=== PATIENT | male | born 1940 | race Caucasian/White ===

== ENCOUNTER → 2017-01-17 | Outpatient (CLI) | payer MEDICARE, BC ==
--- NOTE | 2017-01-19 11:36 | P.ARTDOP ---
Arterial Doppler LOWER EXTREMITY ARTERIAL DOPPLER: DATE OF SERVICE: 01/17/2017 Reason for study: : Cold Feet. Doppler waveforms: Multiphasic bilaterally throughout. Pulse volume recording: Normal configuration. Pressure gradients: None. Ankle-brachial indices: Greater than 1 bilaterally. Toe pressures: 82 on the right, 99 on the left Impression: Normal study.
== END | disposition home or self-care (01) ==
LOC: RADUSWWP 12:04
PROVIDERS: ATTEND Family Medicine
DX: R20.8 Other disturbances of skin sensation (principal)
CPT/HCPCS: 93923

== ENCOUNTER 2018-04-11 10:52 | Day surgery (SDC) | payer MEDICARE ==
[2018-04-03 15:45] VITALS: BMI 34.8
[~2018-04-11 10:52] MED LIST: LACTATED RINGERS 1,000 ML IV SCH; LIDOCAINE 1% 20 ML VIAL (10MG/ML) FOR IV START INTRADERMA PRN; MIDAZOLAM 2 MG/2 ML VIAL IV PRN; SODIUM CHLORIDE 0.9% 1,000 ML IV SCH; ceFAZolin 1,000 MG in SODIUM CHLORIDE 0.9% IRRIGATIO 250 ML IRRIGATION ONE; ceFAZolin IN SWFI 2 GM/20 ML SYRINGE IVP ONE
[2018-04-11] MEDS ORDERED: SODIUM CHLORIDE 0.9% 500 ML IV ONE (11:18)
[2018-04-11 11:40] VITALS: RESP 16; TEMP 97.5
[2018-04-11 11:49] LABS: Glucose,Whole Blood 99 mg/dL (75-99)
[2018-04-11 12:35] LABS: INR 1.3 (<1.2); Prothrombin Time 12.1 sec (9.0-12.0)
[2018-04-11] MEDS ORDERED: fentaNYL (PF) 50 MCG/ML 2 ML AMP IV ONE (12:35)
[2018-04-11] MEDS ORDERED: MIDAZOLAM 2 MG/2 ML VIAL IV ONE (12:35)
[2018-04-11] MEDS ORDERED: LIDOCAINE 1% INJ 10MG/ML (20 ML MDV) SQ ONE (12:40)
[2018-04-11] MEDS ORDERED: ACETAMINOPHEN TAB 325 MG TAB PO PRN (13:02)
--- NOTE | 2018-04-11 13:10 | P.PCN ---
Date of Procedure: 04/11/18 Preoperative Diagnosis: Battery depletion Postoperative Diagnosis: The same Procedure(s) Performed: Battery replacement Description of Procedure: HISTORY: This is a 78-year-old gentleman with history of permanent pacemaker implantation and also atrial fibrillation who was admitted [facility]. Patient was brought in for elective replacement. CONSENT: I have discussed the risks and benefits as related to the above mentioned procedure and both sedation/analgesia as well as necessary blood product administration. The patient has indicated understanding and acceptance of the risks of the procedure discussed. PROCEDURE: Patient was brought to the lab in a fasting state. Patient was given IV Versed and fentanyl for sedation. The skin over the existing pulse generator was infiltrated with lidocaine. An incision was made in the skin and was deepened until the pectoral fascia was exposed. Hemostasis was obtained. The existing pulse generator was pulled out of the pocket. The lead was disconnected and were checked for thresholds. Conscious Sedation: Versed 1mg Fentanyl 25 g Duration 19minutes THRESHOLDS: VENTRICULAR: The minimum patient threshold was 0.7 V at a pulse width of 0.5 ms R-wave: 8 mV THE LEADS: VENTRICULAR: This is manufactured by [employer] Model number is 4457. Serial number is [id number] THE EXPLANTED DEVICE: This is manufactured by [employer] Model number is S601 and the serial number is [id number] THE NEW DEVICE: This is manufactured by [employer]. Model number is [id number] and the serial number is [id number]. The leads were then connected to a new pulse generator. Pacemaker seems to function normally. The pocket was irrigated with antibiotics. The pocket was closed in the usual fashion. Pectoral fascia was closed with 2-0 Prolene, the subcutaneous tissue was closed with 3-0 Prolene and the skin was closed with 4- 0 Prolene. Patient tolerated the procedure well . Patient will be monitored on the telemetry unit for 2-3 hours. If stable patient be discharged home later today. PLAN: Patient will monitor for the next few hours. If stable patient be discharged home later today FALLOW UP: Follow up with Dr. Hall in a week. Patient will resume his Coumadin and continue rest of the medication. He is also getting prophylactic antibiotics.
[2018-04-11 15:00] VITALS: PULSE 50
[2018-04-11 17:24] VITALS: BP 138/79
== END 2018-04-11 17:24 | disposition home or self-care (01) ==
LOC: CATHEP 10:52
PROVIDERS: ATTEND Internal Medicine Cardiovascular Disease
DX: Z45.010 Encounter for checking and testing of cardiac pacemaker pulse generator [battery] (principal); I48.1 Persistent atrial fibrillation; I25.10 Atherosclerotic heart disease of native coronary artery without angina pectoris; I10 Essential (primary) hypertension; I71.4 Abdominal aortic aneurysm, without rupture; E78.2 Mixed hyperlipidemia; Z79.01 Long term (current) use of anticoagulants; Z79.4 Long term (current) use of insulin; Z79.899 Other long term (current) drug therapy; Z88.6 Allergy status to analgesic agent; Z88.1 Allergy status to other antibiotic agents; Z88.3 Allergy status to other anti-infective agents; Z88.5 Allergy status to narcotic agent; Z88.8 Allergy status to other drugs, medicaments and biological substances; Z88.2 Allergy status to sulfonamides
CPT/HCPCS: 85610; 33227; J2250; J2001; J3010; J0690; 33228

== ENCOUNTER → 2018-07-18 | Outpatient (CLI) | payer MEDICARE ==
[2018-07-18 09:43] LABS: INR 2.7 (<1.2); Prothrombin Time 24.3 sec (9.0-12.0)
== END ==
LOC: LABWHC1 08:47
PROVIDERS: ATTEND Dentist Oral and Maxillofacial Surgery
DX: D68.9 Coagulation defect, unspecified (principal)
CPT/HCPCS: 36415; 85610

== ENCOUNTER 2018-12-14 18:07 | Inpatient (IN) | payer MEDICARE ==
[2018-12-14] MEDS ORDERED: IPRATROPIUM-ALBUTEROL 3 ML NEB INHALATION STA (19:36)
--- NOTE | 2018-12-14 19:37 | ED ---
SOB HPI - General Source: patient, RN notes reviewed Mode of arrival: ambulatory Limitations: no limitations <Lonnie Saucedo - Last Filed: 12/14/18 20:36> <Pan Velazquez - Last Filed: 12/14/18 21:41> - General Chief Complaint: Shortness of Breath Stated Complaint: CHF Time Seen by Provider: 12/14/18 18:21 - History of Present Illness Initial Comments: 78-year-old male presents emergency Department chief complaint shortness of breath. Patient had increasing shortness breath over the last 1 week. Patient was seen at PCPs office today and sent here for CHF exacerbation. Patient has noticed some leg swelling, orthopnea. Patient was given Lasix injection in office. Patient denies any current chest pain but states he has shortness breath and slight tightness associated with this. Patient states he has no known lung disease. Patient had a pleural effusion which she had a thoracentesis in the past. Patient does not take any current Lasix. Patient denies fever or chills. (Lonnie Saucedo) - Related Data Home Medications Medication Instructions Recorded Confirmed Metoprolol Tartrate [Lopressor] 25 mg PO BID 02/28/14 12/14/18 Multivitamin [Men's Multi-Vitamin] 1 tab PO DAILY 02/28/14 12/14/18 Warfarin [Coumadin] 1 mg PO DAILY 12/27/14 12/14/18 Azithromycin [Zithromax Z-pack] See Taper PO DAILY 12/14/18 12/14/18 Benzonatate [Tessalon Perles] 100 mg PO TID PRN 12/14/18 12/14/18 Betamethasone/Propylene Glyc 1 applic TOPICAL DAILY PRN 12/14/18 12/14/18 [Betamethasone Dp Aug 0.05% Lot] Fenofibrate [Lofibra] 160 mg PO DAILY 12/14/18 12/14/18 Furosemide [Lasix] 20 mg PO MOWEFR 12/14/18 12/14/18 Insulin Glargine,Hum.rec.anlog 12 unit SQ HS 12/14/18 12/14/18 [Basaglar Kwikpen U-100] Lovastatin [Mevacor] 40 mg PO HS 12/14/18 12/14/18 Allergies Allergy/AdvReac Type Severity Reaction Status Date / Time doxazosin mesylate AdvReac Unknown Verified 12/14/18 18:44 [From Cardura] finasteride [From Proscar] AdvReac Unknown Verified 12/14/18 18:44 gatifloxacin [From Tequin] AdvReac Unknown Verified 12/14/18 18:44 glipizide AdvReac Unknown Verified 12/14/18 18:44 hydroxyzine HCl [From Atarax] AdvReac Unknown Verified 12/14/18 18:44 levofloxacin [From Levaquin] AdvReac Unknown Verified 12/14/18 18:44 lisinopril AdvReac Unknown Verified 12/14/18 18:44 meperidine HCl [From Demerol] AdvReac Unknown Verified 12/14/18 18:44 metformin AdvReac Unknown Verified 12/14/18 18:44 oxybutynin AdvReac Unknown Verified 12/14/18 18:44 oxybutynin chloride AdvReac Unknown Verified 12/14/18 18:44 [From Ditropan] pseudoephedrine HCl AdvReac Unknown Verified 12/14/18 18:44 [From Sudafed] rosuvastatin calcium AdvReac Unknown Verified 12/14/18 18:44 [From Crestor] Sulfa (Sulfonamide AdvReac Unknown Verified 12/14/18 18:44 Antibiotics) tamsulosin AdvReac Unknown Verified 12/14/18 18:44 tamsulosin HCl [From Flomax] AdvReac Unknown Verified 12/14/18 18:44 terazosin HCl [From Hytrin] AdvReac Unknown Verified 12/14/18 18:44 Review of Systems ROS Other: All systems not noted in ROS Statement are negative. <Lonnie Saucedo - Last Filed: 12/14/18 20:36> ROS Other: All systems not noted in ROS Statement are negative. <Pan Velazquez - Last Filed: 12/14/18 21:41> ROS Statement: Those systems with pertinent positive or pertinent negative responses have been documented in the HPI. Past Medical History Past Medical History: Atrial Fibrillation, Asthma, Chest Pain / Angina, Heart Failure, Diabetes Mellitus, Deep Vein Thrombosis (DVT), Eye Disorder, Hyperlip idemia, Hypertension, Prostate Disorder, Renal Disease, Sleep Apnea/CPAP/BIPAP Additional Past Medical History / Comment(s): See Dr. Deal H&P. unable to tolerate CPAP therapy, hx kidney stones, tonic atrial fibrillation, pacemaker insertion for sick sinus syndrome, abdominal aneurysm History of Any Multi-Drug Resistant Organisms: None Reported Past Surgical History: Heart Catheterization, Pacemaker, Prostate Surgery Additional Past Surgical History / Comment(s): ESWL. PACEMAKER INSERTION; TURP Past Anesthesia/Blood Transfusion Reactions: Motion Sickness Type of Cardiac Device: Permanent Pacemaker Device Placement Date:: 01/01/2009 Past Psychological History: No Psychological Hx Reported Smoking Status: Never smoker - Past Family History Mother Family Medical History: CVA/TIA, Hypertension Father Family Medical History: CVA/TIA <Lonnie Saucedo - Last Filed: 12/14/18 20:36> General Exam Limitations: no limitations General appearance: alert, in no apparent distress Head exam: Present: atraumatic, normocephalic, normal inspection Eye exam: Present: normal appearance, PERRL, EOMI. Absent: scleral icterus, conjunctival injection, periorbital swelling ENT exam: Present: normal exam, normal oropharynx, mucous membranes moist Neck exam: Present: normal inspection. Absent: tenderness, meningismus, lymphadenopathy Respiratory exam: Present: respiratory distress (mild), wheezes, rales. Absent: normal lung sounds bilaterally, rhonchi, stridor Cardiovascular Exam: Present: regular rate, normal rhythm, normal heart sounds. Absent: systolic murmur, diastolic murmur, rubs, gallop, clicks Extremities exam: Present: pedal edema Skin exam: Present: warm, dry, intact, normal color. Absent: rash <Lonnie Saucedo - Last Filed: 12/14/18 20:36> Course <Pan Velazquez - Last Filed: 12/14/18 21:41> Vital Signs 12/14/18 12/14/18 12/14/18 18:07 19:55 20:07 Temperature 98.3 F Pulse Rate 88 49 L 50 L Respiratory 22 Rate Blood Pressure 171/78 O2 Sat by Pulse 92 L Oximetry 12/14/18 21:00 Temperature Pulse Rate 65 Respiratory 20 Rate Blood Pressure 165/80 O2 Sat by Pulse 99 Oximetry - Reevaluation(s) Reevaluation #1: 12/14/18 20:50 PA supervision: I proceeded [id number] evaluation the patient he was sent in from his doctor's office after presenting with complaints of one week of progressively worsening shortness of breath some exertional dyspnea. He is found to have some rales and wheezes diminished breath sounds. Exam is consistent with congestive heart failure. He does have elevated BNP does have cardiomegaly and evidence of pulmonary venous congestion. He will be admitted the case is discussed with Dr. Sampson and I do agree with the assessment and plan. (Pan Velazquez) Reevaluation #2: 12/14/18 21:41 The case today she discussed with Dr. Regan who is covering tonight. (Pan Velazquez) Medical Decision Making - Lab Data Result diagrams: 12/14/18 19:39 12/14/18 19:39 <Lonnie Saucedo - Last Filed: 12/14/18 20:36> - Lab Data Result diagrams: 12/14/18 19:39 12/14/18 19:39 <Pan Velazquez - Last Filed: 12/14/18 21:41> - Medical Decision Making 78-year-old male presented from for dyspnea. Patient has elevated BNP, , chest x-ray shows mild pulmonary edema. Patient be admitted for IV Lasix. Patient did receive Lasix prior arrival. Patient will continue doing treatments. (Lonnie Saucedo) - Lab Data Lab Results 12/14/18 12/14/18 12/14/18 Range/Units 19:39 19:39 19:39 WBC 7.5 (3.8-10.6) k/uL RBC 4.62 (4.30-5.90) m/uL Hgb 14.0 (13.0-17.5) gm/dL Hct 45.0 (39.0-53.0) % MCV 97.3 (80.0-100.0) fL MCH 30.3 (25.0-35.0) pg MCHC 31.2 (31.0-37.0) g/dL RDW 15.7 H (11.5-15.5) % Plt Count 186 (150-450) k/uL Neutrophils % 69 % Lymphocytes % 18 % Monocytes % 7 % Eosinophils % 3 % Basophils % 1 % Neutrophils # 5.2 (1.3-7.7) k/uL Lymphocytes # 1.3 (1.0-4.8) k/uL Monocytes # 0.5 (0-1.0) k/uL Eosinophils # 0.2 (0-0.7) k/uL Basophils # 0.0 (0-0.2) k/uL PT (9.0-12.0) sec INR (<1.2) APTT (22.0-30.0) sec Sodium 142 (137-145) mmol/L Potassium 5.4 H (3.5-5.1) mmol/L Chloride 106 (98-107) mmol/L Carbon Dioxide 29 (22-30) mmol/L Anion Gap 7 mmol/L BUN 26 H (9-20) mg/dL Creatinine 1.46 H (0.66-1.25) mg/dL Est GFR (CKD-EPI)AfAm 52 (>60 ml/min/1.73 sqM) Est GFR (CKD-EPI)NonAf 45 (>60 ml/min/1.73 sqM) Glucose 112 H (74-99) mg/dL Calcium 9.7 (8.4-10.2) mg/dL Magnesium 1.9 (1.6-2.3) mg/dL Total Bilirubin 1.0 (0.2-1.3) mg/dL AST 37 (17-59) U/L ALT 19 L (21-72) U/L Alkaline Phosphatase 37 L (38-126) U/L Troponin I (0.000-0.034) ng/mL NT-Pro-B Natriuret Pep 3470 pg/mL Total Protein 8.8 H (6.3-8.2) g/dL Albumin 4.7 (3.5-5.0) g/dL 12/14/18 12/14/18 Range/Units 19:39 19:39 WBC (3.8-10.6) k/uL RBC (4.30-5.90) m/uL Hgb (13.0-17.5) gm/dL Hct (39.0-53.0) % MCV (80.0-100.0) fL MCH (25.0-35.0) pg MCHC (31.0-37.0) g/dL RDW (11.5-15.5) % Plt Count (150-450) k/uL Neutrophils % % Lymphocytes % % Monocytes % % Eosinophils % % Basophils % % Neutrophils # (1.3-7.7) k/uL Lymphocytes # (1.0-4.8) k/uL Monocytes # (0-1.0) k/uL Eosinophils # (0-0.7) k/uL Basophils # (0-0.2) k/uL PT 23.2 H (9.0-12.0) sec INR 2.4 H (<1.2) APTT 31.1 H (22.0-30.0) sec Sodium (137-145) mmol/L Potassium (3.5-5.1) mmol/L Chloride (98-107) mmol/L Carbon Dioxide (22-30) mmol/L Anion Gap mmol/L BUN (9-20) mg/dL Creatinine (0.66-1.25) mg/dL Est GFR (CKD-EPI)AfAm (>60 ml/min/1.73 sqM) Est GFR (CKD-EPI)NonAf (>60 ml/min/1.73 sqM) Glucose (74-99) mg/dL Calcium (8.4-10.2) mg/dL Magnesium (1.6-2.3) mg/dL Total Bilirubin (0.2-1.3) mg/dL AST (17-59) U/L ALT (21-72) U/L Alkaline Phosphatase (38-126) U/L Troponin I 0.049 H* (0.000-0.034) ng/mL NT-Pro-B Natriuret Pep pg/mL Total Protein (6.3-8.2) g/dL Albumin (3.5-5.0) g/dL Disposition <Lonnie Saucedo - Last Filed: 12/14/18 20:36> <Pan Velazquez - Last Filed: 12/14/18 21:41> Clinical Impression: Acute exacerbation of CHF (congestive heart failure), Dyspnea, Renal insufficiency syndrome, Elevated troponin Disposition: ADMITTED IP TO THIS HOSP Condition: Fair Referrals: Lonnie Hewitt DO [Primary Care Provider] - 1-2 days
[2018-12-14 19:54] LABS: Basophils % (A) 1 %; Eosinophils # (A) 0.2 k/uL (0-0.7); Eosinophils % (A) 3 %; Lymphocytes # (A) 1.3 k/uL (1.0-4.8); Lymphocytes % (A) 18 %; MCH 30.3 pg (25.0-35.0); MCHC 31.2 g/dL (31.0-37.0); MCV 97.3 fL (80.0-100.0); Mean Platelet Volume 7.9; Monocytes # (A) 0.5 k/uL (0-1.0); Monocytes % (A) 7 %; Neutrophils # (A) 5.2 k/uL (1.3-7.7); Neutrophils % (A) 69 %; Platelet Count 186 k/uL (150-450); RBC 4.62 m/uL (4.30-5.90); RDW 15.7 % (11.5-15.5); WBC 7.5 k/uL (3.8-10.6)
[2018-12-14 20:01] LABS: INR 2.4 (<1.2); Partial Thromboplastin Time 31.1 sec (22.0-30.0); Prothrombin Time 23.2 sec (9.0-12.0)
[2018-12-14 20:04] LABS: Albumin 4.7 g/dL (3.5-5.0); Calcium 9.7 mg/dL (8.4-10.2); Magnesium 1.9 mg/dL (1.6-2.3); Total Protein 8.8 g/dL (6.3-8.2)
[2018-12-14 20:13] LABS: Potassium 5.4 mmol/L (3.5-5.1)
[2018-12-14] MEDS ORDERED: FUROSEMIDE 10 MG/ML 2 ML VIAL IV ONE (20:39)
[2018-12-15] MEDS: IPRATROPIUM-ALBUTEROL 3 ML NEB INHALATION SCH ×7 (02:59→23:15)
[2018-12-15] MEDS: FUROSEMIDE 10 MG/ML 4 ML VIAL IV SCH ×2 (09:01→21:07)
[2018-12-15 11:45] LABS: Glucose,Whole Blood 129 mg/dL (75-99)
[2018-12-15] MEDS ORDERED: BENZONATATE 100 MG CAP PO PRN (14:09)
[2018-12-15] MEDS ORDERED: TRIAMCINOLONE 0.1% CREAM 80 GM TUBE TOPICAL PRN (14:09)
[2018-12-15] MEDS ORDERED: METOPROLOL TARTRATE 25 MG TAB PO STA (15:09)
[2018-12-15 16:04] VITALS: BMI 35.2
[2018-12-15 16:24] LABS: Glucose,Whole Blood 139 mg/dL (75-99)
[2018-12-15] MEDS: WARFARIN 1 MG TAB PO SCH (17:19)
[2018-12-15] MEDS: INSULIN DETEMIR (LEVEMIR) 100 UNIT/ML SYR SQ SCH (21:06)
[2018-12-15] MEDS: METOPROLOL TARTRATE 25 MG TAB PO SCH (21:07)
[2018-12-15] MEDS: ATORVASTATIN 10 MG TAB PO SCH (21:07)
[2018-12-15 21:13] LABS: Glucose,Whole Blood 167 mg/dL (75-99)
[2018-12-16] MEDS: IPRATROPIUM-ALBUTEROL 3 ML NEB INHALATION SCH ×6 (03:14→23:29)
[2018-12-16 05:49] LABS: Glucose,Whole Blood 104 mg/dL (75-99)
[2018-12-16 08:04] LABS: Calcium 9.3 mg/dL (8.4-10.2); Potassium 4.3 mmol/L (3.5-5.1)
[2018-12-16 08:20] LABS: Basophils % (A) 0 %; Eosinophils # (A) 0.2 k/uL (0-0.7); Eosinophils % (A) 3 %; HCT 41.9 % (39.0-53.0); HGB 13.3 gm/dL (13.0-17.5); Lymphocytes # (A) 1.2 k/uL (1.0-4.8); Lymphocytes % (A) 17 %; MCH 30.5 pg (25.0-35.0); MCHC 31.7 g/dL (31.0-37.0); MCV 96.2 fL (80.0-100.0); Mean Platelet Volume 7.7; Monocytes # (A) 0.6 k/uL (0-1.0); Monocytes % (A) 8 %; Neutrophils # (A) 4.9 k/uL (1.3-7.7); Neutrophils % (A) 68 %; Platelet Count 179 k/uL (150-450); RBC 4.36 m/uL (4.30-5.90); RDW 14.6 % (11.5-15.5); WBC 7.2 k/uL (3.8-10.6)
[2018-12-16] MEDS: METOPROLOL TARTRATE 25 MG TAB PO SCH ×2 (09:16→20:47)
[2018-12-16] MEDS: FENOFIBRATE 160 MG TAB PO SCH (09:16)
[2018-12-16] MEDS: FUROSEMIDE 10 MG/ML 4 ML VIAL IV SCH ×2 (09:16→19:32)
[2018-12-16 11:21] LABS: Glucose,Whole Blood 168 mg/dL (75-99)
[2018-12-16 13:07] LABS: INR 1.8 (<1.2); Prothrombin Time 17.8 sec (9.0-12.0)
[2018-12-16] MEDS: MULTIVITAMINS, THERA 1 EACH TAB PO SCH (13:15)
--- NOTE | 2018-12-16 15:09 | P.HPIM ---
History of Present Illness H&P Date: 12/15/18 Chief Complaint: Shortness of breath 78-year-old male presents emergency Department chief complaint shortness of breath. Patient had increasing shortness breath over the last 1 week. Patient was seen at PCPs office today and sent here for CHF exacerbation. Patient has noticed some leg swelling, orthopnea. Patient was given Lasix injection in office. Patient denies any current chest pain but states he has shortness breath and slight tightness associated with this. Patient states he has no known lung disease. Patient had a pleural effusion which she had a thoracen tesis in the past. Patient does not take any current Lasix. Patient denies fever or chills. Workup in ED was significant for an elevated BNP and chest x-ray showing mild pulmonary edema; patient is started on IV Lasix and is admitted for further treatment and evaluation Review of Systems Constitutional: Denies chills, Denies fever Eyes: denies blurred vision, denies loss of vision Cardiovascular: Reports dyspnea on exertion, Reports shortness of breath, Denies chest pain, Denies palpitations Respiratory: Denies cough with sputum Gastrointestinal: Denies abdominal pain, Denies nausea, Denies vomiting Musculoskeletal: Denies gait dysfunction, Denies muscle weakness Neurological: Denies confusion, Denies double vision, Denies gait dysfunction, Denies paresthesias Endocrine: Denies cold intolerance, Denies heat intolerance 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, past L pleural effusion with thoracentesis, DVT L lower extremity, BPH with surgery, CKD, kiney stones with surgery, abdominal aortic aneurysm being monitored every 6 months, STEPHAN-unable to tolerate CPap, SSS with pacemaker, vertigo in the past, seasonal allergies History of Any Multi-Drug Resistant Organisms: None Reported Past Surgical History: Heart Catheterization, Pacemaker, Prostate Surgery Additional Past Surgical History / Comment(s): Pacemaker inserted 01/01/09 and gen change 04/11/18, TURP, ESWL, cysto/TURP, colonoscopy Past Anesthesia/Blood Transfusion Reactions: Motion Sickness Type of Cardiac Device: Permanent Pacemaker Device Placement Date:: 01/01/2009 and gen change 03/2018 Smoking Status: Former smoker - Past Family History Mother Family Medical History: CVA/TIA, Hypertension Additional Family Medical History / Comment(s): Mother lived to be 85yrs old. Father Family Medical History: CVA/TIA Additional Family Medical History / Comment(s): Father from a CVA at the age of 78yrs. Medications and Allergies Home Medications Medication Instructions Recorded Confirmed Type Metoprolol Tartrate [Lopressor] 25 mg PO BID 02/28/14 12/14/18 History Multivitamin [Men's Multi-Vitamin] 1 tab PO DAILY 02/28/14 12/14/18 History Warfarin [Coumadin] 1 mg PO DAILY 12/27/14 12/14/18 History Benzonatate [Tessalon Perles] 100 mg PO TID PRN 12/14/18 12/14/18 History Betamethasone/Propylene Glyc 1 applic TOPICAL DAILY PRN 12/14/18 12/14/18 History [Betamethasone Dp Aug 0.05% Lot] Fenofibrate [Lofibra] 160 mg PO DAILY 12/14/18 12/14/18 History Furosemide [Lasix] 20 mg PO MOWEFR 12/14/18 12/14/18 History Insulin Glargine,Hum.rec.anlog 12 unit SQ HS 12/14/18 12/14/18 History [Basaglar Kwikpen U-100] Lovastatin [Mevacor] 40 mg PO HS 12/14/18 12/14/18 History Allergies Allergy/AdvReac Type Severity Reaction Status Date / Time doxazosin mesylate AdvReac Unknown Verified 12/14/18 18:44 [From Cardura] finasteride [From Proscar] AdvReac Unknown Verified 12/14/18 18:44 gatifloxacin [From Tequin] AdvReac Unknown Verified 12/14/18 18:44 glipizide AdvReac Unknown Verified 12/14/18 18:44 hydroxyzine HCl [From Atarax] AdvReac Unknown Verified 12/14/18 18:44 levofloxacin [From Levaquin] AdvReac Unknown Verified 12/14/18 18:44 lisinopril AdvReac Unknown Verified 12/14/18 18:44 meperidine HCl [From Demerol] AdvReac Unknown Verified 12/14/18 18:44 metformin AdvReac Unknown Verified 12/14/18 18:44 oxybutynin AdvReac Unknown Verified 12/14/18 18:44 oxybutynin chloride AdvReac Unknown Verified 12/14/18 18:44 [From Ditropan] pseudoephedrine HCl AdvReac Unknown Verified 12/14/18 18:44 [From Sudafed] rosuvastatin calcium AdvReac Unknown Verified 12/14/18 18:44 [From Crestor] Sulfa (Sulfonamide AdvReac Unknown Verified 12/14/18 18:44 Antibiotics) tamsulosin AdvReac Unknown Verified 12/14/18 18:44 tamsulosin HCl [From Flomax] AdvReac Unknown Verified 12/14/18 18:44 terazosin HCl [From Hytrin] AdvReac Unknown Verified 12/14/18 18:44 Physical Exam Vitals: Vital Signs Temp Pulse Pulse Resp BP BP Pulse Ox 12/15/18 12:30 84 16 12/15/18 12:20 84 16 12/15/18 11:30 98.1 F 82 16 137/65 90 L 12/15/18 11:00 98.0 F 60 16 133/60 97 12/15/18 09:00 98.2 F 53 L 18 132/58 97 12/15/18 08:17 50 L 12/15/18 08:11 56 L 12/15/18 07:29 87 18 137/60 96 12/15/18 06:26 98.1 F 64 16 137/65 97 12/15/18 03:08 50 L 12/15/18 03:00 55 L 12/15/18 02:24 60 24 148/69 96 12/14/18 23:00 99.2 F 55 L 20 147/54 94 L 12/14/18 21:00 65 20 165/80 99 12/14/18 20:07 50 L 12/14/18 19:55 49 L 12/14/18 18:07 98.3 F 88 22 171/78 92 L Intake and Output 12/14/18 12/15/18 12/15/18 22:59 06:59 14:59 Intake Total 308 240 Output Total 794 853 7537 Balance -200 -217 -985 Intake: Oral 308 240 Output: Urine 371 305 6257 Other: Voiding Method Urinal # Voids 3 Weight 99.79 kg 98.9 kg Limitations: no limitations General appearance: alert, in no apparent distress Head exam: Present: atraumatic, normocephalic, normal inspection Eye exam: Present: normal appearance, PERRL, EOMI. Absent: scleral icterus, conjunctival injection, periorbital swelling ENT exam: Present: normal exam, normal oropharynx, mucous membranes moist Neck exam: Present: normal inspection. Absent: tenderness, meningismus, lymphadenopathy Respiratory exam: Present: respiratory distress (mild), wheezes, rales. Absent: normal lung sounds bilaterally, rhonchi, stridor Cardiovascular Exam: Present: regular rate, normal rhythm, normal heart sounds. Absent: systolic murmur, diastolic murmur, rubs, gallop, clicks Extremities exam: Present: pedal edema Skin exam: Present: warm, dry, intact, normal color. Absent: rash Results CBC & Chem 7: 12/16/18 06:49 12/16/18 06:49 Labs: Abnormal Lab Results - Last 24 Hours (Table) 12/14/18 12/14/18 12/14/18 Range/Units 19:39 19:39 19:39 RDW 15.7 H (11.5-15.5) % PT 23.2 H (9.0-12.0) sec INR 2.4 H (<1.2) APTT 31.1 H (22.0-30.0) sec Potassium 5.4 H (3.5-5.1) mmol/L BUN 26 H (9-20) mg/dL Creatinine 1.46 H (0.66-1.25) mg/dL Glucose 112 H (74-99) mg/dL POC Glucose (mg/dL) (75-99) mg/dL ALT 19 L (21-72) U/L Alkaline Phosphatase 37 L (38-126) U/L Troponin I (0.000-0.034) ng/mL Total Protein 8.8 H (6.3-8.2) g/dL 12/14/18 12/15/18 12/15/18 Range/Units 19:39 03:52 07:48 RDW (11.5-15.5) % PT (9.0-12.0) sec INR (<1.2) APTT (22.0-30.0) sec Potassium (3.5-5.1) mmol/L BUN (9-20) mg/dL Creatinine (0.66-1.25) mg/dL Glucose (74-99) mg/dL POC Glucose (mg/dL) (75-99) mg/dL ALT (21-72) U/L Alkaline Phosphatase (38-126) U/L Troponin I 0.049 H* 0.050 H* 0.055 H* (0.000-0.034) ng/mL Total Protein (6.3-8.2) g/dL 12/15/18 Range/Units 11:38 RDW (11.5-15.5) % PT (9.0-12.0) sec INR (<1.2) APTT (22.0-30.0) sec Potassium (3.5-5.1) mmol/L BUN (9-20) mg/dL Creatinine (0.66-1.25) mg/dL Glucose (74-99) mg/dL POC Glucose (mg/dL) 129 H (75-99) mg/dL ALT (21-72) U/L Alkaline Phosphatase (38-126) U/L Troponin I (0.000-0.034) ng/mL Total Protein (6.3-8.2) g/dL Thrombosis Risk Factor Assmnt - Choose All That Apply Any of the Below Risk Factors Present?: Yes Each Factor Represents 1 point: Heart failure (<1month), Obesity (BMI >25) Other Risk Factors: Yes Each Risk Factor Represents 3 Points: Age 75 years or older, History of DVT/PE Thrombosis Risk Factor Assessment Total Risk Factor Score: 8 Thrombosis Risk Factor Assessment Level: High Risk Assessment and Plan Assessment: 1. Acute exacerbation CHF - Patient remains on Lasix 40 mg IV every 12 hours - We will continue to monitor PAUL's, daily weights, renal function and electrolytes - We will continue to trend troponin and monitor EKG - Order 2-D echo; further recommendations after echocardiogram is completed 2. Severe acute bronchitis; patient had an incomplete course of antibiotic therapy as outpatient - Continues to complain of coughing up thick yellow sputum; we will start patient on oral doxycycline; order bronchodilator nebulizer treatments 4. Acute renal injury; we will hold off IV fluid hydration due to CHF exacerbation - We will monitor PAUL's and daily weights; monitor renal function and electrolytes closely and consult nephrology if renal function continues to worsen 5. Hyperkalemia; secondary to renal injury; we will monitor electrolytes closely 6. Chronic atrial fibrillation; rate controlled on metoprolol 25 mg twice a day and remains on anticoagulation with Coumadin with therapeutic INR 7. Diabetes mellitus; continue with home dose of Levemir 12 units subcu daily at bedtime; monitor Accu-Cheks every before meals and at bedtime with insulin sliding scale 8. Hypertension; continue with home dose of metoprolol 25 mg twice a day 9. Hyperlipidemia; continue with Lipitor 10 mg by mouth daily at bedtime and fenofibrate 160 mg daily 10. DVT prophylaxis; systemic anticoagulation with Coumadin CODE STATUS; DO NOT RESUSCITATE Time with Patient: Greater than 30
[2018-12-16 17:01] LABS: Glucose,Whole Blood 172 mg/dL (75-99)
[2018-12-16] MEDS: WARFARIN 1 MG TAB PO SCH (17:57)
[2018-12-16] MEDS: INSULIN DETEMIR (LEVEMIR) 100 UNIT/ML SYR SQ SCH (20:46)
[2018-12-16] MEDS: DOXYCYCLINE 100 MG CAP PO SCH (20:47)
[2018-12-16] MEDS: ATORVASTATIN 10 MG TAB PO SCH (20:47)
[2018-12-16 21:09] LABS: Glucose,Whole Blood 147 mg/dL (75-99)
[2018-12-17] MEDS: IPRATROPIUM-ALBUTEROL 3 ML NEB INHALATION SCH ×6 (03:29→23:25)
[2018-12-17 06:29] LABS: Glucose,Whole Blood 110 mg/dL (75-99)
[2018-12-17] MEDS: DOXYCYCLINE 100 MG CAP PO SCH ×2 (09:51→20:29)
[2018-12-17] MEDS: FENOFIBRATE 160 MG TAB PO SCH (09:51)
[2018-12-17] MEDS: METOPROLOL TARTRATE 25 MG TAB PO SCH ×2 (09:52→20:26)
[2018-12-17] MEDS: FUROSEMIDE 10 MG/ML 4 ML VIAL IV SCH ×2 (09:52→20:26)
--- NOTE | 2018-12-17 11:32 | P.PN ---
Subjective Progress Note Date: 12/16/18 Principal diagnosis: Acute exacerbation CHF Severe acute bronchitis 78-year-old male presents emergency Department chief complaint shortness of breath. Patient had increasing shortness breath over the last 1 week. Patient was seen at PCPs office today and sent here for CHF exacerbation. Patient has noticed some leg swelling, orthopnea. Patient was given Lasix injection in office. Patient denies any current chest pain but states he has shortness breath and slight tightness associated with this. Patient states he has no known lung disease. Patient had a pleural effusion which she had a thoracentesis in the past. Patient does not take any current Lasix. 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 Fall on Tuesday Vital signs are reviewed showing a temperature of 98.1, pulse 54, respiration 18 and blood pressure of 121/57; O2 saturation of 98% on 2 L; review off daily weights indicate an increase in weight by 2 pounds Labs are reviewed and CBC is stable, patient has an INR of 1.8; potassium level is improved from 5.4 yesterday to 4.3; creatinine improved from 1.46 yesterday to 1.24 We await cardiology recommendations and echocardiogram Objective - Vital Signs Vital signs: Vital Signs Temp 98.2 F 12/16/18 08:00 Pulse 68 12/16/18 11:38 Resp 18 12/16/18 12:00 BP 151/67 12/16/18 08:00 Pulse Ox 90 L 12/16/18 08:00 Intake & Output 12/15/18 12/16/18 12/16/18 18:59 06:59 18:59 Intake Total 600 460 Output Total 1525 650 Balance -925 -650 460 Weight 98.9 kg 100 kg Intake: Oral 600 460 Output: Urine 1525 650 Other: Voiding Method Urinal Urinal Urinal # Voids 3 4 - Exam Limitations: no limitations General appearance: alert, in no apparent distress Head exam: Present: atraumatic, normocephalic, normal inspection Eye exam: Present: normal appearance, PERRL, EOMI. Absent: scleral icterus, conjunctival injection, periorbital swelling ENT exam: Present: normal exam, normal oropharynx, mucous membranes moist Neck exam: Present: normal inspection. Absent: tenderness, meningismus, lymphadenopathy Respiratory exam: Present: respiratory distress (mild), wheezes, rales. Absent: normal lung sounds bilaterally, rhonchi, stridor Cardiovascular Exam: Present: regular rate, normal rhythm, normal heart sounds. Absent: systolic murmur, diastolic murmur, rubs, gallop, clicks Extremities exam: Present: pedal edema Skin exam: Present: warm, dry, intact, normal color. Absent: rash - Labs CBC & Chem 7: 12/16/18 06:49 12/16/18 06:49 Labs: Abnormal Lab Results - Last 24 Hours (Table) 12/15/18 12/15/18 12/15/18 Range/Units 16:22 20:59 21:11 PT (9.0-12.0) sec INR (<1.2) Carbon Dioxide (22-30) mmol/L BUN (9-20) mg/dL Glucose (74-99) mg/dL POC Glucose (mg/dL) 139 H 167 H (75-99) mg/dL Troponin I 0.051 H* (0.000-0.034) ng/mL 12/16/18 12/16/18 12/16/18 Range/Units 05:48 06:49 11:19 PT (9.0-12.0) sec INR (<1.2) Carbon Dioxide 33 H (22-30) mmol/L BUN 30 H (9-20) mg/dL Glucose 121 H (74-99) mg/dL POC Glucose (mg/dL) 104 H 168 H (75-99) mg/dL Troponin I (0.000-0.034) ng/mL 12/16/18 Range/Units 11:58 PT 17.8 H (9.0-12.0) sec INR 1.8 H (<1.2) Carbon Dioxide (22-30) mmol/L BUN (9-20) mg/dL Glucose (74-99) mg/dL POC Glucose (mg/dL) (75-99) mg/dL Troponin I (0.000-0.034) ng/mL Assessment and Plan Assessment: 1. Acute exacerbation CHF - Patient remains on Lasix 40 mg IV every 12 hours - We will continue to monitor PAUL's, daily weights, renal function and electrolytes - We will continue to trend troponin and monitor EKG - Order 2-D echo; further recommendations after echocardiogram is completed 2. Severe acute bronchitis; patient had an incomplete course of antibiotic therapy as outpatient - Continues to complain of coughing up thick yellow sputum; we will start patient on oral doxycycline; order bronchodilator nebulizer treatments 4. Acute renal injury; we will hold off IV fluid hydration due to CHF exacerbation - We will monitor PAUL's and daily weights; monitor renal function and edelmira ctrolytes closely and consult nephrology if renal function continues to worsen 5. Hyperkalemia; secondary to renal injury; we will monitor electrolytes closely 6. Chronic atrial fibrillation; rate controlled on metoprolol 25 mg twice a day and remains on anticoagulation with Coumadin with therapeutic INR 7. Diabetes mellitus; continue with home dose of Levemir 12 units subcu daily at bedtime; monitor Accu-Cheks every before meals and at bedtime with insulin sliding scale 8. Hypertension; continue with home dose of metoprolol 25 mg twice a day 9. Hyperlipidemia; continue with Lipitor 10 mg by mouth daily at bedtime and fenofibrate 160 mg daily 10. DVT prophylaxis; systemic anticoagulation with Coumadin CODE STATUS; DO NOT RESUSCITATE Time with Patient: Greater than 30
[2018-12-17 11:50] LABS: Glucose,Whole Blood 134 mg/dL (75-99)
[2018-12-17 11:50] LABS: Basophils % (A) 0 %; Eosinophils # (A) 0.3 k/uL (0-0.7); Eosinophils % (A) 4 %; HCT 45.7 % (39.0-53.0); HGB 14.7 gm/dL (13.0-17.5); Lymphocytes # (A) 1.3 k/uL (1.0-4.8); Lymphocytes % (A) 15 %; MCH 31.4 pg (25.0-35.0); MCHC 32.2 g/dL (31.0-37.0); MCV 97.3 fL (80.0-100.0); Mean Platelet Volume 7.3; Monocytes # (A) 0.4 k/uL (0-1.0); Monocytes % (A) 4 %; Neutrophils # (A) 6.1 k/uL (1.3-7.7); Neutrophils % (A) 74 %; Platelet Count 208 k/uL (150-450); RBC 4.69 m/uL (4.30-5.90); WBC 8.3 k/uL (3.8-10.6)
[2018-12-17 12:12] LABS: INR 1.6 (<1.2); Prothrombin Time 15.9 sec (9.0-12.0)
[2018-12-17 12:16] LABS: Calcium 9.6 mg/dL (8.4-10.2); Potassium 4.5 mmol/L (3.5-5.1)
[2018-12-17] MEDS: MULTIVITAMINS, THERA 1 EACH TAB PO SCH (12:30)
--- NOTE | 2018-12-17 13:08 | CONS ---
CONSULTATION CHIEF COMPLAINT: Worsening leg edema and shortness of breath. This is an 78-year-old gentleman with history of chronic congestive heart failure, pacemaker, atrial fibrillation, diabetes, hypertension, dyslipidemia, sleep apnea, who presented to hospital complaining of 1 weeks duration of shortness of breath, leg edema, and not feeling well. Symptoms were moderate to severe intensity, came on at rest without clear-cut relieving or exacerbating factors. Shortness of breath got worse with activity and was improved following IV Lasix. On his presentation to the emergency room his BNP was elevated. Chest x-ray revealed pulmonary congestion. He is feeling better this morning. PAST MEDICAL HISTORY: Significant for atrial fibrillation, hypertension, diabetes, dyslipidemia, pacemaker. PAST SURGICAL HISTORY: Significant for abdominal aortic aneurysm that is being monitored. MEDICATIONS AT HOME: Include Coumadin, multivitamin, Lofibra, Lasix, insulin, lovastatin. ALLERGIES: There are multiple drug allergies and I reviewed them. FAMILY HISTORY: Negative for premature coronary artery disease. SOCIAL HISTORY: Negative for current smoking, EtOH abuse, or drug abuse. REVIEW OF SYSTEMS: HEENT: Unremarkable. CARDIAC: As described above. RESPIRATORY: As described above. GI: Negative. GENITOURINARY: Negative. ALLERGY: None. SKIN: Negative. MUSCULOSKELETAL: Significant for arthritis. PSYCHOSOCIAL: Negative. ENDOCRINE: Diabetes. CONSTITUTIONAL: Negative. ONCOLOGICAL: Negative. The rest of the system review is not relevant. EXAM: Patient is comfortable at rest. Vital signs are stable. There is no jugular venous distention. Carotid upstroke is normal. There is no bruit. Chest exam reveals good air entry bilaterally. Heart exam reveals first and second heart sounds. No gallop. No murmur. Abdomen is soft. Exam of extremities reveals bilateral moderate pitting edema. LAB: Showed that the BNP is elevated. BUN is 30, creatinine is 1.2. Troponins are elevated but there is no clear pattern to them. Potassium is 4.3, hemoglobin is 13.3. ASSESSMENT: 1. Acute exacerbation of chronic congestive heart failure. We do not have his LV function status with us. 2. Chronic atrial fibrillation. 3. Hypertension. 4. Insulin-requiring diabetes. PLAN: I will treat the patient with intravenous Lasix. Continue the Lopressor. Continue the Lipitor and add an JAYANT inhibitor. We will obtain a 2D echo to evaluate his LV function. Please continue the Coumadin to maintain an INR of 2-2.5. JD / IJN: [id number] /
--- NOTE | 2018-12-17 15:05 | P.PN ---
Subjective Progress Note Date: 12/17/18 Principal diagnosis: Acute exacerbation CHF Severe acute bronchitis 78-year-old male presents emergency Department chief complaint shortness of breath. Patient had increasing shortness breath over the last 1 week. Patient was seen at PCPs office today and sent here for CHF exacerbation. Patient has noticed some leg swelling, orthopnea. Patient was given Lasix injection in office. Patient denies any current chest pain but states he has shortness breath and slight tightness associated with this. Patient states he has no known lung disease. Patient had a pleural effusion which she had a thoracentesis in the past. Patient does not take any current Lasix. 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 Vital signs are reviewed showing a temperature of 98.1, pulse 54, respiration 18 and blood pressure of 121/57; O2 saturation of 98% on 2 L; review off daily weights indicate an increase in weight by 2 pounds Labs are reviewed and CBC is stable, patient has an INR of 1.8; potassium level is improved from 5.4 yesterday to 4.3; creatinine improved from 1.46 yesterday to 1.24 We await cardiology recommendations and echocardiogram 12/17/2018 Patient continues to complain of cough with large amount of mucus; relates he gets easily short of breath cardiology has seen the patient and recommending to continue with IV Lasix, beta blockers, statins with addition of an JAYANT inhibitor; further recommendations after echocardiogram is done to evaluate left ventricular function; continue with home dose of Coumadin Family is requesting evaluation by pulmonary service for persistent cough; we will continue with bronchodilator nebulizer treatment and doxycycline until further recommendations from pulmonary service Objective - Vital Signs Vital signs: Vital Signs Temp 97.6 F 12/17/18 08:30 Pulse 56 L 12/17/18 11:37 Resp 18 12/17/18 08:30 BP 141/77 12/17/18 08:30 Pulse Ox 94 L 12/17/18 08:30 Intake & Output 12/16/18 12/17/18 12/17/18 18:59 06:59 18:59 Intake Total 620 240 Output Total 1600 Balance 620 -1360 Weight 98.6 kg Intake: Oral 620 240 Output: Urine 1600 Other: Voiding Method Urinal Urinal Urinal # Voids 4 - Exam Limitations: no limitations General appearance: alert, in no apparent distress Head exam: Present: atraumatic, normocephalic, normal inspection Eye exam: Present: normal appearance, PERRL, EOMI. Absent: scleral icterus, conjunctival injection, periorbital swelling ENT exam: Present: normal exam, normal oropharynx, mucous membranes moist Neck exam: Present: normal inspection. Absent: tenderness, meningismus, lymph adenopathy Respiratory exam: Present: respiratory distress (mild), wheezes, rales. Absent: normal lung sounds bilaterally, rhonchi, stridor Cardiovascular Exam: Present: regular rate, normal rhythm, normal heart sounds. Absent: systolic murmur, diastolic murmur, rubs, gallop, clicks Extremities exam: Present: pedal edema Skin exam: Present: warm, dry, intact, normal color. Absent: rash - Labs CBC & Chem 7: 12/17/18 11:36 12/17/18 11:36 Labs: Abnormal Lab Results - Last 24 Hours (Table) 12/16/18 12/16/18 12/16/18 Range/Units 11:58 16:18 16:59 PT 17.8 H (9.0-12.0) sec INR 1.8 H (<1.2) POC Glucose (mg/dL) 172 H (75-99) mg/dL Troponin I 0.048 H* (0.000-0.034) ng/mL 12/16/18 12/17/18 Range/Units 21:08 06:28 PT (9.0-12.0) sec INR (<1.2) POC Glucose (mg/dL) 147 H 110 H (75-99) mg/dL Troponin I (0.000-0.034) ng/mL Assessment and Plan Assessment: 1. Acute exacerbation CHF - Patient remains on Lasix 40 mg IV every 12 hours - We will continue to monitor PAUL's, daily weights, renal function and electrolytes - We will continue to trend troponin and monitor EKG - Order 2-D echo; further recommendations after echocardiogram is completed 2. Severe acute bronchitis; patient had an incomplete course of antibiotic therapy as outpatient - Continues to complain of coughing up thick yellow sputum; we will start patient on oral doxycycline; order bronchodilator nebulizer treatments 4. Acute renal injury; we will hold off IV fluid hydration due to CHF exacerbation - We will monitor PAUL's and daily weights; monitor renal function and electrolytes closely and consult nephrology if renal function continues to worsen 5. Hyperkalemia; secondary to renal injury; we will monitor electrolytes closely 6. Chronic atrial fibrillation; rate controlled on metoprolol 25 mg twice a day and remains on anticoagulation with Coumadin with therapeutic INR 7. Diabetes mellitus; continue with home dose of Levemir 12 units subcu daily at bedtime; monitor Accu-Cheks every before meals and at bedtime with insulin sliding scale 8. Hypertension; continue with home dose of metoprolol 25 mg twice a day 9. Hyperlipidemia; continue with Lipitor 10 mg by mouth daily at bedtime and fenofibrate 160 mg daily 10. DVT prophylaxis; systemic anticoagulation with Coumadin CODE STATUS; DO NOT RESUSCITATE Time with Patient: Greater than 30
[2018-12-17 17:05] LABS: Glucose,Whole Blood 169 mg/dL (75-99)
[2018-12-17] MEDS ORDERED: WARFARIN 2 MG TAB PO SCH (18:00)
[2018-12-17] MEDS: ATORVASTATIN 10 MG TAB PO SCH (20:26)
[2018-12-17] MEDS: guaiFENesin 600 MG TABLET.ER PO SCH (20:26)
[2018-12-17 21:21] LABS: Glucose,Whole Blood 170 mg/dL (75-99)
[2018-12-17] MEDS: INSULIN DETEMIR (LEVEMIR) 100 UNIT/ML SYR SQ SCH (22:03)
[2018-12-18] MEDS: IPRATROPIUM-ALBUTEROL 3 ML NEB INHALATION SCH ×6 (02:51→23:43)
[2018-12-18 05:41] LABS: Glucose,Whole Blood 109 mg/dL (75-99)
[2018-12-18 06:31] LABS: Basophils % (A) 1 %; Eosinophils # (A) 0.4 k/uL (0-0.7); Eosinophils % (A) 5 %; HCT 45.2 % (39.0-53.0); HGB 14.3 gm/dL (13.0-17.5); Lymphocytes # (A) 1.4 k/uL (1.0-4.8); Lymphocytes % (A) 18 %; MCH 30.7 pg (25.0-35.0); MCHC 31.8 g/dL (31.0-37.0); MCV 96.7 fL (80.0-100.0); Mean Platelet Volume 7.4; Monocytes # (A) 0.5 k/uL (0-1.0); Monocytes % (A) 7 %; Neutrophils # (A) 5.2 k/uL (1.3-7.7); Neutrophils % (A) 66 %; Platelet Count 198 k/uL (150-450); RBC 4.67 m/uL (4.30-5.90); RDW 13.9 % (11.5-15.5); WBC 7.8 k/uL (3.8-10.6)
[2018-12-18 06:35] LABS: INR 1.5 (<1.2)
[2018-12-18 06:36] LABS: Calcium 9.5 mg/dL (8.4-10.2); Potassium 4.3 mmol/L (3.5-5.1)
[2018-12-18] MEDS: guaiFENesin 600 MG TABLET.ER PO SCH ×2 (09:38→21:43)
[2018-12-18] MEDS: METOPROLOL TARTRATE 25 MG TAB PO SCH ×2 (09:38→21:29)
[2018-12-18] MEDS: FENOFIBRATE 160 MG TAB PO SCH (09:38)
[2018-12-18] MEDS: DOXYCYCLINE 100 MG CAP PO SCH ×2 (09:38→21:29)
[2018-12-18] MEDS: MULTIVITAMINS, THERA 1 EACH TAB PO SCH (09:39)
[2018-12-18] MEDS: FUROSEMIDE 10 MG/ML 4 ML VIAL IV SCH ×2 (09:39→20:37)
--- NOTE | 2018-12-18 10:34 | P.PN ---
Subjective This is a pleasant 78 years old male with past medical of CHF who presents with worsening dyspnea over few days associated with some cough and scanty phlegm. His breathing is improved and his back close to his baseline. He denies chest pain. No fever. No nausea vomiting. No abdominal pain. No change in urine or bowel habits. Patient has been followed by cardiology team and they switched his warfarin to Eliquis for failure of Coumadin therapy Objective - Vital Signs Vital signs: Vital Signs Temp 98.3 F 12/18/18 04:48 Pulse 64 12/18/18 07:49 Resp 17 12/18/18 04:48 BP 138/79 12/18/18 04:48 Pulse Ox 95 12/18/18 07:37 Intake & Output 12/17/18 12/18/18 12/18/18 18:59 06:59 18:59 Intake Total 600 120 Output Total 1600 Balance -1000 120 Weight 97.6 kg Intake: Oral 600 120 Output: Urine 1600 Other: Voiding Method Urinal Urinal # Voids 0 1 # Bowel Movements 0 0 - Exam GENERAL: The patient is alert and oriented x3, not in any acute distress. Well d eveloped, well nourished. HEENT: Pupils are round and equally reacting to light. EOMI. No scleral icterus. No conjunctival pallor. Normocephalic, atraumatic. No pharyngeal erythema. No thyromegaly. CARDIOVASCULAR: S1 and S2 present. No murmurs, rubs, or gallops. PULMONARY: Chest is clear to auscultation, no wheezing or crackles. ABDOMEN: Soft, nontender, nondistended, normoactive bowel sounds. No palpable organomegaly. MUSCULOSKELETAL: No joint swelling or deformity. EXTREMITIES: No cyanosis, clubbing, or pedal edema. NEUROLOGICAL: Gross neurological examination did not reveal any focal deficits. SKIN: No rashes. - Labs CBC & Chem 7: 12/18/18 05:42 12/18/18 05:42 Labs: Abnormal Lab Results - Last 24 Hours (Table) 12/17/18 12/17/18 12/17/18 Range/Units 11:36 11:36 11:43 PT 15.9 H (9.0-12.0) sec INR 1.6 H (<1.2) Chloride 95 L (98-107) mmol/L Carbon Dioxide 36 H (22-30) mmol/L BUN 37 H (9-20) mg/dL Creatinine (0.66-1.25) mg/dL Glucose 128 H (74-99) mg/dL POC Glucose (mg/dL) 134 H (75-99) mg/dL 12/17/18 12/17/18 12/18/18 Range/Units 16:59 21:17 05:38 PT (9.0-12.0) sec INR (<1.2) Chloride (98-107) mmol/L Carbon Dioxide (22-30) mmol/L BUN (9-20) mg/dL Creatinine (0.66-1.25) mg/dL Glucose (74-99) mg/dL POC Glucose (mg/dL) 169 H 170 H 109 H (75-99) mg/dL 12/18/18 12/18/18 Range/Units 05:42 05:42 PT 15.0 H (9.0-12.0) sec INR 1.5 H (<1.2) Chloride 94 L (98-107) mmol/L Carbon Dioxide 33 H (22-30) mmol/L BUN 43 H (9-20) mg/dL Creatinine 1.38 H (0.66-1.25) mg/dL Glucose 110 H (74-99) mg/dL POC Glucose (mg/dL) (75-99) mg/dL Assessment and Plan Assessment: Acute and chronic CHF exacerbation. Unknown ejection fraction Acute bronchitis, resolved Chronic atrial fibrillation, rate controlled. Switch coumadine Eliquis for outpatient failure therapy with Coumadin Diabetes mellitus Hypertension Hyperlipidemia Plan: This is a pleasant 6 years old male who presents with acute CHF exacerbation and bronchitis. She needs improvement. Cardiology team are following the case closely. Change warfarin 2 Eliquis. home economics extension worker/case monitor consult for Eliquis approval.Labs and medication were reviewed.. Continue same treatment. Continue with symptomatic treatment. Resume home medication. Monitor lytes and vitals. DVT and GI prophylaxis. Further recommendations of the clinical course of the patient DVT prophylaxis: Patient is expected to start on Eliquis. Continue subcu heparin for GI Prophylaxis: Pepcid
[2018-12-18] MEDS ORDERED: FAMOTIDINE 20 MG/2 ML VIAL IV SCH ×2 (11:00→21:00)
--- NOTE | 2018-12-18 11:00 | P.PN ---
Subjective Progress Note Date: 12/18/18 This is a pleasant 78-year-old gentleman with known history of congestive heart failure, prior pacemaker implantation, paroxysmal atrial fibrillation, diabetes, hypertension, hyperlipidemia, sleep apnea, who presented to the hospital with symptoms of shortness of breath for a one week duration wi th associated bilateral lower extremity edema. He was initiated here on IV Lasix on arrival. Seen in consultation yesterday by Dr. Mazariegos. His weight today is down 1 kg. White blood cell count 7.8, hemoglobin 14.3, platelet count 198. INR today is 1.5. Odium 138, potassium 4.3, BUN 43 and creatinine 1.3. Patient does state that his breathing is improving, edema is less however he still continues to have some bilateral peripheral edema. I did have a lengthy discussion with the patient regarding his anticoagulation, we will check to see if he has coverage for one of the newer anticoagulants, if so we will discontinue the heparin and start him on one of those. Continue the IV Lasix for another 24 hours. Objective - Vital Signs Vital signs: Vital Signs Temp 98.3 F 12/18/18 04:48 Pulse 64 12/18/18 07:49 Resp 17 12/18/18 04:48 BP 138/79 12/18/18 04:48 Pulse Ox 95 12/18/18 07:37 Intake & Output 12/17/18 12/18/18 12/18/18 18:59 06:59 18:59 Intake Total 600 120 Output Total 1600 Balance -1000 120 Weight 97.6 kg Intake: Oral 600 120 Output: Urine 1600 Other: Voiding Method Urinal Urinal # Voids 0 1 # Bowel Movements 0 0 - Exam PHYSICAL EXAMINATION: GENERAL: 78-year-old gentleman in no acute distress at the time of my examination HEENT: Head is atraumatic, normocephalic. Pupils equal, round. Sclera anicteric. Conjunctiva are clear. Mucous membranes of the mouth are moist. Nec k is supple. There is no elevated jugular venous pressure. No carotid bruit is heard. HEART EXAMINATION: Heart S1 and S2 irregularly irregular a systolic murmur is heard CHEST EXAMINATION: Lungs are clear with mild diminished air entry to the bases ABDOMEN: Soft, nontender. Bowel sounds are heard. No organomegaly noted. EXTREMITIES: 2+ peripheral pulses with trace evidence of peripheral edema and no calf tenderness noted. NEUROLOGIC patient is awake, alert and oriented 3 . . - Labs CBC & Chem 7: 12/18/18 05:42 12/18/18 05:42 Labs: Abnormal Lab Results - Last 24 Hours (Table) 12/17/18 12/17/18 12/17/18 Range/Units 11:36 11:36 11:43 PT 15.9 H (9.0-12.0) sec INR 1.6 H (<1.2) Chloride 95 L (98-107) mmol/L Carbon Dioxide 36 H (22-30) mmol/L BUN 37 H (9-20) mg/dL Creatinine (0.66-1.25) mg/dL Glucose 128 H (74-99) mg/dL POC Glucose (mg/dL) 134 H (75-99) mg/dL 12/17/18 12/17/18 12/18/18 Range/Units 16:59 21:17 05:38 PT (9.0-12.0) sec INR (<1.2) Chloride (98-107) mmol/L Carbon Dioxide (22-30) mmol/L BUN (9-20) mg/dL Creatinine (0.66-1.25) mg/dL Glucose (74-99) mg/dL POC Glucose (mg/dL) 169 H 170 H 109 H (75-99) mg/dL 12/18/18 12/18/18 Range/Units 05:42 05:42 PT 15.0 H (9.0-12.0) sec INR 1.5 H (<1.2) Chloride 94 L (98-107) mmol/L Carbon Dioxide 33 H (22-30) mmol/L BUN 43 H (9-20) mg/dL Creatinine 1.38 H (0.66-1.25) mg/dL Glucose 110 H (74-99) mg/dL POC Glucose (mg/dL) (75-99) mg/dL Assessment and Plan Plan: Assessment and plan #1 congestive cardiac failure, LV function unknown #2 chronic persistent atrial fibrillation subtherapeutic on INR #3 hypertension #4 diabetes #5 hyperlipidemia #6 abdominal aortic aneurysm #7 sleep apnea #8 prior pacemaker implantation Plan We will review the echocardiogram with Doppler study. We will also discontinue the Coumadin and initiate anticoagulation in the form of Eliquis, we'll check to see if the patient has coverage. We will also continue current dose of IV Lasix monitoring intake and output along with daily weights and daily lytes BUN and creatinine. Further recommendations to follow DNP note has been reviewed, I agree with a documented findings and plan of care. Patient was seen and examined.
[2018-12-18 11:58] LABS: Glucose,Whole Blood 174 mg/dL (75-99)
--- NOTE | 2018-12-18 12:55 | ECHOF ---
Referral Reason:CHF MEASUREMENTS -------- HEIGHT: 167.6 cm WEIGHT: 97.5 kg BP: 138/79 RVIDd: 3.2 cm (< 3.3) IVSd: 1.5 cm (0.6 - 1.1) LVIDd: 4.2 cm (3.9 - 5.3) LVPWd: 1.6 cm (0.6 - 1.1) IVSs: 2.0 cm LVIDs: 2.7 cm LVPWs: 2.2 cm Ao Diam: 3.3 cm (2.0 - 3.7) AV Cusp: 2.1 cm (1.5 - 2.6) LA Diam: 3.9 cm (2.7 - 3.8) MV EXCURSION: 21.020 mm (> 18.000) MV EF SLOPE: 108 mm/s (70 - 150) EPSS: 0.5 cm MV E Eddie: 0.71 m/s MV DecT: 218 ms MV A Eddie: 0.29 m/s MV E/A Ratio: 2.46 RAP: 5.00 mmHg RVSP: 39.29 mmHg FINDINGS -------- Paced rhythm. This was a technically difficult study with suboptimal views. The left ventricular size is normal. There is moderate concentric left ventricular hypertrophy. O verall left ventricular systolic function is low-normal with, an EF between 50 - 55 %. The right ventricle is normal in size. The left atrial size is normal. The right atrium is normal in size. xx ml of Lumason was utilized for enhancement of images. Interatrial and interventricular septum intact. Aortic valve is trileaflet and is mildly thickened. The mitral valve leaflets are mildly thickened. Mild mitral regurgitation is present. Mild tricuspid regurgitation present. There is borderline pulmonary hypertension. The right ventr icular systolic pressure, as measured by Doppler, is 39.29mmHg. There is no pulmonic regurgitation present. The aortic root size is normal. IVC Not well visulized. The pericardium is normal. CONCLUSIONS -------- 1. Paced rhythm. 2. This was a technically difficult study with suboptimal views. 3. The left ventricular size is normal. 4. There is moderate concentric left ventricular hypertrophy. 5. Overall left ventricular systolic function is low-normal with, an EF between 50 - 55 %. 6. The right ventricle is normal in size. 7. The left atrial size is normal. 8. The right atrium is normal in size. 9. xx ml of Lumason was utilized for enhancement of images. 10. Interatrial and interventricular septum intact. 11. Aortic valve is trileaflet and is mildly thickened. 12. The mitral valve leaflets are mildly thickened. 13. Mild mitral regurgitation is present. 14. Mild tricuspid regurgitation present. 15. There is borderline pulmonary hypertension. 16. The right ventricular systolic pressure, as measured by Doppler, is 39.29mmHg. 17. There is no pulmonic regurgitation present. 18. The aortic root size is normal. 19. IVC Not well visulized. 20. The pericardium is normal. WORKERS' COMPENSATION CLAIMS SUPERVISOR: Keke Alvarado RDCS
--- NOTE | 2018-12-18 15:06 | P.CNPUL ---
History of Present Illness Consult date: 12/18/18 Requesting physician: Ed Regan Reason for consult: dyspnea Chief complaint: Shortness of breath, leg swelling, orthopnea History of present illness: This is a 78-year-old white male patient who follows with Dr. Quevedo, with past medical history of chronic atrial fibrillation, chronic congestive heart failure with diastolic is function, diabetes mellitus, history of DVT, hypertension, hyperlipidemia, chronic kidney disease, obstructive sleep apnea on CPAP therapy, prostate disorder, status post TURP, permanent pacemaker insertion. Patient is a lifetime nonsmoker. On 12/14/2018 patient came in to the emergency department with worsening shortness of breath, over a period of one week, he was sent from Dr. Quevedo's office, where a chest x-ray was taken, and patient was told he is an acute exacerbation of chronic congestive heart failure. he denied any chest pain, but has been complaining of shortness of breath associated with slight chest tightness. Patient was told he has a small pleural effusion, patient has had a thoracentesis in the past. Lab work did not show any evidence of leukocytosis, with blood cell count was 8.3, hemoglobin was 14.7, INR was 1.6, serum sodium was 137, potassium is 4.5, chloride was 95, CO2 was 36, BUN was 37, creatinine was 1.21. EKG showed paced rhythm 58 BPM. No new chest x-ray was taken at this hospital, we don't have access to the film taken and Dr. Hewitt's office. ProBNP was elevated at 3470, and patient had positive troponins of 0.049, 0.051, and 0.048. he was admitted with a diagnosis of acute congestive heart failure recently documented diastolic dysfunction. Review of Systems All systems: negative Constitutional: Denies chills, Denies fever Eyes: denies blurred vision, denies pain Ears, nose, mouth and throat: Denies headache, Denies sore throat Cardiovascular: Reports dyspnea on exertion, Reports edema, Denies chest pain, Denies shortness of breath Respiratory: Reports dyspnea, Denies cough Gastrointestinal: Denies abdominal pain, Denies diarrhea, Denies nausea, Denies vomiting Musculoskeletal: Denies myalgias Integumentary: Denies pruritus, Denies rash Neurological: Denies numbness, Denies weakness Psychiatric: Denies anxiety, Denies depression Endocrine: Denies fatigue, Denies weight change 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, past L pleural effusion with thoracentesis, DVT L lower extremity, BPH with surgery, CKD, kiney stones with surgery, abdominal aortic aneurysm being monitored every 6 months, STEPHAN-unable to tolerate CPap, SSS with pacemaker, vertigo in the past, seasonal allergies History of Any Multi-Drug Resistant Organisms: None Reported Past Surgical History: Heart Catheterization, Pacemaker, Prostate Surgery Additional Past Surgical History / Comment(s): Pacemaker inserted 01/01/09 and gen change 04/11/18, TURP, ESWL, cysto/TURP, colonoscopy Past Anesthesia/Blood Transfusion Reactions: Motion Sickness Type of Cardiac Device: Permanent Pacemaker Device Placement Date:: 01/01/2009 and gen change 03/2018 Smoking Status: Former smoker - Past Family History Mother Family Medical History: CVA/TIA, Hypertension Additional Family Medical History / Comment(s): Mother lived to be 85yrs old. Father Family Medical History: CVA/TIA Additional Family Medical History / Comment(s): Father from a CVA at the age of 78yrs. Medications and Allergies Home Medications Medication Instructions Recorded Confirmed Type Metoprolol Tartrate [Lopressor] 25 mg PO BID 02/28/14 12/14/18 History Multivitamin [Men's Multi-Vitamin] 1 tab PO DAILY 02/28/14 12/14/18 History Warfarin [Coumadin] 1 mg PO DAILY 12/27/14 12/14/18 History Benzonatate [Tessalon Perles] 100 mg PO TID PRN 12/14/18 12/14/18 History Betamethasone/Propylene Glyc 1 applic TOPICAL DAILY PRN 12/14/18 12/14/18 History [Betamethasone Dp Aug 0.05% Lot] Fenofibrate [Lofibra] 160 mg PO DAILY 12/14/18 12/14/18 History Furosemide [Lasix] 20 mg PO MOWEFR 12/14/18 12/14/18 History Insulin Glargine,Hum.rec.anlog 12 unit SQ HS 12/14/18 12/14/18 History [Basaglar Kwikpen U-100] Lovastatin [Mevacor] 40 mg PO HS 12/14/18 12/14/18 History Allergies Allergy/AdvReac Type Severity Reaction Status Date / Time doxazosin mesylate AdvReac Unknown Verified 12/14/18 18:44 [From Cardura] finasteride [From Proscar] AdvReac Unknown Verified 12/14/18 18:44 gatifloxacin [From Tequin] AdvReac Unknown Verified 12/14/18 18:44 glipizide AdvReac Unknown Verified 12/14/18 18:44 hydroxyzine HCl [From Atarax] AdvReac Unknown Verified 12/14/18 18:44 levofloxacin [From Levaquin] AdvReac Unknown Verified 12/14/18 18:44 lisinopril AdvReac Unknown Verified 12/14/18 18:44 meperidine HCl [From Demerol] AdvReac Unknown Verified 12/14/18 18:44 metformin AdvReac Unknown Verified 12/14/18 18:44 oxybutynin AdvReac Unknown Verified 12/14/18 18:44 oxybutynin chloride AdvReac Unknown Verified 12/14/18 18:44 [From Ditropan] pseudoephedrine HCl AdvReac Unknown Verified 12/14/18 18:44 [From Sudafed] rosuvastatin calcium AdvReac Unknown Verified 12/14/18 18:44 [From Crestor] Sulfa (Sulfonamide AdvReac Unknown Verified 12/14/18 18:44 Antibiotics) tamsulosin AdvReac Unknown Verified 12/14/18 18:44 tamsulosin HCl [From Flomax] AdvReac Unknown Verified 12/14/18 18:44 terazosin HCl [From Hytrin] AdvReac Unknown Verified 12/14/18 18:44 Physical Exam Vitals: Vital Signs Temp Pulse Pulse Resp BP Pulse Ox 12/18/18 11:20 66 12/18/18 11:09 65 12/18/18 07:49 64 12/18/18 07:37 64 95 12/18/18 04:48 98.3 F 56 L 17 138/79 95 12/17/18 22:55 98.9 F 78 16 117/71 98 12/17/18 20:36 68 12/17/18 20:28 66 12/17/18 20:00 98.2 F 62 16 134/67 99 12/17/18 16:50 62 12/17/18 16:41 58 L 12/17/18 16:15 98.1 F 60 16 124/73 95 Intake and Output 12/17/18 12/18/18 12/18/18 22:59 06:59 14:59 Intake Total 480 Balance 480 Intake: Oral 480 Other: Voiding Method Urinal Urinal # Voids 1 1 # Bowel Movements 0 0 Weight 97.6 kg GENERAL EXAM: Alert, pleasant, 78-year-old white male, comfortable in no apparent distress. HEAD: Normocephalic/atraumatic. EYES: Normal reaction of pupils, equal size. Conjunctiva pink, sclera white. NOSE: Clear with pink turbinates. THROAT: No erythema or exudates. NECK: No masses, no JVD, no thyroid enlargement, no adenopathy. CHEST: No chest wall deformity. Symmetrical expansion. LUNGS: Equal air entry with mesh breath sounds at the bases. CVS: Irregular rate and rhythm, normal S1 and S2, no gallops, no murmurs, no rubs ABDOMEN: Soft, nontender. No hepatosplenomegaly, normal bowel sounds, no guarding or rigidity. EXTREMITIES: No clubbing, mild pretibial edema, no cyanosis, 2+ pulses and upper and lower extremities. MUSCULOSKELETAL: Muscle strength and tone normal. SPINE: No scoliosis or deformity SKIN: No rashes CENTRAL NERVOUS SYSTEM: Alert and oriented -3. No focal deficits, tone is normal in all 4 extremities. PSYCHIATRIC: Alert and oriented -3. Appropriate affect. Intact judgment and insight. Results - Laboratory Findings CBC and BMP: 12/18/18 05:42 12/18/18 05:42 PT/INR, D-dimer PT 15.0 sec (9.0-12.0) H 12/18/18 05:42 INR 1.5 (<1.2) H 12/18/18 05:42 Abnormal lab findings: Abnormal Labs 12/14/18 12/14/18 12/14/18 19:39 19:39 19:39 RDW 15.7 H PT 23.2 H INR 2.4 H APTT 31.1 H Potassium 5.4 H Chloride Carbon Dioxide BUN 26 H Creatinine 1.46 H Glucose 112 H POC Glucose (mg/dL) ALT 19 L Alkaline Phosphatase 37 L Troponin I Total Protein 8.8 H 12/14/18 12/15/18 12/15/18 19:39 03:52 07:48 RDW PT INR APTT Potassium Chloride Carbon Dioxide BUN Creatinine Glucose POC Glucose (mg/dL) ALT Alkaline Phosphatase Troponin I 0.049 H* 0.050 H* 0.055 H* Total Protein 12/15/18 12/15/18 12/15/18 11:38 16:22 20:59 RDW PT INR APTT Potassium Chloride Carbon Dioxide BUN Creatinine Glucose POC Glucose (mg/dL) 129 H 139 H ALT Alkaline Phosphatase Troponin I 0.051 H* Total Protein 12/15/18 12/16/18 12/16/18 21:11 05:48 06:49 RDW PT INR APTT Potassium Chloride Carbon Dioxide 33 H BUN 30 H Creatinine Glucose 121 H POC Glucose (mg/dL) 167 H 104 H ALT Alkaline Phosphatase Troponin I Total Protein 12/16/18 12/16/18 12/16/18 11:19 11:58 16:18 RDW PT 17.8 H INR 1.8 H APTT Potassium Chloride Carbon Dioxide BUN Creatinine Glucose POC Glucose (mg/dL) 168 H ALT Alkaline Phosphatase Troponin I 0.048 H* Total Protein 12/16/18 12/16/18 12/17/18 16:59 21:08 06:28 RDW PT INR APTT Potassium Chloride Carbon Dioxide BUN Creatinine Glucose POC Glucose (mg/dL) 172 H 147 H 110 H ALT Alkaline Phosphatase Troponin I Total Protein 12/17/18 12/17/18 12/17/18 11:36 11:36 11:43 RDW PT 15.9 H INR 1.6 H APTT Potassium Chloride 95 L Carbon Dioxide 36 H BUN 37 H Creatinine Glucose 128 H POC Glucose (mg/dL) 134 H ALT Alkaline Phosphatase Troponin I Total Protein 12/17/18 12/17/18 12/18/18 16:59 21:17 05:38 RDW PT INR APTT Potassium Chloride Carbon Dioxide BUN Creatinine Glucose POC Glucose (mg/dL) 169 H 170 H 109 H ALT Alkaline Phosphatase Troponin I Total Protein 12/18/18 12/18/18 12/18/18 05:42 05:42 11:47 RDW PT 15.0 H INR 1.5 H APTT Potassium Chloride 94 L Carbon Dioxide 33 H BUN 43 H Creatinine 1.38 H Glucose 110 H POC Glucose (mg/dL) 174 H ALT Alkaline Phosphatase Troponin I Total Protein - Diagnostic Findings Chest x-ray: report reviewed, image reviewed Additional studies: EKG reviewed Assessment and Plan Plan: Assessment: #1. Dyspnea, related to acute exacerbation of chronic congestive heart failure previously documented diastolic dysfunction #2. Elevated troponins #3. Chronic and persistent atrial fibrillation, on chronic anticoagulation with warfarin #4. Diabetes mellitus type 2 #5. Previous history of DVTs #6. Hypertension, hyperlipidemia #7. Benign prostatic hypertrophy, with surgical resection #8. History of obstructive sleep apnea, unable to tolerate CPAP therapy #9. Permanent pacemaker implantation for sick sinus syndrome #10. History of abdominal aneurysm #11. History of pleural effusions requiring thoracentesis #12. Nonsmoker Plan: We'll obtain a chest x-ray, continue with IV diuretics, continue with nebulized bronchodilators, echocardiogram results have been noted, no complaints of chest pain, no cough, no wheezing, no congestion. Vital signs are stable, no fever or chills. Doubt exacerbation of COPD. No history of smoking. No underlying history of COPD. We'll continue to follow and make further recommendations I performed a history & physical examination of the patient and discussed their management with my nurse practitioner, Jenelle Rosa. I reviewed the nurse practitioner's note and agree with the documented findings and plan of care. Lung sounds are positive for diminished breath sounds, with a few scattered rales. The findings and the impression was discussed with the patient. I attest to the documentation by the nurse practitioner. Time with Patient: Greater than 30
--- NOTE | 2018-12-18 15:41 | XR ---
EXAMINATION TYPE: XR chest 1V portable DATE OF EXAM: 12/18/2018 COMPARISON: Prior chest x-ray from outside institution dated 12/14/2018 and 10/20/2018 HISTORY: Shortness of breath TECHNIQUE: Single frontal view of the chest is obtained. FINDINGS: There is no focal air space opacity, pleural effusion, or pneumothorax seen. The cardiac silhouette size is stable and enlarged, pacemaker is stable. The osseous structures are intact. The re are overlying cardiac leads. Aorta is dense. Persistent prominent the central vascularity. IMPRESSION: Stable cardiomegaly. Correlate for possible pulmonary artery hypertension.
--- NOTE | 2018-12-18 16:03 | CDI ---
Documentation Clarification Form Date: 12/18/2018 3:45:34 PM From: Cindy Panchal RN, CCDS Admit Date: 12/16/2018 3:52:00 PM Patient Name: Stephen Bain Visit Number: [id number] Discharge Date: ATTENTION: The Clinical Documentation Specialists (CDI) and [facility] Coding Staff appreciate your assistance in clarifying documentation. Please respond to the clarification below the line at the bottom and electronically sign. The CDI & [facility] Coding staff will review the response and follow-up if needed. Please note: Queries are made part of the Legal Health Record. If you have any questions, please contact the author of this message via ITS. Dr. Jesus Mckinney H/P has documentation of acute renal injury with history indicating CKD and further clarification is needed. History/Risk Factors: Atrial Fibrillation, Heart Failure, Diabetes mellitus, DVT, hypertension, Renal disease, Clinical Indicators: 78-year-old male with complaints of shortness of breath over the last 1 week. Patient has noted some leg swelling, orthopnea. On Admission BUN 26, CR 1.46 GFR 45 12/16/18 BUN 30, CR 1.24 GFR 55 12/17/18 BUN 37, CR 1.21 GFR 56 12/18/18 BUN 43, CR 138 GFR 48 Treatment: Hold IV fluid hydration due to CHF exacerbation monitor I/O and daily weights; monitor renal function and electrolytes, Nephrology consult if renal function condition worsen. In order to capture the severity of condition, please clarify if the condition signifies: CKD Stage 1 (GFR > 90) CKD Stage 2 (GFR 60-89) CKD Stage 3 (GFR 30-59) CKD Stage 4 (GFR 15-29) CKD Stage 5 (GFR <15) Other, please specify Unable to determine (Last Revision: November 2017) stage 3 MTDD
[2018-12-18 17:23] LABS: Glucose,Whole Blood 113 mg/dL (75-99)
[2018-12-18] MEDS: INSULIN DETEMIR (LEVEMIR) 100 UNIT/ML SYR SQ SCH (20:38)
[2018-12-18 20:58] LABS: Glucose,Whole Blood 218 mg/dL (75-99)
[2018-12-18] MEDS: HEPARIN SODIUM,PORCINE 5,000 UNIT/ML 1 ML VIAL SQ SCH (21:29)
[2018-12-18] MEDS: ATORVASTATIN 10 MG TAB PO SCH (21:29)
[2018-12-19] MEDS: IPRATROPIUM-ALBUTEROL 3 ML NEB INHALATION SCH ×4 (03:19→16:04)
[2018-12-19 05:49] LABS: Glucose,Whole Blood 113 mg/dL (75-99)
[2018-12-19 07:30] LABS: Calcium 9.8 mg/dL (8.4-10.2); Potassium 4.7 mmol/L (3.5-5.1)
[2018-12-19] MEDS: FUROSEMIDE 10 MG/ML 4 ML VIAL IV SCH ×2 (08:41→10:56)
[2018-12-19] MEDS: HEPARIN SODIUM,PORCINE 5,000 UNIT/ML 1 ML VIAL SQ SCH (08:41)
[2018-12-19] MEDS: DOXYCYCLINE 100 MG CAP PO SCH (08:41)
[2018-12-19] MEDS: METOPROLOL TARTRATE 25 MG TAB PO SCH (08:41)
[2018-12-19] MEDS: MULTIVITAMINS, THERA 1 EACH TAB PO SCH (08:42)
[2018-12-19] MEDS: guaiFENesin 600 MG TABLET.ER PO SCH (08:42)
[2018-12-19] MEDS: FENOFIBRATE 160 MG TAB PO SCH (08:42)
[2018-12-19] MEDS ORDERED: FAMOTIDINE 20 MG TAB PO SCH (09:00)
[2018-12-19] MEDS ORDERED: APIXABAN 5 MG TAB PO SCH (10:30)
[2018-12-19 11:46] LABS: Glucose,Whole Blood 112 mg/dL (75-99)
--- NOTE | 2018-12-19 12:07 | P.PN ---
Subjective Progress Note Date: 12/19/18 Principal diagnosis: Shortness of breath, leg swelling or orthopnea This is a 78-year-old white male patient who follows with Dr. Quevedo, with past medical history of chronic atrial fibrillation, chronic congestive heart failure with diastolic is function, diabetes mellitus, history of DVT, hypertension, hyperlipidemia, chronic kidney disease, obstructive sleep apnea on CPAP therapy, prostate disorder, status post TURP, permanent pacemaker insertion. Patient is a lifetime nonsmoker. On 12/14/2018 patient came in to the emergency department with worsening shortness of breath, over a period of one week, he was sent from Dr. Quevedo's office, where a chest x-ray was taken, and patient was told he is an acute exacerbation of chronic congestive heart failure. he denied any chest pain, but has been complaining of shortness of breath associated with slight chest tightness. Patient was told he has a small pleural effusion, patient has had a thoracentesis in the past. Lab work did not show any evidence of leukocytosis, with blood cell count was 8.3, hemoglobin was 14.7, INR was 1.6, serum sodium was 137, potassium is 4.5, chloride was 95, CO2 was 36, BUN was 37, creatinine was 1.21. EKG showed paced rhythm 58 BPM. No new chest x-ray was taken at this hospital, we don't have access to the film taken and Dr. Hewitt's office. ProBNP was elevated at 347 0, and patient had positive troponins of 0.049, 0.051, and 0.048. he was admitted with a diagnosis of acute congestive heart failure recently documented diastolic dysfunction. On 12/19/2017 patient seen in follow-up on selective care unit, he sitting up in the recliner, in no acute distress. Pulse ox is 91-94%, signs are stable, no complaints of chest pain, mild pretibial and pedal edema in lower extremities, he is on oral Lasix, a cardiogram revealed the left ventricular systolic function within low normal range with an EF of 50-55%.'s in negative fluid balance, -610. Overall breathing easier, lung sounds reveal essentially clear lung sounds. Objective - Vital Signs Vital signs: Vital Signs Temp 97.6 F 12/19/18 08:20 Pulse 64 12/19/18 09:15 Resp 19 12/19/18 08:20 BP 135/63 12/19/18 08:20 Pulse Ox 91 L 12/19/18 08:20 Intake & Output 12/18/18 12/19/18 12/19/18 18:59 06:59 18:59 Intake Total 640 240 Output Total 1250 Balance -610 240 Weight 97.8 kg Intake: Oral 640 240 Output: Urine 1250 Other: Voiding Method Urinal Urinal # Voids 1 # Bowel Movements 0 - Exam GENERAL EXAM: Alert, pleasant, 78-year-old white male, comfortable in no apparent distress. HEAD: Normocephalic/atraumatic. EYES: Normal reaction of pupils, equal size. Conjunctiva pink, sclera white. NOSE: Clear with pink turbinates. THROAT: No erythema or exudates. NECK: No masses, no JVD, no thyroid enlargement, no adenopathy. CHEST: No chest wall deformity. Symmetrical expansion. LUNGS: Equal air entry with clear breath sounds CVS: Irregular rate and rhythm, normal S1 and S2, no gallops, no murmurs, no rubs ABDOMEN: Soft, nontender. No hepatosplenomegaly, normal bowel sounds, no guarding or rigidity. EXTREMITIES: No clubbing, mild pretibial edema, no cyanosis, 2+ pulses and upper and lower extremities. MUSCULOSKELETAL: Muscle strength and tone normal. SPINE: No scoliosis or deformity SKIN: No rashes CENTRAL NERVOUS SYSTEM: Alert and oriented -3. No focal deficits, tone is normal in all 4 extremities. PSYCHIATRIC: Alert and oriented -3. Appropriate affect. Intact judgment and insight. - Labs CBC & Chem 7: 12/18/18 05:42 12/19/18 06:17 Labs: Abnormal Lab Results - Last 24 Hours (Table) 12/18/18 12/18/18 12/19/18 Range/Units 16:59 20:57 05:45 BUN (9-20) mg/dL Creatinine (0.66-1.25) mg/dL Glucose (74-99) mg/dL POC Glucose (mg/dL) 113 H 218 H 113 H (75-99) mg/dL 12/19/18 12/19/18 Range/Units 06:17 11:44 BUN 49 H (9-20) mg/dL Creatinine 1.56 H (0.66-1.25) mg/dL Glucose 117 H (74-99) mg/dL POC Glucose (mg/dL) 112 H (75-99) mg/dL Assessment and Plan Plan: Assessment: #1. Dyspnea, related to acute exacerbation of chronic congestive heart failure previously documented diastolic dysfunction #2. Elevated troponins #3. Chronic and persistent atrial fibrillation, on chronic anticoagulation with warfarin #4. Diabetes mellitus type 2 #5. Previous history of DVTs #6. Hypertension, hyperlipidemia #7. Benign prostatic hypertrophy, with surgical resection #8. History of obstructive sleep apnea, unable to tolerate CPAP therapy #9. Permanent pacemaker implantation for sick sinus syndrome #10. History of abdominal aneurysm #11. History of pleural effusions requiring thoracentesis #12. Nonsmoker Plan: Patient is breathing easier, maintaining negative fluid balance, chest x-ray has been obtained, and shows stable cardiomegaly, persistent prominent central vascularity, no focal pneumonia. Echocardiogram results have been noted, vital signs are stable, no fever or chills, patient has been transitioned to oral Lasix. Continue with nebulized bronchodilators. For pulmonary perspective patient is stable, could be considered for discharge home today I performed a history & physical examination of the patient and discussed their management with my nurse practitioner, Jenelle Rosa. I reviewed the nurse practitioner's note and agree with the documented findings and plan of care. Lung sounds are positive for diminished breath sounds, with a few scattered rales. The findings and the impression was discussed with the patient. I attest to the documentation by the nurse practitioner. Time with Patient: Less than 30
--- NOTE | 2018-12-19 13:27 | P.PN ---
Subjective Progress Note Date: 12/19/18 This is a pleasant 78-year-old gentleman with known history of congestive heart failure, prior pacemaker implantation, paroxysmal atrial fibrillation, diabetes, hypertension, hyperlipidemia, sleep apnea, who presented to the hospital with symptoms of shortness of breath for a one week duration wi th associated bilateral lower extremity edema. He was initiated here on IV Lasix on arrival. Seen in consultation yesterday by Dr. Mazariegos. His weight today is down 1 kg. White blood cell count 7.8, hemoglobin 14.3, platelet count 198. INR today is 1.5. Odium 138, potassium 4.3, BUN 43 and creatinine 1.3. Patient does state that his breathing is improving, edema is less however he still continues to have some bilateral peripheral edema. I did have a lengthy discussion with the patient regarding his anticoagulation, we will check to see if he has coverage for one of the newer anticoagulants, if so we will discontinue the heparin and start him on one of those. Continue the IV Lasix for another 24 hours. 12/19/2018 Patient seen and examined this morning, diuresed well through the night last night. Denies any shortness of breath. I pressure 134/62, heart rate in the 60s, 91% on room air. Sodium 137, potassium 4.7, BUN 49 and creatinine 1.5. Objective - Vital Signs Vital signs: Vital Signs Temp 97.6 F 12/19/18 08:20 Pulse 64 12/19/18 12:51 Resp 19 12/19/18 08:20 BP 135/63 12/19/18 08:20 Pulse Ox 91 L 12/19/18 08:20 Intake & Output 12/18/18 12/19/18 12/19/18 18:59 06:59 18:59 Intake Total 640 480 Output Total 1250 Balance -610 480 Weight 97.8 kg Intake: Oral 640 480 Output: Urine 1250 Other: Voiding Method Urinal Urinal # Voids 1 # Bowel Movements 0 - Exam PHYSICAL EXAMINATION: GENERAL: 78-year-old gentleman in no acute distress at the time of my examination HEENT: Head is atraumatic, normocephalic. Pupils equal, round. Sclera anicteric. Conjunctiva are clear. Mucous membranes of the mouth are moist. Neck is supple. There is no elevated jugular venous pressure. No carotid bruit is heard. HEART EXAMINATION: Heart S1 and S2 irregularly irregular a systolic murmur is heard CHEST EXAMINATION: Lungs are clear with improvement in air entry to the bases ABDOMEN: Soft, nontender. Bowel sounds are heard. No organomegaly noted. EXTREMITIES: 2+ peripheral pulses with no evidence of peripheral edema and no calf tenderness noted. NEUROLOGIC patient is awake, alert and oriented 3 . . - Labs CBC & Chem 7: 12/18/18 05:42 12/19/18 06:17 Labs: Abnormal Lab Results - Last 24 Hours (Table) 12/18/18 12/18/18 12/19/18 Range/Units 16:59 20:57 05:45 BUN (9-20) mg/dL Creatinine (0.66-1.25) mg/dL Glucose (74-99) mg/dL POC Glucose (mg/dL) 113 H 218 H 113 H (75-99) mg/dL 12/19/18 12/19/18 Range/Units 06:17 11:44 BUN 49 H (9-20) mg/dL Creatinine 1.56 H (0.66-1.25) mg/dL Glucose 117 H (74-99) mg/dL POC Glucose (mg/dL) 112 H (75-99) mg/dL Assessment and Plan Plan: Assessment and plan #1 congestive cardiac failure, LV function unknown #2 chronic persistent atrial fibrillation subtherapeutic on INR #3 hypertension #4 diabetes #5 hyperlipidemia #6 abdominal aortic aneurysm #7 sleep apnea #8 prior pacemaker implantation Plan Echocardiogram with Doppler study was performed which revealed an ejection fraction of 50-55%. We will discontinue IV Lasix today and start the patient on oral diuretics. Patient also has been started on Eliquis 5 mg one tablet by mouth twice a day which will cost the patient approximately $40 a month. A follow-up appointment made with Dr. Fall in the office post discharge. DNP note has been reviewed, I agree with a documented findings and plan of care. Patient was seen and examined.
[2018-12-19 13:50] VITALS: BP 130/59; PULSE 62; RESP 18; TEMP 97.7
[2018-12-19] MEDS ORDERED: FUROSEMIDE 20 MG TAB PO SCH (16:00)
[2018-12-19] MEDS ORDERED: APIXABAN 2.5 MG TABLET PO SCH (21:00)
== END 2018-12-19 16:24 | disposition home health service (06) | DRG 291 ==
LOC: EC 18:07 → 3SCARD 20:48 → OBSVTOIN 12-16 15:52
PROVIDERS: ADMIT Hospitalist; ATTEND Hospitalist
DX: I13.0 Hypertensive heart and chronic kidney disease with heart failure and stage 1 through stage 4 chronic kidney disease, or unspecified chronic kidney disease (principal); I50.33 Acute on chronic diastolic (congestive) heart failure; I48.1 Persistent atrial fibrillation; N17.9 Acute kidney failure, unspecified; E11.22 Type 2 diabetes mellitus with diabetic chronic kidney disease; E11.42 Type 2 diabetes mellitus with diabetic polyneuropathy; E87.5 Hyperkalemia; J20.9 Acute bronchitis, unspecified; N18.3 Chronic kidney disease, stage 3 (moderate); Z66 Do not resuscitate; E78.5 Hyperlipidemia, unspecified; G47.33 Obstructive sleep apnea (adult) (pediatric); I25.10 Atherosclerotic heart disease of native coronary artery without angina pectoris; I71.4 Abdominal aortic aneurysm, without rupture; J45.909 Unspecified asthma, uncomplicated; N40.0 Benign prostatic hyperplasia without lower urinary tract symptoms; R77.9 Abnormality of plasma protein, unspecified; R79.1 Abnormal coagulation profile; Z79.01 Long term (current) use of anticoagulants; Z79.4 Long term (current) use of insulin; Z79.899 Other long term (current) drug therapy; Z88.1 Allergy status to other antibiotic agents; Z88.8 Allergy status to other drugs, medicaments and biological substances; Z95.0 Presence of cardiac pacemaker; Z86.718 Personal history of other venous thrombosis and embolism; Z90.79 Acquired absence of other genital organ(s); Z87.891 Personal history of nicotine dependence; Z82.3 Family history of stroke; Z82.49 Family history of ischemic heart disease and other diseases of the circulatory system
CPT/HCPCS: 36415; 71045; 80048; 80053; 83735; 83880; 84484; 85025; 85610; 85730; 93005; 93306; 94640; 96374; 96376; 99285

== ENCOUNTER 2020-05-26 04:51 | Inpatient (IN) | payer MEDICARE ==
--- NOTE | 2020-05-26 04:56 | ED ---
Chest Pain HPI - General Stated Complaint: Chest Pain Time Seen by Provider: 05/26/20 04:56 - History of Present Illness Initial Comments: Stephen is a pleasant 80-year-old male who presents to the ER today via ambulance for evaluation of chest pain that began around 4 PM. Patient reports that he developed pain retrosternal with no associated diaphoresis lightheadedness or shortness of breath. Pain was mild but persisted throughout the night, progressively becoming worse point where he clinically comfortable cannot sleep. Patient states he did not want to call an ambulance which is why he waited so long however this morning the pain was unbearable. Call the ambulance. He received aspirin and nitro in route to the hospital and had complete resolution of his pain. Patient denies any known history of coronary artery disease, is uncertain as if he has congestive heart failure states that he has had a pacemaker for over 10 years but is uncertain why he needed it. - Related Data Home Medications Medication Instructions Recorded Confirmed Metoprolol Tartrate [Lopressor] 25 mg PO BID@0800,169902/28/14 05/26/20 Multivitamin [Men's Multi-Vitamin] 1 tab PO DAILY@169902/28/14 05/26/20 Fenofibrate [Lofibra] 160 mg PO DAILY@169912/14/18 05/26/20 Lovastatin [Mevacor] 40 mg PO DAILY@169912/14/18 05/26/20 Insulin Glargine,Hum.rec.anlog 12 unit SQ DAILY@169905/26/20 05/26/20 [Lantus Solostar] Warfarin [Coumadin] 1 mg PO SUMOTUWETHFR@169905/26/20 05/26/20 Warfarin [Coumadin] 2 mg PO SA@169905/26/20 05/26/20 Previous Rx's Medication Instructions Recorded Famotidine [Pepcid] 20 mg PO DAILY #30 tab 12/19/18 Allergies Allergy/AdvReac Type Severity Reaction Status Date / Time doxazosin mesylate AdvReac see Verified 05/26/20 07:01 [From Cardura] comments finasteride [From Proscar] AdvReac see Verified 05/26/20 07:01 comments gatifloxacin [From Tequin] AdvReac see Verified 05/26/20 07:01 comments glipizide AdvReac see Verified 05/26/20 07:01 comments hydroxyzine HCl [From Atarax] AdvReac see Verified 05/26/20 07:01 comments levofloxacin [From Levaquin] AdvReac see Verified 05/26/20 07:01 comments lisinopril AdvReac see Verified 05/26/20 07:01 comments meperidine HCl [From Demerol] AdvReac see Verified 05/26/20 07:01 comments metformin AdvReac see Verified 05/26/20 07:01 comments oxybutynin AdvReac see Verified 05/26/20 07:01 comments oxybutynin chloride AdvReac see Verified 05/26/20 07:01 [From Ditropan] comments pseudoephedrine HCl AdvReac see Verified 05/26/20 07:01 [From Sudafed] comments rosuvastatin calcium AdvReac see Verified 05/26/20 07:01 [From Crestor] comments Sulfa (Sulfonamide AdvReac see Verified 05/26/20 07:01 Antibiotics) comments tamsulosin AdvReac see Verified 05/26/20 07:01 comments tamsulosin HCl [From Flomax] AdvReac see Verified 05/26/20 07:01 comments terazosin HCl [From Hytrin] AdvReac see Verified 05/26/20 07:01 comments Review of Systems ROS Statement: Those systems with pertinent positive or pertinent negative responses have been documented in the HPI. ROS Other: All systems not noted in ROS Statement are negative. EKG Findings - EKG Comments: EKG Findings:: EKG was obtained due to complaint of chest pain, EKG was obtained at 5:11 AM, rate is 71 rhythm is ventricularly paced, QRS is widened at 180, QTC prolonged at 517, no obvious ST elevations or depressions no evidence of acute ischemia or infarction. 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, past L pleural effusion with thoracentesis, DVT L lower extremity, BPH with surgery, CKD, kiney stones with surgery, abdominal aortic aneurysm being monitored every 6 months, STEPHAN-unable to tolerate CPap, SSS with pacemaker, vertigo in the past, seasonal allergies History of Any Multi-Drug Resistant Organisms: None Reported Past Surgical History: Heart Catheterization, Pacemaker, Prostate Surgery Additional Past Surgical History / Comment(s): Pacemaker inserted 01/01/09 and gen change 04/11/18, TURP, ESWL, cysto/TURP, colonoscopy Past Anesthesia/Blood Transfusion Reactions: Motion Sickness Type of Cardiac Device: Permanent Pacemaker Device Placement Date:: 01/01/2009 and gen change 03/2018 Past Psychological History: No Psychological Hx Reported Additional Psychological History / Comment(s): Pt resides with his spouse. He is independent. He served in the [employer]. Past Alcohol Use History: None Reported Additional Past Alcohol Use History / Comment(s): Pt smoked from 1975 until 1980 Past Drug Use History: None Reported - Past Family History Mother Family Medical History: CVA/TIA, Hypertension Additional Family Medical History / Comment(s): Mother lived to be 85yrs old. Father Family Medical History: CVA/TIA Additional Family Medical History / Comment(s): Father from a CVA at the age of 78yrs. Course Vital Signs 05/26/20 05/26/20 05/26/20 04:55 05:02 07:31 Temperature 98.1 F Pulse Rate 58 L 50 L Pulse Rate [ 59 L [employer] ] Respiratory 20 18 Rate Blood Pressure 126/56 122/53 Blood Pressure [Left Arm] O2 Sat by Pulse 96 98 Oximetry 05/26/20 05/26/20 08:00 12:00 Temperature 98.4 F Pulse Rate Pulse Rate [ 60 50 L [employer] ] Respiratory Rate Blood Pressure Blood Pressure 121/56 131/66 [Left Arm] O2 Sat by Pulse 100 96 Oximetry Chest Pain MDM - MDM the patient was seen and evaluated history is obtained from patient except history and physical exam are concerning for acute coronary system Workup was initiated EKG is paced with no definitive ischemic findings Patient is chest pain-free after nitro Labs resulted with mildly elevated troponin, given the patient's history which is concerning for ACS, elevated troponin we will plan to admit the patient on heparin for evaluation by cardiology. Patient is agreeable to this Patient care was discussed with Dr. daly who accepted the admission. Disposition Clinical Impression: Acute non-ST elevation myocardial infarction (NSTEMI) Disposition: ADMITTED IP TO THIS HOSP Is patient prescribed a controlled substance at d/c from ED?: No
[2020-05-26 05:45] LABS: Basophils % (A) 0 %; Eosinophils # (A) 0.1 k/uL (0-0.7); Eosinophils % (A) 1 %; HCT 36.7 % (39.0-53.0); HGB 11.5 gm/dL (13.0-17.5); Lymphocytes # (A) 0.7 k/uL (1.0-4.8); Lymphocytes % (A) 7 %; MCH 30.1 pg (25.0-35.0); MCHC 31.3 g/dL (31.0-37.0); MCV 96.2 fL (80.0-100.0); Mean Platelet Volume 7.6; Monocytes # (A) 0.6 k/uL (0-1.0); Monocytes % (A) 6 %; Neutrophils # (A) 8.2 k/uL (1.3-7.7); Neutrophils % (A) 85 %; Platelet Count 150 k/uL (150-450); RBC 3.81 m/uL (4.30-5.90); RDW 13.4 % (11.5-15.5); WBC 9.7 k/uL (3.8-10.6)
--- NOTE | 2020-05-26 05:49 | XR ---
EXAMINATION TYPE: XR chest 2V DATE OF EXAM: 05/26/2020 COMPARISON: 07/04/2019 HISTORY: Chest pain TECHNIQUE: 2 views FINDINGS: Heart is enlarged. There is no gross heart failure. There is some coarsening of the interst itial markings. There is left axillary pacemaker. There is no definite pleural effusion. Bony thorax is intact. IMPRESSION: There is mild pulmonary congestion but no obvious heart failure. Pulmonary vascularity in creased compared to old exam.
[2020-05-26 05:52] LABS: INR 2.4 (<1.2); Partial Thromboplastin Time 31.5 sec (22.0-30.0); Prothrombin Time 23.3 sec (9.0-12.0)
[2020-05-26 05:56] LABS: Albumin 3.8 g/dL (3.5-5.0); Calcium 9.1 mg/dL (8.4-10.2); Magnesium 1.8 mg/dL (1.6-2.3); Potassium 4.7 mmol/L (3.5-5.1); Total Bilirubin 1.2 mg/dL (0.2-1.3); Total Protein 7.4 g/dL (6.3-8.2)
[2020-05-26] MEDS ORDERED: HEPARIN SODIUM,PORCINE 5,000 UNIT/ML 1 ML VIAL IV ONE (06:31)
[2020-05-26] MEDS: NITROGLYCERIN OINT 1 INCH/GM PACKET TOPICAL STA ×2 (06:40→09:39)
[2020-05-26] MEDS ORDERED: HEPARIN SOD,PORK IN 0.45% NACL 25,000 UNIT in 0.45% NACL 1 250ML.BAG IV SCH (06:45)
--- NOTE | 2020-05-26 10:00 | P.CRDCN ---
History of Present Illness Consult date: 05/26/20 Consult reason: chest pain Chief complaint: Chest pain History of present illness: This is a pleasant 80-year-old gentleman who follows regularly with Dr. Fall in the office. He has known history of persistent atrial fibrillation, chronic congestive cardiac failure, diastolic in nature, diabetes, hypertension, hyperlipidemia, sleep apnea, who presents to the hospital with symptoms of chest discomfort. According to the patient he developed a left- sided chest discomfort around 4 PM yesterday afternoon which radiated across his chest. He states that the pain was somewhat constant and around 4 AM he called EMS. EMS gave him one sublingual nitro with relief of the symptoms completely. He also states that for the past 4 or 5 days with minimal exertion he is noted himself to be quite short of breath. He denied any PND or orthopnea. His chest x-ray showed mild pulmonary congestion with no evidence of heart failure. Blood pressure 122/50 with a heart rate in the 50s, respirations 18. White blood cell count 9.7, hemoglobin 11.5, platelet count 150. INR 2.4 sodium 137, potassium 4.7, chloride 106, CO2 24, BUN 26, creatinine 1.2. Magnesium 1.8. Troponin 0.05. BNP level 2310. EKG shows a ventricular paced rhythm with underlying atrial fibrillation. Patient had an echo cardiogram with Doppler study performed in November 2018 which revealed an ejection fraction of 50-55%. His home medications include Coumadin, multivitamin daily, Lopressor, Mevacor, insulin, lofiba and pepcid. Patient was ordered to be initiated on IV heparin, we will hold off on that at this time, as his INR is 2.4, we will also hold the Coumadin at this time. Resume the patient's Lopressor and statin. We will obtain 2 subsequent troponins. Patient has been advised that he may need to undergo a cardiac catheterization, the risks and the benefits again explained to the patient in detail. He did undergo a cardiac cath in 2012 which revealed mild coronary artery disease at that time. 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, past L pleural effusion with thoracentesis, DVT L lower extremity, BPH with surgery, CKD, kiney stones with surgery, abdominal aortic aneurysm being monitored every 6 months, STEPHAN-unable to tolerate CPap, SSS with pacemaker, vertigo in the past, seasonal allergies History of Any Multi-Drug Resistant Organisms: None Reported Past Surgical History: Heart Catheterization, Pacemaker, Prostate Surgery Additional Past Surgical History / Comment(s): Pacemaker inserted 01/01/09 and gen change 04/11/18, TURP, ESWL, cysto/TURP, colonoscopy Past Anesthesia/Blood Transfusion Reactions: Motion Sickness Type of Cardiac Device: Permanent Pacemaker Device Placement Date:: 01/01/2009 and gen change 03/2018 Past Psychological History: No Psychological Hx Reported Additional Psychological History / Comment(s): Pt resides with his spouse. He is independent. He served in the [employer]. Smoking Status: Never smoker Past Alcohol Use History: None Reported Additional Past Alcohol Use History / Comment(s): Pt smoked from 1975 until 1980 Past Drug Use History: None Reported - Past Family History Mother Family Medical History: CVA/TIA, Hypertension Additional Family Medical History / Comment(s): Mother lived to be 85yrs old. Father Family Medical History: CVA/TIA Additional Family Medical History / Comment(s): Father from a CVA at the age of 78yrs. Medications and Allergies Home Medications Medication Instructions Recorded Confirmed Type Metoprolol Tartrate [Lopressor] 25 mg PO BID@0800,1700 02/28/14 05/26/20 History Multivitamin [Men's Multi-Vitamin] 1 tab PO DAILY@169902/28/14 05/26/20 History Fenofibrate [Lofibra] 160 mg PO DAILY@169912/14/18 05/26/20 History Lovastatin [Mevacor] 40 mg PO DAILY@169912/14/18 05/26/20 History Famotidine [Pepcid] 20 mg PO DAILY #30 tab 12/19/18 05/26/20 Rx Insulin Glargine,Hum.rec.anlog 12 unit SQ DAILY@169905/26/20 05/26/20 History [Lantus Solostar] Warfarin [Coumadin] 1 mg PO SUMOTUWETHFR@1700 05/26/20 05/26/20 History Warfarin [Coumadin] 2 mg PO SA@1700 05/26/20 05/26/20 History Allergies Allergy/AdvReac Type Severity Reaction Status Date / Time doxazosin mesylate AdvReac see Verified 05/26/20 07:01 [From Cardura] comments finasteride [From Proscar] AdvReac see Verified 05/26/20 07:01 comments gatifloxacin [From Tequin] AdvReac see Verified 05/26/20 07:01 comments glipizide AdvReac see Verified 05/26/20 07:01 comments hydroxyzine HCl [From Atarax] AdvReac see Verified 05/26/20 07:01 comments levofloxacin [From Levaquin] AdvReac see Verified 05/26/20 07:01 comments lisinopril AdvReac see Verified 05/26/20 07:01 comments meperidine HCl [From Demerol] AdvReac see Verified 05/26/20 07:01 comments metformin AdvReac see Verified 05/26/20 07:01 comments oxybutynin AdvReac see Verified 05/26/20 07:01 comments oxybutynin chloride AdvReac see Verified 05/26/20 07:01 [From Ditropan] comments pseudoephedrine HCl AdvReac see Verified 05/26/20 07:01 [From Sudafed] comments rosuvastatin calcium AdvReac see Verified 05/26/20 07:01 [From Crestor] comments Sulfa (Sulfonamide AdvReac see Verified 05/26/20 07:01 Antibiotics) comments tamsulosin AdvReac see Verified 05/26/20 07:01 comments tamsulosin HCl [From Flomax] AdvReac see Verified 05/26/20 07:01 comments terazosin HCl [From Hytrin] AdvReac see Verified 05/26/20 07:01 comments Physical Exam Vitals: Vital Signs Temp Pulse Pulse Resp BP BP Pulse Ox 05/26/20 08:00 98.4 F 60 121/56 100 05/26/20 07:31 50 L 18 122/53 98 05/26/20 05:02 59 L 05/26/20 04:55 98.1 F 58 L 20 126/56 96 Intake and Output 05/25/20 05/26/20 05/26/20 22:59 06:59 14:59 Other: Weight 94.801 kg 94.801 kg PHYSICAL EXAMINATION: GENERAL: 80-year-old gentleman in no acute distress at the time of my examination HEENT: Head is atraumatic, normocephalic. Pupils equal, round. Sclera anicteric. Conjunctiva are clear. Mucous membranes of the mouth are moist. Neck is supple. There is no elevated jugular venous pressure. No carotid bruit is heard. HEART EXAMINATION: Heart S1 and S2 irregularly irregular a systolic murmur is heard CHEST EXAMINATION: Lungs reveal diminished air entry to the bases bilaterally ABDOMEN: Soft, nontender. Bowel sounds are heard. No organomegaly noted. EXTREMITIES: 2+ peripheral pulses with trace evidence of peripheral edema to the left lower extremity, no edema noted to the right lower extremity . NEUROLOGIC patient is awake, alert and oriented 3 . . Results 05/26/20 05:31 05/26/20 05:31 Cardiac Enzymes 05/26/20 05/26/20 Range/Units 05:31 05:31 AST 25 (17-59) U/L Troponin I 0.050 H* (0.000-0.034) ng/mL Coagulation 05/26/20 Range/Units 05:31 PT 23.3 H (9.0-12.0) sec APTT 31.5 H (22.0-30.0) sec CBC 05/26/20 Range/Units 05:31 WBC 9.7 (3.8-10.6) k/uL RBC 3.81 L (4.30-5.90) m/uL Hgb 11.5 L (13.0-17.5) gm/dL Hct 36.7 L (39.0-53.0) % Plt Count 150 (150-450) k/uL Comprehensive Metabolic Panel 05/26/20 Range/Units 05:31 Sodium 137 (137-145) mmol/L Potassium 4.7 (3.5-5.1) mmol/L Chloride 106 (98-107) mmol/L Carbon Dioxide 24 (22-30) mmol/L BUN 26 H (9-20) mg/dL Creatinine 1.28 H (0.66-1.25) mg/dL Glucose 139 H (74-99) mg/dL Calcium 9.1 (8.4-10.2) mg/dL AST 25 (17-59) U/L ALT 12 (4-49) U/L Alkaline Phosphatase 32 L (38-126) U/L Total Protein 7.4 (6.3-8.2) g/dL Albumin 3.8 (3.5-5.0) g/dL Current Medications Generic Name Dose Route Start Last Admin Trade Name Freq PRN Reason Stop Dose Admin Aspirin 81 mg 05/27/20 09:00 Aspirin 81 Mg PO DAILY [facility] Atorvastatin Calcium 40 mg 05/26/20 17:00 Atorvastatin 40 Mg Tab PO DAILY@1700 [facility] Fenofibrate 160 mg 05/26/20 17:00 Fenofibrate 160 Mg Tab PO DAILY@1700 [facility] Heparin Sodium/Sodium Chloride 250 mls @ 10 mls/hr 05/26/20 06:45 05/26/20 07:30 25,000 unit/ Sodium Chloride IV 10.548 units/kg/hr .Q24H [facility] 10 mls/hr Administration Protocol 10.548 UNITS/KG/HR Insulin Aspart 0 unit 05/26/20 12:30 Insulin Aspart (Novolog) 100 Unit/Ml Vial SQ ACHS [facility] Protocol Metoprolol Tartrate 25 mg 05/26/20 17:00 Metoprolol Tartrate 25 Mg Tab PO BID@0800,1700 [facility] Intake and Output 05/25/20 05/26/20 05/26/20 22:59 06:59 14:59 Other: Weight 94.801 kg 94.801 kg Patient Weight 05/27/20 06:59 Weight 94.801 kg 05/26/20 05:31 05/26/20 05:31 EKG Interpretations (text) EKG shows a ventricular paced rhythm with underlying atrial fibrillation. Assessment and Plan Plan: Assessment and plan #1 symptoms of chest discomfort with associated exertional dyspnea, rule out acute coronary syndrome. Initial troponin 0.05. EKG shows a ventricular paced rhythm with underlying atrial fibrillation #2 hypertension #3 persistent atrial fibrillation, on Coumadin for anticoagulation #4 diabetes #5 sleep apnea #6 hyperlipidemia #7 mild coronary artery disease by cardiac catheterization performed in 2012 #8 mild congestive heart failure, diastolic, acute on chronic Plan We will hold off on initiating the IV heparin drip at this time. INR is 2.4. Hold the Coumadin. Resume the patient's Lopressor, statin. We will also give the patient one time dose of IV Lasix, obtain 2 subsequent troponins. Repeat echocardiogram with Doppler study. Patient has been advised to undergo a cardiac catheterization,possibly tomorrow. The risks and the benefits explained to him in detail. Dr. Fall will be down to see the patient and discuss this in further detail. Further recommendations to follow. DNP note has been reviewed, I agree with a documented findings and plan of care. Patient was seen and examined.
[2020-05-26] MEDS ORDERED: ALPRAZolam 0.5 MG TAB PO PRN (10:18)
[2020-05-26] MEDS ORDERED: ATORVASTATIN 80 MG TAB PO STA (10:18)
[2020-05-26] MEDS ORDERED: ALPRAZolam 0.25 MG TAB PO PRN (10:18)
[2020-05-26] MEDS ORDERED: FUROSEMIDE 10 MG/ML 2 ML VIAL IV STA (10:18)
[2020-05-26] MEDS ORDERED: SODIUM CHLORIDE 0.9% 1,000 ML in EMPTY BAG 1 BAG IV ONE (10:18)
[2020-05-26] MEDS ORDERED: ASPIRIN 325 MG TAB PO STA (10:18)
[2020-05-26] MEDS ORDERED: NITROGLYCERIN SL TABS 0.4 MG TAB SUBLINGUAL PRN (10:18)
[2020-05-26] MEDS ORDERED: NITROGLYCERIN OINT 1 INCH/GM PACKET TOPICAL SCH (10:30)
--- NOTE | 2020-05-26 11:37 | P.HPIM ---
History of Present Illness This is a pleasant 80 years old male with past medical of CHF, chronic atrial fibrillation on Eliquis, chronic kidney disease stage II to 3, diabetes mellitus, hypertension, hyperlipidemia Patient presents because of central chest pain of one-day duration about 10/10 in severity, coming down to 5/10, his chest pain is localized and nonradiating, nonspecific associated with dyspnea and no coughing or dizziness or palpitation Vitas looks stable. INR is 2.4, CBC and BMP are unremarkable, hemoglobin is slightly low at 11.5 and creatinine 1.2. Troponin I elevated 0.05 and 0.06. EKG showing and ventricular paced rhythm with underlying atrial fibrillation Review of Systems CONSTITUTIONAL: No fever, no malaise, no fatigue. HEENT: No recent visual problems or hearing problems. Denied any sore throat. CARDIOVASCULAR: No orthopnea, PND, no palpitations, no syncope. PULMONARY: No shortness of breath, no cough, no hemoptysis. GASTROINTESTINAL: No diarrhea, no nausea, no vomiting, no abdominal pain. Normoactive bowel sounds. NEUROLOGICAL: No headaches, no weakness, no numbness. HEMATOLOGICAL: Denies any bleeding or petechiae. GENITOURINARY: Denies any burning micturition, frequency, or urgency. MUSCULOSKELETAL/RHEUMATOLOGICAL: Denies any joint pain, swelling, or any muscle pain. ENDOCRINE: Denies any polyuria or polydipsia. 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, past L pleural effusion with thoracentesis, DVT L lower extremity, BPH with surgery, CKD, kiney stones with surgery, abdominal aortic aneurysm being monitored every 6 months, STEPHAN-unable to tolerate CPap, SSS with pacemaker, vertigo in the past, seasonal allergies History of Any Multi-Drug Resistant Organisms: None Reported Past Surgical History: Heart Catheterization, Pacemaker, Prostate Surgery Additional Past Surgical History / Comment(s): Pacemaker inserted 01/01/09 and gen change 04/11/18, TURP, ESWL, cysto/TURP, colonoscopy Past Anesthesia/Blood Transfusion Reactions: Motion Sickness Type of Cardiac Device: Permanent Pacemaker Device Placement Date:: 01/01/2009 and gen change 03/2018 Past Psychological History: No Psychological Hx Reported Additional Psychological History / Comment(s): Pt resides with his spouse. He is independent. He served in the [employer]. Smoking Status: Never smoker Past Alcohol Use History: None Reported Additional Past Alcohol Use History / Comment(s): Pt smoked from 1975 until 1980 Past Drug Use History: None Reported - Past Family History Mother Family Medical History: CVA/TIA, Hypertension Additional Family Medical History / Comment(s): Mother lived to be 85yrs old. Father Family Medical History: CVA/TIA Additional Family Medical History / Comment(s): Father from a CVA at the age of 78yrs. Medications and Allergies Home Medications Medication Instructions Recorded Confirmed Type Metoprolol Tartrate [Lopressor] 25 mg PO BID@0800,1700 02/28/14 05/26/20 History Multivitamin [Men's Multi-Vitamin] 1 tab PO DAILY@169902/28/14 05/26/20 History Fenofibrate [Lofibra] 160 mg PO DAILY@169912/14/18 05/26/20 History Lovastatin [Mevacor] 40 mg PO DAILY@169912/14/18 05/26/20 History Famotidine [Pepcid] 20 mg PO DAILY #30 tab 12/19/18 05/26/20 Rx Insulin Glargine,Hum.rec.anlog 12 unit SQ DAILY@169905/26/20 05/26/20 History [Lantus Solostar] Warfarin [Coumadin] 1 mg PO SUMOTUWETHFR@169905/26/20 05/26/20 History Warfarin [Coumadin] 2 mg PO SA@169905/26/20 05/26/20 History Allergies Allergy/AdvReac Type Severity Reaction Status Date / Time doxazosin mesylate AdvReac see Verified 05/26/20 07:01 [From Cardura] comments finasteride [From Proscar] AdvReac see Verified 05/26/20 07:01 comments gatifloxacin [From Tequin] AdvReac see Verified 05/26/20 07:01 comments glipizide AdvReac see Verified 05/26/20 07:01 comments hydroxyzine HCl [From Atarax] AdvReac see Verified 05/26/20 07:01 comments levofloxacin [From Levaquin] AdvReac see Verified 05/26/20 07:01 comments lisinopril AdvReac see Verified 05/26/20 07:01 comments meperidine HCl [From Demerol] AdvReac see Verified 05/26/20 07:01 comments metformin AdvReac see Verified 05/26/20 07:01 comments oxybutynin AdvReac see Verified 05/26/20 07:01 comments oxybutynin chloride AdvReac see Verified 05/26/20 07:01 [From Ditropan] comments pseudoephedrine HCl AdvReac see Verified 05/26/20 07:01 [From Sudafed] comments rosuvastatin calcium AdvReac see Verified 05/26/20 07:01 [From Crestor] comments Sulfa (Sulfonamide AdvReac see Verified 05/26/20 07:01 Antibiotics) comments tamsulosin AdvReac see Verified 05/26/20 07:01 comments tamsulosin HCl [From Flomax] AdvReac see Verified 05/26/20 07:01 comments terazosin HCl [From Hytrin] AdvReac see Verified 05/26/20 07:01 comments Physical Exam Vitals: Vital Signs Temp Pulse Pulse Resp BP BP Pulse Ox 05/26/20 08:00 98.4 F 60 121/56 100 05/26/20 07:31 50 L 18 122/53 98 05/26/20 05:02 59 L 05/26/20 04:55 98.1 F 58 L 20 126/56 96 Intake and Output 05/25/20 05/26/20 05/26/20 22:59 06:59 14:59 Other: Weight 94.801 kg 94.801 kg -GENERAL: The patient is alert and oriented x3, not in any acute distress. Obese HEENT: Pupils are round and equally reacting to light. EOMI. No scleral icterus. No conjunctival pallor. Normocephalic, atraumatic. No pharyngeal erythema. No thyromegaly. CARDIOVASCULAR: S1 and S2 present. No murmurs, rubs, or gallops. PULMONARY: Chest is clear to auscultation, no wheezing or crackles. ABDOMEN: Soft, nontender, nondistended, normoactive bowel sounds. No palpable organomegaly. MUSCULOSKELETAL: No joint swelling or deformity. EXTREMITIES: No cyanosis, clubbing, or pedal edema. NEUROLOGICAL: Gross neurological examination did not reveal any focal deficits. SKIN: No rashes. No petechiae Results CBC & Chem 7: 05/26/20 05:31 05/26/20 05:31 Labs: Abnormal Lab Results - Last 24 Hours (Table) 05/26/20 05/26/20 05/26/20 Range/Units 05:31 05:31 05:31 RBC 3.81 L (4.30-5.90) m/uL Hgb 11.5 L (13.0-17.5) gm/dL Hct 36.7 L (39.0-53.0) % Neutrophils # 8.2 H (1.3-7.7) k/uL Lymphocytes # 0.7 L (1.0-4.8) k/uL PT 23.3 H (9.0-12.0) sec INR 2.4 H (<1.2) APTT 31.5 H (22.0-30.0) sec BUN 26 H (9-20) mg/dL Creatinine 1.28 H (0.66-1.25) mg/dL Glucose 139 H (74-99) mg/dL Alkaline Phosphatase 32 L (38-126) U/L Troponin I (0.000-0.034) ng/mL 05/26/20 05/26/20 Range/Units 05:31 08:56 RBC (4.30-5.90) m/uL Hgb (13.0-17.5) gm/dL Hct (39.0-53.0) % Neutrophils # (1.3-7.7) k/uL Lymphocytes # (1.0-4.8) k/uL PT (9.0-12.0) sec INR (<1.2) APTT (22.0-30.0) sec BUN (9-20) mg/dL Creatinine (0.66-1.25) mg/dL Glucose (74-99) mg/dL Alkaline Phosphatase (38-126) U/L Troponin I 0.050 H* 0.061 H* (0.000-0.034) ng/mL Thrombosis Risk Factor Assmnt - Choose All That Apply Each Risk Factor Represents 3 Points: Age 75 years or older Thrombosis Risk Factor Assessment Total Risk Factor Score: 3 Thrombosis Risk Factor Assessment Level: Moderate Risk Assessment and Plan Assessment: Chest pain and dyspnea suspicious for Non-STEMI In view of elevated troponin Acute and chronic CHF exacerbation. Unknown ejection fraction Chronic atrial fibrillation, rate controlled. on Coumadin Chronic kidney disease, stage II-III Diabetes mellitus Hypertension Hyperlipidemia Obesity with BMI of 33.7 Plan: This is a pleasant 80 years old male who presents with non-STEMI, with a suture troponin, echocardiogram, cardiology consults. Cardiology team recommended cardiac cath on 05/27 Labs and medication were reviewed.. Continue same treatment. Continue with symptomatic treatment. Resume home medication. Monitor lytes and vitals. DVT and GI prophylaxis. Further recommendations depends on the clinical course of the patient DVT prophylaxis: On Coumadin GI Prophylaxis: Pepcid Prognosis is guarded
[2020-05-26] MEDS ORDERED: NITROGLYCERIN-D5W PMX 50 MG in DEXTROSE/WATER 1 250ML.BAG IV SCH (12:30)
[2020-05-26] MEDS: INSULIN ASPART (NovoLOG) 100 UNIT/ML VIAL SQ SCH ×3 (13:00→21:37)
[2020-05-26 13:01] LABS: Glucose,Whole Blood 165 mg/dL (75-99)
[2020-05-26] MEDS ORDERED: ATORVASTATIN 10 MG TAB PO SCH (17:00)
[2020-05-26 17:23] LABS: Glucose,Whole Blood 131 mg/dL (75-99)
[2020-05-26] MEDS: METOPROLOL TARTRATE 25 MG TAB PO SCH (17:28)
[2020-05-26] MEDS: FENOFIBRATE 160 MG TAB PO SCH (17:28)
--- NOTE | 2020-05-26 17:33 | ECHOF ---
Referral Reason:NSTEMI, CHF on CXR MEASUREMENTS -------- HEIGHT: 167.6 cm WEIGHT: 94.8 kg BP: 126/56 RVIDd: 4.4 cm (< 3.3) IVSd: 1.6 cm (0.6 - 1.1) LVIDd: 4.5 cm (3.9 - 5.3) LVPWd: 1.6 cm (0.6 - 1.1) IVSs: 2.1 cm LVIDs: 2.8 cm LVPWs: 2.0 cm LAESV Index (A-L): 46.62 ml/m Ao Diam: 3.6 cm (2.0 - 3.7) AV Cusp: 1.8 cm (1.5 - 2.6) MV EXCURSION: 22.646 mm (> 18.000) MV EF SLOPE: 117 mm/s (70 - 150) EPSS: 0.3 cm RAP: 5.00 mmHg RVSP: 53.20 mmHg FINDINGS -------- This was a technically difficult study with suboptimal views. The left ventricular size is normal. There is moderate concentric left ventricular hypertrophy. O verall left ventricular systolic function is mildly impaired with, an EF between 45 - 50 %. Both th e mean atrial pressure as well as the LV end diastolic pressure is elevated {E/E'}. Atypical septal wall motion The right ventricle is moderate to severely enlarged. Paradoxical motion of the right ventricular septum is consistent with right ventricular overload and/or elevated right ventricular end-diastolic pressure. LA is severely dilated >40 ml/m2 The right atrium was not well visualized. Lumason used Interatrial and interventricular septum intact. There is mild aortic valve sclerosis. There is no evidence of aortic regurgitation. There is no e vidence of aortic stenosis. Moderate mitral regurgitation is present. Moderate to severe tricuspid regurgitation present. There is moderate to severe pulmonary hypertens ion. The right ventricular systolic pressure, as measured by Doppler, is 53.20mmHg. There is no pulmonic regurgitation present. The aortic root size is normal. IVC Not well visulized. There is no pericardial effusion. CONCLUSIONS -------- 1. The left ventricular size is normal. 2. There is moderate concentric left ventricular hypertrophy. 3. Overall left ventricular systolic function is mildly impaired with, an EF between 45 - 50 %. 4. Both the mean atrial pressure as well as the LV end diastolic pressure is elevated {E/E'}. 5. Atypical septal wall motion 6. The right ventricle is moderate to severely enlarged. 7. Paradoxical motion of the right ventricular septum is consistent with right ventricular overload a nd/or elevated right ventricular end-diastolic pressure. 8. LA is severely dilated >40 ml/m2 9. There is mild aortic valve sclerosis. 10. Moderate mitral regurgitation is present. 11. Moderate to severe tricuspid regurgitation present. 12. There is moderate to severe pulmonary hypertension. 13. The right ventricular systolic pressure, as measured by Doppler, is 53.20mmHg. CERTIFIED MASTER SAFECRACKER: Sophie Castellanos RDCS
[2020-05-26 20:34] LABS: Glucose,Whole Blood 172 mg/dL (75-99)
[2020-05-26] MEDS ORDERED: HEPARIN SODIUM,PORCINE 5,000 UNIT/ML 1 ML VIAL SQ SCH (21:00)
[2020-05-27] MEDS: ASPIRIN 81 MG PO SCH (03:38)
[2020-05-27] MEDS ORDERED: ATORVASTATIN 80 MG TAB PO ONE (06:00)
[2020-05-27] MEDS ORDERED: ASPIRIN 325 MG TAB PO ONE (06:00)
[2020-05-27] MEDS: METOPROLOL TARTRATE 25 MG TAB PO SCH ×2 (06:10→17:55)
[2020-05-27] MEDS: INSULIN ASPART (NovoLOG) 100 UNIT/ML VIAL SQ SCH ×4 (06:16→22:04)
[2020-05-27 06:24] LABS: Glucose,Whole Blood 121 mg/dL (75-99)
[2020-05-27] MEDS ORDERED: LIDOCAINE 1% INJ 10MG/ML (20 ML MDV) ONE (08:41)
[2020-05-27] MEDS ORDERED: HEPARIN SODIUM 1,000 UN/ML (10ML VL) ONE (08:41)
[2020-05-27] MEDS ORDERED: VERAPAMIL 2.5 MG/ML 2 ML AMP ONE (08:41)
[2020-05-27] MEDS ORDERED: ASPIRIN 325 MG TAB PO SCH (09:00)
[2020-05-27] MEDS ORDERED: fentaNYL (PF) 50 MCG/ML 2 ML AMP ONE (09:03)
--- NOTE | 2020-05-27 09:24 | P.PN ---
Subjective This is a pleasant 80 years old male with past medical of CHF, chronic atrial fibrillation on Eliquis, chronic kidney disease stage II to 3, diabetes mellitus, hypertension, hyperlipidemia Patient presents because of central chest pain of one-day duration about 10/10 in severity, coming down to 5/10, his chest pain is localized and nonradiating, nonspecific associated with dyspnea and no coughing or dizziness or palpitation Vitas looks stable. INR is 2.4, CBC and BMP are unremarkable, hemoglobin is slightly low at 11.5 and creatinine 1.2. Troponin I elevated 0.05 and 0.06. EKG showing and ventricular paced rhythm with underlying atrial fibrillation 05/27/2020 Patient is still have some mild central chest pain about 2/10 today with some dyspnea. He is hemodynamically stable and labs reviewed. Sugar controlled Patient is going for cardiac cath this morning per cardiology team Review of Systems CONSTITUTIONAL: No fever, no malaise, no fatigue. HEENT: No recent visual problems or hearing problems. Denied any sore throat. CARDIOVASCULAR: No orthopnea, PND, no palpitations, no syncope. PULMONARY: No shortness of breath, no cough, no hemoptysis. GASTROINTESTINAL: No diarrhea, no nausea, no vomiting, no abdominal pain. Normo active bowel sounds. NEUROLOGICAL: No headaches, no weakness, no numbness. HEMATOLOGICAL: Denies any bleeding or petechiae. GENITOURINARY: Denies any burning micturition, frequency, or urgency. MUSCULOSKELETAL/RHEUMATOLOGICAL: Denies any joint pain, swelling, or any muscle pain. ENDOCRINE: Denies any polyuria or polydipsia. Active Medications Generic Name Dose Route Start Last Admin Trade Name Freq PRN Reason Stop Dose Admin Alprazolam 0.25 mg 05/26/20 10:18 Alprazolam 0.25 Mg Tab PO Q6HR PRN Mild Anxiety Alprazolam 0.5 mg 05/26/20 10:18 Alprazolam 0.5 Mg Tab PO Q6HR PRN Moderate Anxiety Aspirin 81 mg 05/27/20 09:00 05/27/20 03:38 Aspirin 81 Mg PO Not Given DAILY [facility] Atorvastatin Calcium 40 mg 05/27/20 17:00 Atorvastatin 40 Mg Tab PO DAILY@1700 [facility] Fenofibrate 160 mg 05/26/20 17:00 05/26/20 17:28 Fenofibrate 160 Mg Tab PO 160 mg DAILY@1700 [facility] Administration Nitroglycerin/Dextrose 50 mg/ 250 mls @ 1.5 mls/hr 05/26/20 12:30 05/26/20 12:44 IV Solution IV 5 mcg/min .Q24H HANNA 1.5 mls/hr Administration Protocol 5 MCG/MIN Insulin Aspart 0 unit 05/26/20 12:30 05/27/20 06:16 Insulin Aspart (Novolog) 100 Unit/Ml Vial SQ Not Given ACHS [facility] Protocol Metoprolol Tartrate 25 mg 05/26/20 17:00 05/27/20 06:10 Metoprolol Tartrate 25 Mg Tab PO 25 mg BID@0800,1700 [facility] Administration Nitroglycerin 0.4 mg 05/26/20 10:18 Nitroglycerin Sl Tabs 0.4 Mg Tab SUBLINGUAL Q5M PRN Chest Pain Objective - Vital Signs Vital signs: Vital Signs Temp 98.1 F 05/27/20 04:00 Pulse 60 05/27/20 04:00 Resp 20 05/27/20 04:00 BP 160/74 05/27/20 04:00 Pulse Ox 94 L 05/27/20 04:00 Intake & Output 05/26/20 05/27/20 05/27/20 18:59 06:59 18:59 Intake Total 3 Output Total 250 600 Balance -247 -600 Weight 94.801 kg 95.5 kg Intake: Intake, IV Titration 3 Amount Nitroglycerin-D5w Pmx 50 3 mg In Dextrose/Water 1 250ml.bag @ 5 MCG/MIN 1.5 mls/hr IV .Q24H [facility] Rx#: [id number] Output: Urine 250 600 Other: # Voids 1 1 0 - Exam -GENERAL: The patient is alert and oriented x3, not in any acute distress. Obese HEENT: Pupils are round and equally reacting to light. EOMI. No scleral icterus. No conjunctival pallor. Normocephalic, atraumatic. No pharyngeal erythema. No thyromegaly. CARDIOVASCULAR: S1 and S2 present. No murmurs, rubs, or gallops. PULMONARY: Chest is clear to auscultation, no wheezing or crackles. ABDOMEN: Soft, nontender, nondistended, normoactive bowel sounds. No palpable organomegaly. MUSCULOSKELETAL: No joint swelling or deformity. EXTREMITIES: No cyanosis, clubbing, or pedal edema. NEUROLOGICAL: Gross neurological examination did not reveal any focal deficits. SKIN: No rashes. No petechiae - Labs CBC & Chem 7: 05/26/20 05:31 05/26/20 05:31 Labs: Abnormal Lab Results - Last 24 Hours (Table) 05/26/20 05/26/20 05/26/20 Range/Units 08:56 12:12 12:59 POC Glucose (mg/dL) 165 H (75-99) mg/dL Troponin I 0.061 H* 0.057 H* (0.000-0.034) ng/mL 05/26/20 05/26/20 05/27/20 Range/Units 17:20 20:33 06:23 POC Glucose (mg/dL) 131 H 172 H 121 H (75-99) mg/dL Troponin I (0.000-0.034) ng/mL Assessment and Plan Assessment: Chest pain and dyspnea suspicious for Non-STEMI In view of elevated troponin Acute and chronic CHF exacerbation. Unknown ejection fraction Chronic atrial fibrillation, rate controlled. on Coumadin Chronic kidney disease, stage II-III Diabetes mellitus Hypertension Hyperlipidemia Obesity with BMI of 33.7 Plan: This is a pleasant 80 years old male who presents with non-STEMI, with a suture troponin, echocardiogram, cardiology consults. Cardiology team recommended cardiac cath on 05/27 Labs and medication were reviewed.. Continue same treatment. Continue with symptomatic treatment. Resume home medication. Monitor lytes and vitals. DVT and GI prophylaxis. Further recommendations depends on the clinical course of the patient DVT prophylaxis: On Coumadin GI Prophylaxis: Pepcid Prognosis is guarded
[2020-05-27] MEDS ORDERED: LIDOCAINE 1% INJ 10MG/ML (20 ML MDV) SQ ONE (09:28)
[2020-05-27] MEDS ORDERED: fentaNYL (PF) 50 MCG/ML 2 ML AMP IVP ONE (09:28)
[2020-05-27] MEDS ORDERED: VERAPAMIL SYRINGE (5 MG/10 ML) INTRAARTER ONE (09:32)
[2020-05-27] MEDS ORDERED: IV FLUID CONTINUATION 900 ML IV ONE (09:39)
[2020-05-27] MEDS ORDERED: HEPARIN SODIUM 1,000 UN/ML (10ML VL) IV ONE (09:46)
[2020-05-27] MEDS ORDERED: IOPAMIDOL-370 125ML BTL INJ ONE (09:47)
[2020-05-27 09:59] LABS: INR 2.4 (<1.2)
[2020-05-27] MEDS ORDERED: RX INFO: IV CONTRAST WAS GIVEN 1 EACH MISC MISCELLANE PRN (10:03)
[2020-05-27] MEDS ORDERED: SODIUM CHLORIDE 0.9% 1,000 ML IV SCH (10:15)
[2020-05-27 10:39] LABS: Calcium 8.3 mg/dL (8.4-10.2); Potassium 4.6 mmol/L (3.5-5.1)
[2020-05-27] MEDS: ISOSORBIDE MONONITRATE ER 30 MG TAB.ER.24H PO SCH (11:43)
[2020-05-27 11:50] LABS: Glucose,Whole Blood 129 mg/dL (75-99)
--- NOTE | 2020-05-27 12:14 | CC ---
CARDIAC CATHETERIZATION REPORT Mr. Bain is an 80-year-old male with a known history of mild to moderate coronary artery disease, history of atrial fibrillation, permanent pacemaker implantation, who presented with an episode of chest discomfort as well as dyspnea on exertion. He had mild troponin elevation. In view of that, recommendation made regarding cardiac catheterization. The procedures, risks, and complications were discussed with the patient who is in full understanding and agreement. DETAILS OF PROCEDURE: Patient was brought to laboratory chemist in a fasting state after receiving fentanyl and Benadryl and achieving moderate conscious sedate state using Xylocaine anesthesia and Seldinger technique, 6-Mongolian sheath was introduced in the right radial artery. Selective right and left coronary angiography performed using a 5-Mongolian 4 bend right Faustino and 3 and a half bend left Faustino catheter. Multiple views of the coronary arteries including hemiaxial views were obtained. Following that, the left Faustino was used to cross the aortic valve and left ventricular end-diastolic pressure was calculated. Of note, the patient received 5000 units of intravenous heparin as well as intra- arterial verapamil. There were no immediate complications. FINDINGS: FLUOROSCOPY: There was calcification involving the proximal right coronary artery. SELECTIVE CORONARY ANGIOGRAPHY: LEFT MAIN: This is a large-sized vessel, bifurcating into left circumflex, left anterior descending artery. Left main coronary artery has no evidence of high-grade stenosis. LEFT ANTERIOR DESCENDING CORONARY ARTERY: This is a large-sized vessel reaching to the apex, calcified in the proximal segment, giving rise to a diagonal branch. The left anterior descending coronary artery has mild intimal disease proximally of 20%. The rest of the vessel has no high-grade stenosis. CIRCUMFLEX CORONARY ARTERY: Left circumflex is a large nondominant vessel giving rise to 3 obtuse marginal branches. The left circumflex as well as branches have no evidence of significant obstructive coronary disease. RIGHT CORONARY ARTERY: This is a large dominant vessel bifurcating distally into PDA and posterolateral segment and branches. The right coronary artery in the ostium has a 20-30 percent plaque. There is intimal disease in the mid and distal segment without any evidence of high-grade stenosis. LEFT VENTRICULOGRAM: Left ventriculogram was not performed. HEMODYNAMICS: There was no gradient across the aortic valve. The left ventricle end-diastolic pressure is 18-20 mmHg. CONCLUSION: 1. Calcified right coronary artery. 2. Mild triple-vessel coronary artery disease. RECOMMENDATIONS: In view of findings and anatomy, I recommend continue medical therapy with aggressive coronary risk factor modifications that have been initiated. Those findings and recommendations were discussed with the patient and his family and they are in full understanding and agreement. Duration of sedation is 24 minutes. MMODL / IJN: [id number] /
[2020-05-27] MEDS ORDERED: ATORVASTATIN 40 MG TAB PO SCH (17:00)
[2020-05-27 17:15] LABS: Hemoglobin A1C 6.8 % (4.0-6.0)
[2020-05-27 17:38] LABS: Glucose,Whole Blood 116 mg/dL (75-99)
[2020-05-27] MEDS: FENOFIBRATE 160 MG TAB PO SCH (17:55)
[2020-05-27 20:28] LABS: Glucose,Whole Blood 132 mg/dL (75-99)
[2020-05-27] MEDS ORDERED: HYDROcodone/APAP 5-325MG 1 EACH TAB PO PRN (20:52)
[2020-05-28 06:15] LABS: Glucose,Whole Blood 121 mg/dL (75-99)
[2020-05-28] MEDS: INSULIN ASPART (NovoLOG) 100 UNIT/ML VIAL SQ SCH ×2 (06:25→12:26)
[2020-05-28] MEDS ORDERED: FUROSEMIDE 10 MG/ML 4 ML VIAL IV SCH (09:00)
[2020-05-28] MEDS: ASPIRIN 81 MG PO SCH (09:17)
[2020-05-28] MEDS: METOPROLOL TARTRATE 25 MG TAB PO SCH (09:17)
[2020-05-28] MEDS: ISOSORBIDE MONONITRATE ER 30 MG TAB.ER.24H PO SCH (09:18)
--- NOTE | 2020-05-28 10:54 | CDI ---
Documentation Clarification Form Date: 05/28/2020 10:40:39 AM From: Casie Arauz CCS, CCDS Admit Date: 05/27/2020 12:44:00 PM Patient Name: Stephen Bain Visit Number: [id number] Discharge Date: ATTENTION: The Clinical Documentation Specialists (CDI) and [facility] Coding Staff appreciate your assistance in clarifying documentation. Please respond to the clarification below the line at the bottom and electronically sign. The CDI & [facility] Coding staff will review the response and follow-up if needed. Please note: Queries are made part of the Legal Health Record. If you have any questions, please contact the author of this message via ITS. Dr. Lee Sheet: Per the History & Physical: "Unknown ejection fraction Chronic atrial fibrillation, rate controlled. on Coumadin Chronic kidney disease, stage II- III." History/Risk Factors: Chronic persistent atrial fibrillation, CKD II-III, DM, Hypertension, Hyperlipidemia, Obesity w/BMI 33.7, Sleep Apnia, CAD, Chronic Diastolic CHF. Clinical Indicators: Presented to the ED on 05/26 with chest pain, Heart Catheterization on 05/27: Calcified RCA, Mild triple vessel CAD. LAB: GFR 05/26: 52, 05/27: 55, :: 51 LAB 03/16/2018: 63. 4/: 45. 12/19/2017: 41. 06/26/2019: 46.8*. 01/04/2020: 46.8*. 05/28/2020: 51. Treatment 05/26: Nitropaste, IV Heparin drip, IV Lasix, IV fluid 1,000 mls, IV Nitro. O2 2-3Lnc. In order to capture the severity of condition, please clarify the specific stage of the CKD, if known: CKD Stage 2 (GFR 60-89) CKD Stage 3 (GFR 30-59) Other, please specify Unable to determine (Last Revision: September 2019) CKD Stage 3 (GFR 30-59) MADELINE
[2020-05-28 11:49] LABS: Glucose,Whole Blood 139 mg/dL (75-99)
[2020-05-28 11:56] LABS: INR 1.8 (<1.2); Prothrombin Time 17.6 sec (9.0-12.0)
--- NOTE | 2020-05-28 14:16 | PN ---
PROGRESS NOTE Mr. Bain is an 80-year-old male who presented with symptoms of dyspnea and mild chest discomfort, underwent cardiac catheterization, was found to have no evidence of significant progression of disease. His echocardiogram showed an ejection fraction of 45% to 50% with mild to severe tricuspid regurgitation and moderate pulmonary hypertension. He continues to be dyspneic on exertion, but he has no symptoms of chest pain. He has no dizziness or palpitation. He denies no nausea. He continues to be on aspirin once a day, Lipitor 40 mg daily, fenofibrate, metoprolol tartrate 25 mg twice a day, and isosorbide mononitrate 30 mg daily and insulin. He was started on IV Lasix today. PHYSICAL EXAMINATION: Blood pressure running in the 120s to 130s with a heart rate in 60. LUNGS: A few crackles at the bases. HEART: Regular rate and rhythm, S1, S2. No S3. No rub. ABDOMEN: Soft, nontender, obese. EXTREMITIES: Trace to 1+ edema. Right radial pulse intact. IMPRESSION: 1. Evidence of non ST-segment elevation myocardial infarction with no evidence of significant progression of disease. 2. Evidence of pulmonary hypertension. 3. History of atrial fibrillation with permanent pacemaker implantation. 4. Hyperlipidemia. 5. Diabetes mellitus. RECOMMENDATION: I will restart his Coumadin. Follow his INR. Increase his activity. If he remains stable, he may be able to be discharged home in the next 24 hours. MMODL / GABEN: [id number] /
[2020-05-28 14:41] VITALS: RESP 18
[2020-05-28 14:46] VITALS: BP 122/60; PULSE 52; TEMP 97.9
[2020-05-28] MEDS ORDERED: WARFARIN 2 MG TAB PO ONE (18:00)
--- NOTE | 2020-05-28 22:49 | P.DS ---
Providers Date of admission: 05/27/20 12:44 Attending physician: Jesus Mckinney MD Consults: 05/26/20 06:31 Consult Physician Urgent Consulting Provider: [facility] Consult Reason/Comments: [facility] Do you want consulting provider notified?: Yes, Notify in am Primary care physician: Lonnie Hewitt Hospital Course: Diagnoses: Chest pain and dyspnea suspicious for Non-STEMI In view of elevated troponin, cardiac cath showed mild triple coronary artery disease, medical management is recommended by security control center operator Mild Acute and chronic CHF exacerbation. Unknown ejection fraction Chronic atrial fibrillation, rate controlled. on Coumadin Chronic kidney disease, stage II-III Diabetes mellitus Hypertension Hyperlipidemia Obesity with BMI of 33.7 Hospital course: This is a pleasant 80 years old male with past medical of CHF, chronic atrial fibrillation on Eliquis, chronic kidney disease stage II to 3, diabetes mellitus, hypertension, hyperlipidemia Patient presents because of central chest pain of one-day duration associated with some dyspnea, Troponin I elevated 0.05 and 0.06. Patient evaluated by security control center operator. He underwent cardiac cath on 05/27 showing calcified right coronary artery with mild triple-vessel coronary artery disease and security control center operator recommended continue with medical treatment. Patient kept well and his chest pain and dyspnea significantly improved, no other symptoms, no change in his urine or bowel habits. No fever Patient was cleared for discharge by security control center operator Problems and management plan were discussed with the patient and he verbalized understanding and acceptance. Son was at bedside and he agrees with the plan after he informed upon his father request Patient was found stable and can be discharged home however he needs follow-up as an outpatient. Patient was instructed to follow up with PCP Dr. Hewitt within one week and patient agrees. An appointment made for the patient tomorrow to check his INR after an extra dose of Coumadin as provided for the patient today , and I discussed the case with Dr. Hewitt including the need to follow up INR and patient agrees with this plan. Also patient was instructed to follow up with Dr. Fall and he agrees with the appointments made for him on 06/11 and states he will follow-up. Gen: patient is a AAOx3, no distress CVS: S1-S2, RRR, no murmur Lungs: B/L CTA, no wheezing Abdomen: soft, no distention, no tenderness, positive bowel sounds Extremity: no leg edema or induration Time spent more than 35 minutes Plan - Discharge Summary Discharge Rx Participant: No New Discharge Prescriptions: New Aspirin 81 mg PO DAILY #30 chew Isosorbide Mononitrate ER [Imdur] 30 mg PO DAILY #30 tab.er.24h Nitroglycerin Sl Tabs [Nitrostat] 0.4 mg SUBLINGUAL Q5M PRN #20 tab PRN Reason: Chest Pain Continue Metoprolol Tartrate [Lopressor] 25 mg PO BID@0800,1700 Lovastatin [Mevacor] 40 mg PO DAILY@1700 Fenofibrate [Lofibra] 160 mg PO DAILY@1700 Warfarin [Coumadin] 1 mg PO SUMOTUWETHFR@1700 Warfarin [Coumadin] 2 mg PO SA@1700 Insulin Glargine,Hum.rec.anlog [Lantus Solostar] 12 unit SQ DAILY@1700 Changed Famotidine [Pepcid] 40 mg PO BID #30 tab Discontinued Multivitamin [Men's Multi-Vitamin] 1 tab PO DAILY@1700 Discharge Medication List Metoprolol Tartrate [Lopressor] 25 mg PO BID@0800,1700 02/28/14 [History] Fenofibrate [Lofibra] 160 mg PO DAILY@17012/14/18 [History] Lovastatin [Mevacor] 40 mg PO DAILY@169912/14/18 [History] Insulin Glargine,Hum.rec.anlog [Lantus Solostar] 12 unit SQ DAILY@17005/26/20 [History] Warfarin [Coumadin] 1 mg PO SUMOTUWETHFR@17005/26/20 [History] Warfarin [Coumadin] 2 mg PO SA@169905/26/20 [History] Aspirin 81 mg PO DAILY #30 chew 05/28/20 [Rx] Famotidine [Pepcid] 40 mg PO BID #30 tab 05/28/20 [Rx] Isosorbide Mononitrate ER [Imdur] 30 mg PO DAILY #30 tab.er.24h 05/28/20 [Rx] Nitroglycerin Sl Tabs [Nitrostat] 0.4 mg SUBLINGUAL Q5M PRN #20 tab 05/28/20 [Rx] Follow up Appointment(s)/Referral(s): Sadi Fall MD [STAFF PHYSICIAN] - 06/11/20 2:00 pm Lonnie Hewitt DO [Primary Care Provider] - 05/28/20 9:30 am (please go to your appointment on this date, you need to check your INR with your doctor ) Patient Instructions/Handouts: After Radial Heart Catheterization (GEN) Activity/Diet/Wound Care/Special Instructions: Healthy diet diet Activity is limited till you see your doctor Discharge Disposition: HOME SELF-CARE
== END 2020-05-28 16:37 | disposition home or self-care (01) | DRG 280 ==
LOC: EC 04:51 → 3SCARD 06:31 → OBSVTOIN 05-27 12:44 → 3SCARD 05-27 21:55 → 3NCARDOBS 05-27 21:55
PROVIDERS: ADMIT Internal Medicine; ATTEND Internal Medicine
PROC: B2111ZZ Fluoroscopy of Multiple Coronary Arteries using Low Osmolar Contrast (ICD-10-PCS; principal; 2020-05-27 09:00)
PROC: 4A023N7 Measurement of Cardiac Sampling and Pressure, Left Heart, Percutaneous Approach (ICD-10-PCS; principal; 2020-05-27 09:00)
DX: I21.4 Non-ST elevation (NSTEMI) myocardial infarction (principal); I50.33 Acute on chronic diastolic (congestive) heart failure; I13.0 Hypertensive heart and chronic kidney disease with heart failure and stage 1 through stage 4 chronic kidney disease, or unspecified chronic kidney disease; I48.19 Other persistent atrial fibrillation; E11.22 Type 2 diabetes mellitus with diabetic chronic kidney disease; E66.9 Obesity, unspecified; E78.5 Hyperlipidemia, unspecified; G47.33 Obstructive sleep apnea (adult) (pediatric); Z99.89 Dependence on other enabling machines and devices; I07.1 Rheumatic tricuspid insufficiency; I25.10 Atherosclerotic heart disease of native coronary artery without angina pectoris; I27.20 Pulmonary hypertension, unspecified; N18.3 Chronic kidney disease, stage 3 (moderate); J45.909 Unspecified asthma, uncomplicated; N40.0 Benign prostatic hyperplasia without lower urinary tract symptoms; Z68.33 Body mass index [BMI] 33.0-33.9, adult; Z79.01 Long term (current) use of anticoagulants; Z79.4 Long term (current) use of insulin; Z79.899 Other long term (current) drug therapy; Z79.82 Long term (current) use of aspirin; Z82.3 Family history of stroke; Z82.49 Family history of ischemic heart disease and other diseases of the circulatory system; Z95.0 Presence of cardiac pacemaker; Z87.442 Personal history of urinary calculi; Z90.79 Acquired absence of other genital organ(s); Z66 Do not resuscitate; I71.4 Abdominal aortic aneurysm, without rupture; Z86.718 Personal history of other venous thrombosis and embolism; Z88.1 Allergy status to other antibiotic agents; Z88.2 Allergy status to sulfonamides; Z88.8 Allergy status to other drugs, medicaments and biological substances; Z87.891 Personal history of nicotine dependence
CPT/HCPCS: 36415; 71046; 80048; 80053; 80061; 82565; 83036; 83735; 83880; 84484; 85025; 85610; 85730; 93005; 93306; 93458; 96365; 96366; 96368; 96375; 99285

== ENCOUNTER 2021-09-06 10:03 | Inpatient (IN) | payer MEDICARE ==
--- NOTE | 2021-09-06 11:29 | ED ---
General Adult HPI - General Chief complaint: Urogenital Stated complaint: Blood in Urine Time Seen by Provider: 09/06/21 11:16 Source: patient, family, RN notes reviewed Mode of arrival: ambulatory Limitations: no limitations - History of Present Illness Initial comments: Patient is a pleasant 81-year-old male presenting to the emergency Department with hematuria. Onset was last night. Patient has had several episodes. Patient has passed some clots. Patient has no dysuria. No genital inguinal or flank or abdominal or back discomfort. No fever. No other areas of bleeding. Patient is on Coumadin secondary to atrial fibrillation history. - Related Data Home Medications Medication Instructions Recorded Confirmed Metoprolol Tartrate [Lopressor] 25 mg PO BID@0800,1700 02/28/14 05/26/20 Fenofibrate [Lofibra] 160 mg PO DAILY@169912/14/18 05/26/20 Lovastatin [Mevacor] 40 mg PO DAILY@169912/14/18 05/26/20 Insulin Glargine,Hum.rec.anlog 12 unit SQ DAILY@169905/26/20 05/26/20 [Lantus Solostar Pen] Warfarin [Coumadin] 1 mg PO SUMOTUWETHFR@169905/26/20 05/26/20 Warfarin [Coumadin] 2 mg PO SA@169905/26/20 05/26/20 Previous Rx's Medication Instructions Recorded Aspirin 81 mg PO DAILY #30 chew 05/28/20 Famotidine [Pepcid] 40 mg PO BID #30 tab 05/28/20 Isosorbide Mononitrate ER [Imdur] 30 mg PO DAILY #30 tab.er.24h 05/28/20 Nitroglycerin Sl Tabs [Nitrostat] 0.4 mg SUBLINGUAL Q5M PRN #20 tab 05/28/20 Allergies Allergy/AdvReac Type Severity Reaction Status Date / Time doxazosin mesylate AdvReac see Verified 09/06/21 10:20 [From Cardura] comments finasteride [From Proscar] AdvReac see Verified 09/06/21 10:20 comments gatifloxacin [From Tequin] AdvReac see Verified 09/06/21 10:20 comments glipizide AdvReac see Verified 09/06/21 10:20 comments hydroxyzine HCl [From Atarax] AdvReac see Verified 09/06/21 10:20 comments levofloxacin [From Levaquin] AdvReac see Verified 09/06/21 10:20 comments lisinopril AdvReac see Verified 09/06/21 10:20 comments meperidine HCl [From Demerol] AdvReac see Verified 09/06/21 10:20 comments metformin AdvReac see Verified 09/06/21 10:20 comments oxybutynin AdvReac see Verified 09/06/21 10:20 comments oxybutynin chloride AdvReac see Verified 09/06/21 10:20 [From Ditropan] comments pseudoephedrine HCl AdvReac see Verified 09/06/21 10:20 [From Sudafed] comments rosuvastatin calcium AdvReac see Verified 09/06/21 10:20 [From Crestor] comments Sulfa (Sulfonamide AdvReac see Verified 09/06/21 10:20 Antibiotics) comments tamsulosin AdvReac see Verified 09/06/21 10:20 comments tamsulosin HCl [From Flomax] AdvReac see Verified 09/06/21 10:20 comments terazosin HCl [From Hytrin] AdvReac see Verified 09/06/21 10:20 comments Review of Systems ROS Statement: Those systems with pertinent positive or pertinent negative responses have been documented in the HPI. ROS Other: All systems not noted in ROS Statement are negative. Constitutional: Denies: fever, chills Eyes: Denies: eye pain ENT: Denies: ear pain Respiratory: Denies: cough Cardiovascular: Denies: chest pain Endocrine: Denies: fatigue Gastrointestinal: Denies: abdominal pain, nausea, vomiting Genitourinary: Reports: as per HPI, hematuria. 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, past L pleural effusion with thoracentesis, DVT L lower extremity, BPH with surgery, CKD, kiney stones with surgery, abdominal aortic aneurysm being monitored every 6 months, STEPHAN-unable to tolerate CPap, SSS with pacemaker, vertigo in the past, seasonal allergies History of Any Multi-Drug Resistant Organisms: None Reported Past Surgical History: Heart Catheterization, Pacemaker, Prostate Surgery Additional Past Surgical History / Comment(s): Pacemaker inserted 01/01/09 and gen change 04/11/18, TURP, ESWL, cysto/TURP, colonoscopy Past Anesthesia/Blood Transfusion Reactions: Motion Sickness Type of Cardiac Device: Permanent Pacemaker Device Placement Date:: 01/01/2009 and gen change 03/2018 Past Psychological History: No Psychological Hx Reported Smoking Status: Never smoker Past Alcohol Use History: None Reported Past Drug Use History: None Reported - Past Family History Mother Family Medical History: CVA/TIA, Hypertension Additional Family Medical History / Comment(s): Mother lived to be 85yrs old. Father Family Medical History: CVA/TIA Additional Family Medical History / Comment(s): Father from a CVA at the age of 78yrs. General Exam Limitations: no limitations General appearance: alert, in no apparent distress Head exam: Present: normocephalic Eye exam: Present: normal appearance Neck exam: Present: normal inspection Respiratory exam: Present: normal lung sounds bilaterally Cardiovascular Exam: Present: regular rate, normal rhythm GI/Abdominal exam: Present: soft. Absent: tenderness exam: Present: normal inspection Extremities exam: Present: normal inspection Neurological exam: Present: alert Psychiatric exam: Present: normal affect, normal mood Skin exam: Present: normal color Course Vital Signs 09/06/21 10:16 Temperature 97.6 F Pulse Rate 73 Respiratory 18 Rate Blood Pressure 122/62 O2 Sat by Pulse 97 Oximetry Medical Decision Making - Medical Decision Making Patient reevaluated and resting complain bed. Patient and family updated on results and plan. Patient adds that he has had some mild dyspnea. Chest x-ray will be added. Patient does have elevated BNP. Cardiology consult placed. Nephrology consult will also be placed. Case was discussed with Dr. isaac who will admit covering Dr. Sadie Balbuena. - Lab Data Result diagrams: 09/06/21 12:10 09/06/21 12:55 Lab Results 09/06/21 09/06/21 09/06/21 Range/Units 12:10 12:10 12:16 WBC 5.3 (3.8-10.6) k/uL RBC 3.24 L (4.30-5.90) m/uL Hgb 11.0 L (13.0-17.5) gm/dL Hct 33.7 L (39.0-53.0) % MCV 103.9 H (80.0-100.0) fL MCH 33.9 (25.0-35.0) pg MCHC 32.7 (31.0-37.0) g/dL RDW 13.8 (11.5-15.5) % Plt Count 148 L (150-450) k/uL MPV 7.9 Neutrophils % 65 % Lymphocytes % 20 % Monocytes % 10 % Eosinophils % 3 % Basophils % 0 % Neutrophils # 3.5 (1.3-7.7) k/uL Lymphocytes # 1.1 (1.0-4.8) k/uL Monocytes # 0.5 (0-1.0) k/uL Eosinophils # 0.1 (0-0.7) k/uL Basophils # 0.0 (0-0.2) k/uL Macrocytosis Slight PT 32.0 H (9.0-12.0) sec INR 3.3 H (<1.2) APTT 38.6 H (22.0-30.0) sec Sodium (137-145) mmol/L Potassium (3.5-5.1) mmol/L Chloride (98-107) mmol/L Carbon Dioxide (22-30) mmol/L Anion Gap mmol/L BUN (9-20) mg/dL Creatinine (0.66-1.25) mg/dL Est GFR (CKD-EPI)AfAm (>60 ml/min/1.73 sqM) Est GFR (CKD-EPI)NonAf (>60 ml/min/1.73 sqM) Glucose (74-99) mg/dL Calcium (8.4-10.2) mg/dL Total Bilirubin (0.2-1.3) mg/dL AST (17-59) U/L ALT (4-49) U/L Alkaline Phosphatase (38-126) U/L Troponin I (0.000-0.034) ng/mL NT-Pro-B Natriuret Pep pg/mL Total Protein (6.3-8.2) g/dL Albumin (3.5-5.0) g/dL Urine Color Red Urine Appearance Clear (Clear) Urine pH 7.0 (5.0-8.0) Ur Specific [place] 1.018 (1.001-1.035) Urine Protein 1+ H (Negative) Urine Glucose (UA) Negative (Negative) Urine Ketones Negative (Negative) Urine Blood Large H (Negative) Urine Nitrite Negative (Negative) Urine Bilirubin Negative (Negative) Urine Urobilinogen <2.0 (<2.0) mg/dL Ur Leukocyte Esterase Small H (Negative) Urine RBC >182 H (0-5) /hpf Urine WBC 5 (0-5) /hpf 09/06/21 09/06/21 09/06/21 Range/Units 12:51 12:55 12:55 WBC (3.8-10.6) k/uL RBC (4.30-5.90) m/uL Hgb (13.0-17.5) gm/dL Hct (39.0-53.0) % MCV (80.0-100.0) fL MCH (25.0-35.0) pg MCHC (31.0-37.0) g/dL RDW (11.5-15.5) % Plt Count (150-450) k/uL MPV Neutrophils % % Lymphocytes % % Monocytes % % Eosinophils % % Basophils % % Neutrophils # (1.3-7.7) k/uL Lymphocytes # (1.0-4.8) k/uL Monocytes # (0-1.0) k/uL Eosinophils # (0-0.7) k/uL Basophils # (0-0.2) k/uL Macrocytosis PT (9.0-12.0) sec INR (<1.2) APTT (22.0-30.0) sec Sodium 139 (137-145) mmol/L Potassium 4.1 (3.5-5.1) mmol/L Chloride 97 L (98-107) mmol/L Carbon Dioxide 34 H (22-30) mmol/L Anion Gap 8 mmol/L BUN 46 H (9-20) mg/dL Creatinine 1.90 H (0.66-1.25) mg/dL Est GFR (CKD-EPI)AfAm 37 (>60 ml/min/1.73 sqM) Est GFR (CKD-EPI)NonAf 32 (>60 ml/min/1.73 sqM) Glucose 90 (74-99) mg/dL Calcium 9.1 (8.4-10.2) mg/dL Total Bilirubin 1.1 (0.2-1.3) mg/dL AST 27 (17-59) U/L ALT 8 (4-49) U/L Alkaline Phosphatase 40 (38-126) U/L Troponin I 0.053 H* (0.000-0.034) ng/mL NT-Pro-B Natriuret Pep 8610 pg/mL Total Protein 8.3 H (6.3-8.2) g/dL Albumin 3.8 (3.5-5.0) g/dL Urine Color Urine Appearance (Clear) Urine pH (5.0-8.0) Ur Specific [place] (1.001-1.035) Urine Protein (Negative) Urine Glucose (UA) (Negative) Urine Ketones (Negative) Urine Blood (Negative) Urine Nitrite (Negative) Urine Bilirubin (Negative) Urine Urobilinogen (<2.0) mg/dL Ur Leukocyte Esterase (Negative) Urine RBC (0-5) /hpf Urine WBC (0-5) /hpf - Radiology Data Radiology results: image reviewed (KUB shows right-sided nephrolithiasis) Disposition Clinical Impression: Renal insufficiency, Hematuria Disposition: ADMITTED IP TO THIS HOSP Is patient prescribed a controlled substance at d/c from ED?: No Referrals: Lonnie Hewitt DO [Primary Care Provider] - 1-2 days Time of Disposition: 14:31
--- NOTE | 2021-09-06 11:58 | XR ---
EXAMINATION TYPE: XR abdomen 1V DATE OF EXAM: 09/06/2021 11:39 AM CLINICAL HISTORY: Hematuria. TECHNIQUE: Two Upright KUB images of the abdomen are obtained. COMPARISON: CT 2014. FINDINGS: There are 2 adjacent right renal calculi measuring up to 2.0 cm at L2-L3 disc space level. No definitive left-sided nephrolithiasis Overall nonobstructive bowel gas pattern. Partial visualization of cardiomegaly with single lead pace maker. Multilevel spurring in the spine. Moderate axial joint space loss both hips. No free air. IMPRESSION: Right-sided nephrolithiasis.
[2021-09-06 12:26] LABS: Basophils % (A) 0 %; Eosinophils # (A) 0.1 k/uL (0-0.7); Eosinophils % (A) 3 %; HCT 33.7 % (39.0-53.0); Lymphocytes # (A) 1.1 k/uL (1.0-4.8); Lymphocytes % (A) 20 %; MCH 33.9 pg (25.0-35.0); MCHC 32.7 g/dL (31.0-37.0); MCV 103.9 fL (80.0-100.0); Macrocytosis Slight; Mean Platelet Volume 7.9; Monocytes # (A) 0.5 k/uL (0-1.0); Monocytes % (A) 10 %; Neutrophils # (A) 3.5 k/uL (1.3-7.7); Neutrophils % (A) 65 %; Platelet Count 148 k/uL (150-450); RBC 3.24 m/uL (4.30-5.90); RDW 13.8 % (11.5-15.5); WBC 5.3 k/uL (3.8-10.6)
[2021-09-06 12:38] LABS: INR 3.3 (<1.2); Partial Thromboplastin Time 38.6 sec (22.0-30.0)
[2021-09-06 12:39] LABS: Appearance,Urine Clear (Clear); Bilirubin,Urine Negative (Negative); Blood,Urine Large (Negative); Color,Urine Red; Glucose,Urine (UA) Negative (Negative); Ketones,Urine Negative (Negative); Leukocyte Esterase,Urine Small (Negative); Nitrite,Urine Negative (Negative); Protein,Urine 1+ (Negative); RBC,Urine >182 /hpf (0-5); Specific Gravity,Urine 1.018 (1.001-1.035); Urobilinogen,Urine <2.0 mg/dL (<2.0); WBC,Urine 5 /hpf (0-5)
[2021-09-06 13:20] LABS: Albumin 3.8 g/dL (3.5-5.0); Calcium 9.1 mg/dL (8.4-10.2); Potassium 4.1 mmol/L (3.5-5.1); Total Bilirubin 1.1 mg/dL (0.2-1.3); Total Protein 8.3 g/dL (6.3-8.2)
[2021-09-06] MEDS ORDERED: NALOXONE 0.4 MG/ML 1 ML VIAL IV PRN (14:31)
--- NOTE | 2021-09-06 15:46 | XR ---
EXAMINATION TYPE: XR chest 2V DATE OF EXAM: 09/06/2021 COMPARISON: NONE HISTORY: Pleural effusion TECHNIQUE: 2 views FINDINGS: Heart is enlarged. There is pulmonary vascular congestion. There is blunting of the right c ostophrenic angle. There are no hilar masses. There is left axillary pacemaker. There is some osteope stella. IMPRESSION: Mild congestive heart failure. Pulmonary congestion and pleural fluid increased compared to old exam.
[2021-09-06 21:08] LABS: Glucose,Whole Blood 120 mg/dL (75-99)
[2021-09-06] MEDS ORDERED: FUROSEMIDE 10 MG/ML 4 ML VIAL IV STA (21:23)
[2021-09-06] MEDS: SODIUM CHLORIDE 0.9% 1,000 ML IV SCH (21:33)
[2021-09-06] MEDS: METOPROLOL TARTRATE 25 MG TAB PO SCH (22:27)
[2021-09-06] MEDS: INSULIN DETEMIR (LEVEMIR) 100 UNIT/ML SYR SQ SCH (22:28)
[2021-09-06] MEDS: ATORVASTATIN 10 MG TAB PO SCH (22:28)
[2021-09-07 06:24] LABS: Glucose,Whole Blood 73 mg/dL (75-99)
[2021-09-07 08:20] LABS: Basophils % (A) 1 %; Eosinophils # (A) 0.2 k/uL (0-0.7); Eosinophils % (A) 3 %; HGB 10.2 gm/dL (13.0-17.5); Lymphocytes # (A) 0.9 k/uL (1.0-4.8); Lymphocytes % (A) 20 %; MCH 33.9 pg (25.0-35.0); MCHC 31.9 g/dL (31.0-37.0); MCV 106.1 fL (80.0-100.0); Macrocytosis Moderate; Mean Platelet Volume 9.8; Monocytes # (A) 0.4 k/uL (0-1.0); Monocytes % (A) 9 %; Neutrophils % (A) 66 %; Platelet Count 122 k/uL (150-450); RBC 3.02 m/uL (4.30-5.90); RDW 13.8 % (11.5-15.5); WBC 4.6 k/uL (3.8-10.6)
[2021-09-07 08:30] LABS: INR 2.9 (<1.2); Prothrombin Time 27.9 sec (9.0-12.0)
[2021-09-07 08:48] LABS: Albumin 3.6 g/dL (3.5-5.0); Calcium 9.2 mg/dL (8.4-10.2); Potassium 3.8 mmol/L (3.5-5.1); Total Protein 7.9 g/dL (6.3-8.2)
[2021-09-07] MEDS: SODIUM CHLORIDE 0.9% 1,000 ML IV SCH (08:48)
[2021-09-07] MEDS ORDERED: PANTOPRAZOLE 40 MG/10 ML VIAL IV SCH (09:00)
[2021-09-07] MEDS ORDERED: FAMOTIDINE 20 MG TAB PO SCH ×2 (12:00→20:00)
--- NOTE | 2021-09-07 12:10 | P.CRDCN ---
History of Present Illness History of present illness: This is a pleasant 81-year-old gentleman who follows regularly with Dr. Fall in the office. He has known history of mild triple vessel coronary artery disease, sick sinus syndrome status post single-chamber pacemaker implantation in 2008 ,persistent atrial fibrillation on coumadin, abdominal aortic aneurysm, chronic congestive diastolic heart failure, type 2 diabetes, hypertension, hyperlipidemia, sleep apnea, peripheral vascular disease who presents to the hospital with symptoms of hematuria. He states it started on 09/05/21 night. He also passed clots. He denies any chest pain, shortness of breath, lightheadedness, dizziness, syncope or near syncope. He denies any abdo julisa pain, fever, chills, nausea, cough. He denies any bleeding elsewhere. Cardiology is consulted for cardiac evaluation. DIAGNOSTICS EKG reveals Ventricular paced rhythm Telemetry tracings indicate V paced rhythm Chest xray Left axillary pacemaker, mild pulmonary congestion, mild congestive h eart failure Abdominal x-ray revealed right-sided nephrolithiasis Most recent echocardiogram 04/2020 revealed EF 50%, moderate mitral regurgitation, moderate to severe tricuspid regurgitation with an RVSP of 53 mmHg Most recent cardiac catheterization 04/2020, mild triple vessel coronary artery disease Laboratory reviewed, WBC 4.6, hemoglobin 10.2, platelets 122, INR 2.9, sodium 140, potassium 3.8, BUN 48, serum creatinine 1.8, troponin negative 3 ,covid 19 negative Current cardiac medications include metolazone 5mg , Coumadin, metoprolol tartrate 25mg BID, Lovastatin, Lasix 40mg BID REVIEW OF SYSTEMS At the time of my exam: CONSTITUTIONAL: Denies fever or chills. CARDIOVASCULAR: Denies chest pain, shortness of breath, orthopnea, PND or palpitations. RESPIRATORY: Denies cough. GASTROINTESTINAL: Denies abdominal pain, diarrhea, constipation, nausea or vomiting. MUSCULOSKELETAL: Denies myalgias. NEUROLOGIC: Denies numbness, tingling, headacbe or weakness. ENDOCRINE: Denies fatigue, weight change, polydipsia or polyurina. GENITOURINARY: Denies burning, hematuria or urgency with micturation. HEMATOLOGIC: Denies history of anemia or bleeding. PHYSICAL EXAMINATION Vitals stable and reviewed. CONSTITUTIONAL: No apparent distress. HEENT: Head is normocephalic. Pupils are equal, round. Sclerae anicteric. Mucous membranes of the mouth are moist. No JVD. No carotid bruit. CHEST EXAMINATION: Lungs are clear to auscultation. No chest wall tenderness is noted on palpation or with deep breathing. HEART EXAMINATION: Regular rate and rhythm. S1, S2 heard. No murmurs, gallops or rub. ABDOMEN: Soft, nontender. Positive bowel sounds. EXTREMITIES: 2+ peripheral pulses, no lower extremity edema and no calf tenderness. NEUROLOGIC EXAMINATION: Patient is awake, alert and oriented x3. ASSESSMENT Hematuria Mild triple vessel coronary artery disease Sick sinus syndrome status post single-chamber pacemaker implantation in 2008 Persistent atrial fibrillation on coumadin Abdominal aortic aneurysm Chronic congestive diastolic heart failure, euvolemic on exam Type 2 diabetes Hypertension Hyperlipidemia Obstructive sleep apnea Peripheral vascular disease PLAN From a cardiology perspective, ok to hold coumadin at this time for anemia and hematuria work up. Recommend restarting when ok by urology/primary. Patient is stable from a cardiology perspective, no symptoms of angina, shortness of breath. Euvolemic on exam. Vital signs are stable. Continue home cardiac medi cations. Follow up outpatient with Dr. Fall. Please reach out with further questions or reconsult if needed. Nurse Practitioner note has been reviewed, I agree with a documented findings and plan of care. Patient was seen and examined. 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, past L pleural effusion with thoracentesis, DVT L lower extremity, BPH with surgery, CKD, kiney stones with surgery, abdominal aortic aneurysm being monitored every 6 months, STEPHAN-unable to tolerate CPap, SSS with pacemaker, vertigo in the past, seasonal allergies History of Any Multi-Drug Resistant Organisms: None Reported Past Surgical History: Heart Catheterization, Pacemaker, Prostate Surgery Additional Past Surgical History / Comment(s): Pacemaker inserted 01/01/09 and gen change 04/11/18, TURP, ESWL, cysto/TURP, colonoscopy Past Anesthesia/Blood Transfusion Reactions: Motion Sickness Type of Cardiac Device: Permanent Pacemaker Device Placement Date:: 01/01/2009 and gen change 03/2018 Past Psychological History: No Psychological Hx Reported Additional Psychological History / Comment(s): Pt resides with his spouse. He is independent. He served in the [employer]. Smoking Status: Former smoker Past Alcohol Use History: None Reported Additional Past Alcohol Use History / Comment(s): Pt smoked from 1975 until 1980 Past Drug Use History: None Reported - Past Family History Mother Family Medical History: CVA/TIA, Hypertension Additional Family Medical History / Comment(s): Mother lived to be 85yrs old. Father Family Medical History: CVA/TIA Additional Family Medical History / Comment(s): Father from a CVA at the age of 78yrs. Medications and Allergies Home Medications Medication Instructions Recorded Confirmed Type Metoprolol Tartrate [Lopressor] 25 mg PO BID@1200,199902/28/14 09/06/21 History Fenofibrate [Lofibra] 160 mg PO DAILY@1200 12/14/18 09/06/21 History Lovastatin [Mevacor] 40 mg PO HS 12/14/18 09/06/21 History Insulin Glargine,Hum.rec.anlog 12 unit SQ HS 05/26/20 09/06/21 History [Lantus Solostar Pen] Warfarin [Coumadin] 1 mg PO DIRECTED 05/26/20 09/06/21 History Cyanocobalamin (Vitamin B-12) 1,000 mcg PO DAILY@1200 09/06/21 09/06/21 History [Vitamin B-12] Famotidine [Pepcid] 20 mg PO BID@1200,199909/06/21 09/06/21 History Furosemide [Lasix] 40 mg PO BID@1200,199909/06/21 09/06/21 History Penicillin V Potassium [Pen Vee K] 500 mg PO QID 09/06/21 09/06/21 History metOLazone [Zaroxolyn] 5 mg PO TH 09/06/21 09/06/21 History Allergies Allergy/AdvReac Type Severity Reaction Status Date / Time doxazosin mesylate AdvReac see Verified 09/06/21 14:53 [From Cardura] comments finasteride [From Proscar] AdvReac see Verified 09/06/21 14:53 comments gatifloxacin [From Tequin] AdvReac see Verified 09/06/21 14:53 comments glipizide AdvReac see Verified 09/06/21 14:53 comments hydroxyzine HCl [From Atarax] AdvReac see Verified 09/06/21 14:53 comments levofloxacin [From Levaquin] AdvReac see Verified 09/06/21 14:53 comments lisinopril AdvReac see Verified 09/06/21 14:53 comments meperidine HCl [From Demerol] AdvReac see Verified 09/06/21 14:53 comments metformin AdvReac see Verified 09/06/21 14:53 comments oxybutynin AdvReac see Verified 09/06/21 14:53 comments oxybutynin chloride AdvReac see Verified 09/06/21 14:53 [From Ditropan] comments pseudoephedrine HCl AdvReac see Verified 09/06/21 14:53 [From Sudafed] comments rosuvastatin calcium AdvReac see Verified 09/06/21 14:53 [From Crestor] comments Sulfa (Sulfonamide AdvReac see Verified 09/06/21 14:53 Antibiotics) comments tamsulosin AdvReac see Verified 09/06/21 14:53 comments tamsulosin HCl [From Flomax] AdvReac see Verified 09/06/21 14:53 comments terazosin HCl [From Hytrin] AdvReac see Verified 09/06/21 14:53 comments Physical Exam Vitals: Vital Signs Temp Pulse Pulse Resp BP BP Pulse Ox 09/07/21 04:15 97.9 F 49 L 18 115/60 99 09/06/21 23:38 53 L 21 119/63 97 09/06/21 20:28 98 F 50 L 20 134/75 95 09/06/21 10:16 97.6 F 73 18 122/62 97 Intake and Output 09/06/21 09/07/21 09/07/21 22:59 06:59 14:59 Output Total 200 Balance -200 Output: Urine 200 Other: Voiding Method Toilet Toilet Urinal # Voids 1 1 Weight 81.647 kg Results 09/07/21 08:00 09/07/21 08:00 Cardiac Enzymes 09/06/21 09/06/21 09/06/21 Range/Units 12:55 12:55 16:37 AST 27 (17-59) U/L Troponin I 0.053 H* 0.031 (0.000-0.034) ng/mL 09/06/21 Range/Units 19:05 AST (17-59) U/L Troponin I 0.034 (0.000-0.034) ng/mL Coagulation 09/06/21 Range/Units 12:10 PT 32.0 H (9.0-12.0) sec APTT 38.6 H (22.0-30.0) sec CBC 09/06/21 Range/Units 12:10 WBC 5.3 (3.8-10.6) k/uL RBC 3.24 L (4.30-5.90) m/uL Hgb 11.0 L (13.0-17.5) gm/dL Hct 33.7 L (39.0-53.0) % Plt Count 148 L (150-450) k/uL Comprehensive Metabolic Panel 09/06/21 Range/Units 12:55 Sodium 139 (137-145) mmol/L Potassium 4.1 (3.5-5.1) mmol/L Chloride 97 L (98-107) mmol/L Carbon Dioxide 34 H (22-30) mmol/L BUN 46 H (9-20) mg/dL Creatinine 1.90 H (0.66-1.25) mg/dL Glucose 90 (74-99) mg/dL Calcium 9.1 (8.4-10.2) mg/dL AST 27 (17-59) U/L ALT 8 (4-49) U/L Alkaline Phosphatase 40 (38-126) U/L Total Protein 8.3 H (6.3-8.2) g/dL Albumin 3.8 (3.5-5.0) g/dL Current Medications Generic Name Dose Route Start Last Admin Trade Name Freq PRN Reason Stop Dose Admin Atorvastatin Calcium 10 mg 09/06/21 21:22 09/06/21 22:28 Atorvastatin 10 Mg Tab PO 10 mg HS HANNA Administration Sodium Chloride 1,000 mls @ 20 mls/hr 09/06/21 14:45 09/06/21 21:33 Saline 0.9% IV Not Given .Q24H HANNA Insulin Detemir 12 unit 09/07/21 21:30 09/06/21 22:28 Insulin Detemir (Levemir) 100 Unit/Ml Syr SQ 09/28/21 23:00 12 unit HS HANNA Administration Metoprolol Tartrate 25 mg 09/06/21 21:30 09/06/21 22:27 Metoprolol Tartrate 25 Mg Tab PO 25 mg BID@1200,2000 HANNA Administration Naloxone HCl 0.2 mg 09/06/21 14:31 Naloxone 0.4 Mg/Ml 1 Ml Vial IV Q2M PRN Opioid Reversal Pantoprazole Sodium 40 mg 09/07/21 09:00 Pantoprazole 40 Mg/10 Ml Vial IV DAILY HANNA Intake and Output 09/06/21 09/07/21 09/07/21 22:59 06:59 14:59 Output Total 200 Balance -200 Output: Urine 200 Other: Voiding Method Toilet Toilet Urinal # Voids 1 1 Weight 81.647 kg 09/06/21 12:10 09/06/21 12:55
[2021-09-07] MEDS: CYANOCOBALAMIN 500 MCG TAB PO SCH (12:57)
[2021-09-07] MEDS: FUROSEMIDE 40 MG TAB PO SCH ×2 (12:57→19:25)
[2021-09-07] MEDS: METOPROLOL TARTRATE 25 MG TAB PO SCH ×2 (12:58→19:25)
[2021-09-07] MEDS: FENOFIBRATE 160 MG TAB PO SCH (12:58)
--- NOTE | 2021-09-07 13:09 | P.HPIM ---
History of Present Illness This is a pleasant 81 years old male with past medical history of Atrial Fibrillation, status post permanent pacemaker Asthma, Coronary Artery Disease , Heart Failure, Diabetes Mellitus, Deep Vein Thrombosis (on Eliquis, Hyperlipid emia, Hypertension, Sleep Apnea/CPAP/BIPAP, diabetic peripheral neuropathy, BPH, chronic kidney disease with history of kidney stones status post surgery. Patient was obtained from the patient and son was at bedside to help him. Patient states that he presents because of bleeding in the urine for 2 days duration with no dysuria or urgency. No abdominal or flank pain. 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 Molina on through this.. He denies chest pain. However he has cough with phlegm of unknown color. He denies any headache or weakness or numbness or dizziness His urologist is Dr. grimes, who had surgery done for him many years ago through his urethra catheter. He denies smoking, alcohol or illicit drugs Patient vitals are stable, he is mildly bradycardic 49-51. Hemoglobin is 11 and 10.2, baseline around 10-12, platelet count is 148 and 122 INR is 3.3 and 2.9 today. Creatinine elevated to 1.90 and 1.84, baseline 1.1- 1.6. Troponin first one was elevated 0.05, within normal at 0.03 and 0.03. Liver enzymes not elevated. Glucose controlled 120 and 73. Abdominal x-ray: Right sided nephrolithiasis Chest x-ray showing mild congestive heart failure, pulmonary congestion and pleural effusion increased compared to old exam. Patient already was started on Lasix 40 mg daily, also is on metoprolol 25 mg twice daily which is on medication. Metolazone and Lasix by mouth 40 mg twice daily at home medication were held for now. Also he was started on his home dose of insulin 12 units at bedtime. Last echocardiogram on 04/2020 showed ejection fraction of 45-50% with moderate MR and severe TR and [id number] pulmonary hypertension Chest with the bedside nurse, his urine is getting more clear and yellow now Review of Systems CONSTITUTIONAL: No fever, no malaise, no fatigue. HEENT: No recent visual problems or hearing problems. Denied any sore throat. CARDIOVASCULAR: No orthopnea, PND, no palpitations, no syncope. PULMONARY: No chest wall tenderness, no hemoptysis. GASTROINTESTINAL: No diarrhea, no nausea, no vomiting, no abdominal pain. Normoactive bowel sounds. NEUROLOGICAL: No headaches, no weakness, no numbness. HEMATOLOGICAL: Denies any bleeding or petechiae. GENITOURINARY: Denies any burning micturition, frequency, or urgency. MUSCULOSKELETAL/RHEUMATOLOGICAL: Denies any joint pain, swelling, or any muscle pain. ENDOCRINE: Denies any polyuria or polydipsia. 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, past L pleural effusion with thoracentesis, DVT L lower extremity, BPH with surgery, CKD, kiney stones with surgery, abdominal aortic aneurysm being monitored every 6 months, STEPHAN-unable to tolerate CPap, SSS with pacemaker, vertigo in the past, seasonal allergies History of Any Multi-Drug Resistant Organisms: None Reported Past Surgical History: Heart Catheterization, Pacemaker, Prostate Surgery Additional Past Surgical History / Comment(s): Pacemaker inserted 01/01/09 and gen change 04/11/18, TURP, ESWL, cysto/TURP, colonoscopy Past Anesthesia/Blood Transfusion Reactions: Motion Sickness Type of Cardiac Device: Permanent Pacemaker Device Placement Date:: 01/01/2009 and gen change 03/2018 Past Psychological History: No Psychological Hx Reported Additional Psychological History / Comment(s): Pt resides with his spouse. He is independent. He served in the [employer]. Smoking Status: Former smoker Past Alcohol Use History: None Reported Additional Past Alcohol Use History / Comment(s): Pt smoked from 1975 until 1980 Past Drug Use History: None Reported - Past Family History Mother Family Medical History: CVA/TIA, Hypertension Additional Family Medical History / Comment(s): Mother lived to be 85yrs old. Father Family Medical History: CVA/TIA Additional Family Medical History / Comment(s): Father from a CVA at the age of 78yrs. Medications and Allergies Home Medications Medication Instructions Recorded Confirmed Type Metoprolol Tartrate [Lopressor] 25 mg PO BID@1200,199902/28/14 09/06/21 History Fenofibrate [Lofibra] 160 mg PO DAILY@1200 12/14/18 09/06/21 History Lovastatin [Mevacor] 40 mg PO HS 12/14/18 09/06/21 History Insulin Glargine,Hum.rec.anlog 12 unit SQ HS 05/26/20 09/06/21 History [Lantus Solostar Pen] Warfarin [Coumadin] 1 mg PO DIRECTED 05/26/20 09/06/21 History Cyanocobalamin (Vitamin B-12) 1,000 mcg PO DAILY@1200 09/06/21 09/06/21 History [Vitamin B-12] Famotidine [Pepcid] 20 mg PO BID@1199,199909/06/21 09/06/21 History Furosemide [Lasix] 40 mg PO BID@1200,199909/06/21 09/06/21 History Penicillin V Potassium [Pen Vee K] 500 mg PO QID 09/06/21 09/06/21 History metOLazone [Zaroxolyn] 5 mg PO TH 09/06/21 09/06/21 History Allergies Allergy/AdvReac Type Severity Reaction Status Date / Time doxazosin mesylate AdvReac see Verified 09/06/21 14:53 [From Cardura] comments finasteride [From Proscar] AdvReac see Verified 09/06/21 14:53 comments gatifloxacin [From Tequin] AdvReac see Verified 09/06/21 14:53 comments glipizide AdvReac see Verified 09/06/21 14:53 comments hydroxyzine HCl [From Atarax] AdvReac see Verified 09/06/21 14:53 comments levofloxacin [From Levaquin] AdvReac see Verified 09/06/21 14:53 comments lisinopril AdvReac see Verified 09/06/21 14:53 comments meperidine HCl [From Demerol] AdvReac see Verified 09/06/21 14:53 comments metformin AdvReac see Verified 09/06/21 14:53 comments oxybutynin AdvReac see Verified 09/06/21 14:53 comments oxybutynin chloride AdvReac see Verified 09/06/21 14:53 [From Ditropan] comments pseudoephedrine HCl AdvReac see Verified 09/06/21 14:53 [From Sudafed] comments rosuvastatin calcium AdvReac see Verified 09/06/21 14:53 [From Crestor] comments Sulfa (Sulfonamide AdvReac see Verified 09/06/21 14:53 Antibiotics) comments tamsulosin AdvReac see Verified 09/06/21 14:53 comments tamsulosin HCl [From Flomax] AdvReac see Verified 09/06/21 14:53 comments terazosin HCl [From Hytrin] AdvReac see Verified 09/06/21 14:53 comments Physical Exam Vitals: Vital Signs Temp Pulse Pulse Resp BP Pulse Ox 09/07/21 08:41 97.7 F 51 L 18 114/61 100 09/07/21 04:15 97.9 F 49 L 18 115/60 99 09/06/21 23:38 53 L 21 119/63 97 09/06/21 20:28 98 F 50 L 20 134/75 95 Intake and Output 09/06/21 09/07/21 09/07/21 22:59 06:59 14:59 Intake Total 260 Output Total 200 Balance -200 260 Intake: Oral 260 Output: Urine 200 Other: Voiding Method Toilet Toilet Toilet Urinal Urinal # Voids 1 1 Weight 81.647 kg GENERAL: The patient is alert and oriented x3, not in any acute distress. Well developed, well nourished. HEENT: Pupils are round and equally reacting to light. EOMI. No scleral icterus. No conjunctival pallor. Normocephalic, atraumatic. No pharyngeal erythema. No thyromegaly. CARDIOVASCULAR: S1 and S2 present. No murmurs, rubs, or gallops. -PULMONARY: Chest is clear to auscultation, no wheezing . Bilateral basal crackles. ABDOMEN: Soft, nontender, nondistended, normoactive bowel sounds. No palpable organomegaly. MUSCULOSKELETAL: No joint swelling or deformity. EXTREMITIES: No cyanosis, clubbing, or pedal edema. NEUROLOGICAL: Gross neurological examination did not reveal any focal deficits. SKIN: No rashes. No petechiae Results CBC & Chem 7: 09/07/21 08:00 09/07/21 08:00 Labs: Abnormal Lab Results - Last 24 Hours (Table) 09/06/21 09/06/21 09/06/21 Range/Units 12:10 12:10 12:16 RBC 3.24 L (4.30-5.90) m/uL Hgb 11.0 L (13.0-17.5) gm/dL Hct 33.7 L (39.0-53.0) % MCV 103.9 H (80.0-100.0) fL Plt Count 148 L (150-450) k/uL Lymphocytes # (1.0-4.8) k/uL PT 32.0 H (9.0-12.0) sec INR 3.3 H (<1.2) APTT 38.6 H (22.0-30.0) sec Chloride (98-107) mmol/L Carbon Dioxide (22-30) mmol/L BUN (9-20) mg/dL Creatinine (0.66-1.25) mg/dL POC Glucose (mg/dL) (75-99) mg/dL Alkaline Phosphatase (38-126) U/L Troponin I (0.000-0.034) ng/mL Total Protein (6.3-8.2) g/dL Urine Protein 1+ H (Negative) Urine Blood Large H (Negative) Ur Leukocyte Esterase Small H (Negative) Urine RBC >182 H (0-5) /hpf 09/06/21 09/06/21 09/06/21 Range/Units 12:55 12:55 21:07 RBC (4.30-5.90) m/uL Hgb (13.0-17.5) gm/dL Hct (39.0-53.0) % MCV (80.0-100.0) fL Plt Count (150-450) k/uL Lymphocytes # (1.0-4.8) k/uL PT (9.0-12.0) sec INR (<1.2) APTT (22.0-30.0) sec Chloride 97 L (98-107) mmol/L Carbon Dioxide 34 H (22-30) mmol/L BUN 46 H (9-20) mg/dL Creatinine 1.90 H (0.66-1.25) mg/dL POC Glucose (mg/dL) 120 H (75-99) mg/dL Alkaline Phosphatase (38-126) U/L Troponin I 0.053 H* (0.000-0.034) ng/mL Total Protein 8.3 H (6.3-8.2) g/dL Urine Protein (Negative) Urine Blood (Negative) Ur Leukocyte Esterase (Negative) Urine RBC (0-5) /hpf 09/07/21 09/07/21 09/07/21 Range/Units 06:23 08:00 08:00 RBC 3.02 L (4.30-5.90) m/uL Hgb 10.2 L (13.0-17.5) gm/dL Hct 32.0 L (39.0-53.0) % MCV 106.1 H (80.0-100.0) fL Plt Count 122 L (150-450) k/uL Lymphocytes # 0.9 L (1.0-4.8) k/uL PT 27.9 H (9.0-12.0) sec INR 2.9 H (<1.2) APTT (22.0-30.0) sec Chloride (98-107) mmol/L Carbon Dioxide (22-30) mmol/L BUN (9-20) mg/dL Creatinine (0.66-1.25) mg/dL POC Glucose (mg/dL) 73 L (75-99) mg/dL Alkaline Phosphatase (38-126) U/L Troponin I (0.000-0.034) ng/mL Total Protein (6.3-8.2) g/dL Urine Protein (Negative) Urine Blood (Negative) Ur Leukocyte Esterase (Negative) Urine RBC (0-5) /hpf 09/07/21 Range/Units 08:00 RBC (4.30-5.90) m/uL Hgb (13.0-17.5) gm/dL Hct (39.0-53.0) % MCV (80.0-100.0) fL Plt Count (150-450) k/uL Lymphocytes # (1.0-4.8) k/uL PT (9.0-12.0) sec INR (<1.2) APTT (22.0-30.0) sec Chloride (98-107) mmol/L Carbon Dioxide 35 H (22-30) mmol/L BUN 48 H (9-20) mg/dL Creatinine 1.84 H (0.66-1.25) mg/dL POC Glucose (mg/dL) (75-99) mg/dL Alkaline Phosphatase 34 L (38-126) U/L Troponin I (0.000-0.034) ng/mL Total Protein (6.3-8.2) g/dL Urine Protein (Negative) Urine Blood (Negative) Ur Leukocyte Esterase (Negative) Urine RBC (0-5) /hpf Thrombosis Risk Factor Assmnt - Choose All That Apply Each Risk Factor Represents 3 Points: Age 75 years or older, History of DVT/PE Thrombosis Risk Factor Assessment Total Risk Factor Score: 6 Thrombosis Risk Factor Assessment Level: High Risk Assessment and Plan Assessment: Acute hematuria, most likely secondary to right kidney stone Acute on chronic kidney disease, possible cardiorenal syndrome Elevated troponin, rule out cardiac causes Mild CHF, acute on chronic systolic CHF with ejection fraction 40-45% Mild thrombocytopenia History of moderate MR and severe TR and [id number] pulmonary hypertensi o Paroxysmal atrial fibrillation on Eliquis, status post pacemaker History of DVT on Eliquis Diabetes mellitus with diabetic neuropathy Hyperlipidemia Hypertension History of sleep apnea History of BPH Chronic kidney disease, stage III Plan: This is a pleasant 81 years old male who presents with a KI, hematuria and elevated troponin Continue with IV diuretics. With the patient on a fluid restriction 1200 milliliter per day Cardiology consult Nephrology team were consulted.. Urology team were consulted as well Labs and medication were reviewed.. Continue same treatment. Continue with symptomatic treatment. Resume home medication. Monitor lytes and vitals. DVT and GI prophylaxis. Further recommendations depends on the clinical course of the patient DVT prophylaxis: no Subcutaneous heparin in view of significant hematuria GI Prophylaxis: Pepcid PT/OT: Pending Prognosis is guarded
--- NOTE | 2021-09-07 13:54 | CONS ---
CONSULTATION REASON FOR CONSULT: Renal failure. HISTORY OF PRESENT ILLNESS: The patient is an 81-year-old male who was admitted to the hospital with complaints of blood in his urine. He also has had shortness of breath over the last 2-3 weeks, which has been progressively worsening. Apparently diuretics were increased as outpatient but the patient's shortness of breath had worsened. He does have a significant urological history with history of stones and follows with Dr. Brand. At this time, patient denied any flank pain. He noticed significant bleeding with passing of clots as well. The patient denies previous history of kidney diseases. Serum creatinine was noted to be 1.84 mg/dL. Previous creatinine is seen as 1.4 on 03/17/2021 as well as in 2019. Blood pressure has been slightly on the lower side with systolic 115-114 mmHg. At home, patient was maintained on diuretics. I do not see any nonsteroidal anti- inflammatory agents or JAYANT inhibitors on his medication list. An ultrasound of his abdomen has not been done yet. PAST MEDICAL HISTORY: Significant for atrial fibrillation, asthma, coronary artery disease, chest pain, CHF, type 2 diabetes, history of DVT, hyperlipidemia, BPH, kidney stones, obstructive sleep apnea, pleural effusions, neuropathy bilaterally, abdominal aortic aneurysm and seasonal allergies. PAST SURGICAL HISTORY: Cardiac catheterization, pacemaker placement, prostatic surgery, removal of kidney stones, colonoscopy, TURP, ESWL, permanent pacemaker placement. SOCIAL HISTORY: Patient is a former smoker. No history of drug abuse or alcohol abuse. MEDICATIONS: Medications prior to admission included: Lopressor, fenofibrate, Mevacor, Coumadin, vitamin B12, Pepcid, Lasix, penicillin, metolazone. ALLERGIES: ARE MULTIPLE. PLEASE SEE LIST. REVIEW OF SYSTEMS: As per HPI. PHYSICAL EXAMINATION: Patient is comfortable, awake, not in any acute distress. Alert, oriented x3. Blood pressure 114/61, heart rate 51 per minute. He is afebrile. Examination of the heart S1, S2. Examination of the lungs, decreased breath sounds at the bases. Abdomen is soft, nontender. Examination of lower extremities shows 1+ edema left lower extremity. No significant edema noted right lower extremity. 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 Chronic skin changes noted in the lower extremities. LAB: Show sodium 140, potassium 3.8, CO2 is 35, BUN 48, creatinine 1.8, hemoglobin 10.2 g/dL. UA shows large blood, 1+ protein, WBCs 5. Covid PCR negative and chest x-ray shows mild CHF. The patient did receive 1 dose of IV Lasix. ASSESSMENT: 1. Acute kidney injury, rule out obstructive uropathy. Also component of cardiorenal syndrome. Patient received one dose of IV Lasix. Blood pressure is currently not low. We can resume diuretics as p.o. starting tomorrow. 2. Hematuria with previous history of kidney stones and BPH with previous prostatic surgeries. The patient follows with Dr. Brand. Will proceed with urology consult. 3. Congestive heart failure exacerbation. Ejection fraction not known at this time. Previous echo in 2020 shows ejection fraction 45-50%. 4. Cardiomyopathy, ejection fraction 45-50 percent in 2020. 5. 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 PLAN: Consult Urology. Check ultrasound of the kidneys. Continue with oral Lasix. Repeat labs in a.m. Avoid hypotension. Check iron profile. Thank you for this consultation. We will continue to follow the patient with you during his hospitalization. MMODL / IJN: [id number] /
--- NOTE | 2021-09-07 14:37 | US ---
EXAMINATION TYPE: US kidneys/renal and bladder DATE OF EXAM: 09/07/2021 COMPARISON: NONE CLINICAL HISTORY: hematuria. EXAM MEASUREMENTS: Right Kidney: 10.0 x 4.2 x 4.6 cm Left Kidney: 10.1 x 5.2 x 4.7cm Fluid in Morrisons pouch. Right Kidney: No hydronephrosis or masses seen Left Kidney: No hydronephrosis or masses seen Bladder: wnl There is no evidence for hydronephrosis at this point in time. No nephrolithiasis is seen. No liudmila s are identified. The urinary bladder is anechoic. IMPRESSION: There is minimal ascites.
[2021-09-07] MEDS: ATORVASTATIN 10 MG TAB PO SCH (19:25)
[2021-09-07 20:34] LABS: % Iron Saturation 11.62 (15.00-50.00)
[2021-09-08 08:39] LABS: Basophils % (A) 1 %; Eosinophils # (A) 0.1 k/uL (0-0.7); Eosinophils % (A) 2 %; HCT 33.3 % (39.0-53.0); HGB 10.5 gm/dL (13.0-17.5); Hypochromasia Slight; Lymphocytes # (A) 1.1 k/uL (1.0-4.8); Lymphocytes % (A) 23 %; MCH 33.5 pg (25.0-35.0); MCHC 31.6 g/dL (31.0-37.0); MCV 105.8 fL (80.0-100.0); Macrocytosis Moderate; Monocytes # (A) 0.4 k/uL (0-1.0); Monocytes % (A) 8 %; Neutrophils # (A) 3.2 k/uL (1.3-7.7); Neutrophils % (A) 64 %; Platelet Count 145 k/uL (150-450); RBC 3.15 m/uL (4.30-5.90); RDW 13.7 % (11.5-15.5)
[2021-09-08 08:44] LABS: INR 2.4 (<1.2); Prothrombin Time 23.3 sec (9.0-12.0)
[2021-09-08 08:57] LABS: African American GFR (CKD) 36 (>60 ml/min/1.73 sqM); Anion Gap 7 mmol/L; Blood Urea Nitrogen 46 mg/dL (9-20); Calcium 9.1 mg/dL (8.4-10.2); Carbon Dioxide 36 mmol/L (22-30); Chloride 98 mmol/L (98-107); Glucose 135 mg/dL (74-99); Non-African American GFR(CKD) 31 (>60 ml/min/1.73 sqM); Potassium 3.5 mmol/L (3.5-5.1); Sodium 141 mmol/L (137-145)
[2021-09-08] MEDS: FAMOTIDINE 20 MG TAB PO SCH ×2 (09:29→21:15)
[2021-09-08] MEDS: FERROUS SULFATE 325 MG TAB PO SCH ×2 (09:30→17:40)
[2021-09-08] MEDS ORDERED: POTASSIUM CHLORIDE ER 20 MEQ TAB.ER PO STA (10:20)
--- NOTE | 2021-09-08 10:21 | P.PN ---
Subjective Patient is seen in follow-up for acute kidney injury on chronic kidney disease. Renal function fairly stable. Still having gross hematuria. Urology has been consulted. Oral intake fair. No vomiting or diarrhea. Denies chest pain or shortness of breath. Vital signs are stable. HEENT: Head exam is unremarkable. LUNGS: Breath sounds decreased. HEART: Rate and Rhythm are regular. ABDOMEN: Soft, no distention. EXTREMITITES: Trace edema. Objective - Vital Signs Vital signs: Vital Signs Temp 97.8 F 09/08/21 03:44 Pulse 89 09/08/21 03:44 Resp 18 09/08/21 03:44 BP 112/66 09/08/21 03:44 Pulse Ox 94 L 09/08/21 03:44 Intake & Output 09/07/21 09/08/21 09/08/21 18:59 06:59 18:59 Intake Total 2320 240 Output Total 600 Balance 1720 240 Intake: Oral 2320 240 Output: Urine 600 Other: Voiding Method Toilet Toilet Urinal Urinal # Voids 4 # Bowel Movements 1 - Labs CBC & Chem 7: 09/08/21 08:18 09/08/21 08:18 Labs: Abnormal Lab Results - Last 24 Hours (Table) 09/07/21 09/08/21 09/08/21 Range/Units 08:00 08:18 08:18 RBC 3.15 L (4.30-5.90) m/uL Hgb 10.5 L (13.0-17.5) gm/dL Hct 33.3 L (39.0-53.0) % MCV 105.8 H (80.0-100.0) fL Plt Count 145 L (150-450) k/uL PT 23.3 H (9.0-12.0) sec INR 2.4 H (<1.2) Carbon Dioxide (22-30) mmol/L BUN (9-20) mg/dL Creatinine (0.66-1.25) mg/dL Glucose (74-99) mg/dL Iron 55 L (65-175) ug/dL TIBC 472 H (228-460) ug/dL % Saturation 11.62 L (15.00-50.00) 09/08/21 Range/Units 08:18 RBC (4.30-5.90) m/uL Hgb (13.0-17.5) gm/dL Hct (39.0-53.0) % MCV (80.0-100.0) fL Plt Count (150-450) k/uL PT (9.0-12.0) sec INR (<1.2) Carbon Dioxide 36 H (22-30) mmol/L BUN 46 H (9-20) mg/dL Creatinine 1.93 H (0.66-1.25) mg/dL Glucose 135 H (74-99) mg/dL Iron (65-175) ug/dL TIBC (228-460) ug/dL % Saturation (15.00-50.00) Assessment and Plan Plan: Assessment: 1. Acute kidney injury mostly prerenal secondary to cardiorenal syndrome. No evidence of hydronephrosis noted on kidney ultrasound. Renal function fairly stable. Creatinine 1.93 today. 2. Chronic kidney disease stage IIIB with baseline creatinine in the range of 1.3-1.7. Etiology is nephrosclerosis and diabetic kidney disease. 3. Acute on chronic diastolic CHF. 4. Diabetes mellitus. 5. Hematuria. Patient has history of BPH as well as nephrolithiasis. Urology following. CT of the abdomen and pelvis ordered. 6. Hypokalemia from diuresis. Plan: Maintain oral Lasix. Replace potassium. Follow-up CAT scan. Avoid nephrotoxins. Repeat labs in the morning.
--- NOTE | 2021-09-08 11:07 | CT ---
EXAMINATION TYPE: CT abdomen pelvis wo con DATE OF EXAM: 09/08/2021 HISTORY: hematuria, renal calculi CT DLP: 921 mGycm. Automated Exposure Control for Dose Reduction was Utilized. TECHNIQUE: CT scan of the abdomen and pelvis is performed without oral or IV contrast. COMPARISON: CT July 19, 2015 FINDINGS: Within the limitations of a non-contrast study, the following observations are made. LUNG BASES: Small right pleural effusion and associated right lung basilar compressive atelectasis. There is depe ndent left basilar atelectasis and/or Limited consolidation. Cardiomegaly with single lead pacemaker is partially imaged. LIVER/GB: New small amount of surrounding ascites. New multiple calcified small gallstones within gal lbladder without surrounding inflammatory change. No new biliary dilatation. PANCREAS: No significant abnormality is seen. SPLEEN: New Small amount of surrounding ascites. ADRENALS: No significant abnormality is seen. KIDNEYS: No renal calculi or hydronephrosis seen bilaterally on current study. No intraluminal calcul us in slightly poorly distended bladder. There is some asymmetric increased density all the distal ri ght ureter axial images 115 through 117 with slightly irregular lobulated dense tissue axial image 11 8 in the posterior right bladder near UVJ. Given patient's symptoms of hematuria a small peripheral b ladder mass needs to be considered and further investigation is advised. Area of concern measures rou ghly 1.4 x 0.9 cm axial image 118. This does not reproduce swollen ultrasound images saved from one d ay earlier. BOWEL: Suboptimal evaluation without enteric contrast. No suspicious small or large bowel dilatation is seen. Sigmoid colonic diverticula. No suspicious bowel dilatation. GENITAL ORGANS: Prostate gland remains normal in size with diffuse calcifications. Small amount of fr ee fluid in the pelvis axial image 109. LYMPH NODES: No greater than 1cm abdominal or pelvic lymph nodes are appreciated. OSSEOUS STRUCTURES: [id number] disc space narrowing lumbosacral junction. OTHER: Atherosclerotic and ectatic abdominal aorta redemonstrated. Aneurysmal to 3.8 cm axial image 6 5 slightly more prominent from prior study. Small amount of free fluid in the left paracolic gutter. IMPRESSION: 1. No renal stones or hydronephrosis is seen bilaterally on current study. Suspicious small lobulated soft tissue material in the right UVJ in which underlying mass or neoplasm cannot be excluded. Consi leobardo cystoscopy or CT cystogram follow up to further evaluate given patient's symptoms of hematuria. 2. Small amount of intra-abdominal and intrapelvic ascites. Small right pleural effusion. 3. Slightly larger AAA up to 3.8 cm is noted.
--- NOTE | 2021-09-08 11:19 | P.PN ---
Subjective This is a pleasant 81 years old male with past medical history of Atrial Fibrillation, status post permanent pacemaker Asthma, Coronary Artery Disease , Heart Failure, Diabetes Mellitus, Deep Vein Thrombosis (on Eliquis, Hyperlipidemia, Hypertension, Sleep Apnea/CPAP/BIPAP, diabetic peripheral neuropathy, BPH, chronic kidney disease with history of kidney stones status post surgery. Patient was obtained from the patient and son was at bedside to help him. Patient states that he presents because of bleeding in the urine for 2 days duration with no dysuria or urgency. No abdominal or flank pain. 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 Molina on through this.. He denies chest pain. However he has cough with phlegm of unknown color. He denies any headache or weakness or numbness or dizziness His urologist is Dr. grimes, who had surgery done for him many years ago through his urethra catheter. He denies smoking, alcohol or illicit drugs Patient vitals are stable, he is mildly bradycardic 49-51. Hemoglobin is 11 and 10.2, baseline around 10-12, platelet count is 148 and 122 INR is 3.3 and 2.9 today. Creatinine elevated to 1.90 and 1.84, baseline 1.1- 1.6. Troponin first one was elevated 0.05, within normal at 0.03 and 0.03. Liver enzymes not elevated. Glucose controlled 120 and 73. Abdominal x-ray: Right sided nephrolithiasis Chest x-ray showing mild congestive heart failure, pulmonary congestion and pleural effusion increased compared to old exam. Patient already was started on Lasix 40 mg daily, also is on metoprolol 25 mg twice daily which is on medication. Metolazone and Lasix by mouth 40 mg twice daily at home medication were held for now. Also he was started on his home dose of insulin 12 units at bedtime. Last echocardiogram on 04/2020 showed ejection fraction of 45-50% with moderate MR and severe TR and [id number] pulmonary hypertension Chest with the bedside nurse, his urine is getting more clear and yellow now 09/08/2021 Patient awake and alert, is still have some exertional dyspnea with minimal exertion. He also has evidence of metastatic or palpitation, suspicious for CHF acute exacerbation. His creatinine is still elevated at 1.9 with nephrology team recommended to continue with oral Lasix and follow-up BMP tomorrow. His INR is 2.4 today, his Coumadin is still on hold. Urologist recommended CT of the abdomen and pelvis which showed no kidney stone but instead there is a small lobulated soft tissue material in the right UVJ, new pleasant cannot be excluded. Also patient has slightly large aortic abdominal aneurysm at 3.8 cm. Objective - Vital Signs Vital signs: Vital Signs Temp 97.8 F 09/08/21 03:44 Pulse 89 09/08/21 03:44 Resp 18 09/08/21 03:44 BP 112/66 09/08/21 03:44 Pulse Ox 94 L 09/08/21 03:44 Intake & Output 09/07/21 09/08/21 09/08/21 18:59 06:59 18:59 Intake Total 2320 240 Output Total 600 Balance 1720 240 Intake: Oral 2320 240 Output: Urine 600 Other: Voiding Method Toilet Toilet Urinal Urinal # Voids 4 # Bowel Movements 1 - Exam GENERAL: The patient is alert and oriented x3, not in any acute distress. Well developed, well nourished. HEENT: Pupils are round and equally reacting to light. EOMI. No scleral icterus. No conjunctival pallor. Normocephalic, atraumatic. No pharyngeal erythema. No thyromegaly. CARDIOVASCULAR: S1 and S2 present. No murmurs, rubs, or gallops. -PULMONARY: Chest is clear to auscultation, no wheezing . Bilateral basal crackles. ABDOMEN: Soft, nontender, nondistended, normoactive bowel sounds. No palpable organomegaly. MUSCULOSKELETAL: No joint swelling or deformity. -EXTREMITIES: No cyanosis, clubbing,. Minimal bilateral pitting pedal edema. NEUROLOGICAL: Gross neurological examination did not reveal any focal deficits. SKIN: No rashes. no petechiae. - Labs CBC & Chem 7: 09/08/21 08:18 09/08/21 08:18 Labs: Abnormal Lab Results - Last 24 Hours (Table) 09/07/21 09/08/21 09/08/21 Range/Units 08:00 08:18 08:18 RBC 3.15 L (4.30-5.90) m/uL Hgb 10.5 L (13.0-17.5) gm/dL Hct 33.3 L (39.0-53.0) % MCV 105.8 H (80.0-100.0) fL Plt Count 145 L (150-450) k/uL PT 23.3 H (9.0-12.0) sec INR 2.4 H (<1.2) Carbon Dioxide (22-30) mmol/L BUN (9-20) mg/dL Creatinine (0.66-1.25) mg/dL Glucose (74-99) mg/dL Iron 55 L (65-175) ug/dL TIBC 472 H (228-460) ug/dL % Saturation 11.62 L (15.00-50.00) 09/08/21 Range/Units 08:18 RBC (4.30-5.90) m/uL Hgb (13.0-17.5) gm/dL Hct (39.0-53.0) % MCV (80.0-100.0) fL Plt Count (150-450) k/uL PT (9.0-12.0) sec INR (<1.2) Carbon Dioxide 36 H (22-30) mmol/L BUN 46 H (9-20) mg/dL Creatinine 1.93 H (0.66-1.25) mg/dL Glucose 135 H (74-99) mg/dL Iron (65-175) ug/dL TIBC (228-460) ug/dL % Saturation (15.00-50.00) Assessment and Plan Assessment: Acute hematuria, with suspected neoplasm on the right UVJ. No kidney stone seen on CAT scan of the abdomen Acute on chronic kidney disease, possible cardiorenal syndrome, versus obstru ctive uropathy Elevated troponin, rule out cardiac causes Mild CHF, acute on chronic systolic CHF with ejection fraction 40-45% Mild thrombocytopenia History of moderate MR and severe TR and eppvavoe-[id number]-[id number] pulmonary hypertensio Paroxysmal atrial fibrillation on Eliquis, status post pacemaker History of DVT on Eliquis Diabetes mellitus with diabetic neuropathy Hyperlipidemia Hypertension History of sleep apnea History of BPH Chronic kidney disease, stage III Plan: This is a pleasant 81 years old male who presents with UTE on CKD, hematuria and elevated troponin Lasix was switched to oral dose. With the patient on a fluid restriction 1200 milliliter per day. Journal Box Inspector team on the case and the recommend to continue with oral Lasix Cardiology consult Urology recommended CT was suspicious for neoplasm on the right UVJ. Labs and medication were reviewed.. Continue same treatment. Continue with symptomatic treatment. Resume home medication. Monitor lytes and vitals. DVT and GI prophylaxis. Further recommendations depends on the clinical course of t he patient DVT prophylaxis: no Subcutaneous heparin in view of significant hematuria GI Prophylaxis: Pepcid Prognosis is guarded
--- NOTE | 2021-09-08 12:22 | P.GSCN ---
History of Present Illness Consult date: 09/08/21 Reason for Consult: Hematuria Requesting physician: Brisa Painting History of present illness: The patient is an 81-year-old white male with a history of urolithiasis. He has recently experienced a cough. He then developed gross hematuria for 2 days. He presented to the ER and was found to have elevated troponin levels. He has been admitted. A renal and bladder ultrasound showed no abnormalities. However, abdominal x-ray suggests the presence of 2 right renal calculi measuring up to 2 cm in diameter. The hematuria is improving. He denies dysuria and flank pain. The patient's urologic history is significant for a TURP in 2004. He underwent ureteroscopy with Holmium laser lithotripsy to remove bilateral distal ureteral calculi in 2013. Review of Systems - Respiratory Reports cough, Reports dyspnea - Genitourinary Reports hematuria, Denies dysuria, Denies flank pain 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, past L pleural effusion with thoracentesis, DVT L lower extremity, BPH with surgery, CKD, kiney stones with surgery, abdominal aortic aneurysm being monitored every 6 months, STEPHAN-unable to tolerate CPap, SSS with pacemaker, vertigo in the past, seasonal allergies History of Any Multi-Drug Resistant Organisms: None Reported Past Surgical History: Heart Catheterization, Pacemaker, Prostate Surgery Additional Past Surgical History / Comment(s): Pacemaker inserted 01/01/09 and gen change 04/11/18, TURP, ESWL, cysto/TURP, colonoscopy Past Anesthesia/Blood Transfusion Reactions: Motion Sickness Type of Cardiac Device: Permanent Pacemaker Device Placement Date:: 01/01/2009 and gen change 03/2018 Past Psychological History: No Psychological Hx Reported Additional Psychological History / Comment(s): Pt resides with his spouse. He is independent. He served in the [employer]. Smoking Status: Former smoker Past Alcohol Use History: None Reported Additional Past Alcohol Use History / Comment(s): Pt smoked from 1975 until 1980 Past Drug Use History: None Reported - Past Family History Mother Family Medical History: CVA/TIA, Hypertension Additional Family Medical History / Comment(s): Mother lived to be 85yrs old. Father Family Medical History: CVA/TIA Additional Family Medical History / Comment(s): Father from a CVA at the age of 78yrs. Medications and Allergies Home Medications Medication Instructions Recorded Confirmed Type Metoprolol Tartrate [Lopressor] 25 mg PO BID@1200,199902/28/14 09/06/21 History Fenofibrate [Lofibra] 160 mg PO DAILY@1200 12/14/18 09/06/21 History Lovastatin [Mevacor] 40 mg PO HS 12/14/18 09/06/21 History Insulin Glargine,Hum.rec.anlog 12 unit SQ HS 05/26/20 09/06/21 History [Lantus Solostar Pen] Warfarin [Coumadin] 1 mg PO DIRECTED 05/26/20 09/06/21 History Cyanocobalamin (Vitamin B-12) 1,000 mcg PO DAILY@1200 09/06/21 09/06/21 History [Vitamin B-12] Famotidine [Pepcid] 20 mg PO BID@1200,199909/06/21 09/06/21 History Furosemide [Lasix] 40 mg PO BID@1200,199909/06/21 09/06/21 History Penicillin V Potassium [Pen Vee K] 500 mg PO QID 09/06/21 09/06/21 History metOLazone [Zaroxolyn] 5 mg PO TH 09/06/21 09/06/21 History Allergies Allergy/AdvReac Type Severity Reaction Status Date / Time doxazosin mesylate AdvReac see Verified 09/06/21 14:53 [From Cardura] comments finasteride [From Proscar] AdvReac see Verified 09/06/21 14:53 comments gatifloxacin [From Tequin] AdvReac see Verified 09/06/21 14:53 comments glipizide AdvReac see Verified 09/06/21 14:53 comments hydroxyzine HCl [From Atarax] AdvReac see Verified 09/06/21 14:53 comments levofloxacin [From Levaquin] AdvReac see Verified 09/06/21 14:53 comments lisinopril AdvReac see Verified 09/06/21 14:53 comments meperidine HCl [From Demerol] AdvReac see Verified 09/06/21 14:53 comments metformin AdvReac see Verified 09/06/21 14:53 comments oxybutynin AdvReac see Verified 09/06/21 14:53 comments oxybutynin chloride AdvReac see Verified 09/06/21 14:53 [From Ditropan] comments pseudoephedrine HCl AdvReac see Verified 09/06/21 14:53 [From Sudafed] comments rosuvastatin calcium AdvReac see Verified 09/06/21 14:53 [From Crestor] comments Sulfa (Sulfonamide AdvReac see Verified 09/06/21 14:53 Antibiotics) comments tamsulosin AdvReac see Verified 09/06/21 14:53 comments tamsulosin HCl [From Flomax] AdvReac see Verified 09/06/21 14:53 comments terazosin HCl [From Hytrin] AdvReac see Verified 09/06/21 14:53 comments Surgical - Exam Vital Signs Temp Pulse Resp BP Pulse Ox 97.6 F 73 18 122/62 97 09/06/21 10:16 09/06/21 10:16 09/06/21 10:16 09/06/21 10:16 09/06/21 10:16 - General well developed, well nourished, no distress - Neck no masses, trachea midline - Respiratory normal respiratory effort - Abdomen Abdomen: soft, non tender, no guarding, no rigid, no rebound - Genitourinary normal penis with no external lesions, testicles non-tender - Psychiatric oriented to time, oriented to person, oriented to place, speech is normal, memory intact Results - Labs 09/08/21 08:18 09/08/21 08:18 Abnormal Lab Results - Last 24 Hours (Table) 09/07/21 09/07/21 09/07/21 Range/Units 08:00 08:00 08:00 RBC 3.02 L (4.30-5.90) m/uL Hgb 10.2 L (13.0-17.5) gm/dL Hct 32.0 L (39.0-53.0) % MCV 106.1 H (80.0-100.0) fL Plt Count 122 L (150-450) k/uL Lymphocytes # 0.9 L (1.0-4.8) k/uL PT 27.9 H (9.0-12.0) sec INR 2.9 H (<1.2) Carbon Dioxide 35 H (22-30) mmol/L BUN 48 H (9-20) mg/dL Creatinine 1.84 H (0.66-1.25) mg/dL Iron (65-175) ug/dL TIBC (228-460) ug/dL % Saturation (15.00-50.00) Alkaline Phosphatase 34 L (38-126) U/L 09/07/21 Range/Units 08:00 RBC (4.30-5.90) m/uL Hgb (13.0-17.5) gm/dL Hct (39.0-53.0) % MCV (80.0-100.0) fL Plt Count (150-450) k/uL Lymphocytes # (1.0-4.8) k/uL PT (9.0-12.0) sec INR (<1.2) Carbon Dioxide (22-30) mmol/L BUN (9-20) mg/dL Creatinine (0.66-1.25) mg/dL Iron 55 L (65-175) ug/dL TIBC 472 H (228-460) ug/dL % Saturation 11.62 L (15.00-50.00) Alkaline Phosphatase (38-126) U/L Diabetes panel 09/07/21 Range/Units 08:00 Sodium 140 (137-145) mmol/L Potassium 3.8 (3.5-5.1) mmol/L Chloride 99 (98-107) mmol/L Carbon Dioxide 35 H (22-30) mmol/L BUN 48 H (9-20) mg/dL Creatinine 1.84 H (0.66-1.25) mg/dL Glucose 97 (74-99) mg/dL Calcium 9.2 (8.4-10.2) mg/dL AST 29 (17-59) U/L ALT 9 (4-49) U/L Alkaline Phosphatase 34 L (38-126) U/L Total Protein 7.9 (6.3-8.2) g/dL Albumin 3.6 (3.5-5.0) g/dL Calcium panel 09/07/21 Range/Units 08:00 Calcium 9.2 (8.4-10.2) mg/dL Albumin 3.6 (3.5-5.0) g/dL Pituitary panel 09/07/21 Range/Units 08:00 Sodium 140 (137-145) mmol/L Potassium 3.8 (3.5-5.1) mmol/L Chloride 99 (98-107) mmol/L Carbon Dioxide 35 H (22-30) mmol/L BUN 48 H (9-20) mg/dL Creatinine 1.84 H (0.66-1.25) mg/dL Glucose 97 (74-99) mg/dL Calcium 9.2 (8.4-10.2) mg/dL Adrenal panel 09/07/21 Range/Units 08:00 Sodium 140 (137-145) mmol/L Potassium 3.8 (3.5-5.1) mmol/L Chloride 99 (98-107) mmol/L Carbon Dioxide 35 H (22-30) mmol/L BUN 48 H (9-20) mg/dL Creatinine 1.84 H (0.66-1.25) mg/dL Glucose 97 (74-99) mg/dL Calcium 9.2 (8.4-10.2) mg/dL Total Bilirubin 1.0 (0.2-1.3) mg/dL AST 29 (17-59) U/L ALT 9 (4-49) U/L Alkaline Phosphatase 34 L (38-126) U/L Total Protein 7.9 (6.3-8.2) g/dL Albumin 3.6 (3.5-5.0) g/dL - Imaging Abdominal x-ray: report reviewed, image reviewed CT scan - abdomen: report reviewed, image reviewed US - kidney/bladder: report reviewed Assessment and Plan (1) Gross hematuria Current Visit: Yes Status: Acute Code(s): R31.0 - GROSS HEMATURIA SNOMED Code(s): 274992769 (2) Neoplasm of unspecified behavior of bladder Current Visit: Yes Status: Acute Code(s): D49.4 - NEOPLASM OF UNSPECIFIED BEHAVIOR OF BLADDER SNOMED Code(s): 254010538 Plan: In summary, the patient is an 81-year-old male with a history of kidney stones. He now presents with gross painless hematuria. Abdominal x-ray suggested the presence of right renal calculi, but a CT scan was obtained and revealed no evidence of urolithiasis. Rather, a small right posterolateral bladder wall lesion is seen, suggestive of a bladder tumor. He will be advised to undergo cystoscopy, transurethral resection of bladder tumor. Time with Patient: Greater than 30
[2021-09-08] MEDS: CYANOCOBALAMIN 500 MCG TAB PO SCH (12:36)
[2021-09-08] MEDS: FENOFIBRATE 160 MG TAB PO SCH (12:36)
[2021-09-08] MEDS: FUROSEMIDE 40 MG TAB PO SCH ×2 (12:36→21:15)
[2021-09-08] MEDS: METOPROLOL TARTRATE 25 MG TAB PO SCH ×2 (12:37→21:16)
[2021-09-08] MEDS: SODIUM CHLORIDE 0.9% 1,000 ML IV SCH (16:56)
[2021-09-08] MEDS: ATORVASTATIN 10 MG TAB PO SCH (21:15)
[2021-09-08] MEDS: INSULIN DETEMIR (LEVEMIR) 100 UNIT/ML SYR SQ SCH (21:21)
[2021-09-08 21:22] LABS: Glucose,Whole Blood 139 mg/dL (75-99)
[2021-09-09 08:46] LABS: INR 1.9 (<1.2); Partial Thromboplastin Time 31.5 sec (22.0-30.0); Prothrombin Time 19.1 sec (9.0-12.0)
[2021-09-09] MEDS: FAMOTIDINE 20 MG TAB PO SCH ×2 (09:29→21:00)
[2021-09-09] MEDS: FERROUS SULFATE 325 MG TAB PO SCH ×2 (09:29→17:38)
[2021-09-09] MEDS: FUROSEMIDE 10 MG/ML 4 ML VIAL IV SCH ×2 (09:30→21:00)
[2021-09-09 10:46] LABS: African American GFR (CKD) 34.5 (60.0-200.0); Anion Gap 11.9 mmol/L (10.00-18.00); BUN/Creat Ratio 21.54 Ratio (12.00-20.00); Blood Urea Nitrogen 43.3 mg/dL (9.0-27.0); Carbon Dioxide 30.6 mmol/L (20.0-27.5); Magnesium 2.2 mg/dL (1.5-2.4); Non-African American GFR(CKD) 29.8 (60.0-200.0); Potassium 3.6 mmol/L (3.5-5.5)
--- NOTE | 2021-09-09 11:48 | P.PN ---
Subjective Progress Note Date: 09/09/21 HISTORY OF PRESENT ILLNESS: This is a pleasant 81-year-old gentleman who follows regularly with Dr. Fall in the office. He has known history of mild triple vessel coronary artery disease, sick sinus syndrome status post single-chamber pacemaker implantation in 2008 ,persistent atrial fibrillation on coumadin, abdominal aortic aneurysm, chronic congestive diastolic heart failure, type 2 diabetes, hypertension, hyperlipidemia, sleep apnea, peripheral vascular disease who presents to the hospital with symptoms of hematuria. He states it started on 09/05/21 night. He also passed clots. He denies any chest pain, shortness of breath, lightheadedness, dizziness, syncope or near syncope. He denies any abdominal pain, fever, chills, nausea, cough. He denies any bleeding elsewhere. Cardiology is consulted for cardiac evaluation. DIAGNOSTICS EKG reveals Ventricular paced rhythm Telemetry tracings indicate V paced rhythm Chest xray Left axillary pacemaker, mild pulmonary congestion, mild congestive heart failure Abdominal x-ray revealed right-sided nephrolithiasis Most recent echocardiogram 04/2020 revealed EF 50%, moderate mitral regurgitation, moderate to severe tricuspid regurgitation with an RVSP of 53 mmHg Most recent cardiac catheterization 04/2020, mild triple vessel coronary artery disease Laboratory reviewed, WBC 4.6, hemoglobin 10.2, platelets 122, INR 2.9, sodium 140, potassium 3.8, BUN 48, serum creatinine 1.8, troponin negative 3 ,covid 19 negative Current cardiac medications include metolazone 5mg , Coumadin, metoprolol tartrate 25mg BID, Lovastatin, Lasix 40mg BID 09/09/2021 Patient examined this morning at the bedside. Patient denies chest pain or pressure. He does report some shortness of breath this morning. He also reports some swelling of his lower extremities. Patient's Coumadin remains on hold. INR today 1.9. PHYSICAL EXAM: VITAL SIGNS: Reviewed. GENERAL: Well-developed in no acute distress. NECK: Supple. No JVD or thyromegaly LUNGS: Respirations even and unlabored. Lungs diminished to auscultation bilaterally. HEART: Regular rate and rhythm. S1 and S2 heard. EXTREMITIES: Normal range of motion. No clubbing or cyanosis. Peripheral pulses intact. Trace lower extremity edema ASSESSMENT: Hematuria Mild triple vessel coronary artery disease Sick sinus syndrome status post single-chamber pacemaker implantation in 2008 Persistent atrial fibrillation on coumadin Abdominal aortic aneurysm Acute on chronic congestive diastolic heart failure Type 2 diabetes Hypertension Hyperlipidemia Obstructive sleep apnea Peripheral vascular disease PLAN: Dr. Deal would like to start IV lasix 40mg IV q 12 hours and diurese the patient prior to undergoing cystoscopy. Continue additional cardiac medications Patient will be reevaluated tomorrow Further recommendations pending patient's course Nurse practitioner note has been reviewed by physician. Signing provider agrees with the documented findings, assessment, and plan of care. Objective - Vital Signs Vital signs: Vital Signs Temp 97.7 F 09/09/21 05:00 Pulse 52 L 09/09/21 05:00 Resp 18 09/09/21 05:00 BP 125/62 09/09/21 05:00 Pulse Ox 93 L 09/09/21 05:00 Intake & Output 09/08/21 09/09/21 09/09/21 18:59 06:59 18:59 Intake Total 480 240 Balance 480 240 Intake: Intake, IV Titration 240 Amount Sodium Chloride 0.9% 1, 240 000 ml @ 20 mls/hr IV . Q24H [facility] Rx#:[id number] Oral 480 Other: Voiding Method Toilet Toilet Urinal Urinal # Voids 3 - Labs CBC & Chem 7: 09/08/21 08:18 09/09/21 06:43 Labs: Abnormal Lab Results - Last 24 Hours (Table) 09/08/21 09/09/21 09/09/21 Range/Units 21:20 06:43 08:24 PT 19.1 H (9.0-12.0) sec INR 1.9 H (<1.2) APTT 31.5 H (22.0-30.0) sec Carbon Dioxide 30.6 H (20.0-27.5) mmol/L BUN 43.3 H (9.0-27.0) mg/dL Creatinine 2.0 H (0.6-1.5) mg/dL Est GFR (CKD-EPI)AfAm 34.5 L (60.0-200.0) Est GFR (CKD-EPI)NonAf 29.8 L (60.0-200.0) BUN/Creatinine Ratio 21.54 H (12.00-20.00) Ratio POC Glucose (mg/dL) 139 H (75-99) mg/dL
--- NOTE | 2021-09-09 12:00 | ECHOF ---
Referral Reason:LV function MEASUREMENTS -------- HEIGHT: 167.6 cm WEIGHT: 81.6 kg BP: 125/62 RVIDd: 4.3 cm (< 3.3) IVSd: 1.4 cm (0.6 - 1.1) LVIDd: 4.3 cm (3.9 - 5.3) LVPWd: 1.4 cm (0.6 - 1.1) IVSs: 1.8 cm LVIDs: 3.3 cm LVPWs: 1.8 cm LA Diam: 4.0 cm (2.7 - 3.8) LAESV Index (A-L): 32.51 ml/m Ao Diam: 3.7 cm (2.0 - 3.7) AV Cusp: 2.2 cm (1.5 - 2.6) MV EXCURSION: 19.176 mm (> 18.000) MV EF SLOPE: 56 mm/s (70 - 150) EPSS: 0.9 cm MV E Eddie: 0.99 m/s MV DecT: 260 ms MV A Eddie: 0.27 m/s MV E/A Ratio: 3.59 RAP: 15.00 mmHg RVSP: 76.02 mmHg FINDINGS -------- This was a technically adequate study. The left ventricular size is normal. There is moderate concentric left ventricular hypertrophy. O verall left ventricular systolic function is normal with, an EF between 55 - 60 %. The right ventricle is severely enlarged. LA is midly dilated 29-33ml/m2. The right atrium is normal in size. Interatrial and interventricular septum intact. There is mild aortic valve sclerosis. The mitral valve leaflets are mildly thickened. Mild mitral annular calcification present. Mild m itral regurgitation is present. [id number] tricuspid regurgitation present. There is severe pulmonary hypertension. The rig ht ventricular systolic pressure, as measured by Doppler, is 76.02mmHg. Trace/mild (physiologic) pulmonic regurgitation. The aortic root size is normal. The inferior vena cava is dilated with no significant inspiratory collapse which is consistent estima aidan right atrial pressure of >15 mmHg. There is no pericardial effusion. CONCLUSIONS -------- 1. The left ventricular size is normal. 2. There is moderate concentric left ventricular hypertrophy. 3. Overall left ventricular systolic function is normal with, an EF between 55 - 60 %. 4. The right ventricle is severely enlarged. 5. LA is midly dilated 29-33ml/m2. 6. There is mild aortic valve sclerosis. 7. The mitral valve leaflets are mildly thickened. 8. Mild mitral annular calcification present. 9. Mild mitral regurgitation is present. 10. Qcox-mf-ieqfyisa tricuspid regurgitation present. 11. There is severe pulmonary hypertension. 12. The right ventricular systolic pressure, as measured by Doppler, is 76.02mmHg. 13. Trace/mild (physiologic) pulmonic regurgitation. 14. The aortic root size is normal. 15. The inferior vena cava is dilated with no significant inspiratory collapse which is consistent es timated right atrial pressure of >15 mmHg. 16. There is no pericardial effusion. SOFTWARE APPLICATIONS ENGINEER: Aimee Hare RDCS
[2021-09-09] MEDS: CYANOCOBALAMIN 500 MCG TAB PO SCH (13:36)
[2021-09-09] MEDS: METOPROLOL TARTRATE 25 MG TAB PO SCH ×2 (13:36→21:00)
[2021-09-09] MEDS: FENOFIBRATE 160 MG TAB PO SCH (13:36)
--- NOTE | 2021-09-09 17:35 | PN ---
PROGRESS NOTE Patient is seen for followup for acute kidney injury, mostly cardiorenal. Patient's Lasix has been increased to 40 mg q.12 hours and it has been switched over to IV. Serum creatinine is at 2. It was at 1.8 on initial admission. Previous creatinine has been 1.4 to 1.6 mg/dL. Patient has been voiding. Abdominal CT does not show any hydronephrosis, but possibly soft tissue material noted in the right UV junction, being followed by Urology. On examination today, blood pressure is 125/62, heart rate 52 per minute. He is afebrile. EXAMINATION OF THE HEART: S1 and S2. EXAMINATION OF LUNGS: Bilateral breath sounds are heard. Abdomen is soft, non-tender. Examination of lower extremities shows edema 1+ bilaterally. ACCOUNTING SUPPORT SPECIALIST EXAM: Grossly intact. Labs show sodium of 141, potassium 3.6, chloride 99, BUN 43, creatinine 2.0. Iron saturation 11%. ASSESSMENT: 1. Hematuria with possible right UV junction mass/soft tissue density noted, being followed by Urology, being considered for cystoscopy. 2. Congestive heart failure, volume overload, currently on IV Lasix changed from p.o. to IV today. 3. Chronic kidney disease, stage 3B, with baseline creatinine 1.3 to 1.7 secondary to nephrosclerosis, diabetic kidney disease. 4. Acute on chronic diastolic congestive heart failure. PLAN: Continue with IV Lasix. Repeat labs in a.m. Monitor electrolytes. MMODL / IJN: [id number] /
--- NOTE | 2021-09-09 19:42 | P.PN ---
Subjective This is a pleasant 81 years old male with past medical history of Atrial Fibrillation, status post permanent pacemaker Asthma, Coronary Artery Disease , Heart Failure, Diabetes Mellitus, Deep Vein Thrombosis (on Eliquis, Hyperlipidemia, Hypertension, Sleep Apnea/CPAP/BIPAP, diabetic peripheral neuropathy, BPH, chronic kidney disease with history of kidney stones status post surgery. Patient was obtained from the patient and son was at bedside to help him. Patient states that he presents because of bleeding in the urine for 2 days duration with no dysuria or urgency. No abdominal or flank pain. Also he has been complaining of from dyspnea since 08/26/21, and they were in contact with his oil pumper Dr. Molina on through this.. He denies chest pain. However he has cough with phlegm of unknown color. He denies any headache or weakness or numbness or dizziness His urologist is Dr. grimes, who had surgery done for him many years ago through his urethra catheter. He denies smoking, alcohol or illicit drugs Patient vitals are stable, he is mildly bradycardic 49-51. Hemoglobin is 11 and 10.2, baseline around 10-12, platelet count is 148 and 122 INR is 3.3 and 2.9 today. Creatinine elevated to 1.90 and 1.84, baseline 1.1- 1.6. Troponin first one was elevated 0.05, within normal at 0.03 and 0.03. Liver enzymes not elevated. Glucose controlled 120 and 73. Abdominal x-ray: Right sided nephrolithiasis Chest x-ray showing mild congestive heart failure, pulmonary congestion and pleural effusion increased compared to old exam. Patient already was started on Lasix 40 mg daily, also is on metoprolol 25 mg twice daily which is on medication. Metolazone and Lasix by mouth 40 mg twice daily at home medication were held for now. Also he was started on his home dose of insulin 12 units at bedtime. Last echocardiogram on 04/2020 showed ejection fraction of 45-50% with moderate MR and severe TR and knteahco-bh-vhxcps pulmonary hypertension Chest with the bedside nurse, his urine is getting more clear and yellow now 09/08/2021 Patient awake and alert, is still have some exertional dyspnea with minimal exertion. He also has evidence of metastatic or palpitation, suspicious for CHF acute exacerbation. His creatinine is still elevated at 1.9 with nephrology team recommended to continue with oral Lasix and follow-up BMP tomorrow. His INR is 2.4 today, his Coumadin is still on hold. Urologist recommended CT of the abdomen and pelvis which showed no kidney stone but instead there is a small lobulated soft tissue material in the right UVJ, new pleasant cannot be excluded. Also patient has slightly large aortic abdominal aneurysm at 3.8 cm. Objective - Vital Signs Vital signs: Vital Signs Temp 97.7 F 09/09/21 05:00 Pulse 52 L 09/09/21 05:00 Resp 18 09/09/21 05:00 BP 125/62 09/09/21 05:00 Pulse Ox 93 L 09/09/21 05:00 Intake & Output 09/08/21 09/09/21 09/09/21 18:59 06:59 18:59 Intake Total 480 240 Balance 480 240 Intake: Intake, IV Titration 240 Amount Sodium Chloride 0.9% 1, 240 000 ml @ 20 mls/hr IV . Q24H [facility] Rx#:[id number] Oral 480 Other: Voiding Method Toilet Toilet Urinal Urinal # Voids 3 - Exam GENERAL: The patient is alert and oriented x3, not in any acute distress. Well developed, well nourished. HEENT: Pupils are round and equally reacting to light. EOMI. No scleral icterus. No conjunctival pallor. Normocephalic, atraumatic. No pharyngeal erythema. No thyromegaly. CARDIOVASCULAR: S1 and S2 present. No murmurs, rubs, or gallops. -PULMONARY: Chest is clear to auscultation, no wheezing . Bilateral basal crackles. ABDOMEN: Soft, nontender, nondistended, normoactive bowel sounds. No palpable organomegaly. MUSCULOSKELETAL: No joint swelling or deformity. -EXTREMITIES: No cyanosis, clubbing,. Minimal bilateral pitting pedal edema. NEUROLOGICAL: Gross neurological examination did not reveal any focal deficits. SKIN: No rashes. no petechiae. - Labs CBC & Chem 7: 09/08/21 08:18 09/09/21 06:43 Labs: Abnormal Lab Results - Last 24 Hours (Table) 09/08/21 09/09/21 09/09/21 Range/Units 21:20 06:43 08:24 PT 19.1 H (9.0-12.0) sec INR 1.9 H (<1.2) APTT 31.5 H (22.0-30.0) sec Carbon Dioxide 30.6 H (20.0-27.5) mmol/L BUN 43.3 H (9.0-27.0) mg/dL Creatinine 2.0 H (0.6-1.5) mg/dL Est GFR (CKD-EPI)AfAm 34.5 L (60.0-200.0) Est GFR (CKD-EPI)NonAf 29.8 L (60.0-200.0) BUN/Creatinine Ratio 21.54 H (12.00-20.00) Ratio POC Glucose (mg/dL) 139 H (75-99) mg/dL Assessment and Plan Assessment: Acute hematuria, with suspected neoplasm on the right UVJ. No kidney stone seen on CAT scan of the abdomen Acute on chronic systolic CHF, ejection fraction 40-45% Acute on chronic kidney disease, possible cardiorenal syndrome, versus obstructive uropathy Elevated troponin, rule out cardiac causes Mild thrombocytopenia History of moderate MR and severe TR and lkzskqnt-tq-fprqlw pulmonary hypertensio Paroxysmal atrial fibrillation on Eliquis, status post pacemaker History of DVT on Eliquis Diabetes mellitus with diabetic neuropathy Hyperlipidemia Hypertension History of sleep apnea History of BPH Chronic kidney disease, stage III Plan: This is a pleasant 81 years old male who presents with UTE on CKD, hematuria and elevated troponin Lasix was switched to oral dose. With the patient on a fluid restriction 1200 milliliter per day. Continuity Person team on the case and the recommend to continue with IV Lasix Right renal pelvis mass, with urologist on the case were correct procedure, however patient will need Urology consult Labs and medication were reviewed.. Continue same treatment. Continue with symptomatic treatment. Resume home medication. Monitor lytes and vitals. DVT and GI prophylaxis. Further recommendations depends on the clinical course of the patient DVT prophylaxis: no Subcutaneous heparin in view of significant hematuria GI Prophylaxis: Pepcid Prognosis is guarded
[2021-09-09 21:00] LABS: Glucose,Whole Blood 124 mg/dL (75-99)
[2021-09-09] MEDS: ATORVASTATIN 10 MG TAB PO SCH (21:00)
[2021-09-09] MEDS: INSULIN DETEMIR (LEVEMIR) 100 UNIT/ML SYR SQ SCH (21:01)
[2021-09-10] MEDS: FUROSEMIDE 10 MG/ML 4 ML VIAL IV SCH ×2 (08:49→20:54)
[2021-09-10] MEDS: SODIUM CHLORIDE 0.9% 1,000 ML IV SCH ×2 (08:49→12:34)
[2021-09-10] MEDS ORDERED: metOLazone 5 MG TAB PO SCH (09:00)
[2021-09-10 09:44] LABS: African American GFR (CKD) 37 (>60 ml/min/1.73 sqM); Anion Gap 5 mmol/L; Blood Urea Nitrogen 50 mg/dL (9-20); C Reactive Protein 1.7 mg/dL (<1.0); Calcium 9.1 mg/dL (8.4-10.2); Carbon Dioxide 33 mmol/L (22-30); Chloride 102 mmol/L (98-107); Glucose 87 mg/dL (74-99); Magnesium 2.1 mg/dL (1.6-2.3); Non-African American GFR(CKD) 32 (>60 ml/min/1.73 sqM); Potassium 3.5 mmol/L (3.5-5.1); Sodium 140 mmol/L (137-145)
[2021-09-10 09:45] LABS: Glucose,Whole Blood 76 mg/dL (75-99)
[2021-09-10] MEDS ORDERED: IV FLUID CONTINUATION 1,000 ML IV ONE (09:46)
--- NOTE | 2021-09-10 10:37 | P.OP ---
Date of Procedure: 09/10/21 Preoperative Diagnosis: Hematuria secondary to bladder tumor Postoperative Diagnosis: Same Procedure(s) Performed: Cystoscopy, transurethral resection of bladder tumor (small) Anesthesia: AMBER Surgeon: Moses Brand Estimated Blood Loss (ml): 10 IV fluids (ml): 200 Pathology: other (Right lateral bladder wall tumor) Condition: stable Disposition: PACU Indications for Procedure: The patient is an 81-year-old male with a history of urolithiasis. He has experienced recent gross hematuria. CT scan suggests the presence of a right sided bladder tumor. Operative Findings: 1.5-2.0 cm papillary tumor lateral to right ureteral orifice. Description of Procedure: The patient was taken in the operating room and placed in the dorsal lithotomy position, with his legs supported in Len stirrups. The external genitalia was prepped and draped sterilely. The 30 lens was used to introduce the 22-Tongan Stortz cystoscopic sheath through the urethra and into the bladder under direct vision. The caliber of the urethra was snug. The bladder was inspected. Both ureteral orifices were of normal anatomic location and configuration, and clear urine effluxed from both. The entire bladder was examined, revealing a 1.5-2.0 cm tumor lateral to the right ureteral orifice. The tumor had a low-grade, noninvasive appearance. A small area of scarring was seen lateral to the left ureteral orifice. The prostate was partially obstructed with a bilobar configuration. The Aamir urethrotome was used to incise the urethra to 25-Tongan. The 25-Tongan ACMI resectoscope sheath was introduced into the bladder under direct vision. Using the cutting loop, the tumor was resected completely. In some areas, the tumor was simply swept away from the mucosa using the cold loop. The entire resection bed was then fulgurated. Excellent hemostasis was attained. The resected tissue was saved and sent for pathologic examination. An 18-Tongan Ko catheter was inserted. The return was clear. The patient tolerated the procedure well. He was taken to the recovery room in stable condition.
--- NOTE | 2021-09-10 11:23 | P.PN ---
Subjective Progress Note Date: 09/10/21 This is a 80-year-old gentleman with history of coronary artery disease, sick sinus syndrome status post permanent pacemaker implantation and also chronic CHF was admitted to the hospital with the blood in the urine. He was going to have cystoscopy for evaluation of a mass. He was found to be fluid overloaded with symptoms of shortness of breath and congestion. He was treated with IV Lasix yesterday with a good diuresis. He is feeling much better and breathing better. The edema is down. Patient is felt to be stable enough to have the procedure.. We'll check his electrolytes before the procedure. Discussed with Dr. Phillip Objective - Vital Signs Vital signs: Vital Signs Temp 97.7 F 09/10/21 10:48 Pulse 48 L 09/10/21 11:16 Resp 18 09/10/21 11:16 BP 129/61 09/10/21 11:16 Pulse Ox 100 09/10/21 11:16 Intake & Output 09/09/21 09/10/21 09/10/21 18:59 06:59 18:59 Intake Total 836 100 200 Output Total 10 Balance 836 100 190 Intake: IV 200 Oral 836 100 Output: Estimated Blood Loss 10 Other: Voiding Method Toilet Toilet Urinal Urinal # Voids 3 1 - Exam GENERAL EXAM: Patient is alert and oriented and doesn't appear to be in any acute distress HEENT: Normocephalic. Normal reaction of pupils, equal size, normal range of extraocular motion. No erythema or exudates in the throat. NECK: No masses, no nuchal rigidity. CHEST: No chest wall deformity. LUNGS: Equal air entry with no crackles or wheeze. HEART: S1 and S2 normal with no audible mumurs or gallops. Regular rhythm, femorals equal on both sides.. ABDOMEN: No hepatosplenomegaly, normal bowel sounds, no guarding or rigidity. SKIN: No rashes CENTRAL NERVOUS SYSTEM: No focal deficits. EXTREMITIES: No cyanosis, clubbing or edema. - Labs CBC & Chem 7: 09/08/21 08:18 09/10/21 06:00 Labs: Abnormal Lab Results - Last 24 Hours (Table) 09/09/21 09/10/21 Range/Units 20:59 06:00 Carbon Dioxide 33 H (22-30) mmol/L BUN 50 H (9-20) mg/dL Creatinine 1.91 H (0.66-1.25) mg/dL POC Glucose (mg/dL) 124 H (75-99) mg/dL C-Reactive Protein 1.7 H (<1.0) mg/dL Assessment and Plan (1) Acute on chronic diastolic CHF (congestive heart failure) Current Visit: Yes Status: Acute Code(s): I50.33 - ACUTE ON CHRONIC DIASTOLIC (CONGESTIVE) HEART FAILURE SNOMED Code(s): 019288521 (2) Calculus of kidney Current Visit: Yes Status: Acute Code(s): N20.0 - CALCULUS OF KIDNEY SNOMED Code(s): 79519362 (3) Gross hematuria Current Visit: Yes Status: Acute Code(s): R31.0 - GROSS HEMATURIA SNOMED Code(s): 172575519 (4) Renal insufficiency Current Visit: Yes Status: Acute Code(s): N28.9 - DISORDER OF KIDNEY AND URETER, UNSPECIFIED SNOMED Code(s): 624313016 (5) HTN (hypertension) Current Visit: No Status: Acute Code(s): I10 - ESSENTIAL (PRIMARY) HYPERTENSION SNOMED Code(s): 81449915 Plan: Patient is much more stable today. Going to have cystoscopy. Continue current medical therapy. Follow electrolytes
[2021-09-10 11:29] LABS: Glucose,Whole Blood 87 mg/dL (75-99)
[2021-09-10] MEDS: FENOFIBRATE 160 MG TAB PO SCH (12:33)
[2021-09-10] MEDS: METOPROLOL TARTRATE 25 MG TAB PO SCH ×2 (12:33→20:10)
[2021-09-10] MEDS: CYANOCOBALAMIN 500 MCG TAB PO SCH (12:33)
[2021-09-10] MEDS: FAMOTIDINE 20 MG TAB PO SCH ×2 (12:33→20:54)
[2021-09-10] MEDS: FERROUS SULFATE 325 MG TAB PO SCH ×2 (12:33→16:59)
--- NOTE | 2021-09-10 14:32 | P.PN ---
Subjective This is a pleasant 81 years old male with past medical history of Atrial Fibrillation, status post permanent pacemaker Asthma, Coronary Artery Disease , Heart Failure, Diabetes Mellitus, Deep Vein Thrombosis (on Eliquis, Hyperlipidemia, Hypertension, Sleep Apnea/CPAP/BIPAP, diabetic peripheral neuropathy, BPH, chronic kidney disease with history of kidney stones status post surgery. Patient was obtained from the patient and son was at bedside to help him. Patient states that he presents because of bleeding in the urine for 2 days duration with no dysuria or urgency. No abdominal or flank pain. Also he has been complaining of from dyspnea since 08/26/21, and they were in contact with his director of laboratory operations Dr. Molina on through this.. He denies chest pain. However he has cough with phlegm of unknown color. He denies any headache or weakness or numbness or dizziness His urologist is Dr. grimes, who had surgery done for him many years ago through his urethra catheter. He denies smoking, alcohol or illicit drugs Patient vitals are stable, he is mildly bradycardic 49-51. Hemoglobin is 11 and 10.2, baseline around 10-12, platelet count is 148 and 122 INR is 3.3 and 2.9 today. Creatinine elevated to 1.90 and 1.84, baseline 1.1- 1.6. Troponin first one was elevated 0.05, within normal at 0.03 and 0.03. Liver enzymes not elevated. Glucose controlled 120 and 73. Abdominal x-ray: Right sided nephrolithiasis Chest x-ray showing mild congestive heart failure, pulmonary congestion and pleural effusion increased compared to old exam. Patient already was started on Lasix 40 mg daily, also is on metoprolol 25 mg twice daily which is on medication. Metolazone and Lasix by mouth 40 mg twice daily at home medication were held for now. Also he was started on his home dose of insulin 12 units at bedtime. Last echocardiogram on 04/2020 showed ejection fraction of 45-50% with moderate MR and severe TR and gyvhcxvy-xk-oaithg pulmonary hypertension Chest with the bedside nurse, his urine is getting more clear and yellow now 09/09/2021 Patient awake and alert, is still have some exertional dyspnea with minimal exertion. He also has evidence of metastatic or palpitation, suspicious for CHF acute exacerbation. His creatinine is still elevated at 1.9 with nephrology team recommended to continue with oral Lasix and follow-up BMP tomorrow. His INR is 2.4 today, his Coumadin is still on hold. Urologist recommended CT of the abdomen and pelvis which showed no kidney stone but instead there is a small lobulated soft tissue material in the right UVJ, new pleasant cannot be excluded. Also patient has slightly large aortic abdominal aneurysm at 3.8 cm. 09/10/2021 Patient today underwent cystoscopy after cardiology clearance, and found to have 1.5-2.0 cm tumor lateral to the right ureteral orifice. The tumor had a low- grade, noninvasive appearance. Urinary Bladder biopsies pending. Other that he is fully awake oriented, no dyspnea, no chest pain. Minimal leg swelling. His INR is 1.9, hemoglobin 10.5 yesterday. Creatinine 1.9. He is mildly bradycardic but director of laboratory operations on the case. continued on IV Lasix 40 mg twice daily. Coumadin remains on hold. Patient still has hematuria Objective - Vital Signs Vital signs: Vital Signs Temp 98.1 F 09/10/21 09:37 Pulse 56 L 09/10/21 09:37 Resp 18 09/10/21 09:37 BP 127/62 09/10/21 09:37 Pulse Ox 98 09/10/21 09:37 Intake & Output 09/09/21 09/10/21 09/10/21 18:59 06:59 18:59 Intake Total 836 100 100 Balance 836 100 100 Intake: IV 100 Oral 836 100 Other: Voiding Method Toilet Toilet Urinal Urinal # Voids 3 1 - Exam GENERAL: The patient is alert and oriented x3, not in any acute distress. Well developed, well nourished. HEENT: Pupils are round and equally reacting to light. EOMI. No scleral icterus. No conjunctival pallor. Normocephalic, atraumatic. No pharyngeal erythema. No thyromegaly. CARDIOVASCULAR: S1 and S2 present. No murmurs, rubs, or gallops. -PULMONARY: Chest is clear to auscultation, no wheezing . Bilateral basal crackles. ABDOMEN: Soft, nontender, nondistended, normoactive bowel sounds. No palpable organomegaly. MUSCULOSKELETAL: No joint swelling or deformity. -EXTREMITIES: No cyanosis, clubbing,. Minimal bilateral pitting pedal edema. NEUROLOGICAL: Gross neurological examination did not reveal any focal deficits. SKIN: No rashes. no petechiae. - Labs CBC & Chem 7: 09/08/21 08:18 09/10/21 06:00 Labs: Abnormal Lab Results - Last 24 Hours (Table) 09/09/21 09/09/21 09/10/21 Range/Units 06:43 20:59 06:00 Carbon Dioxide 30.6 H 33 H (20.0-27.5) mmol/L BUN 43.3 H 50 H (9.0-27.0) mg/dL Creatinine 2.0 H 1.91 H (0.6-1.5) mg/dL Est GFR (CKD-EPI)AfAm 34.5 L (60.0-200.0) Est GFR (CKD-EPI)NonAf 29.8 L (60.0-200.0) BUN/Creatinine Ratio 21.54 H (12.00-20.00) Ratio POC Glucose (mg/dL) 124 H (75-99) mg/dL C-Reactive Protein 1.7 H (<1.0) mg/dL Assessment and Plan Assessment: Acute hematuria, secondary to urinary bladder tumor 1.5-2 cm status post resection on 09/10 Acute on chronic systolic CHF, ejection fraction 40-45% Acute on chronic kidney disease, possible cardiorenal syndrome, versus obstructive uropathy Elevated troponin, cardiac causes were ruled out Mild thrombocytopenia History of moderate MR and severe TR and ugqyrrgj-kw-wduyyu pulmonary hyper tensio Paroxysmal atrial fibrillation on Eliquis, status post pacemaker History of DVT on Eliquis Diabetes mellitus with diabetic neuropathy Hyperlipidemia Hypertension History of sleep apnea History of BPH Chronic kidney disease, stage III Plan: This is a pleasant 81 years old male who presents with UTE on CKD, hematuria and recurrent bladder tumor status post resection Lasix was switched to oral dose. With the patient on a fluid restriction 1200 milliliter per day. [employer] team on the case and the recommend to continue with IV Lasix Status post cystoscopy, Follow-up urinary bladder biopsy Labs and medication were reviewed.. Continue same treatment. Continue with symptomatic treatment. Resume home medication. Monitor lytes and vitals. DVT and GI prophylaxis. Further recommendations depends on the clinical course of the patient DVT prophylaxis: no Subcutaneous heparin in view of significant hematuria . Coumadin is on hold as well GI Prophylaxis: Pepcid Prognosis is guarded
[2021-09-10] MEDS ORDERED: guaiFENesin SYRUP 100MG/5ML 200 MG/10 ML CUP PO PRN (15:53)
[2021-09-10] MEDS ORDERED: MORPHINE SULFATE 2 MG/ML SYRINGE IV PRN (19:54)
[2021-09-10] MEDS ORDERED: LIDOCAINE 1% (10MG/ML) FOR IV START INTRADERMA PRN (19:54)
[2021-09-10] MEDS ORDERED: ONDANSETRON 4 MG/2 ML VIAL IVP PRN (19:54)
[2021-09-10] MEDS ORDERED: DEXAMETHASONE SOD PHOSPHATE 4 MG/ML 1 ML VIAL IV ONE (19:54)
[2021-09-10] MEDS: LACTATED RINGERS 1,000 ML IV SCH (20:10)
[2021-09-10 20:48] LABS: Glucose,Whole Blood 135 mg/dL (75-99)
[2021-09-10] MEDS: INSULIN DETEMIR (LEVEMIR) 100 UNIT/ML SYR SQ SCH (20:54)
[2021-09-10] MEDS: ATORVASTATIN 10 MG TAB PO SCH (20:54)
[2021-09-11] MEDS: FAMOTIDINE 20 MG TAB PO SCH ×2 (08:34→20:31)
[2021-09-11] MEDS: FERROUS SULFATE 325 MG TAB PO SCH ×2 (08:34→17:27)
[2021-09-11] MEDS: FUROSEMIDE 10 MG/ML 4 ML VIAL IV SCH (08:34)
--- NOTE | 2021-09-11 08:53 | P.PN ---
Progress Note - Text Progress Note Date: 09/11/21 Patient has no specific complaints this morning. The Ko catheter is draining clear yellow urine. He underwent resection of a small bladder tumor yesterday. The catheter will be removed today. He is urologically stable for discharge and will follow-up in 1 week.
--- NOTE | 2021-09-11 10:35 | P.PN ---
Subjective Progress Note Date: 09/11/21 HISTORY OF PRESENT ILLNESS: This is a pleasant 81-year-old gentleman who follows regularly with Dr. Fall in the office. He has known history of mild triple vessel coronary artery disease, sick sinus syndrome status post single-chamber pacemaker implantation in 2008 ,persistent atrial fibrillation on coumadin, abdominal aortic aneurysm, chronic congestive diastolic heart failure, type 2 diabetes, hypertension, hyperlipidemia, sleep apnea, peripheral vascular disease who presents to the hospital with symptoms of hematuria. He states it started on 09/05/21 night. He also passed clots. He denies any chest pain, shortness of breath, lightheadedness, dizziness, syncope or near syncope. He denies any abdominal pain, fever, chills, nausea, cough. He denies any bleeding elsewhere. Cardiology is consulted for cardiac evaluation. DIAGNOSTICS EKG reveals Ventricular paced rhythm Telemetry tracings indicate V paced rhythm Chest xray Left axillary pacemaker, mild pulmonary congestion, mild congestive heart failure Abdominal x-ray revealed right-sided nephrolithiasis Most recent echocardiogram 04/2020 revealed EF 50%, moderate mitral regurgitation, moderate to severe tricuspid regurgitation with an RVSP of 53 mmHg Most recent cardiac catheterization 04/2020, mild triple vessel coronary artery disease Laboratory reviewed, WBC 4.6, hemoglobin 10.2, platelets 122, INR 2.9, sodium 140, potassium 3.8, BUN 48, serum creatinine 1.8, troponin negative 3 ,covid 19 negative Current cardiac medications include metolazone 5mg , Coumadin, metoprolol tartrate 25mg BID, Lovastatin, Lasix 40mg BID 09/09/2021 Patient examined this morning at the bedside. Patient denies chest pain or pressure. He does report some shortness of breath this morning. He also reports some swelling of his lower extremities. Patient's Coumadin remains on hold. INR today 1.9. 09/11/2021 Patient examined this morning at the bedside. Patient denies chest pain or pressure. He denies shortness of breath. He is status post cystoscopy with transurethral resection of small bladder tumor yesterday. His Coumadin remains on hold. PHYSICAL EXAM: VITAL SIGNS: Reviewed. GENERAL: Well-developed in no acute distress. NECK: Supple. No JVD or thyromegaly LUNGS: Respirations even and unlabored. Lungs diminished to auscultation bilate rally. HEART: Irregular rate and rhythm. S1 and S2 heard. EXTREMITIES: Normal range of motion. No clubbing or cyanosis. Peripheral pulses intact. Trace lower extremity edema ASSESSMENT: Hematuria Mild triple vessel coronary artery disease Sick sinus syndrome status post single-chamber pacemaker implantation in 2008 Persistent atrial fibrillation on coumadin Abdominal aortic aneurysm Acute on chronic congestive diastolic heart failure Type 2 diabetes Hypertension Hyperlipidemia Obstructive sleep apnea Peripheral vascular disease Chronic kidney disease PLAN: Continue current cardiac medications Continue IV lasix today. Anticipate transition to oral dosing tomorrow From a cardiology standpoint, we recommend the patient be resumed on his Couma din. However, we will wait urology recommendations regarding resuming Coumadin. Further recommendations pending patient's course Nurse practitioner note has been reviewed by physician. Signing provider agrees with the documented findings, assessment, and plan of care. Objective - Vital Signs Vital signs: Vital Signs Temp 97.6 F 09/11/21 04:13 Pulse 84 09/11/21 08:35 Resp 16 09/11/21 04:13 BP 121/51 09/11/21 08:35 Pulse Ox 95 09/11/21 04:13 Intake & Output 09/10/21 09/11/21 09/11/21 18:59 06:59 18:59 Intake Total 840 180 Output Total 1230 1500 Balance -390 -1320 Intake: IV 600 Intake, IV Titration 240 Amount Sodium Chloride 0.9% 1, 240 000 ml @ 20 mls/hr IV . Q24H [facility] Rx#:[id number] Oral 180 Output: Urine 1220 1500 Estimated Blood Loss 10 Other: Voiding Method Urinal Bedpan Urinal Indwelling Catheter - Labs CBC & Chem 7: 09/08/21 08:18 09/10/21 06:00 Labs: Abnormal Lab Results - Last 24 Hours (Table) 09/10/21 Range/Units 20:46 POC Glucose (mg/dL) 135 H (75-99) mg/dL
[2021-09-11 12:29] LABS: African American GFR (CKD) 30 (>60 ml/min/1.73 sqM); Anion Gap 4 mmol/L; Blood Urea Nitrogen 50 mg/dL (9-20); Calcium 9.2 mg/dL (8.4-10.2); Carbon Dioxide 34 mmol/L (22-30); Chloride 102 mmol/L (98-107); Glucose 104 mg/dL (74-99); Non-African American GFR(CKD) 26 (>60 ml/min/1.73 sqM); Potassium 3.3 mmol/L (3.5-5.1); Sodium 140 mmol/L (137-145)
[2021-09-11 12:51] VITALS: BMI 29.0
[2021-09-11] MEDS: METOPROLOL TARTRATE 25 MG TAB PO SCH ×3 (13:31→20:41)
[2021-09-11] MEDS: FENOFIBRATE 160 MG TAB PO SCH (13:32)
[2021-09-11] MEDS: CYANOCOBALAMIN 500 MCG TAB PO SCH (13:32)
--- NOTE | 2021-09-11 18:20 | PN ---
PROGRESS NOTE Patient is seen for followup for chronic kidney disease. The patient was admitted with acute kidney injury. Serum creatinine has been about 1.9 mg/dL. He had hematuria on admission for which patient had cystoscopy and transurethral resection of bladder tumor. The biopsies are currently pending. Ko catheter has been removed. Serum creatinine has increased slightly to 2.2 from 1.9. The patient is maintained on IV Lasix. PHYSICAL EXAMINATION: On examination today, blood pressure is 121/51, heart rate 84 per minute, he is afebrile. Examination of the heart S1, S2. Examination of the lungs, bilateral breath sounds are heard. Abdomen is soft, nontender. Examination of lower extremities shows no significant edema. TWIST MAKER exam is grossly intact. LAB: Show sodium 140, potassium 3.3, CO2 is 34, BUN 50, creatinine 2.23. ASSESSMENT: 1. Acute kidney injury, mostly cardiorenal with slight worsening of the creatinine, possibly prerenal component. Patient has been maintained on IV Lasix. I will hold that for now. Volume status has improved. 2. Hypokalemia associated with diuretics status post replacement. 3. Hematuria associated with bladder wall tumor status post cystoscopy, being followed by Urology. 4. Coronary artery disease. 5. Sick sinus syndrome status post single chamber pacemaker implant. PLAN: Discontinue IV Lasix. Repeat labs in a.m. Decide dose tomorrow based on his renal function for oral diuretics. MMODL / IJN: [id number] /
[2021-09-11] MEDS: SODIUM CHLORIDE 0.9% 1,000 ML IV SCH ×2 (18:50→20:31)
--- NOTE | 2021-09-11 19:38 | P.PN ---
Subjective This is a pleasant 81 years old male with past medical history of Atrial Fibrillation, status post permanent pacemaker Asthma, Coronary Artery Disease , Heart Failure, Diabetes Mellitus, Deep Vein Thrombosis (on Eliquis, Hyperlipidemia, Hypertension, Sleep Apnea/CPAP/BIPAP, diabetic peripheral neuropathy, BPH, chronic kidney disease with history of kidney stones status post surgery. Patient was obtained from the patient and son was at bedside to help him. Patient states that he presents because of bleeding in the urine for 2 days duration with no dysuria or urgency. No abdominal or flank pain. Also he has been complaining of from dyspnea since 08/26/21, and they were in contact with his axle inspector Dr. Molina on through this.. He denies chest pain. However he has cough with phlegm of unknown color. He denies any headache or weakness or numbness or dizziness His urologist is Dr. grimes, who had surgery done for him many years ago through his urethra catheter. He denies smoking, alcohol or illicit drugs Patient vitals are stable, he is mildly bradycardic 49-51. Hemoglobin is 11 and 10.2, baseline around 10-12, platelet count is 148 and 122 INR is 3.3 and 2.9 today. Creatinine elevated to 1.90 and 1.84, baseline 1.1- 1.6. Troponin first one was elevated 0.05, within normal at 0.03 and 0.03. Liver enzymes not elevated. Glucose controlled 120 and 73. Abdominal x-ray: Right sided nephrolithiasis Chest x-ray showing mild congestive heart failure, pulmonary congestion and pleural effusion increased compared to old exam. Patient already was started on Lasix 40 mg daily, also is on metoprolol 25 mg twice daily which is on medication. Metolazone and Lasix by mouth 40 mg twice daily at home medication were held for now. Also he was started on his home dose of insulin 12 units at bedtime. Last echocardiogram on 04/2020 showed ejection fraction of 45-50% with moderate MR and severe TR and udnfdutu-wn-tahsry pulmonary hypertension Chest with the bedside nurse, his urine is getting more clear and yellow now 09/09/2021 Patient awake and alert, is still have some exertional dyspnea with minimal exertion. He also has evidence of metastatic or palpitation, suspicious for CHF acute exacerbation. His creatinine is still elevated at 1.9 with nephrology team recommended to continue with oral Lasix and follow-up BMP tomorrow. His INR is 2.4 today, his Coumadin is still on hold. Urologist recommended CT of the abdomen and pelvis which showed no kidney stone but instead there is a small lobulated soft tissue material in the right UVJ, new pleasant cannot be excluded. Also patient has slightly large aortic abdominal aneurysm at 3.8 cm. 09/10/2021 Patient today underwent cystoscopy after cardiology clearance, and found to have 1.5-2.0 cm tumor lateral to the right ureteral orifice. The tumor had a low- grade, noninvasive appearance. Urinary Bladder biopsies pending. Other that he is fully awake oriented, no dyspnea, no chest pain. Minimal leg swelling. His INR is 1.9, hemoglobin 10.5 yesterday. Creatinine 1.9. He is mildly bradycardic but axle inspector on the case. continued on IV Lasix 40 mg twice daily. Coumadin remains on hold. Patient still has hematuria 09/11/2021 Patient today was comfortable, denies specific complaints. He has a Ko catheter was clear yellow urine in it. He is hemodynamically stable however during the afternoon he developed low-grade temperature of 99.9. 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 Labs reviewed and he has INR of 1.9, creatinine went up a little bit to 2.2. His IV Lasix was stopped and the plan is to check his creatinine tomorrow and based on that we will decide about the dose of oral Lasix. We will check with urology team about the clearance to restart Coumadin. Also we will check postvoid residual after Ko catheter discontinued. Consult oncology service for his cancer Objective - Vital Signs Vital signs: Vital Signs Temp 97.6 F 09/11/21 04:13 Pulse 84 09/11/21 08:35 Resp 16 09/11/21 04:13 BP 121/51 09/11/21 08:35 Pulse Ox 95 09/11/21 04:13 Intake & Output 09/10/21 09/11/21 09/11/21 18:59 06:59 18:59 Intake Total 840 180 Output Total 1230 1500 Balance -390 -1320 Intake: IV 600 Intake, IV Titration 240 Amount Sodium Chloride 0.9% 1, 240 000 ml @ 20 mls/hr IV . Q24H [facility] Rx#:[id number] Oral 180 Output: Urine 1220 1500 Estimated Blood Loss 10 Other: Voiding Method Urinal Bedpan Indwelling Catheter Urinal Indwelling Catheter - Exam GENERAL: The patient is alert and oriented x3, not in any acute distress. Well developed, well nourished. HEENT: Pupils are round and equally reacting to light. EOMI. No scleral icterus. No conjunctival pallor. Normocephalic, atraumatic. No pharyngeal erythema. No thyromegaly. CARDIOVASCULAR: S1 and S2 present. No murmurs, rubs, or gallops. -PULMONARY: Chest is clear to auscultation, no wheezing . Bilateral basal crackles. ABDOMEN: Soft, nontender, nondistended, normoactive bowel sounds. No palpable organomegaly. MUSCULOSKELETAL: No joint swelling or deformity. -EXTREMITIES: No cyanosis, clubbing,. Minimal bilateral pitting pedal edema. NEUROLOGICAL: Gross neurological examination did not reveal any focal deficits. SKIN: No rashes. no petechiae. - Labs CBC & Chem 7: 09/08/21 08:18 09/11/21 11:24 Labs: Abnormal Lab Results - Last 24 Hours (Table) 09/10/21 Range/Units 20:46 POC Glucose (mg/dL) 135 H (75-99) mg/dL Assessment and Plan Assessment: Acute hematuria, secondary to urinary bladder tumor 1.5-2 cm status post resection on 09/10 . 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 Acute on chronic systolic CHF, ejection fraction 40-45% Acute on chronic kidney disease, possible cardiorenal syndrome, versus obstructive uropathy Elevated troponin, cardiac causes were ruled out Mild thrombocytopenia History of moderate MR and severe TR and utcdfcha-hm-gsmunb pulmonary hypertensio Paroxysmal atrial fibrillation on Eliquis, status post pacemaker History of DVT on Eliquis Diabetes mellitus with diabetic neuropathy Hyperlipidemia Hypertension History of sleep apnea History of BPH Chronic kidney disease, stage III Plan: This is a pleasant 81 years old male who presents with UTE on CKD, hematuria and recurrent bladder tumor status post resection Of Lasix and check creatinine and then resume it after richard. With the patient on a fluid restriction 1200 milliliter per day. Tank House Operator team on the case Consult oncology service Monitor hemoglobin Check labs tomorrow. Resume Coumadin after clearance by urologist Check a bladder scan. Labs and medication were reviewed.. Continue same treatment. Continue with symptomatic treatment. Resume home medication. Monitor lytes and vitals. DVT and GI prophylaxis. Further recommendations depends on the clinical course of the patient DVT prophylaxis: no Subcutaneous heparin in view of significant hematuria . Coumadin is on hold as well GI Prophylaxis: Pepcid Prognosis is guarded
[2021-09-11] MEDS: ATORVASTATIN 10 MG TAB PO SCH (20:30)
[2021-09-11] MEDS: POTASSIUM CHLORIDE ER 20 MEQ TAB.ER PO SCH ×2 (20:31→22:40)
[2021-09-11 20:49] LABS: Glucose,Whole Blood 141 mg/dL (75-99)
[2021-09-11] MEDS: INSULIN DETEMIR (LEVEMIR) 100 UNIT/ML SYR SQ SCH (20:51)
[2021-09-11] MEDS ORDERED: WARFARIN 5 MG TAB PO ONE (22:15)
[2021-09-11] MEDS: LACTATED RINGERS 1,000 ML IV SCH (22:41)
[2021-09-12 06:39] LABS: INR 1.4 (<1.2); Prothrombin Time 14.5 sec (9.0-12.0)
[2021-09-12] MEDS: FAMOTIDINE 20 MG TAB PO SCH ×2 (09:08→21:22)
[2021-09-12] MEDS: CYANOCOBALAMIN 500 MCG TAB PO SCH (09:08)
[2021-09-12] MEDS: FERROUS SULFATE 325 MG TAB PO SCH ×2 (09:08→17:57)
[2021-09-12 10:44] LABS: African American GFR (CKD) 32 (>60 ml/min/1.73 sqM); Anion Gap 8 mmol/L; Blood Urea Nitrogen 48 mg/dL (9-20); Calcium 9.4 mg/dL (8.4-10.2); Carbon Dioxide 34 mmol/L (22-30); Chloride 98 mmol/L (98-107); Glucose 104 mg/dL (74-99); Magnesium 2.1 mg/dL (1.6-2.3); Non-African American GFR(CKD) 28 (>60 ml/min/1.73 sqM); Potassium 3.6 mmol/L (3.5-5.1); Sodium 140 mmol/L (137-145)
--- NOTE | 2021-09-12 10:49 | P.PN ---
Subjective Progress Note Date: 09/12/21 The patient is an 81-year-old male who follows with Dr. Fall in the office. He is currently admitted to the hospital with hematuria. Cardiology was consulted due to his known history. The patient was interviewed and examined lying comfortably in bed. He denies any chest pain or chest pressure. He states overall his breathing has improved and he currently has no dyspnea or orthopnea. He also denies any heart racing or fluttering. No dizziness or lightheadedness. GENERAL: Well-appearing, well-nourished and in no acute distress. NECK: Supple without JVD or thyromegaly. LUNGS: Breath sounds clear to auscultation bilaterally. Respiration equal and unlabored. No wheezes, rales or rhonchi. HEART: Irregular rate and rhythm. S1 and S2 heard. EXTREMITIES: Normal range of motion, no edema. No clubbing or cyanosis. Peripheral pulses intact and strong. VITALS: Blood pressure 105/54, heart rate 55, temp 97.4F, SpO2 92% on room air TELEMETRY: Persistent atrial fibrillation, rate controlled overnight LABS: Sodium 140, potassium 3.6, BUN 48, creatinine 2.15, mag 2.1 IMPRESSION: Hematuria Persistent atrial fibrillation, warfarin resumed Acute on chronic congestive heart failure Hypertension well-controlled Chronic kidney disease, managed by nephrology Sick sinus syndrome, status post permanent pacemaker History of coronary artery disease PLAN: Transition back to oral furosemide per nephrology's recommendations No further recommendations from the cardiac standpoint The patient has been seen and evaluated by nurse practitioner and coordinating physician. Plan of care has been reviewed and agreed upon by Dr Ramos. Objective - Vital Signs Vital signs: Vital Signs Temp 97.4 F L 09/12/21 05:19 Pulse 55 L 09/12/21 09:04 Resp 18 09/12/21 05:19 BP 105/54 09/12/21 09:04 Pulse Ox 92 L 09/12/21 09:04 Intake & Output 09/11/21 09/12/21 09/12/21 18:59 06:59 18:59 Intake Total 1920 240 340 Output Total 700 Balance 1220 240 340 Weight 81.647 kg Intake: Intake, IV Titration 240 Amount Sodium Chloride 0.9% 1, 240 000 ml @ 20 mls/hr IV . Q24H [facility] Rx#:[id number] Oral 1920 340 Output: Urine 700 Other: Voiding Method Indwelling Catheter Toilet # Voids 1 # Bowel Movements 1 - Labs CBC & Chem 7: 09/08/21 08:18 09/11/21 11:24 Labs: Abnormal Lab Results - Last 24 Hours (Table) 09/11/21 09/11/21 09/12/21 Range/Units 11:24 20:48 06:08 PT 14.5 H (9.0-12.0) sec INR 1.4 H (<1.2) Potassium 3.3 L (3.5-5.1) mmol/L Carbon Dioxide 34 H (22-30) mmol/L BUN 50 H (9-20) mg/dL Creatinine 2.23 H (0.66-1.25) mg/dL Glucose 104 H (74-99) mg/dL POC Glucose (mg/dL) 141 H (75-99) mg/dL
[2021-09-12 10:58] LABS: Basophils % (A) 0 %; Eosinophils # (A) 0.2 k/uL (0-0.7); Eosinophils % (A) 3 %; HCT 35.6 % (39.0-53.0); Hypochromasia Slight; Lymphocytes # (A) 1.3 k/uL (1.0-4.8); Lymphocytes % (A) 22 %; MCH 33.1 pg (25.0-35.0); MCV 106.8 fL (80.0-100.0); Macrocytosis Moderate; Mean Platelet Volume 8.8; Monocytes # (A) 0.4 k/uL (0-1.0); Monocytes % (A) 7 %; Neutrophils # (A) 3.9 k/uL (1.3-7.7); Neutrophils % (A) 65 %; Platelet Count 145 k/uL (150-450); RBC 3.34 m/uL (4.30-5.90); RDW 13.7 % (11.5-15.5); WBC 5.9 k/uL (3.8-10.6)
--- NOTE | 2021-09-12 10:58 | P.PN ---
Progress Note - Text Progress Note Date: 09/12/21 Mr. Bain underwent bladder tumor resection on 09/10/2021. His Ko catheter was removed yesterday. He is voiding without difficulty. His urine is clear. Pathology showed low-grade, noninvasive urothelial carcinoma. The resection of the tumor was complete, and he will not require any additional therapy. However, he was advised that bladder cancer recurrence rates are high, and arrangements will thus be made for him to undergo office cystoscopy in 3 months.
[2021-09-12 11:10] LABS: ALT 11 U/L (4-49); AST 29 U/L (17-59); Albumin 3.9 g/dL (3.5-5.0); Albumin/Globulin Ratio 0.8; Alkaline Phosphatase 43 U/L (38-126); Globulin 4.9 g/dL; Total Bilirubin 1.6 mg/dL (0.2-1.3); Total Protein 8.8 g/dL (6.3-8.2)
--- NOTE | 2021-09-12 11:21 | XR ---
EXAMINATION TYPE: XR chest 2V DATE OF EXAM: 09/12/2021 COMPARISON: 09/06/2021 HISTORY: Decreased oxygen TECHNIQUE: Frontal and lateral views of the chest are obtained. FINDINGS: There is a single lead cardiac pacemaker. There is moderate cardiomegaly and moderate pulmonary vascular congestion and mild interstitial edema . There are small bilateral pleural effusions right greater than left. The osseous structures are intact IMPRESSION: Findings most consistent with acute CHF.
[2021-09-12] MEDS: METOPROLOL TARTRATE 25 MG TAB PO SCH ×2 (12:14→21:22)
[2021-09-12] MEDS: FUROSEMIDE 10 MG/ML 4 ML VIAL IV SCH ×2 (14:04→21:34)
[2021-09-12] MEDS: FENOFIBRATE 160 MG TAB PO SCH (14:04)
[2021-09-12] MEDS ORDERED: FUROSEMIDE 40 MG TAB PO SCH (16:00)
--- NOTE | 2021-09-12 16:33 | PN ---
PROGRESS NOTE Patient is seen for followup for acute kidney injury on top of chronic kidney disease. The patient had significant shortness of breath today. He has been switched back to IV Lasix. He states he is feeling better now. Chest x-ray done this morning showed evidence of CHF. PHYSICAL EXAMINATION: On examination today, blood pressure 105/54, heart rate 55 per minute. Patient is afebrile. Examination of the heart S1, S2. Examination of the lungs, decreased breath sounds at the bases with basal crackles heard. Abdomen is soft, nontender. Examination lower extremities shows no significant edema. LAB: Show sodium 140, potassium 3.6, chloride 98, BUN 48, creatinine 2.1, hemoglobin 11.0. ASSESSMENT: 1. Acute kidney injury, mostly ATN/cardiorenal. The patient needs to continue with the IV Lasix. He was significantly more volume overloaded today. Agree with maintaining him on IV Lasix again. 2. Hypokalemia associated with diuretics status post replacement. 3. Hematuria with bladder wall tumor status post cystoscopy. 4. Coronary artery disease. PLAN: Resume IV Lasix. Continue to diurese patient. He will need a higher dose of loop diuretics for home, this can also be switched to long-acting torsemide rather than Lasix. MMODL / IJN: [id number] /
[2021-09-12] MEDS ORDERED: WARFARIN 3 MG TAB PO ONE (18:00)
--- NOTE | 2021-09-12 20:31 | P.PN ---
Subjective This is a pleasant 81 years old male with past medical history of Atrial Fibrillation, status post permanent pacemaker Asthma, Coronary Artery Disease , Heart Failure, Diabetes Mellitus, Deep Vein Thrombosis (on Eliquis, Hyperlipidemia, Hypertension, Sleep Apnea/CPAP/BIPAP, diabetic peripheral neuropathy, BPH, chronic kidney disease with history of kidney stones status post surgery. Patient was obtained from the patient and son was at bedside to help him. Patient states that he presents because of bleeding in the urine for 2 days duration with no dysuria or urgency. No abdominal or flank pain. Also he has been complaining of from dyspnea since 08/26/21, and they were in contact with his film processing utility worker Dr. Molina on through this.. He denies chest pain. However he has cough with phlegm of unknown color. He denies any headache or weakness or numbness or dizziness His urologist is Dr. grimes, who had surgery done for him many years ago through his urethra catheter. He denies smoking, alcohol or illicit drugs Patient vitals are stable, he is mildly bradycardic 49-51. Hemoglobin is 11 and 10.2, baseline around 10-12, platelet count is 148 and 122 INR is 3.3 and 2.9 today. Creatinine elevated to 1.90 and 1.84, baseline 1.1- 1.6. Troponin first one was elevated 0.05, within normal at 0.03 and 0.03. Liver enzymes not elevated. Glucose controlled 120 and 73. Abdominal x-ray: Right sided nephrolithiasis Chest x-ray showing mild congestive heart failure, pulmonary congestion and pleural effusion increased compared to old exam. Patient already was started on Lasix 40 mg daily, also is on metoprolol 25 mg twice daily which is on medication. Metolazone and Lasix by mouth 40 mg twice daily at home medication were held for now. Also he was started on his home dose of insulin 12 units at bedtime. Last echocardiogram on 04/2020 showed ejection fraction of 45-50% with moderate MR and severe TR and fswzqldn-lv-vcnnyg pulmonary hypertension Chest with the bedside nurse, his urine is getting more clear and yellow now 09/09/2021 Patient awake and alert, is still have some exertional dyspnea with minimal exertion. He also has evidence of metastatic or palpitation, suspicious for CHF acute exacerbation. His creatinine is still elevated at 1.9 with nephrology team recommended to continue with oral Lasix and follow-up BMP tomorrow. His INR is 2.4 today, his Coumadin is still on hold. Urologist recommended CT of the abdomen and pelvis which showed no kidney stone but instead there is a small lobulated soft tissue material in the right UVJ, new pleasant cannot be excluded. Also patient has slightly large aortic abdominal aneurysm at 3.8 cm. 09/10/2021 Patient today underwent cystoscopy after cardiology clearance, and found to have 1.5-2.0 cm tumor lateral to the right ureteral orifice. The tumor had a low- grade, noninvasive appearance. Urinary Bladder biopsies pending. Other that he is fully awake oriented, no dyspnea, no chest pain. Minimal leg swelling. His INR is 1.9, hemoglobin 10.5 yesterday. Creatinine 1.9. He is mildly bradycardic but film processing utility worker on the case. continued on IV Lasix 40 mg twice daily. Coumadin remains on hold. Patient still has hematuria 09/11/2021 Patient today was comfortable, denies specific complaints. He has a Ko catheter was clear yellow urine in it. He is hemodynamically stable however during the afternoon he developed low-grade temperature of 99.9. 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 Labs reviewed and he has INR of 1.9, creatinine went up a little bit to 2.2. His IV Lasix was stopped and the plan is to check his creatinine tomorrow and based on that we will decide about the dose of oral Lasix. We will check with urology team about the clearance to restart Coumadin. Also we will check postvoid residual after Ko catheter discontinued. Consult oncology service for his cancer 09/12/2021 Patient is a very short of breath today that he has difficulty talking and he romano s bilateral basal crepitation and some leg swelling. His INR is 1.4 Creatinine 2.1. Chest x-ray showing acute CHF Therefore patient was resumed his IV Lasix 40 mg twice a day Urology gave the okay to resume Coumadin and today he received 6 mg and we will check INR tomorrow. Patient also aware of his diagnosis of low-grade and noninvasive cancer of urinary bladder, urologist recommended complete resection of the tumor and no need for any additional therapy however because of high recurrence rate., To repeat cystoscopy in 3 months. Objective - Vital Signs Vital signs: Vital Signs Temp 98 F 09/12/21 11:31 Pulse 52 L 09/12/21 11:31 Resp 20 09/12/21 11:31 BP 113/47 09/12/21 11:31 Pulse Ox 94 L 09/12/21 11:31 Intake & Output 09/11/21 09/12/21 09/12/21 18:59 06:59 18:59 Intake Total 1920 240 340 Output Total 700 Balance 1220 240 340 Weight 81.647 kg Intake: Intake, IV Titration 240 Amount Sodium Chloride 0.9% 1, 240 000 ml @ 20 mls/hr IV . Q24H [facility] Rx#:[id number] Oral 1920 340 Output: Urine 700 Other: Voiding Method Indwelling Catheter Toilet Toilet # Voids 1 # Bowel Movements 1 - Exam GENERAL: The patient is alert and oriented x3, not in any acute distress. Well developed, well nourished. HEENT: Pupils are round and equally reacting to light. EOMI. No scleral icterus. No conjunctival pallor. Normocephalic, atraumatic. No pharyngeal erythema. No thyromegaly. CARDIOVASCULAR: S1 and S2 present. No murmurs, rubs, or gallops. -PULMONARY: Chest is clear to auscultation, no wheezing . Bilateral basal crackles. ABDOMEN: Soft, nontender, nondistended, normoactive bowel sounds. No palpable organomegaly. MUSCULOSKELETAL: No joint swelling or deformity. -EXTREMITIES: No cyanosis, clubbing,. Minimal bilateral pitting pedal edema. NEUROLOGICAL: Gross neurological examination did not reveal any focal deficits. SKIN: No rashes. no petechiae. - Labs CBC & Chem 7: 09/12/21 06:08 09/12/21 06:08 Labs: Abnormal Lab Results - Last 24 Hours (Table) 09/11/21 09/11/21 09/12/21 Range/Units 11:24 20:48 06:08 RBC (4.30-5.90) m/uL Hgb (13.0-17.5) gm/dL Hct (39.0-53.0) % MCV (80.0-100.0) fL Plt Count (150-450) k/uL PT 14.5 H (9.0-12.0) sec INR 1.4 H (<1.2) Potassium 3.3 L (3.5-5.1) mmol/L Carbon Dioxide 34 H (22-30) mmol/L BUN 50 H (9-20) mg/dL Creatinine 2.23 H (0.66-1.25) mg/dL Glucose 104 H (74-99) mg/dL POC Glucose (mg/dL) 141 H (75-99) mg/dL Total Bilirubin (0.2-1.3) mg/dL Total Protein (6.3-8.2) g/dL 09/12/21 09/12/21 Range/Units 06:08 06:08 RBC 3.34 L (4.30-5.90) m/uL Hgb 11.0 L (13.0-17.5) gm/dL Hct 35.6 L (39.0-53.0) % MCV 106.8 H (80.0-100.0) fL Plt Count 145 L (150-450) k/uL PT (9.0-12.0) sec INR (<1.2) Potassium (3.5-5.1) mmol/L Carbon Dioxide 34 H (22-30) mmol/L BUN 48 H (9-20) mg/dL Creatinine 2.15 H (0.66-1.25) mg/dL Glucose 104 H (74-99) mg/dL POC Glucose (mg/dL) (75-99) mg/dL Total Bilirubin 1.6 H (0.2-1.3) mg/dL Total Protein 8.8 H (6.3-8.2) g/dL Assessment and Plan Assessment: -Acute hematuria, secondary to urinary bladder tumor 1.5-2 cm status post resection on 09/10 . 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, completely resection. Follow-up as an outpatient for cystoscopy 3 months -Acute on chronic systolic CHF, ejection fraction 40-45% -Acute on chronic kidney disease, possible cardiorenal syndrome, versus obstructive uropathy -Elevated troponin, cardiac causes were ruled out -Mild thrombocytopenia -History of moderate MR and severe TR and ufqtuynn-lz-txpnns pulmonary hypertensio -Paroxysmal atrial fibrillation on Eliquis, status post pacemaker -History of DVT on Eliquis -Diabetes mellitus with diabetic neuropathy -Hyperlipidemia -Hypertension -History of sleep apnea -History of BPH -Chronic kidney disease, stage III Plan: This is a pleasant 81 years old male who presents with UTE on CKD, hematuria and recurrent bladder tumor status post resection Continue with IV Lasix and check creatinine. With the patient on a fluid restriction 1500 milliliter per day. Control Clerk Auditing team on the case Ko catheter discontinued check postvoid residual Monitor hemoglobin Check labs tomorrow. Including INR. Resume Coumadin Urologist recommended cystoscopy in 3 months Labs and medication were reviewed.. Continue same treatment. Continue with symptomatic treatment. Resume home medication. Monitor lytes and vitals. DVT and GI prophylaxis. Further recommendations depends on the clinical course of the patient DVT prophylaxis: no Subcutaneous heparin in view of significant hematuria . Coumadin is on hold as well GI Prophylaxis: Pepcid Prognosis is guarded
[2021-09-12] MEDS: ATORVASTATIN 10 MG TAB PO SCH (21:22)
[2021-09-12 21:28] LABS: Glucose,Whole Blood 183 mg/dL (75-99)
[2021-09-12] MEDS: INSULIN DETEMIR (LEVEMIR) 100 UNIT/ML SYR SQ SCH (21:28)
[2021-09-12 23:06] LABS: % Iron Saturation 11.1 (15.00-50.00)
[2021-09-13] MEDS: FUROSEMIDE 10 MG/ML 4 ML VIAL IV SCH ×2 (08:26→21:06)
[2021-09-13] MEDS: FERROUS SULFATE 325 MG TAB PO SCH ×2 (08:26→17:25)
[2021-09-13] MEDS: FAMOTIDINE 20 MG TAB PO SCH ×2 (08:26→21:06)
[2021-09-13 08:51] LABS: INR 2.03 (0.90-1.11); Prothrombin Time 22.2 sec (9.9-11.9)
[2021-09-13] MEDS: CYANOCOBALAMIN 500 MCG TAB PO SCH (12:49)
[2021-09-13] MEDS: METOPROLOL TARTRATE 25 MG TAB PO SCH ×2 (12:50→21:06)
[2021-09-13] MEDS: FENOFIBRATE 160 MG TAB PO SCH (12:50)
--- NOTE | 2021-09-13 13:37 | PN ---
PROGRESS NOTE Patient is seen for followup for chronic kidney disease, acute kidney injury. He is currently being diuresed for volume overload. The patient also had hematuria with bladder wall tumor. He is status post cystoscopy. Lasix was decreased. Patient developed volume overload and was switched back to IV Lasix yesterday. PHYSICAL EXAMINATION: On examination today, blood pressure is 109/46, heart rate 56 per minute. He is afebrile. Examination of the heart S1, S2. Examination of the lungs, decreased breath sounds at the bases. Abdomen is soft, nontender. Examination of lower extremities shows no significant edema. LAB: Show sodium 140, potassium 3.6, BUN 48, creatinine 2.1 yesterday on 09/12/2021. ASSESSMENT: 1. Chronic kidney disease NKF stage 3B to 4 with baseline creatinine around 1.3-1.7 mg/dL secondary to nephrosclerosis and diabetic kidney disease. 2. Acute on chronic diastolic congestive heart failure. 3. Congestive heart failure exacerbation, maintained on IV Lasix. 4. Hematuria with bladder wall mass noted, status post cystoscopy to follow up as outpatient with Urology. PLAN: Continue with IV Lasix. Can switch to oral Demadex tomorrow. MMODL / IJN: [id number] /
--- NOTE | 2021-09-13 16:58 | P.CONS ---
History of Present Illness - Reason for Consult Consult date: 09/13/21 New diagnosis of Tranurethal Requesting physician: Jesus E Sheet - History of Present Illness Mr. Bain is status post TURP with bladder tumor resection, Low grade non- invasive urothelial carcinoma. Therefore we have been asked to further evaluate. He denies any history of cancer but states he has always had painful urinations since his teens and multple cystoscopies. Review of Systems All systems: negative Constitutional: Reports as per HPI 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, past L pleural effusion with thoracentesis, DVT L lower extremity, BPH with surgery, CKD, kiney stones with surgery, abdominal aortic aneurysm being monitored every 6 months, STEPHAN-unable to tolerate CPap, SSS with pacemaker, vertigo in the past, seasonal allergies History of Any Multi-Drug Resistant Organisms: None Reported Past Surgical History: Heart Catheterization, Pacemaker, Prostate Surgery Additional Past Surgical History / Comment(s): Pacemaker inserted 01/01/09 and gen change 04/11/18, TURP, ESWL, cysto/TURP, colonoscopy Past Anesthesia/Blood Transfusion Reactions: Motion Sickness Type of Cardiac Device: Permanent Pacemaker Device Placement Date:: 01/01/2009 and gen change 03/2018 Past Psychological History: No Psychological Hx Reported Additional Psychological History / Comment(s): Pt resides with his spouse. He is independent. He served in the [employer]. Smoking Status: Former smoker Past Alcohol Use History: None Reported Additional Past Alcohol Use History / Comment(s): Pt smoked from 1975 until 1980 Past Drug Use History: None Reported - Past Family History Mother Family Medical History: CVA/TIA, Hypertension Additional Family Medical History / Comment(s): Mother lived to be 85yrs old. Father Family Medical History: CVA/TIA Additional Family Medical History / Comment(s): Father from a CVA at the age of 78yrs. Medications and Allergies Home Medications Medication Instructions Recorded Confirmed Type Metoprolol Tartrate [Lopressor] 25 mg PO BID@1200,199902/28/14 09/06/21 History Fenofibrate [Lofibra] 160 mg PO DAILY@1200 12/14/18 09/06/21 History Lovastatin [Mevacor] 40 mg PO HS 12/14/18 09/06/21 History Insulin Glargine,Hum.rec.anlog 12 unit SQ HS 05/26/20 09/06/21 History [Lantus Solostar Pen] Warfarin [Coumadin] 1 mg PO DIRECTED 05/26/20 09/06/21 History Cyanocobalamin (Vitamin B-12) 1,000 mcg PO DAILY@1200 09/06/21 09/06/21 History [Vitamin B-12] Famotidine [Pepcid] 20 mg PO BID@1200,199909/06/21 09/06/21 History Furosemide [Lasix] 40 mg PO BID@1200,199909/06/21 09/06/21 History Penicillin V Potassium [Pen Vee K] 500 mg PO QID 09/06/21 09/06/21 History metOLazone [Zaroxolyn] 5 mg PO TH 09/06/21 09/06/21 History Allergies Allergy/AdvReac Type Severity Reaction Status Date / Time doxazosin mesylate AdvReac see Verified 09/06/21 14:53 [From Cardura] comments finasteride [From Proscar] AdvReac see Verified 09/06/21 14:53 comments gatifloxacin [From Tequin] AdvReac see Verified 09/06/21 14:53 comments glipizide AdvReac see Verified 09/06/21 14:53 comments hydroxyzine HCl [From Atarax] AdvReac see Verified 09/06/21 14:53 comments levofloxacin [From Levaquin] AdvReac see Verified 09/06/21 14:53 comments lisinopril AdvReac see Verified 09/06/21 14:53 comments meperidine HCl [From Demerol] AdvReac see Verified 09/06/21 14:53 comments metformin AdvReac see Verified 09/06/21 14:53 comments oxybutynin AdvReac see Verified 09/06/21 14:53 comments oxybutynin chloride AdvReac see Verified 09/06/21 14:53 [From Ditropan] comments pseudoephedrine HCl AdvReac see Verified 09/06/21 14:53 [From Sudafed] comments rosuvastatin calcium AdvReac see Verified 09/06/21 14:53 [From Crestor] comments Sulfa (Sulfonamide AdvReac see Verified 09/06/21 14:53 Antibiotics) comments tamsulosin AdvReac see Verified 09/06/21 14:53 comments tamsulosin HCl [From Flomax] AdvReac see Verified 09/06/21 14:53 comments terazosin HCl [From Hytrin] AdvReac see Verified 09/06/21 14:53 comments Physical Exam Vitals: Vital Signs Temp Pulse Pulse Pulse Resp BP Pulse Ox 09/12/21 09:04 55 L 105/54 92 L 09/12/21 05:19 97.4 F L 70 18 117/53 92 L 09/11/21 21:00 98.3 F 51 L 16 109/55 94 L 09/11/21 20:00 16 09/11/21 13:00 99.9 F H 75 19 132/56 97 Intake and Output 09/11/21 09/12/21 09/12/21 22:59 06:59 14:59 Intake Total 1920 240 340 Output Total 700 Balance 1220 240 340 Intake: Intake, IV Titration 240 Amount Sodium Chloride 0.9% 1, 240 000 ml @ 20 mls/hr IV . Q24H [facility] Rx#:[id number] Oral 1920 340 Output: Urine 700 Other: Voiding Method Toilet # Voids 1 # Bowel Movements 1 Alert NAD Mild increased respiratory effort Diminished bilateral bases HR Irr IRr Abdomen lower tender Ex Edema Results CBC & Chem 7: 09/12/21 06:08 09/12/21 06:08 Labs: Abnormal Lab Results - Last 24 Hours (Table) 09/11/21 09/11/21 09/12/21 Range/Units 11:24 20:48 06:08 PT 14.5 H (9.0-12.0) sec INR 1.4 H (<1.2) Potassium 3.3 L (3.5-5.1) mmol/L Carbon Dioxide 34 H (22-30) mmol/L BUN 50 H (9-20) mg/dL Creatinine 2.23 H (0.66-1.25) mg/dL Glucose 104 H (74-99) mg/dL POC Glucose (mg/dL) 141 H (75-99) mg/dL Abdominal x-ray: report reviewed Assessment and Plan (1) Acute on chronic diastolic CHF (congestive heart failure) Current Visit: Yes Status: Acute Code(s): I50.33 - ACUTE ON CHRONIC DIASTOLIC (CONGESTIVE) HEART FAILURE SNOMED Code(s): 019291599 (2) Gross hematuria Current Visit: Yes Status: Acute Code(s): R31.0 - GROSS HEMATURIA SNOMED Code(s): 326034053 (3) Neoplasm of unspecified behavior of bladder Current Visit: Yes Status: Acute Code(s): D49.4 - NEOPLASM OF UNSPECIFIED BEHAVIOR OF BLADDER SNOMED Code(s): 240533082 Plan: Assessment and Recommendations: 1. New Diagnosis non invasive urothelial cancer: - Status Post Resection - PLan to follow-up with cystoscopy in 3 months per urology - CT Chest to confirm limited disease and plan for close monitoring of recurrence - Await final recs with review of path with Dr. Daniel in 2. Anemia: - Secondary to blood loss anemia - Improving
[2021-09-13] MEDS: SODIUM CHLORIDE 0.9% 1,000 ML IV SCH (17:26)
[2021-09-13] MEDS ORDERED: WARFARIN 2 MG TAB PO ONE (18:00)
[2021-09-13] MEDS: ATORVASTATIN 10 MG TAB PO SCH (21:06)
[2021-09-13 21:10] LABS: Glucose,Whole Blood 155 mg/dL (75-99)
[2021-09-13] MEDS: INSULIN DETEMIR (LEVEMIR) 100 UNIT/ML SYR SQ SCH (21:21)
--- NOTE | 2021-09-13 22:16 | P.PN ---
Subjective This is a pleasant 81 years old male with past medical history of Atrial Fibrillation, status post permanent pacemaker Asthma, Coronary Artery Disease , Heart Failure, Diabetes Mellitus, Deep Vein Thrombosis (on Eliquis, Hyperlipidemia, Hypertension, Sleep Apnea/CPAP/BIPAP, diabetic peripheral neuropathy, BPH, chronic kidney disease with history of kidney stones status post surgery. Patient was obtained from the patient and son was at bedside to help him. Patient states that he presents because of bleeding in the urine for 2 days duration with no dysuria or urgency. No abdominal or flank pain. Also he has been complaining of from dyspnea since 08/26/21, and they were in contact with his programming manager Dr. Molina on through this.. He denies chest pain. However he has cough with phlegm of unknown color. He denies any headache or weakness or numbness or dizziness His urologist is Dr. grimes, who had surgery done for him many years ago through his urethra catheter. He denies smoking, alcohol or illicit drugs Patient vitals are stable, he is mildly bradycardic 49-51. Hemoglobin is 11 and 10.2, baseline around 10-12, platelet count is 148 and 122 INR is 3.3 and 2.9 today. Creatinine elevated to 1.90 and 1.84, baseline 1.1- 1.6. Troponin first one was elevated 0.05, within normal at 0.03 and 0.03. Liver enzymes not elevated. Glucose controlled 120 and 73. Abdominal x-ray: Right sided nephrolithiasis Chest x-ray showing mild congestive heart failure, pulmonary congestion and pleural effusion increased compared to old exam. Patient already was started on Lasix 40 mg daily, also is on metoprolol 25 mg twice daily which is on medication. Metolazone and Lasix by mouth 40 mg twice daily at home medication were held for now. Also he was started on his home dose of insulin 12 units at bedtime. Last echocardiogram on 04/2020 showed ejection fraction of 45-50% with moderate MR and severe TR and knhnczrz-[id number] pulmonary hypertension Chest with the bedside nurse, his urine is getting more clear and yellow now 09/09/2021 Patient awake and alert, is still have some exertional dyspnea with minimal exertion. He also has evidence of metastatic or palpitation, suspicious for CHF acute exacerbation. His creatinine is still elevated at 1.9 with nephrology team recommended to continue with oral Lasix and follow-up BMP tomorrow. His INR is 2.4 today, his Coumadin is still on hold. Urologist recommended CT of the abdomen and pelvis which showed no kidney stone but instead there is a small lobulated soft tissue material in the right UVJ, new pleasant cannot be excluded. Also patient has slightly large aortic abdominal aneurysm at 3.8 cm. 09/10/2021 Patient today underwent cystoscopy after cardiology clearance, and found to have 1.5-2.0 cm tumor lateral to the right ureteral orifice. The tumor had a low- grade, noninvasive appearance. Urinary Bladder biopsies pending. Other that he is fully awake oriented, no dyspnea, no chest pain. Minimal leg swelling. His INR is 1.9, hemoglobin 10.5 yesterday. Creatinine 1.9. He is mildly bradycardic but programming manager on the case. continued on IV Lasix 40 mg twice daily. Coumadin remains on hold. Patient still has hematuria 09/11/2021 Patient today was comfortable, denies specific complaints. He has a Ko catheter was clear yellow urine in it. He is hemodynamically stable however during the afternoon he developed low-grade temperature of 99.9. 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 Labs reviewed and he has INR of 1.9, creatinine went up a little bit to 2.2. His IV Lasix was stopped and the plan is to check his creatinine tomorrow and based on that we will decide about the dose of oral Lasix. We will check with urology team about the clearance to restart Coumadin. Also we will check postvoid residual after Ko catheter discontinued. Consult oncology service for his cancer 09/12/2021 Patient is a very short of breath today that he has difficulty talking and he romano s bilateral basal crepitation and some leg swelling. His INR is 1.4 Creatinine 2.1. Chest x-ray showing acute CHF Therefore patient was resumed his IV Lasix 40 mg twice a day Urology gave the okay to resume Coumadin and today he received 6 mg and we will check INR tomorrow. Patient also aware of his diagnosis of low-grade and noninvasive cancer of urinary bladder, urologist recommended complete resection of the tumor and no need for any additional therapy however because of high recurrence rate., To repeat cystoscopy in 3 months. 09/13/2021 Regarding his CHF he's continued on IV Lasix and his breathing is improving gradually but still a little bit short of breath when he is talking, plan for him is to switch him to torsemide tomorrow. Patient informed about the need to follow up with Dr. Phillip upon discharge and he will need to repeat cystoscopy in 3 months to ensure clearance from recurrence and he agrees. His INR is therapeutic and he is going to get 2 mg of Coumadin tonight and check level tomorrow. Possible discharge in 24-48 hours if he keeps improving Objective - Vital Signs Vital signs: Vital Signs Temp 98.1 F 09/13/21 05:00 Pulse 51 L 09/13/21 05:00 Resp 20 09/13/21 05:00 BP 103/49 09/13/21 05:00 Pulse Ox 92 L 09/13/21 05:00 Intake & Output 09/12/21 09/13/21 09/13/21 18:59 06:59 18:59 Intake Total 820 240 Output Total 600 Balance 820 -360 Intake: Oral 820 240 Output: Urine 600 Other: Voiding Method Toilet Toilet Toilet # Voids 6 - Exam GENERAL: The patient is alert and oriented x3, not in any acute distress. Well developed, well nourished. HEENT: Pupils are round and equally reacting to light. EOMI. No scleral icterus. No conjunctival pallor. Normocephalic, atraumatic. No pharyngeal erythema. No thyromegaly. CARDIOVASCULAR: S1 and S2 present. No murmurs, rubs, or gallops. -PULMONARY: Chest is clear to auscultation, no wheezing . Bilateral basal crackles. ABDOMEN: Soft, nontender, nondistended, normoactive bowel sounds. No palpable organomegaly. MUSCULOSKELETAL: No joint swelling or deformity. -EXTREMITIES: No cyanosis, clubbing,. Minimal bilateral pitting pedal edema. NEUROLOGICAL: Gross neurological examination did not reveal any focal deficits. SKIN: No rashes. no petechiae. - Labs CBC & Chem 7: 09/12/21 06:08 09/12/21 06:08 Labs: Abnormal Lab Results - Last 24 Hours (Table) 09/12/21 09/12/21 09/12/21 Range/Units 06:08 06:08 21:27 PT (9.9-11.9) sec INR (0.90-1.11) POC Glucose (mg/dL) 183 H (75-99) mg/dL Iron 54 L (65-175) ug/dL TIBC 486 H (228-460) ug/dL % Saturation 11.10 L (15.00-50.00) Total Bilirubin 1.6 H (0.2-1.3) mg/dL Total Protein 8.8 H (6.3-8.2) g/dL 09/13/21 Range/Units 06:28 PT 22.2 H (9.9-11.9) sec INR 2.03 H (0.90-1.11) POC Glucose (mg/dL) (75-99) mg/dL Iron (65-175) ug/dL TIBC (228-460) ug/dL % Saturation (15.00-50.00) Total Bilirubin (0.2-1.3) mg/dL Total Protein (6.3-8.2) g/dL Assessment and Plan Assessment: -Acute hematuria, secondary to urinary bladder tumor 1.5-2 cm status post resection on 09/10 . 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, completely resection. Follow-up as an outpatient for cystoscopy 3 months -Acute on chronic systolic CHF, ejection fraction 40-45% -Acute on chronic kidney disease, possible cardiorenal syndrome, versus obstructive uropathy -Elevated troponin, cardiac causes were ruled out -Mild thrombocytopenia -History of moderate MR and severe TR and irrwimhi-vt-[id number] pulmonary hypertensio -Paroxysmal atrial fibrillation on Eliquis, status post pacemaker -History of DVT on Eliquis -Diabetes mellitus with diabetic neuropathy -Hyperlipidemia -Hypertension -History of sleep apnea -History of BPH -Chronic kidney disease, stage III Plan: This is a pleasant 81 years old male who presents with UTE on CKD, hematuria and recurrent bladder tumor status post resection Continue with IV Lasix and check creatinine. With the patient on a fluid restriction 1500 milliliter per day. Media Monitor team on the case Ko catheter discontinued check postvoid residual Monitor hemoglobin Check labs tomorrow. Including INR. Resume Coumadin Urologist recommended cystoscopy in 3 months Labs and medication were reviewed.. Continue same treatment. Continue with symptomatic treatment. Resume home medication. Monitor lytes and vitals. DVT and GI prophylaxis. Further recommendations depends on the clinical course of the patient DVT prophylaxis: no Subcutaneous heparin in view of significant hematuria . Coumadin is on hold as well GI Prophylaxis: Pepcid Prognosis is guarded
[2021-09-14 07:15] LABS: INR 3.7 (<1.2); Prothrombin Time 35.8 sec (9.0-12.0)
--- NOTE | 2021-09-14 08:18 | P.PN ---
Subjective Patient is seen in follow-up for acute kidney injury on chronic kidney disease. Renal function fairly stable as of 09/12/2021. Oral intake fair. No vomiting or diarrhea. Denies chest pain or shortness of breath. Hemodynamically stable. Vital signs are stable. HEENT: Head exam is unremarkable. LUNGS: Breath sounds decreased. HEART: Rate and Rhythm are regular. ABDOMEN: Soft, no distention. EXTREMITITES: Trace edema. Objective - Vital Signs Vital signs: Vital Signs Temp 97.9 F 09/14/21 05:00 Pulse 53 L 09/14/21 05:00 Resp 16 09/14/21 05:00 BP 106/50 09/14/21 05:00 Pulse Ox 91 L 09/14/21 05:00 Intake & Output 09/13/21 09/14/21 09/14/21 18:59 06:59 18:59 Intake Total 900 Output Total 1300 Balance -400 Intake: Oral 900 Output: Urine 1300 Other: Voiding Method Toilet Urinal # Voids 5 1 # Bowel Movements 1 - Labs CBC & Chem 7: 09/12/21 06:08 09/12/21 06:08 Labs: Abnormal Lab Results - Last 24 Hours (Table) 09/13/21 09/13/21 09/14/21 Range/Units 06:28 21:09 06:05 PT 22.2 H 35.8 H (9.9-11.9) sec INR 2.03 H 3.7 H (0.90-1.11) POC Glucose (mg/dL) 155 H (75-99) mg/dL Assessment and Plan Plan: Assessment: 1. Acute kidney injury mostly prerenal secondary to cardiorenal syndrome. No evidence of hydronephrosis noted on kidney ultrasound. Renal function fairly stable. Creatinine 2.15 on 09/12/2021. 2. Chronic kidney disease stage IIIB with baseline creatinine in the range of 1.3-1.7. Etiology is nephrosclerosis and diabetic kidney disease. 3. Acute on chronic diastolic CHF. 4. Diabetes mellitus. 5. Hematuria. Patient has history of BPH as well as nephrolithiasis. Pathology showed low-grade noninvasive urothelial carcinoma. Urology following. Cystoscopy in 3 months. 6. Hypokalemia from diuresis. Replaced. Plan: Maintain IV Lasix. Avoid nephrotoxins. Morning labs pending.
[2021-09-14] MEDS: FUROSEMIDE 10 MG/ML 4 ML VIAL IV SCH ×2 (08:28→21:09)
[2021-09-14] MEDS: FAMOTIDINE 20 MG TAB PO SCH ×2 (08:28→21:09)
[2021-09-14] MEDS: FERROUS SULFATE 325 MG TAB PO SCH ×2 (08:28→16:32)
[2021-09-14 09:19] LABS: African American GFR (CKD) 32.7 (60.0-200.0); Anion Gap 13.4 mmol/L (10.00-18.00); BUN/Creat Ratio 22.76 Ratio (12.00-20.00); Blood Urea Nitrogen 47.8 mg/dL (9.0-27.0); Calcium 9.2 mg/dL (8.7-10.3); Carbon Dioxide 31.6 mmol/L (20.0-27.5); Magnesium 2.1 mg/dL (1.5-2.4); Non-African American GFR(CKD) 28.3 (60.0-200.0); Potassium 3.2 mmol/L (3.5-5.5)
[2021-09-14] MEDS: METOPROLOL TARTRATE 25 MG TAB PO SCH ×2 (12:22→21:10)
[2021-09-14] MEDS: FENOFIBRATE 160 MG TAB PO SCH (12:29)
[2021-09-14] MEDS: CYANOCOBALAMIN 500 MCG TAB PO SCH (12:29)
[2021-09-14 13:32] LABS: Basophils % (A) 0 %; Eosinophils # (A) 0.3 k/uL (0-0.7); Eosinophils % (A) 5 %; HCT 33.5 % (39.0-53.0); HGB 10.6 gm/dL (13.0-17.5); Lymphocytes # (A) 1.1 k/uL (1.0-4.8); Lymphocytes % (A) 22 %; MCH 33.4 pg (25.0-35.0); MCHC 31.5 g/dL (31.0-37.0); MCV 106.1 fL (80.0-100.0); Macrocytosis Moderate; Mean Platelet Volume 9.7; Monocytes # (A) 0.4 k/uL (0-1.0); Monocytes % (A) 9 %; Neutrophils # (A) 3.1 k/uL (1.3-7.7); Neutrophils % (A) 61 %; Platelet Count 148 k/uL (150-450); RBC 3.16 m/uL (4.30-5.90); RDW 14.4 % (11.5-15.5)
--- NOTE | 2021-09-14 13:54 | P.PN ---
Subjective Progress Note Date: 09/14/21 S/P TURBT on 09/[address] Brand Patient is having gross hematuria with clots, denies abdominal pain, hemoglobin stable, INR is 3.7 this morning. Ko catheter removed on September 11, having gross hematuria with clots this morning. -Well reinsert Ko catheter, irrigate when necessary -hold anticoagulation Objective - Vital Signs Vital signs: Vital Signs Temp 97.5 F L 09/14/21 12:28 Pulse 55 L 09/14/21 12:28 Resp 20 09/14/21 12:28 BP 109/56 09/14/21 12:28 Pulse Ox 95 09/14/21 12:28 Intake & Output 09/13/21 09/14/21 09/14/21 18:59 06:59 18:59 Intake Total 900 240 Output Total 1300 28 Balance -400 212 Intake: Oral 900 240 Output: Urine 1300 Post Void Residual 28 Other: Voiding Method Toilet Urinal Urinal # Voids 5 1 # Bowel Movements 1 - Gastrointestinal General gastrointestinal: Present: soft. Absent: tenderness - Psychiatric Psychiatric: Present: A&O x's 3 - Labs CBC & Chem 7: 09/14/21 06:05 09/14/21 06:05 Labs: Abnormal Lab Results - Last 24 Hours (Table) 09/13/21 09/14/21 09/14/21 Range/Units 21:09 06:05 06:05 RBC (4.30-5.90) m/uL Hgb (13.0-17.5) gm/dL Hct (39.0-53.0) % MCV (80.0-100.0) fL Plt Count (150-450) k/uL PT 35.8 H (9.0-12.0) sec INR 3.7 H (<1.2) Potassium 3.2 L (3.5-5.5) mmol/L Chloride 94 L (96-109) mmol/L Carbon Dioxide 31.6 H (20.0-27.5) mmol/L BUN 47.8 H (9.0-27.0) mg/dL Creatinine 2.1 H (0.6-1.5) mg/dL Est GFR (CKD-EPI)AfAm 32.7 L (60.0-200.0) Est GFR (CKD-EPI)NonAf 28.3 L (60.0-200.0) BUN/Creatinine Ratio 22.76 H (12.00-20.00) Ratio POC Glucose (mg/dL) 155 H (75-99) mg/dL 09/14/21 Range/Units 06:05 RBC 3.16 L (4.30-5.90) m/uL Hgb 10.6 L (13.0-17.5) gm/dL Hct 33.5 L (39.0-53.0) % MCV 106.1 H (80.0-100.0) fL Plt Count 148 L (150-450) k/uL PT (9.0-12.0) sec INR (<1.2) Potassium (3.5-5.5) mmol/L Chloride (96-109) mmol/L Carbon Dioxide (20.0-27.5) mmol/L BUN (9.0-27.0) mg/dL Creatinine (0.6-1.5) mg/dL Est GFR (CKD-EPI)AfAm (60.0-200.0) Est GFR (CKD-EPI)NonAf (60.0-200.0) BUN/Creatinine Ratio (12.00-20.00) Ratio POC Glucose (mg/dL) (75-99) mg/dL Assessment and Plan Assessment: Status post TURBT on September [address] Brand.
--- NOTE | 2021-09-14 15:33 | P.PN ---
Subjective Progress Note Date: 09/14/21 Principal diagnosis: Superficial urothelial carcinoma, anemia In f/u today pt states improvement in hematuria, no dysuria or pain. Objective - Vital Signs Vital signs: Vital Signs Temp 97.9 F 09/14/21 05:00 Pulse 58 L 09/14/21 08:29 Resp 16 09/14/21 05:00 BP 101/47 09/14/21 08:29 Pulse Ox 91 L 09/14/21 05:00 Intake & Output 09/13/21 09/14/21 09/14/21 18:59 06:59 18:59 Intake Total 900 Output Total 1300 28 Balance -400 -28 Intake: Oral 900 Output: Urine 1300 Post Void Residual 28 Other: Voiding Method Toilet Urinal Urinal # Voids 5 1 # Bowel Movements 1 - Constitutional General appearance: Present: average body habitus, cooperative, no acute distress - EENT Eyes: Present: anicteric sclerae, EOMI ENT: Present: hearing grossly normal - Respiratory Respiratory: bilateral: CTA - Cardiovascular Heart sounds: normal: S1, S2 Abnormal Heart Sounds: Absent: systolic murmur, diastolic murmur, rub, S3 Gallop , S4 Gallop, click, other - Peripheral edema leg Peripheral Edema: bilateral: None - Gastrointestinal General gastrointestinal: Present: normal bowel sounds, soft - Neurologic Neurologic: Present: CNII-XII intact - Musculoskeletal Musculoskeletal: Present: strength equal bilaterally - Psychiatric Psychiatric: Present: A&O x's 3, appropriate affect, intact judgment & insight - Labs CBC & Chem 7: 09/14/21 06:05 09/14/21 06:05 Labs: Abnormal Lab Results - Last 24 Hours (Table) 09/13/21 09/14/21 09/14/21 Range/Units 21:09 06:05 06:05 PT 35.8 H (9.0-12.0) sec INR 3.7 H (<1.2) Potassium 3.2 L (3.5-5.5) mmol/L Chloride 94 L (96-109) mmol/L Carbon Dioxide 31.6 H (20.0-27.5) mmol/L BUN 47.8 H (9.0-27.0) mg/dL Creatinine 2.1 H (0.6-1.5) mg/dL Est GFR (CKD-EPI)AfAm 32.7 L (60.0-200.0) Est GFR (CKD-EPI)NonAf 28.3 L (60.0-200.0) BUN/Creatinine Ratio 22.76 H (12.00-20.00) Ratio POC Glucose (mg/dL) 155 H (75-99) mg/dL Assessment and Plan (1) Neoplasm of unspecified behavior of bladder Narrative/Plan: Dr. Daniel reviewed pathology. Nothing from Oncology at this point. Pt will cont to follow with Urology and have cystoscopy as recommended. Pt will be referred to Oncology if bladder malignancy becomes invasive or if needing more aggressive treatment which hopefully, never happens. Current Visit: Yes Status: Acute Priority: High Code(s): D49.4 - NEOPLASM OF UNSPECIFIED BEHAVIOR OF BLADDER SNOMED Code(s): 622758037 (2) Renal insufficiency Narrative/Plan: No obstruction or mass in the kidneys. Nephrology has seen pt Current Visit: Yes Status: Chronic Priority: Medium Code(s): N28.9 - DISORDER OF KIDNEY AND URETER, UNSPECIFIED SNOMED Code(s): 970360310 (3) Macrocytic anemia Narrative/Plan: Multifactorial including CKD, hematuria from urothelial malignancy. Pending a few more labs to see if any particular supplement needed. Not needed transfusion. Hgb in 10-11 range, stable Current Visit: Yes Status: Acute Priority: Medium Code(s): D53.9 - NUTRITIONAL ANEMIA, UNSPECIFIED SNOMED Code(s): 25334858 (4) Coagulopathy Narrative/Plan: INR elevated today 3.7. He has remained on his usual coumadin dose since admit, quite possibly elevated as his diet has been altered/poor during admit. No unusual bleeding report, Hgb stable. No need to reverse INR. Hold 1-2 doses. Pt needs to f/u with his provider who monitors and adjusts coumadin Current Visit: Yes Status: Acute Priority: High Code(s): D68.9 - COAGULATION DEFECT, UNSPECIFIED SNOMED Code(s): 97612823 Plan: Discussed case with IM Attending attests: I have seen and examined pt, performed H&P, developed impression and plan of care. Discussed with dictator. Agree with dictation, documented as a scribe.
[2021-09-14] MEDS ORDERED: POTASSIUM CHLORIDE ER 10 MEQ TAB.ER.PRT PO STA (15:37)
[2021-09-14] MEDS ORDERED: PHYTONADIONE ORAL 5 MG/5 ML ORAL.SYRG PO STA (15:37)
[2021-09-14] MEDS: SODIUM CHLORIDE 0.9% 1,000 ML IV SCH (16:34)
[2021-09-14] MEDS ORDERED: WARFARIN 0.5 MG TAB PO ONE (18:00)
--- NOTE | 2021-09-14 20:39 | P.PN ---
Subjective This is a pleasant 81 years old male with past medical history of Atrial Fibrillation, status post permanent pacemaker Asthma, Coronary Artery Disease , Heart Failure, Diabetes Mellitus, Deep Vein Thrombosis (on Eliquis, Hyperlipidemia, Hypertension, Sleep Apnea/CPAP/BIPAP, diabetic peripheral neuropathy, BPH, chronic kidney disease with history of kidney stones status post surgery. Patient was obtained from the patient and son was at bedside to help him. Patient states that he presents because of bleeding in the urine for 2 days duration with no dysuria or urgency. No abdominal or flank pain. Also he has been complaining of from dyspnea since 08/26/21, and they were in contact with his crab picker Dr. Molina on through this.. He denies chest pain. However he has cough with phlegm of unknown color. He denies any headache or weakness or numbness or dizziness His urologist is Dr. grimes, who had surgery done for him many years ago through his urethra catheter. He denies smoking, alcohol or illicit drugs Patient vitals are stable, he is mildly bradycardic 49-51. Hemoglobin is 11 and 10.2, baseline around 10-12, platelet count is 148 and 122 INR is 3.3 and 2.9 today. Creatinine elevated to 1.90 and 1.84, baseline 1.1- 1.6. Troponin first one was elevated 0.05, within normal at 0.03 and 0.03. Liver enzymes not elevated. Glucose controlled 120 and 73. Abdominal x-ray: Right sided nephrolithiasis Chest x-ray showing mild congestive heart failure, pulmonary congestion and pleural effusion increased compared to old exam. Patient already was started on Lasix 40 mg daily, also is on metoprolol 25 mg twice daily which is on medication. Metolazone and Lasix by mouth 40 mg twice daily at home medication were held for now. Also he was started on his home dose of insulin 12 units at bedtime. Last echocardiogram on 04/2020 showed ejection fraction of 45-50% with moderate MR and severe TR and pxtasxah-gd-niynau pulmonary hypertension Chest with the bedside nurse, his urine is getting more clear and yellow now 09/09/2021 Patient awake and alert, is still have some exertional dyspnea with minimal exertion. He also has evidence of metastatic or palpitation, suspicious for CHF acute exacerbation. His creatinine is still elevated at 1.9 with nephrology team recommended to continue with oral Lasix and follow-up BMP tomorrow. His INR is 2.4 today, his Coumadin is still on hold. Urologist recommended CT of the abdomen and pelvis which showed no kidney stone but instead there is a small lobulated soft tissue material in the right UVJ, new pleasant cannot be excluded. Also patient has slightly large aortic abdominal aneurysm at 3.8 cm. 09/10/2021 Patient today underwent cystoscopy after cardiology clearance, and found to have 1.5-2.0 cm tumor lateral to the right ureteral orifice. The tumor had a low- grade, noninvasive appearance. Urinary Bladder biopsies pending. Other that he is fully awake oriented, no dyspnea, no chest pain. Minimal leg swelling. His INR is 1.9, hemoglobin 10.5 yesterday. Creatinine 1.9. He is mildly bradycardic but crab picker on the case. continued on IV Lasix 40 mg twice daily. Coumadin remains on hold. Patient still has hematuria 09/11/2021 Patient today was comfortable, denies specific complaints. He has a Ko catheter was clear yellow urine in it. He is hemodynamically stable however during the afternoon he developed low-grade temperature of 99.9. 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 Labs reviewed and he has INR of 1.9, creatinine went up a little bit to 2.2. His IV Lasix was stopped and the plan is to check his creatinine tomorrow and based on that we will decide about the dose of oral Lasix. We will check with urology team about the clearance to restart Coumadin. Also we will check postvoid residual after Ko catheter discontinued. Consult oncology service for his cancer 09/12/2021 Patient is a very short of breath today that he has difficulty talking and he romano s bilateral basal crepitation and some leg swelling. His INR is 1.4 Creatinine 2.1. Chest x-ray showing acute CHF Therefore patient was resumed his IV Lasix 40 mg twice a day Urology gave the okay to resume Coumadin and today he received 6 mg and we will check INR tomorrow. Patient also aware of his diagnosis of low-grade and noninvasive cancer of urinary bladder, urologist recommended complete resection of the tumor and no need for any additional therapy however because of high recurrence rate., To repeat cystoscopy in 3 months. 09/13/2021 Regarding his CHF he's continued on IV Lasix and his breathing is improving gradually but still a little bit short of breath when he is talking, plan for him is to switch him to torsemide tomorrow. Patient informed about the need to follow up with Dr. Phillip upon discharge and he will need to repeat cystoscopy in 3 months to ensure clearance from recurrence and he agrees. His INR is therapeutic and he is going to get 2 mg of Coumadin tonight and check level tomorrow. Possible discharge in 24-48 hours if he keeps improving 09/14/2021 His breathing is improving gradually each day with IV Lasix however he still have basal crepitation still short of breath especially with exertion, therefore patient will keep him for 1 more day of IV Lasix and also recommended by nephrology team. Possible change to torsemide upon discharge. He received 2 mg of Coumadin and before that 6 mg Coumadin the day before by pharmacist, his INR jumped from 2.0 up to 3.7 today. He has some pink colored urine but hemoglobin is stable only with slight decrease from 11 down to 10.6 which is his baseline therefore we gave him a small dose of vitamin K 1.25 mg and we will check his INR tomorrow. No Coumadin tonight. Creatinine is stable at 2.1. Hemodynamically stable. Patient is aware to need repeat cystoscopy in 3 months to check for tumor recurrence Objective - Vital Signs Vital signs: Vital Signs Temp 97.9 F 09/14/21 05:00 Pulse 58 L 09/14/21 08:29 Resp 16 09/14/21 05:00 BP 101/47 09/14/21 08:29 Pulse Ox 91 L 09/14/21 05:00 Intake & Output 09/13/21 09/14/21 09/14/21 18:59 06:59 18:59 Intake Total 900 Output Total 1300 28 Balance -400 -28 Intake: Oral 900 Output: Urine 1300 Post Void Residual 28 Other: Voiding Method Toilet Urinal Urinal # Voids 5 1 # Bowel Movements 1 - Exam GENERAL: The patient is alert and oriented x3, not in any acute distress. Well developed, well nourished. HEENT: Pupils are round and equally reacting to light. EOMI. No scleral icterus. No conjunctival pallor. Normocephalic, atraumatic. No pharyngeal erythema. No thyromegaly. CARDIOVASCULAR: S1 and S2 present. No murmurs, rubs, or gallops. -PULMONARY: Chest is clear to auscultation, no wheezing . Bilateral basal crackles. ABDOMEN: Soft, nontender, nondistended, normoactive bowel sounds. No palpable organomegaly. MUSCULOSKELETAL: No joint swelling or deformity. -EXTREMITIES: No cyanosis, clubbing,. Minimal bilateral pitting pedal edema. NEUROLOGICAL: Gross neurological examination did not reveal any focal deficits. SKIN: No rashes. no petechiae. - Labs CBC & Chem 7: 09/14/21 06:05 09/14/21 06:05 Labs: Abnormal Lab Results - Last 24 Hours (Table) 09/13/21 09/14/21 09/14/21 Range/Units 21:09 06:05 06:05 PT 35.8 H (9.0-12.0) sec INR 3.7 H (<1.2) Potassium 3.2 L (3.5-5.5) mmol/L Chloride 94 L (96-109) mmol/L Carbon Dioxide 31.6 H (20.0-27.5) mmol/L BUN 47.8 H (9.0-27.0) mg/dL Creatinine 2.1 H (0.6-1.5) mg/dL Est GFR (CKD-EPI)AfAm 32.7 L (60.0-200.0) Est GFR (CKD-EPI)NonAf 28.3 L (60.0-200.0) BUN/Creatinine Ratio 22.76 H (12.00-20.00) Ratio POC Glucose (mg/dL) 155 H (75-99) mg/dL Assessment and Plan Assessment: -Acute hematuria, secondary to urinary bladder tumor 1.5-2 cm status post resection on 09/10 . 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, completely resection. Follow-up as an outpatient for cystoscopy 3 months -Acute on chronic systolic CHF, ejection fraction 40-45% -Acute on chronic kidney disease, possible cardiorenal syndrome, versus obstructive uropathy -Elevated troponin, cardiac causes were ruled out -Mild thrombocytopenia -History of moderate MR and severe TR and yhucmpcb-nx-oqrucw pulmonary hypertensio -Paroxysmal atrial fibrillation on Eliquis, status post pacemaker -History of DVT on Eliquis -Diabetes mellitus with diabetic neuropathy -Hyperlipidemia -Hypertension -History of sleep apnea -History of BPH -Chronic kidney disease, stage III Plan: This is a pleasant 81 years old male who presents with UTE on CKD, hematuria and recurrent bladder tumor status post resection Continue with IV Lasix and check creatinine. With the patient on a fluid restriction 1500 milliliter per day. Fabric Worker Foreman team on the case Ko catheter discontinued check postvoid residual Monitor hemoglobin Check labs tomorrow. Including INR. Resume Coumadin Urologist recommended cystoscopy in 3 months Labs and medication were reviewed.. Continue same treatment. Continue with symptomatic treatment. Resume home medication. Monitor lytes and vitals. DVT and GI prophylaxis. Further recommendations depends on the clinical course of the patient DVT prophylaxis: no Subcutaneous heparin in view of significant hematuria . Coumadin is on hold as well GI Prophylaxis: Pepcid Prognosis is guarded
[2021-09-14] MEDS: ATORVASTATIN 10 MG TAB PO SCH (21:09)
[2021-09-14] MEDS: INSULIN DETEMIR (LEVEMIR) 100 UNIT/ML SYR SQ SCH (21:11)
[2021-09-15 06:40] LABS: HCT 33.3 % (39.0-53.0); HGB 10.8 gm/dL (13.0-17.5); MCH 33.6 pg (25.0-35.0); MCHC 32.5 g/dL (31.0-37.0); MCV 103.6 fL (80.0-100.0); Macrocytosis Slight; Mean Platelet Volume 9.3; Platelet Count 158 k/uL (150-450); RBC 3.21 m/uL (4.30-5.90); RDW 13.9 % (11.5-15.5); WBC 5.6 k/uL (3.8-10.6)
[2021-09-15 06:42] LABS: INR 2.8 (<1.2); Prothrombin Time 26.8 sec (9.0-12.0)
[2021-09-15] MEDS: FAMOTIDINE 20 MG TAB PO SCH (08:17)
[2021-09-15] MEDS: FERROUS SULFATE 325 MG TAB PO SCH ×2 (08:17→16:15)
[2021-09-15] MEDS: FUROSEMIDE 10 MG/ML 4 ML VIAL IV SCH (08:17)
--- NOTE | 2021-09-15 08:55 | P.PN ---
Subjective Progress Note Date: 09/15/21 S/P TURBT on 09/[address] Brand Urine is clear this am, denies any abdominal pain, hgb stable Objective - Vital Signs Vital signs: Vital Signs Temp 98.6 F 09/15/21 05:00 Pulse 50 L 09/15/21 05:00 Resp 16 09/15/21 05:00 BP 109/51 09/15/21 05:00 Pulse Ox 92 L 09/15/21 05:00 Intake & Output 09/14/21 09/15/21 09/15/21 18:59 06:59 18:59 Intake Total 360 400 Output Total 28 900 400 Balance 332 -500 -400 Weight 86 kg Intake: Intake, IV Titration 160 Amount Sodium Chloride 0.9% 1, 160 000 ml @ 20 mls/hr IV . Q24H [facility] Rx#:[id number] Oral 360 240 Output: Urine 900 400 Uretheral (Ko) 900 400 Post Void Residual 28 Other: Voiding Method Urinal Indwelling Catheter Indwelling Catheter - Labs CBC & Chem 7: 09/15/21 06:19 09/14/21 06:05 Labs: Abnormal Lab Results - Last 24 Hours (Table) 09/14/21 09/14/21 09/15/21 Range/Units 06:05 06:05 06:19 RBC 3.16 L (4.30-5.90) m/uL Hgb 10.6 L (13.0-17.5) gm/dL Hct 33.5 L (39.0-53.0) % MCV 106.1 H (80.0-100.0) fL Plt Count 148 L (150-450) k/uL PT 26.8 H (9.0-12.0) sec INR 2.8 H (<1.2) Potassium 3.2 L (3.5-5.5) mmol/L Chloride 94 L (96-109) mmol/L Carbon Dioxide 31.6 H (20.0-27.5) mmol/L BUN 47.8 H (9.0-27.0) mg/dL Creatinine 2.1 H (0.6-1.5) mg/dL Est GFR (CKD-EPI)AfAm 32.7 L (60.0-200.0) Est GFR (CKD-EPI)NonAf 28.3 L (60.0-200.0) BUN/Creatinine Ratio 22.76 H (12.00-20.00) Ratio 09/15/21 Range/Units 06:19 RBC 3.21 L (4.30-5.90) m/uL Hgb 10.8 L (13.0-17.5) gm/dL Hct 33.3 L (39.0-53.0) % MCV 103.6 H (80.0-100.0) fL Plt Count (150-450) k/uL PT (9.0-12.0) sec INR (<1.2) Potassium (3.5-5.5) mmol/L Chloride (96-109) mmol/L Carbon Dioxide (20.0-27.5) mmol/L BUN (9.0-27.0) mg/dL Creatinine (0.6-1.5) mg/dL Est GFR (CKD-EPI)AfAm (60.0-200.0) Est GFR (CKD-EPI)NonAf (60.0-200.0) BUN/Creatinine Ratio (12.00-20.00) Ratio Assessment and Plan Assessment: Status post TURBT on September [address] Brand. urine clear this am -Ko can be removed, obtain bladder scan after patient voids if < 300 mL ok for discharge from urology standpoint
[2021-09-15] MEDS ORDERED: CEPHALEXIN 500 MG CAP PO SCH ×2 (09:45→21:00)
[2021-09-15 09:52] LABS: African American GFR (CKD) 32.7 (60.0-200.0); BUN/Creat Ratio 24.52 Ratio (12.00-20.00); Blood Urea Nitrogen 51.5 mg/dL (9.0-27.0); Calcium 9.2 mg/dL (8.7-10.3); Magnesium 2.2 mg/dL (1.5-2.4); Non-African American GFR(CKD) 28.3 (60.0-200.0); Potassium 3.5 mmol/L (3.5-5.5)
[2021-09-15] MEDS ORDERED: POTASSIUM CHLORIDE ER 20 MEQ TAB.ER PO STA (10:41)
--- NOTE | 2021-09-15 10:42 | P.PN ---
Subjective Patient is seen in follow-up for acute kidney injury on chronic kidney disease. Renal function stable. Oral intake fair. No vomiting or diarrhea. Denies chest pain or shortness of breath. Hemodynamically stable. On room air. Vital signs are stable. HEENT: Head exam is unremarkable. LUNGS: Breath sounds decreased. HEART: Rate and Rhythm are regular. ABDOMEN: Soft, no distention. EXTREMITITES: No edema. Objective - Vital Signs Vital signs: Vital Signs Temp 98.6 F 09/15/21 05:00 Pulse 50 L 09/15/21 05:00 Resp 16 09/15/21 05:00 BP 109/51 09/15/21 05:00 Pulse Ox 92 L 09/15/21 05:00 Intake & Output 09/14/21 09/15/21 09/15/21 18:59 06:59 18:59 Intake Total 360 400 Output Total 28 900 400 Balance 332 -500 -400 Weight 86 kg Intake: Intake, IV Titration 160 Amount Sodium Chloride 0.9% 1, 160 000 ml @ 20 mls/hr IV . Q24H [facility] Rx#:[id number] Oral 360 240 Output: Urine 900 400 Uretheral (Ko) 900 400 Post Void Residual 28 Other: Voiding Method Urinal Indwelling Catheter Indwelling Catheter - Labs CBC & Chem 7: 09/15/21 06:19 09/15/21 06:19 Labs: Abnormal Lab Results - Last 24 Hours (Table) 09/14/21 09/15/21 09/15/21 Range/Units 06:05 06:19 06:19 RBC 3.16 L (4.30-5.90) m/uL Hgb 10.6 L (13.0-17.5) gm/dL Hct 33.5 L (39.0-53.0) % MCV 106.1 H (80.0-100.0) fL Plt Count 148 L (150-450) k/uL PT 26.8 H (9.0-12.0) sec INR 2.8 H (<1.2) Carbon Dioxide 28.0 H (20.0-27.5) mmol/L BUN 51.5 H (9.0-27.0) mg/dL Creatinine 2.1 H (0.6-1.5) mg/dL Est GFR (CKD-EPI)AfAm 32.7 L (60.0-200.0) Est GFR (CKD-EPI)NonAf 28.3 L (60.0-200.0) BUN/Creatinine Ratio 24.52 H (12.00-20.00) Ratio 09/15/21 Range/Units 06:19 RBC 3.21 L (4.30-5.90) m/uL Hgb 10.8 L (13.0-17.5) gm/dL Hct 33.3 L (39.0-53.0) % MCV 103.6 H (80.0-100.0) fL Plt Count (150-450) k/uL PT (9.0-12.0) sec INR (<1.2) Carbon Dioxide (20.0-27.5) mmol/L BUN (9.0-27.0) mg/dL Creatinine (0.6-1.5) mg/dL Est GFR (CKD-EPI)AfAm (60.0-200.0) Est GFR (CKD-EPI)NonAf (60.0-200.0) BUN/Creatinine Ratio (12.00-20.00) Ratio Assessment and Plan Plan: Assessment: 1. Acute kidney injury mostly prerenal secondary to cardiorenal syndrome. No evidence of hydronephrosis noted on kidney ultrasound. Renal function stable. Creatinine 2.1. 2. Chronic kidney disease stage IIIB with baseline creatinine in the range of 1.3-1.7. Etiology is nephrosclerosis and diabetic kidney disease. 3. Acute on chronic diastolic CHF. 4. Diabetes mellitus. 5. Hematuria. Patient has history of BPH as well as nephrolithiasis. P athology showed low-grade noninvasive urothelial carcinoma. Urology following. Cystoscopy in 3 months. 6. Hypokalemia from diuresis. Replaced. Better. Plan: Change Lasix to 40 mg orally twice daily. Replace potassium. Avoid nephrotoxins. Continue to monitor renal function and urine output.
[2021-09-15] MEDS: FENOFIBRATE 160 MG TAB PO SCH (10:47)
[2021-09-15] MEDS: CYANOCOBALAMIN 500 MCG TAB PO SCH (10:47)
[2021-09-15] MEDS: METOPROLOL TARTRATE 25 MG TAB PO SCH (10:47)
[2021-09-15 13:14] VITALS: BP 115/63; PULSE 91; RESP 18; TEMP 97.6
[2021-09-15] MEDS ORDERED: FUROSEMIDE 40 MG TAB PO SCH (16:00)
[2021-09-15] MEDS: SODIUM CHLORIDE 0.9% 1,000 ML IV SCH (16:12)
[2021-09-15] MEDS ORDERED: WARFARIN 1 MG TAB PO ONE (18:00)
--- NOTE | 2021-09-17 09:39 | P.DS ---
Providers Date of admission: 09/06/21 14:31 Attending physician: Jesus Mckinney MD Consults: 09/06/21 14:32 Consult Physician Routine Consulting Provider: Sadi Fall Consult Reason/Comments: Cardiac evaluation and treatment Do you want consulting provider notified?: Yes Consult Physician Routine Consulting Provider: Guy Cutler Consult Reason/Comments: Renal insufficiency, hematuria Do you want consulting provider notified?: Yes 09/07/21 12:24 Consult Physician Routine Consulting Provider: Moses Brand Consult Reason/Comments: hematuria Do you want consulting provider notified?: Yes 09/08/21 16:44 Consult Physician Routine Consulting Provider: Chante Deal Consult Reason/Comments: pre-op clearence, high troponin Do you want consulting provider notified?: Yes 09/11/21 19:32 Consult Physician Urgent Consulting Provider: Bob Daniel Consult Reason/Comments: Adenocarcinoma of the bladder Do you want consulting provider notified?: Yes Primary care physician: [place] [facility] Course: Diagnoses: -Acute hematuria, secondary to urinary bladder tumor 1.5-2 cm status post resection on 09/10 . 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, completely resection. No need for chemotherapy, Follow-up as an outpatient for cystoscopy 3 months -Acute on chronic systolic CHF, ejection fraction 40-45% -Acute on chronic kidney disease, possible cardiorenal syndrome, versus obstructive uropathy -Elevated troponin, cardiac causes were ruled out -Mild thrombocytopenia -History of moderate MR and severe TR and lyjrngxk-ad-xrvxax pulmonary hypertension -Paroxysmal atrial fibrillation on Coumadin, status post pacemaker -History of DVT on Coumadin -Diabetes mellitus with diabetic neuropathy -Hyperlipidemia -Hypertension -History of sleep apnea -History of BPH -Chronic kidney disease, stage III Hospital course: This is a pleasant 81 years old male with past medical history of Atrial Fibrillation, status post permanent pacemaker, Asthma, Coronary Artery Disease , Heart Failure, Diabetes Mellitus, Deep Vein Thrombosis (on anticoagulation), Hyperlipidemia, Hypertension, Sleep Apnea/CPAP/BIPAP, diabetic peripheral neuropathy, BPH, chronic kidney disease with history of kidney stones status post surgery. Patient was obtained from the patient and son was at bedside to help him. Patient states that he presents because of bleeding in the urine for 2 days duration with no dysuria or urgency. No abdominal or flank pain. Urologist recommended CT of the abdomen and pelvis which showed no kidney stone but instead there is a small lobulated soft tissue material in the right UVJ, neoplasm cannot be excluded. Patient today underwent cystoscopy after cardiology clearance, and found to have 1.5-2.0 cm tumor lateral to the right ureteral orifice. The tumor had a low- grade, noninvasive appearance. Urologist looks like the tumor totally resected and no need further treatment but need to repeat cystoscopy in 3 months to check for recurrence, patient informed on several occasions and he verbalized understanding and acceptance Patient also has been evaluated by other consultants including quiller machine fixer for his acute CHF and variety saw operator for his acute on chronic kidney disease. Patient was treated with IV Lasix and his pulmonary condition and hypoxia improved. On the of discharge there was almost euvolemic, and his diuretic was switched to oral Lasix per variety saw operator recommendation. His creatinine was stable at 2.1 and he is cleared for discharge by variety saw operator, And quiller machine fixer. His INR was therapeutic at 2.8 and he was instructed to resume his home dose of Coumadin and check his INR in 2-3 days with his quiller machine fixer Dr. Mazariegos and he verbalized understanding and acceptance. Patient was asymptomatic on the day of discharge, no chest pain or dyspnea. No diarrhea. No dysuria, no fever. His Ko catheter was discontinued and his post void residual was only 23. Patient was cleared for discharge by all consultants including urologist, quiller machine fixer and variety saw operator Problems and management plan were discussed with the patient and he verbalized understanding and acceptance Patient was found stable and can be discharged home however he needs follow-up as an outpatient. Patient was instructed to follow up with PCP Dr. Hewitt within one week and patient agrees Patient was instructed to follow up with his quiller machine fixer Dr. Fall in 1-2 weeks, with urologist Dr. Gusman in 2 weeks, variety saw operator Dr. Cutler in one week and he verbalized understanding and acceptance to make his own appointment. Also asked to help him with making appointments, please refer to discharge instructions Physical exam Gen: patient is a AAOx3, no distress CVS: S1-S2, RRR, no murmur Lungs: B/L CTA, no wheezing Abdomen: soft, no distention, no tenderness, positive bowel sounds Extremity: no leg edema or induration Time spent more than 35 minutes Plan - Discharge Summary Discharge Rx Participant: No New Discharge Prescriptions: New Ferrous Sulfate [Iron (65 MG Elemental)] 325 mg PO DAILY 30 Days #30 tab Cephalexin [Keflex] 500 mg PO Q12HR 7 Days #21 cap Continue Metoprolol Tartrate [Lopressor] 25 mg PO BID@1199,1999 Lovastatin [Mevacor] 40 mg PO HS Fenofibrate [Lofibra] 160 mg PO DAILY@1200 Warfarin [Coumadin] 1 mg PO DIRECTED Insulin Glargine,Hum.rec.anlog [Lantus Solostar Pen] 12 unit SQ HS Cyanocobalamin (Vitamin B-12) [Vitamin B-12] 1,000 mcg PO DAILY@1199 Famotidine [Pepcid] 20 mg PO BID@ metOLazone [Zaroxolyn] 5 mg PO TH Furosemide [Lasix] 40 mg PO BID@1199,1999 #60 tab Discontinued Penicillin V Potassium [Pen Vee K] 500 mg PO QID Discharge Medication List Metoprolol Tartrate [Lopressor] 25 mg PO BID@1199,199902/28/14 [History] Fenofibrate [Lofibra] 160 mg PO DAILY@1200 12/14/18 [History] Lovastatin [Mevacor] 40 mg PO HS 12/14/18 [History] Insulin Glargine,Hum.rec.anlog [Lantus Solostar Pen] 12 unit SQ HS 05/26/20 [History] Warfarin [Coumadin] 1 mg PO DIRECTED 05/26/20 [History] Cyanocobalamin (Vitamin B-12) [Vitamin B-12] 1,000 mcg PO DAILY@1200 09/06/21 [History] Famotidine [Pepcid] 20 mg PO BID@1199,199909/06/21 [History] metOLazone [Zaroxolyn] 5 mg PO TH 09/06/21 [History] Cephalexin [Keflex] 500 mg PO Q12HR 7 Days #21 cap 09/15/21 [Rx] Ferrous Sulfate [Iron (65 MG Elemental)] 325 mg PO DAILY 30 Days #30 tab 09/15/21 [Rx] Furosemide [Lasix] 40 mg PO BID@1199,1999 #60 tab 09/15/21 [Rx] Follow up Appointment(s)/Referral(s): Sadi Fall MD [STAFF PHYSICIAN] - 09/24/21 10:45 am Moses Brand MD [STAFF PHYSICIAN] - 2 Weeks (you will need to repeat cystoscopy in 3 months ) Guy Cutler DO [STAFF PHYSICIAN] - 1 Week (dr office will call you with date/time for your appointment.) Lonnie Hewitt DO [Primary Care Provider] - 09/21/21 3:20 pm (with kena Morales IN [facility]) Patient Instructions/Handouts: Heart Failure (DC), Type 2 Diabetes in Adults: New Diagnosis (DC), Hematuria (ED) Activity/Diet/Wound Care/Special Instructions: Patient does not need to follow up with Dr. Brand in 1 week, but he does need an appointment to undergo office cystoscopy in 3 months ([phone]). Discharge Disposition: HOME SELF-CARE
== END 2021-09-15 17:07 | disposition home or self-care (01) | DRG 668 ==
LOC: EC 10:03 → 3SCARD 14:31 → 5NMEDONC 09-07 11:44
PROVIDERS: ADMIT Internal Medicine; ATTEND Internal Medicine
PROC: 0TBB8ZZ Excision of Bladder, Via Natural or Artificial Opening Endoscopic (ICD-10-PCS; principal; 2021-09-10 09:45)
DX: C67.9 Malignant neoplasm of bladder, unspecified (principal); I50.43 Acute on chronic combined systolic (congestive) and diastolic (congestive) heart failure; D68.9 Coagulation defect, unspecified; I13.0 Hypertensive heart and chronic kidney disease with heart failure and stage 1 through stage 4 chronic kidney disease, or unspecified chronic kidney disease; I42.9 Cardiomyopathy, unspecified; I48.19 Other persistent atrial fibrillation; N17.9 Acute kidney failure, unspecified; N20.2 Calculus of kidney with calculus of ureter; D53.9 Nutritional anemia, unspecified; D69.6 Thrombocytopenia, unspecified; E11.22 Type 2 diabetes mellitus with diabetic chronic kidney disease; E11.42 Type 2 diabetes mellitus with diabetic polyneuropathy; Z20.822 Contact with and (suspected) exposure to COVID-19; E11.51 Type 2 diabetes mellitus with diabetic peripheral angiopathy without gangrene; E78.5 Hyperlipidemia, unspecified; E87.6 Hypokalemia; G47.33 Obstructive sleep apnea (adult) (pediatric); I08.1 Rheumatic disorders of both mitral and tricuspid valves; I25.10 Atherosclerotic heart disease of native coronary artery without angina pectoris; I27.22 Pulmonary hypertension due to left heart disease; I49.5 Sick sinus syndrome; I71.4 Abdominal aortic aneurysm, without rupture; J45.909 Unspecified asthma, uncomplicated; N18.32 Chronic kidney disease, stage 3b; N40.0 Benign prostatic hyperplasia without lower urinary tract symptoms; R31.0 Gross hematuria; Z79.01 Long term (current) use of anticoagulants; Z79.4 Long term (current) use of insulin; Z79.82 Long term (current) use of aspirin; Z79.899 Other long term (current) drug therapy; Z82.3 Family history of stroke; Z82.49 Family history of ischemic heart disease and other diseases of the circulatory system; Z86.718 Personal history of other venous thrombosis and embolism; Z87.442 Personal history of urinary calculi; Z87.891 Personal history of nicotine dependence; Z90.79 Acquired absence of other genital organ(s); Z95.0 Presence of cardiac pacemaker; R09.02 Hypoxemia
CPT/HCPCS: 36415; 71046; 74018; 74176; 76770; 80048; 80053; 81001; 82728; 83540; 83550; 83735; 83880; 84484; 85025; 85027; 85610; 85730; 86140; 87635; 88307; 93306; 99285

== ENCOUNTER 2022-04-19 13:36 | Inpatient (IN) | payer MEDICARE ==
[2022-04-19] MEDS ORDERED: cefTRIAXone IN SWFI 1,000 MG/10 ML SYRINGE IVP STA (18:44)
[2022-04-19] MEDS ORDERED: ACETAMINOPHEN TAB 500 MG TAB PO STA (18:44)
[2022-04-19] MEDS ORDERED: IBUPROFEN 600 MG TAB PO STA (18:44)
--- NOTE | 2022-04-19 18:51 | ED ---
General Adult HPI - General Chief complaint: Fever Stated complaint: possible infection Time Seen by Provider: 04/19/22 18:30 Source: patient, family, RN notes reviewed, old records reviewed Mode of arrival: wheelchair - History of Present Illness Initial comments: This is an 82-year-old male who presents emergency Department after he had a bladder scraping on Tuesday. Patient has a Ko catheter in place. Patient states since then he started having some discomfort down in his penis and he thinks he has a fever and has some chills. Patient denies any chest pain diffic ulty breathing. Patient denies any significant cough. Patient states he doesn't have any abdominal pain denies nausea vomiting. Patient denies any areas of erythema rash or lesions. Patient denies any neck stiffness per patient denies a sore throat. - Related Data Home Medications Medication Instructions Recorded Confirmed Metoprolol Tartrate [Lopressor] 25 mg PO BID 02/28/14 04/19/22 Fenofibrate [Lofibra] 160 mg PO DAILY 12/14/18 04/19/22 Lovastatin [Mevacor] 40 mg PO HS 12/14/18 04/19/22 Insulin Glargine,Hum.rec.anlog 12 unit SQ DAILY@1800 05/26/20 04/19/22 [Lantus Solostar Pen] Warfarin [Coumadin] 1 mg PO DAILY@1700 05/26/20 04/19/22 Cyanocobalamin (Vitamin B-12) 1,000 mcg PO DAILY 09/06/21 04/19/22 [Vitamin B-12] metOLazone [Zaroxolyn] 5 mg PO TH 09/06/21 04/19/22 Furosemide [Lasix] 40 mg PO DAILY 04/19/22 04/19/22 Allergies Allergy/AdvReac Type Severity Reaction Status Date / Time doxazosin mesylate AdvReac see Verified 04/19/22 19:49 [From Cardura] comments finasteride [From Proscar] AdvReac see Verified 04/19/22 19:49 comments gatifloxacin [From Tequin] AdvReac see Verified 04/19/22 19:49 comments glipizide AdvReac see Verified 04/19/22 19:49 comments hydroxyzine HCl [From Atarax] AdvReac see Verified 04/19/22 19:49 comments levofloxacin [From Levaquin] AdvReac see Verified 04/19/22 19:49 comments lisinopril AdvReac see Verified 04/19/22 19:49 comments meperidine HCl [From Demerol] AdvReac see Verified 04/19/22 19:49 comments metformin AdvReac see Verified 04/19/22 19:49 comments oxybutynin AdvReac see Verified 04/19/22 19:49 comments oxybutynin chloride AdvReac see Verified 04/19/22 19:49 [From Ditropan] comments pseudoephedrine HCl AdvReac see Verified 04/19/22 19:49 [From Sudafed] comments rosuvastatin calcium AdvReac see Verified 04/19/22 19:49 [From Crestor] comments Sulfa (Sulfonamide AdvReac see Verified 04/19/22 19:49 Antibiotics) comments tamsulosin AdvReac see Verified 04/19/22 19:49 comments tamsulosin HCl [From Flomax] AdvReac see Verified 04/19/22 19:49 comments terazosin HCl [From Hytrin] AdvReac see Verified 04/19/22 19:49 comments Review of Systems ROS Statement: Those systems with pertinent positive or pertinent negative responses have been documented in the HPI. ROS Other: All systems not noted in ROS Statement are negative. 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, past L pleural effusion with thoracentesis, DVT L lower extremity, BPH with surgery, CKD, kiney stones with surgery, abdominal aortic aneurysm being monitored every 6 months, STEPHAN-unable to tolerate CPap, SSS with pacemaker, vertigo in the past, seasonal allergies History of Any Multi-Drug Resistant Organisms: None Reported Past Surgical History: Heart Catheterization, Pacemaker, Prostate Surgery Additional Past Surgical History / Comment(s): Pacemaker inserted 01/01/09 and gen change 04/11/18, TURP, ESWL, cysto/TURP, colonoscopy Past Anesthesia/Blood Transfusion Reactions: Motion Sickness Type of Cardiac Device: Permanent Pacemaker Device Placement Date:: 01/01/2009 and gen change 03/2018 Past Psychological History: No Psychological Hx Reported Smoking Status: Former smoker Past Alcohol Use History: None Reported Past Drug Use History: None Reported - Past Family History Mother Family Medical History: CVA/TIA, Hypertension Additional Family Medical History / Comment(s): Mother lived to be 85yrs old. Father Family Medical History: CVA/TIA Additional Family Medical History / Comment(s): Father from a CVA at the age of 78yrs. General Exam - General Exam Comments Initial Comments: GENERAL: Patient is well-developed and well-nourished. Patient is nontoxic and well- hydrated and is in mild distress. ENT: Neck is soft and supple. No significant lymphadenopathy is noted. Oropharynx is clear. Moist mucous membranes. Neck has full range of motion without eliciting any pain. EYES: The sclera were anicteric and conjunctiva were pink and moist. Extraocular movements were intact and pupils were equal round and reactive to light. Eyelids were unremarkable. PULMONARY: Unlabored respirations. Good breath sounds bilaterally. No audible rales rhonchi or wheezing was noted. CARDIOVASCULAR: There is a regular rate and rhythm without any murmurs gallops or rubs. ABDOMEN: Mild suprapubic tenderness. GENITALIA: Exam of the penis there is some crusted blood around the orifice of the meatus but no areas of erythema or infection noted SKIN: Skin is clear with no lesions or rashes and otherwise unremarkable. NEUROLOGIC: Patient is alert and oriented x3. Cranial nerves II through XII are grossly intact. Motor and sensory are also intact. Normal speech, volume and content. Symmetrical smile. MUSCULOSKELETAL: Normal extremities with adequate strength and full range of motion. LYMPHATICS: No significant lymphadenopathy is noted PSYCHIATRIC: Normal psychiatric evaluation. Course Vital Signs 04/19/22 04/19/22 04/19/22 13:46 20:12 20:48 Temperature 99.7 F H 101.3 F H 100.7 F H Pulse Rate 53 L 58 L 58 L Respiratory 18 25 H 26 H Rate Blood Pressure 122/52 127/51 108/49 O2 Sat by Pulse 92 L 92 L 93 L Oximetry Medical Decision Making - Medical Decision Making Chest x-ray shows pulmonary edema. EKG shows a paced rhythm at 53 bpm QRS is 190 QT interval 470 QTC is 453. Patient received 2 g Rocephin when he came to the emergency department. Patient received Lasix for the pulmonary edema. I called sounds physicians agreed to admit the patient admitted the patient wrote admitting orders - Lab Data Result diagrams: 04/19/22 20:03 04/19/22 20:03 Lab Results 04/19/22 04/19/22 04/19/22 Range/Units 20:03 20:03 20:03 WBC 7.5 (3.8-10.6) k/uL RBC 2.90 L (4.30-5.90) m/uL Hgb 10.0 L (13.0-17.5) gm/dL Hct 29.6 L (39.0-53.0) % MCV 101.9 H (80.0-100.0) fL MCH 34.3 (25.0-35.0) pg MCHC 33.7 (31.0-37.0) g/dL RDW 13.4 (11.5-15.5) % Plt Count 170 (150-450) k/uL MPV 8.4 Neutrophils % 88 % Lymphocytes % 8 % Monocytes % 2 % Eosinophils % 1 % Basophils % 0 % Neutrophils # 6.6 (1.3-7.7) k/uL Lymphocytes # 0.6 L (1.0-4.8) k/uL Monocytes # 0.2 (0-1.0) k/uL Eosinophils # 0.1 (0-0.7) k/uL Basophils # 0.0 (0-0.2) k/uL Macrocytosis Slight PT 11.8 (9.0-12.0) sec INR 1.1 (<1.2) APTT 26.4 (22.0-30.0) sec Sodium 133 L (137-145) mmol/L Potassium 4.2 (3.5-5.1) mmol/L Chloride 91 L (98-107) mmol/L Carbon Dioxide 27 (22-30) mmol/L Anion Gap 15 mmol/L BUN 56 H (9-20) mg/dL Creatinine 1.95 H (0.66-1.25) mg/dL Est GFR (CKD-EPI)AfAm 36 (>60 ml/min/1.73 sqM) Est GFR (CKD-EPI)NonAf 31 (>60 ml/min/1.73 sqM) Glucose 136 H (74-99) mg/dL Plasma Lactic Acid Parth (0.7-2.0) mmol/L Calcium 8.8 (8.4-10.2) mg/dL Total Bilirubin 1.0 (0.2-1.3) mg/dL AST 33 (17-59) U/L ALT 13 (4-49) U/L Alkaline Phosphatase 46 (38-126) U/L NT-Pro-B Natriuret Pep pg/mL Total Protein 8.3 H (6.3-8.2) g/dL Albumin 3.9 (3.5-5.0) g/dL Urine Color Urine Appearance (Clear) Urine pH (5.0-8.0) Ur Specific [place] (1.001-1.035) Urine Protein (Negative) Urine Glucose (UA) (Negative) Urine Ketones (Negative) Urine Blood (Negative) Urine Nitrite (Negative) Urine Bilirubin (Negative) Urine Urobilinogen (<2.0) mg/dL Ur Leukocyte Esterase (Negative) Urine RBC (0-5) /hpf Urine WBC (0-5) /hpf Urine Bacteria (None) /hpf Coronavirus (PCR) (Not Detectd) 04/19/22 04/19/22 04/19/22 Range/Units 20:03 20:03 20:06 WBC (3.8-10.6) k/uL RBC (4.30-5.90) m/uL Hgb (13.0-17.5) gm/dL Hct (39.0-53.0) % MCV (80.0-100.0) fL MCH (25.0-35.0) pg MCHC (31.0-37.0) g/dL RDW (11.5-15.5) % Plt Count (150-450) k/uL MPV Neutrophils % % Lymphocytes % % Monocytes % % Eosinophils % % Basophils % % Neutrophils # (1.3-7.7) k/uL Lymphocytes # (1.0-4.8) k/uL Monocytes # (0-1.0) k/uL Eosinophils # (0-0.7) k/uL Basophils # (0-0.2) k/uL Macrocytosis PT (9.0-12.0) sec INR (<1.2) APTT (22.0-30.0) sec Sodium (137-145) mmol/L Potassium (3.5-5.1) mmol/L Chloride (98-107) mmol/L Carbon Dioxide (22-30) mmol/L Anion Gap mmol/L BUN (9-20) mg/dL Creatinine (0.66-1.25) mg/dL Est GFR (CKD-EPI)AfAm (>60 ml/min/1.73 sqM) Est GFR (CKD-EPI)NonAf (>60 ml/min/1.73 sqM) Glucose (74-99) mg/dL Plasma Lactic Acid Parth 1.2 (0.7-2.0) mmol/L Calcium (8.4-10.2) mg/dL Total Bilirubin (0.2-1.3) mg/dL AST (17-59) U/L ALT (4-49) U/L Alkaline Phosphatase (38-126) U/L NT-Pro-B Natriuret Pep 72473 pg/mL Total Protein (6.3-8.2) g/dL Albumin (3.5-5.0) g/dL Urine Color Urine Appearance (Clear) Urine pH (5.0-8.0) Ur Specific [place] (1.001-1.035) Urine Protein (Negative) Urine Glucose (UA) (Negative) Urine Ketones (Negative) Urine Blood (Negative) Urine Nitrite (Negative) Urine Bilirubin (Negative) Urine Urobilinogen (<2.0) mg/dL Ur Leukocyte Esterase (Negative) Urine RBC (0-5) /hpf Urine WBC (0-5) /hpf Urine Bacteria (None) /hpf Coronavirus (PCR) Not Detected (Not Detectd) 04/19/22 Range/Units 20:17 WBC (3.8-10.6) k/uL RBC (4.30-5.90) m/uL Hgb (13.0-17.5) gm/dL Hct (39.0-53.0) % MCV (80.0-100.0) fL MCH (25.0-35.0) pg MCHC (31.0-37.0) g/dL RDW (11.5-15.5) % Plt Count (150-450) k/uL MPV Neutrophils % % Lymphocytes % % Monocytes % % Eosinophils % % Basophils % % Neutrophils # (1.3-7.7) k/uL Lymphocytes # (1.0-4.8) k/uL Monocytes # (0-1.0) k/uL Eosinophils # (0-0.7) k/uL Basophils # (0-0.2) k/uL Macrocytosis PT (9.0-12.0) sec INR (<1.2) APTT (22.0-30.0) sec Sodium (137-145) mmol/L Potassium (3.5-5.1) mmol/L Chloride (98-107) mmol/L Carbon Dioxide (22-30) mmol/L Anion Gap mmol/L BUN (9-20) mg/dL Creatinine (0.66-1.25) mg/dL Est GFR (CKD-EPI)AfAm (>60 ml/min/1.73 sqM) Est GFR (CKD-EPI)NonAf (>60 ml/min/1.73 sqM) Glucose (74-99) mg/dL Plasma Lactic Acid Parth (0.7-2.0) mmol/L Calcium (8.4-10.2) mg/dL Total Bilirubin (0.2-1.3) mg/dL AST (17-59) U/L ALT (4-49) U/L Alkaline Phosphatase (38-126) U/L NT-Pro-B Natriuret Pep pg/mL Total Protein (6.3-8.2) g/dL Albumin (3.5-5.0) g/dL Urine Color Yellow Urine Appearance Clear (Clear) Urine pH 6.5 (5.0-8.0) Ur Specific [place] 1.014 (1.001-1.035) Urine Protein 1+ H (Negative) Urine Glucose (UA) Negative (Negative) Urine Ketones Negative (Negative) Urine Blood Small H (Negative) Urine Nitrite Negative (Negative) Urine Bilirubin Negative (Negative) Urine Urobilinogen <2.0 (<2.0) mg/dL Ur Leukocyte Esterase Large H (Negative) Urine RBC 8 H (0-5) /hpf Urine WBC 12 H (0-5) /hpf Urine Bacteria Rare H (None) /hpf Coronavirus (PCR) (Not Detectd) Critical Care Time Critical Care Time: Yes Total Critical Care Time: 35 Disposition Clinical Impression: Urinary tract infection, Acute pulmonary edema Disposition: ADMITTED IP TO THIS HOSP Referrals: Lonnie Hewitt DO [Primary Care Provider] - 1-2 days Time of Disposition: 21:09
--- NOTE | 2022-04-19 19:48 | XR ---
EXAMINATION TYPE: XR chest 2V DATE OF EXAM: 04/19/2022 7:17 PM COMPARISON: Chest radiographs from 09/12/2021 TECHNIQUE: XR chest 2V Frontal and lateral views of the chest. CLINICAL INDICATION:Male, 82 years old with history of Fever; FINDINGS: Lungs/Pleura: No evidence of focal consolidation or pneumothorax. Blunting of the costophrenic angles is present. Pulmonary vascularity: Mild pulmonary vascular congestion. Heart/mediastinum: Cardiomediastinal silhouette is partially obscured due to overlying and adjacent o pacities. Single-lead cardiac conduction device overlying the left hemithorax with lead projecting ov er the right ventricle. Musculoskeletal: No acute osseous pathology. IMPRESSION: Cardiomegaly, pulmonary vascular congestion and bilateral pleural effusions. Correlate with BNP for c ongestive heart failure.
[2022-04-19] MEDS ORDERED: FUROSEMIDE 10 MG/ML 4 ML VIAL IV STA (20:15)
[2022-04-19 20:36] LABS: Basophils % (A) 0 %; Eosinophils # (A) 0.1 k/uL (0-0.7); Eosinophils % (A) 1 %; HCT 29.6 % (39.0-53.0); Lymphocytes # (A) 0.6 k/uL (1.0-4.8); Lymphocytes % (A) 8 %; MCH 34.3 pg (25.0-35.0); MCHC 33.7 g/dL (31.0-37.0); MCV 101.9 fL (80.0-100.0); Macrocytosis Slight; Mean Platelet Volume 8.4; Monocytes # (A) 0.2 k/uL (0-1.0); Monocytes % (A) 2 %; Neutrophils # (A) 6.6 k/uL (1.3-7.7); Neutrophils % (A) 88 %; Platelet Count 170 k/uL (150-450); RDW 13.4 % (11.5-15.5); WBC 7.5 k/uL (3.8-10.6)
[2022-04-19 20:44] LABS: INR 1.1 (<1.2); Partial Thromboplastin Time 26.4 sec (22.0-30.0); Prothrombin Time 11.8 sec (9.0-12.0)
[2022-04-19 20:46] LABS: Appearance,Urine Clear (Clear); Bacteria,Urine Rare /hpf; Bilirubin,Urine Negative (Negative); Blood,Urine Small (Negative); Color,Urine Yellow; Glucose,Urine (UA) Negative (Negative); Ketones,Urine Negative (Negative); Leukocyte Esterase,Urine Large (Negative); Nitrite,Urine Negative (Negative); PH, Urine 6.5 (5.0-8.0); Protein,Urine 1+ (Negative); RBC,Urine 8 /hpf (0-5); Specific Gravity,Urine 1.014 (1.001-1.035); Urobilinogen,Urine <2.0 mg/dL (<2.0); WBC,Urine 12 /hpf (0-5)
[2022-04-19 20:46] LABS: Albumin 3.9 g/dL (3.5-5.0); Calcium 8.8 mg/dL (8.4-10.2); Potassium 4.2 mmol/L (3.5-5.1); Total Protein 8.3 g/dL (6.3-8.2)
[2022-04-19] MEDS: FUROSEMIDE 10 MG/ML 4 ML VIAL IV SCH (21:57)
[2022-04-20] MEDS ORDERED: MELATONIN 3 MG TABLET PO STA (00:33)
[2022-04-20] MEDS: FUROSEMIDE 10 MG/ML 4 ML VIAL IV SCH ×3 (05:12→20:41)
[2022-04-20] MEDS ORDERED: MORPHINE SULFATE 4 MG/ML SYRINGE IVP PRN (06:27)
[2022-04-20] MEDS ORDERED: NALOXONE 0.4 MG/ML 1 ML VIAL IV PRN (06:27)
[2022-04-20] MEDS ORDERED: ALPRAZolam 0.25 MG TAB PO PRN (06:27)
[2022-04-20] MEDS ORDERED: ACETAMINOPHEN TAB 325 MG TAB PO PRN (06:27)
[2022-04-20] MEDS ORDERED: ONDANSETRON 4 MG/2 ML VIAL IVP PRN (06:27)
[2022-04-20] MEDS ORDERED: SODIUM CHLORIDE 0.9% 1,000 ML IV SCH (06:30)
--- NOTE | 2022-04-20 06:42 | P.HPIM ---
History of Present Illness H&P Date: 04/20/22 Chief Complaint: urinary irritation 82-year-old male with systolic congestive heart failure, CK D, paroxysmal A. fib, noninvasive papillary adenocarcinoma of the bladder Patient comes in for fevers and urinary tract irritation. He had a bladder scraping done on Tuesday about 6 days ago prior to presentation. He was diagnosed with urinary bladder tumor confirmed to be noninvasive papillary adenocarcinoma back in August of this year. This was his follow-up visit he is not sure why the scraping was done he is assuming it was for follow-up. After the procedure Ko catheter was inserted and since then he's been having some irritation in his urinary tract was feeling very uncomfortable he denies any bleeding however he was having fevers over the past 2 days and decided to come in for evaluation. He otherwise denies any abdominal pain denies any nausea vomiting denies any headache. Denies any hematuria. Patient otherwise denies any chest pain or trouble breathing denies any coughing. Workup in the ED showed normal white count, however patient was having fevers. Chronic anemia, CK D stable. Patient admitted for urology evaluation and was started on antibiotics for possible UTI Chest x-ray showed pulmonary vascular congestion with bilateral pleural effusion Review of Systems Pertinent positives as noted in HPI. 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, past L pleural effusion with thoracentesis, DVT L lower extremity, BPH with surgery, CKD, kiney stones with surgery, abdominal aortic aneurysm being monitored every 6 months, STEPHAN-unable to tolerate CPap, SSS with pacemaker, vertigo in the past, seasonal allergies History of Any Multi-Drug Resistant Organisms: None Reported Past Surgical History: Heart Catheterization, Pacemaker, Prostate Surgery Additional Past Surgical History / Comment(s): Pacemaker inserted 01/01/09 and gen change 04/11/18, TURP, ESWL, cysto/TURP, colonoscopy Past Anesthesia/Blood Transfusion Reactions: Motion Sickness Type of Cardiac Device: Permanent Pacemaker Device Placement Date:: 01/01/2009 and gen change 03/2018 Past Psychological History: No Psychological Hx Reported Smoking Status: Former smoker Past Alcohol Use History: None Reported Past Drug Use History: None Reported - Past Family History Mother Family Medical History: CVA/TIA, Hypertension Additional Family Medical History / Comment(s): Mother lived to be 85yrs old. Father Family Medical History: CVA/TIA Additional Family Medical History / Comment(s): Father from a CVA at the age of 78yrs. Medications and Allergies Home Medications Medication Instructions Recorded Confirmed Type Metoprolol Tartrate [Lopressor] 25 mg PO BID 02/28/14 04/19/22 History Fenofibrate [Lofibra] 160 mg PO DAILY 12/14/18 04/19/22 History Lovastatin [Mevacor] 40 mg PO HS 12/14/18 04/19/22 History Insulin Glargine,Hum.rec.anlog 12 unit SQ DAILY@1800 05/26/20 04/19/22 History [Lantus Solostar Pen] Warfarin [Coumadin] 1 mg PO DAILY@1700 05/26/20 04/19/22 History Cyanocobalamin (Vitamin B-12) 1,000 mcg PO DAILY 09/06/21 04/19/22 History [Vitamin B-12] metOLazone [Zaroxolyn] 5 mg PO TH 09/06/21 04/19/22 History Furosemide [Lasix] 40 mg PO DAILY 04/19/22 04/19/22 History Allergies Allergy/AdvReac Type Severity Reaction Status Date / Time doxazosin mesylate AdvReac see Verified 04/19/22 19:49 [From Cardura] comments finasteride [From Proscar] AdvReac see Verified 04/19/22 19:49 comments gatifloxacin [From Tequin] AdvReac see Verified 04/19/22 19:49 comments glipizide AdvReac see Verified 04/19/22 19:49 comments hydroxyzine HCl [From Atarax] AdvReac see Verified 04/19/22 19:49 comments levofloxacin [From Levaquin] AdvReac see Verified 04/19/22 19:49 comments lisinopril AdvReac see Verified 04/19/22 19:49 comments meperidine HCl [From Demerol] AdvReac see Verified 04/19/22 19:49 comments metformin AdvReac see Verified 04/19/22 19:49 comments oxybutynin AdvReac see Verified 04/19/22 19:49 comments oxybutynin chloride AdvReac see Verified 04/19/22 19:49 [From Ditropan] comments pseudoephedrine HCl AdvReac see Verified 04/19/22 19:49 [From Sudafed] comments rosuvastatin calcium AdvReac see Verified 04/19/22 19:49 [From Crestor] comments Sulfa (Sulfonamide AdvReac see Verified 04/19/22 19:49 Antibiotics) comments tamsulosin AdvReac see Verified 04/19/22 19:49 comments tamsulosin HCl [From Flomax] AdvReac see Verified 04/19/22 19:49 comments terazosin HCl [From Hytrin] AdvReac see Verified 04/19/22 19:49 comments Physical Exam Vitals: Vital Signs Temp Pulse Resp BP Pulse Ox 04/20/22 05:12 97 F L 60 26 H 122/80 94 L 04/19/22 21:52 98.5 F 54 L 26 H 110/48 92 L 04/19/22 20:48 100.7 F H 58 L 26 H 108/49 93 L 04/19/22 20:12 101.3 F H 58 L 25 H 127/51 92 L 04/19/22 13:46 99.7 F H 53 L 18 122/52 92 L Intake and Output 04/19/22 04/19/22 04/20/22 14:59 22:59 06:59 Output Total 350 250 Balance -350 -250 Output: Urine 350 250 Other: # Voids 2 Weight 76.204 kg Constitutional: No acute distress, conversant, pleasant Eyes: Anicteric sclerae, moist conjunctiva, Pupils equal round reactive to light ENMT: NC/AT Oropharynx clear, no erythema, or exudates Neck: Supple, no masses, or JVD No carotid bruits No thyromegaly Lungs: Good air entry, inspiratory rales at lung basis Clear to percussion Normal respiratory effort, no accessory muscle use Cardiovascular: Heart regular in rate and rhythm, No murmurs, gallops, or rubs +1 bilateral peripheral edema Abdominal: Soft Nontender, no guarding, rebound or rigidity Abdomen moving with respiration Normoactive bowel sounds No hepatomegaly, No splenomegaly No palpable mass No abdominal wall hernia noted Ko catheter in place no hematuria Skin: Chronic skin changes over the left leg, otherwise Normal temperature, tone, texture, turgor No induration No subcutaneous nodules No rash, lesions No ulcers Extremities: No digital cyanosis No clubbing Pedal pulses intact and symmetrical Radial pulses intact and symmetrical No calf tenderness Psychiatric: Alert and oriented to person, place and time Appropriate affect fair judgement Neuro Muscles Strength 4/5 in all 4 extremities Sensation to light touch grossly present throughout Cranial nerves II-XII grossly intact No focal sensory deficits Lymphatics: no palpable cervical or supraclavicular , or inguinal lymph nodes Results CBC & Chem 7: 04/19/22 20:03 04/19/22 20:03 Labs: Abnormal Lab Results - Last 24 Hours (Table) 04/19/22 04/19/22 04/19/22 Range/Units 20:03 20:03 20:17 RBC 2.90 L (4.30-5.90) m/uL Hgb 10.0 L (13.0-17.5) gm/dL Hct 29.6 L (39.0-53.0) % MCV 101.9 H (80.0-100.0) fL Lymphocytes # 0.6 L (1.0-4.8) k/uL Sodium 133 L (137-145) mmol/L Chloride 91 L (98-107) mmol/L BUN 56 H (9-20) mg/dL Creatinine 1.95 H (0.66-1.25) mg/dL Glucose 136 H (74-99) mg/dL Total Protein 8.3 H (6.3-8.2) g/dL Urine Protein 1+ H (Negative) Urine Blood Small H (Negative) Ur Leukocyte Esterase Large H (Negative) Urine RBC 8 H (0-5) /hpf Urine WBC 12 H (0-5) /hpf Urine Bacteria Rare H (None) /hpf Assessment and Plan Assessment: Urinary tract infection post-bladder scraping surgery History of bladder cancer noninvasive papillary adenocarcinoma status post resection in August 2021 Follow-up cultures Patient initiated on Rocephin Urology consultation Monitor urine output Acute on chronic systolic congestive heart failure with history of left ventricle ejection fraction of 40% Patient initiated on IV Lasix Monitor vital signs Daily weights Supplemental oxygen as needed Diabetes mellitus, insulin sliding scale Paroxysmal A. fib status post pacemaker History of venous thromboembolism Continue Coumadin dosing by pharmacy Hyperlipidemia resume statin Chronic kidney disease stable Continue to monitor renal function Monitor urine output Chronic anemia stable Patient denies any bleeding Full code
[2022-04-20 07:27] LABS: Glucose,Whole Blood 110 mg/dL (70-110)
[2022-04-20] MEDS: INSULIN ASPART (NovoLOG) 100 UNIT/ML VIAL SQ SCH ×4 (07:30→20:56)
[2022-04-20] MEDS ORDERED: HEPARIN SODIUM,PORCINE/PF 5,000 UNIT/0.5 ML SYRINGE SQ SCH (08:00)
[2022-04-20] MEDS: METOPROLOL TARTRATE 25 MG TAB PO SCH ×2 (08:34→20:41)
--- NOTE | 2022-04-20 10:38 | P.GSCN ---
History of Present Illness Consult date: 04/20/22 Reason for Consult: Bladder cancer History of present illness: 82-year-old male that presented to the hospital with SOB and fever of 101.3. He has hx of bladder cancer underwent a recent TURBT 04/14/[address] Brand, of note he had multiple tumors in the . he does currently have a Ko catheter in place draining clear urine urine. Denies any gross hematuria dysuria or any bladder pressure. Denies any abdominal pain. Denies any nausea or vomiting. UA showed positive LE Review of Systems - Constitutional Reports fever - EENT Ears, nose, mouth and throat: Denies dysphagia - Cardiovascular Denies chest pain, Denies shortness of breath - Respiratory Reports dyspnea, Denies cough - Gastrointestinal Reports as per HPI - Genitourinary Denies dysuria, Denies hematuria - Integumentary Denies rash, Denies unusual bruising - Neurological Denies headaches, Denies syncope 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, past L pleural effusion with thoracentesis, DVT L lower extremity, BPH with surgery, CKD, kiney stones with surgery, abdominal aortic aneurysm being monitored every 6 months, STEPHAN-unable to tolerate CPap, SSS with pacemaker, vertigo in the past, seasonal allergies History of Any Multi-Drug Resistant Organisms: None Reported Past Surgical History: Heart Catheterization, Pacemaker, Prostate Surgery Additional Past Surgical History / Comment(s): Pacemaker inserted 01/01/09 and gen change 04/11/18, TURP, ESWL, cysto/TURP, colonoscopy Past Anesthesia/Blood Transfusion Reactions: Motion Sickness Type of Cardiac Device: Permanent Pacemaker Device Placement Date:: 01/01/2009 and gen change 03/2018 Past Psychological History: No Psychological Hx Reported Smoking Status: Former smoker Past Alcohol Use History: None Reported Past Drug Use History: None Reported - Past Family History Mother Family Medical History: CVA/TIA, Hypertension Additional Family Medical History / Comment(s): Mother lived to be 85yrs old. Father Family Medical History: CVA/TIA Additional Family Medical History / Comment(s): Father from a CVA at the age of 78yrs. Medications and Allergies Home Medications Medication Instructions Recorded Confirmed Type Metoprolol Tartrate [Lopressor] 25 mg PO BID 02/28/14 04/19/22 History Fenofibrate [Lofibra] 160 mg PO DAILY 12/14/18 04/19/22 History Lovastatin [Mevacor] 40 mg PO HS 12/14/18 04/19/22 History Insulin Glargine,Hum.rec.anlog 12 unit SQ DAILY@1800 05/26/20 04/19/22 History [Lantus Solostar Pen] Warfarin [Coumadin] 1 mg PO DAILY@1700 05/26/20 04/19/22 History Cyanocobalamin (Vitamin B-12) 1,000 mcg PO DAILY 09/06/21 04/19/22 History [Vitamin B-12] metOLazone [Zaroxolyn] 5 mg PO TH 09/06/21 04/19/22 History Furosemide [Lasix] 40 mg PO DAILY 04/19/22 04/19/22 History Allergies Allergy/AdvReac Type Severity Reaction Status Date / Time doxazosin mesylate AdvReac see Verified 04/19/22 19:49 [From Cardura] comments finasteride [From Proscar] AdvReac see Verified 04/19/22 19:49 comments gatifloxacin [From Tequin] AdvReac see Verified 04/19/22 19:49 comments glipizide AdvReac see Verified 04/19/22 19:49 comments hydroxyzine HCl [From Atarax] AdvReac see Verified 04/19/22 19:49 comments levofloxacin [From Levaquin] AdvReac see Verified 04/19/22 19:49 comments lisinopril AdvReac see Verified 04/19/22 19:49 comments meperidine HCl [From Demerol] AdvReac see Verified 04/19/22 19:49 comments metformin AdvReac see Verified 04/19/22 19:49 comments oxybutynin AdvReac see Verified 04/19/22 19:49 comments oxybutynin chloride AdvReac see Verified 04/19/22 19:49 [From Ditropan] comments pseudoephedrine HCl AdvReac see Verified 04/19/22 19:49 [From Sudafed] comments rosuvastatin calcium AdvReac see Verified 04/19/22 19:49 [From Crestor] comments Sulfa (Sulfonamide AdvReac see Verified 04/19/22 19:49 Antibiotics) comments tamsulosin AdvReac see Verified 04/19/22 19:49 comments tamsulosin HCl [From Flomax] AdvReac see Verified 04/19/22 19:49 comments terazosin HCl [From Hytrin] AdvReac see Verified 04/19/22 19:49 comments Surgical - Exam Vital Signs Temp Pulse Resp BP Pulse Ox 99.7 F H 53 L 18 122/52 92 L 04/19/22 13:46 04/19/22 13:46 04/19/22 13:46 04/19/22 13:46 04/19/22 13:46 - General no distress, no pain - Eyes normal ocular movement, no pale - ENT no hearing loss, no congestion - Respiratory normal expansion, normal respiratory effort - Abdomen Abdomen: soft, non tender, no distended - Genitourinary Ko draining clear yellow urine - Psychiatric oriented to time, oriented to person, oriented to place Results - Labs 04/19/22 20:03 04/19/22 20:03 Abnormal Lab Results - Last 24 Hours (Table) 04/19/22 04/19/22 04/19/22 Range/Units 20:03 20:03 20:17 RBC 2.90 L (4.30-5.90) m/uL Hgb 10.0 L (13.0-17.5) gm/dL Hct 29.6 L (39.0-53.0) % MCV 101.9 H (80.0-100.0) fL Lymphocytes # 0.6 L (1.0-4.8) k/uL Sodium 133 L (137-145) mmol/L Chloride 91 L (98-107) mmol/L BUN 56 H (9-20) mg/dL Creatinine 1.95 H (0.66-1.25) mg/dL Glucose 136 H (74-99) mg/dL Total Protein 8.3 H (6.3-8.2) g/dL Urine Protein 1+ H (Negative) Urine Blood Small H (Negative) Ur Leukocyte Esterase Large H (Negative) Urine RBC 8 H (0-5) /hpf Urine WBC 12 H (0-5) /hpf Urine Bacteria Rare H (None) /hpf Diabetes panel 04/19/22 Range/Units 20:03 Sodium 133 L (137-145) mmol/L Potassium 4.2 (3.5-5.1) mmol/L Chloride 91 L (98-107) mmol/L Carbon Dioxide 27 (22-30) mmol/L BUN 56 H (9-20) mg/dL Creatinine 1.95 H (0.66-1.25) mg/dL Glucose 136 H (74-99) mg/dL Calcium 8.8 (8.4-10.2) mg/dL AST 33 (17-59) U/L ALT 13 (4-49) U/L Alkaline Phosphatase 46 (38-126) U/L Total Protein 8.3 H (6.3-8.2) g/dL Albumin 3.9 (3.5-5.0) g/dL Calcium panel 04/19/22 Range/Units 20:03 Calcium 8.8 (8.4-10.2) mg/dL Albumin 3.9 (3.5-5.0) g/dL Pituitary panel 04/19/22 Range/Units 20:03 Sodium 133 L (137-145) mmol/L Potassium 4.2 (3.5-5.1) mmol/L Chloride 91 L (98-107) mmol/L Carbon Dioxide 27 (22-30) mmol/L BUN 56 H (9-20) mg/dL Creatinine 1.95 H (0.66-1.25) mg/dL Glucose 136 H (74-99) mg/dL Calcium 8.8 (8.4-10.2) mg/dL Adrenal panel 04/19/22 Range/Units 20:03 Sodium 133 L (137-145) mmol/L Potassium 4.2 (3.5-5.1) mmol/L Chloride 91 L (98-107) mmol/L Carbon Dioxide 27 (22-30) mmol/L BUN 56 H (9-20) mg/dL Creatinine 1.95 H (0.66-1.25) mg/dL Glucose 136 H (74-99) mg/dL Calcium 8.8 (8.4-10.2) mg/dL Total Bilirubin 1.0 (0.2-1.3) mg/dL AST 33 (17-59) U/L ALT 13 (4-49) U/L Alkaline Phosphatase 46 (38-126) U/L Total Protein 8.3 H (6.3-8.2) g/dL Albumin 3.9 (3.5-5.0) g/dL Assessment and Plan Assessment: 82-year-old status post transurethral resection of the bladder tumor on April [address] Brand for bladder cancer. Presents to the hospital with shortness of breath and fever, urinalysis positive for leukocyte esterase, given his catheters difficult if the leukocyte esterase is secondary to his recent surgery and catheter or UTI. Given his recent surgery in fever recommend continuing antibiotics, until cultures finalized. -Keep Ko catheter in place -Follow up on urine culture,recommend continuing antibiotics until cultures
[2022-04-20 11:04] LABS: Glucose,Whole Blood 125 mg/dL (70-110)
--- NOTE | 2022-04-20 14:17 | P.PN ---
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 In the ER he underwent an extensive evaluation. Ini tial vital signs showed temperature of 99.7 that escalated to 101.3. Laboratory analysis was remarkable for hemoglobin of 10, creatinine 1.95 (baseline 2.3), sodium 133, and urinalysis with large leukocyte esterase and 12 white blood cells. His COVID-19 testing was negative. BNP was 10,700 and chest x-ray showed pulmonary vascular congestion with bilateral pleural effusions. He was started on Lasix and Rocephin. Arrangements were made for admission. Urology was consulted. Patient seen and examined at bedside. He deneis pain in his abdomen, he does complain of back pain, no chest pain, still some dyspnea he is not sure how different it is from baseline. He follows with Dr. Fall and Dr. Virk. Last saw cardio about 3 months ago. General: nontoxic, no distress, appears at stated age Derm: warm, dry Head: atraumatic, normocephalic, symmetric Eyes: EOMI, no lid lag, anicteric sclera Mouth: no lip lesion, mucus membranes moist Cardiovascular: S1S2 reg, no murmur, positive posterior tibial pulse bilateral, Lungs: CTA bilateral, no rhonchi, no rales , no accessory muscle use Abdominal: soft, nontender to palpation, no guarding, no appreciable organomegaly Ext: no gross muscle atrophy, 1 edema, no contractures Neuro: CN II-XI grossly intact, no focal neuro deficits Psych: Alert, oriented, appropriate affect Assessment/plan: Probable urinary tract infection status post transurethral resection of bladder tumor -Continue with Rocephin -Urology recommendations appreciated -Await final cultures Acute on chronic systolic congestive heart failure, last noted ejection fraction was recovering at 55% --Resume metallic melatonin -Continue with Lasix IV -Continue with Lopressor -Not chronically on JAYANT inhibitor -Consult cardiology -Check echocardiogram Diabetes mellitus type 2 -Long-acting -Sliding-scale insulin -Follow blood sugars Paroxysmal atrial fibrillation status post permanent pacemaker -Patient is chronically on Coumadin -Pharmacy to dose Dyslipidemia -Statin and fenofibrate Chronic kidney disease -Creatinine better than baseline of 2.3 -Monitor closely with diuresis -Avoid additional nephrotoxic agents Anemia, at or near baseline -Follow CBC -Outpatient follow-up DVT prophylaxis: Coumadin Discussed with: Patient donnaabdelrahman Anticipated discharge: in 2-[address]: home A total of 35 minutes was spent on the care of this complex patient more than 50% of the time was spent in counseling and care coordination. Objective - Vital Signs Vital signs: Vital Signs Temp 97.1 F L 04/20/22 07:21 Pulse 51 L 04/20/22 11:28 Resp 22 04/20/22 11:28 BP 114/55 04/20/22 11:28 Pulse Ox 95 04/20/22 11:28 FiO2 Intake & Output 04/19/22 04/20/22 04/20/22 18:59 06:59 18:59 Output Total 600 Balance -600 Weight 76.204 kg 76.204 kg Output: Urine 600 Other: Voiding Method Indwelling Catheter # Voids 2 - Labs CBC & Chem 7: 04/19/22 20:03 04/19/22 20:03 Labs: Abnormal Lab Results - Last 24 Hours (Table) 04/19/22 04/19/22 04/19/22 Range/Units 20:03 20:03 20:17 RBC 2.90 L (4.30-5.90) m/uL Hgb 10.0 L (13.0-17.5) gm/dL Hct 29.6 L (39.0-53.0) % MCV 101.9 H (80.0-100.0) fL Lymphocytes # 0.6 L (1.0-4.8) k/uL Sodium 133 L (137-145) mmol/L Chloride 91 L (98-107) mmol/L BUN 56 H (9-20) mg/dL Creatinine 1.95 H (0.66-1.25) mg/dL Glucose 136 H (74-99) mg/dL POC Glucose (mg/dL) (70-110) mg/dL Total Protein 8.3 H (6.3-8.2) g/dL Urine Protein 1+ H (Negative) Urine Blood Small H (Negative) Ur Leukocyte Esterase Large H (Negative) Urine RBC 8 H (0-5) /hpf Urine WBC 12 H (0-5) /hpf Urine Bacteria Rare H (None) /hpf 04/20/22 Range/Units 11:03 RBC (4.30-5.90) m/uL Hgb (13.0-17.5) gm/dL Hct (39.0-53.0) % MCV (80.0-100.0) fL Lymphocytes # (1.0-4.8) k/uL Sodium (137-145) mmol/L Chloride (98-107) mmol/L BUN (9-20) mg/dL Creatinine (0.66-1.25) mg/dL Glucose (74-99) mg/dL POC Glucose (mg/dL) 125 H (70-110) mg/dL Total Protein (6.3-8.2) g/dL Urine Protein (Negative) Urine Blood (Negative) Ur Leukocyte Esterase (Negative) Urine RBC (0-5) /hpf Urine WBC (0-5) /hpf Urine Bacteria (None) /hpf
[2022-04-20 15:37] LABS: Calcium 8.9 mg/dL (8.4-10.2); Potassium 3.9 mmol/L (3.5-5.1)
[2022-04-20 16:21] LABS: Glucose,Whole Blood 128 mg/dL (70-110)
[2022-04-20] MEDS: INSULIN DETEMIR (LEVEMIR) 100 UNIT/ML SYR SQ SCH (17:59)
[2022-04-20] MEDS ORDERED: WARFARIN 3 MG TAB PO ONE (18:00)
[2022-04-20] MEDS: ATORVASTATIN 10 MG TAB PO SCH (20:40)
[2022-04-20 20:56] LABS: Glucose,Whole Blood 122 mg/dL (70-110)
[2022-04-21] MEDS: FUROSEMIDE 10 MG/ML 4 ML VIAL IV SCH ×2 (04:14→20:59)
[2022-04-21 06:09] LABS: Glucose,Whole Blood 119 mg/dL (70-110)
[2022-04-21] MEDS: INSULIN ASPART (NovoLOG) 100 UNIT/ML VIAL SQ SCH ×4 (06:11→20:55)
--- NOTE | 2022-04-21 07:27 | CA ---
Transthoracic Echo Report Name: Stephen Bain Age: 82 Gender: M : 1940 Exam Date: 04/20/2022 13:30 Exam Location: [facility] Ht (in): 66 Wt (lb): 168 Ordering Physician: Adri Alexander DO Attending/Referring Phys: [id number], Catherine Cream Dumper Aimee Hare, MIRTA Procedure CPT: Indications: chf Cardiac Hx: Technical Quality: Good Contrast 1: Total Dose (mL): Contrast 2: Total Dose (mL): MEASUREMENTS (Male / Female) Normal Values 2D ECHO LV Diastolic Diameter PLAX 4.9 cm 4.2 - 5.9 / 3.9 - 5.3 cm LV Systolic Diameter PLAX 3.4 cm IVS Diastolic Thickness 1.7 cm 0.6 - 1.0 / 0.6 - 0.9 cm LVPW Diastolic Thickness 1.5 cm 0.6 - 1.0 / 0.6 - 0.9 cm LV Relative Wall Thickness 0.7 RV Internal Dim ED PLAX 4.1 cm LA Systolic Diameter LX 3.8 cm 3.0 - 4.0 / 2.7 - 3.8 cm LA Volume 97.8 cm??? 18 - 58 / 22 - 52 cm??? M-MODE Aortic Root Diameter MM 4.2 cm MV E Point Septal Separation 0.9 cm AV Cusp Separation MM 2.7 cm DOPPLER AV Peak Velocity 158.5 cm/s AV Peak Gradient 10.1 mmHg MV Area PHT 8.6 cm??? MV Deceleration Time 158.9 ms TR Peak Velocity 373.7 cm/s TR Peak Gradient 55.8 mmHg Right Ventricular Systolic Press 60.3 mmHg FINDINGS Left Ventricle Left ventricular ejection fraction is estimated at55-60 %. Left ventricular cavity size normal. Moderate to Severe concentric left ventricular hypertrophy. Right Ventricle Severe right ventricular dilatation. Severe pulmonary hypertension.reduced right ventricular global systolic function. Catheter/pacemaker wire in the right ventricular cavity. Right Atrium Right atrium not well visualized. Left Atrium Severely increased left atrial volume. Mildly increased left atrial area. No evidence for an atrial septal defect. Mitral Valve Mitral valve thickened. Mild mitral annular calcification. Mild mitral regurgitation. Aortic Valve No aortic valve stenosis or regurgitation.aortic valve sclerosis. Tricuspid Valve [id number] tricuspid regurgitation.structurally normal tricuspid valve. Pulmonic Valve Trace pulmonic regurgitation. Pericardium Normal pericardium. No pericardial effusion. Aorta Moderate aortic dilatation at the level of the sinuses of valsalva 42 mm. CONCLUSIONS 1. Normal size and systolic function 2. Dilated right ventricle with severe pulmonary hypertension 3. Mild mitral and mild to moderate tricuspid regurgitation Previewed by: Dr. Sadi Fall MD (Electronically Signed) Final Date: 21 April 2022 07:26
[2022-04-21 09:33] LABS: HGB 9.2 gm/dL (13.0-17.5); MCH 33.4 pg (25.0-35.0); MCV 101.3 fL (80.0-100.0); Platelet Count 119 k/uL (150-450); RBC 2.76 m/uL (4.30-5.90); RDW 12.8 % (11.5-15.5); WBC 5.4 k/uL (3.8-10.6)
[2022-04-21 09:37] LABS: INR 1.2 (<1.2); Prothrombin Time 12.9 sec (9.0-12.0)
[2022-04-21] MEDS: METOPROLOL TARTRATE 25 MG TAB PO SCH ×2 (09:48→20:58)
[2022-04-21] MEDS: FENOFIBRATE 160 MG TAB PO SCH (09:48)
[2022-04-21 09:56] LABS: Calcium 8.3 mg/dL (8.4-10.2); Magnesium 1.9 mg/dL (1.6-2.3)
[2022-04-21 10:05] LABS: Potassium 3.6 mmol/L (3.5-5.1)
[2022-04-21 11:42] LABS: Glucose,Whole Blood 156 mg/dL (70-110)
--- NOTE | 2022-04-21 12:43 | P.CRDCN ---
History of Present Illness History of present illness: This is a pleasant 81-year-old gentleman who follows regularly with Dr. Fall in the office. Past medica history includes bladder cancer s/p resection in 08/[address] Brand, history of mild triple vessel coronary artery disease, sick sinus syndrome status post single-chamber pacemaker implantation in 2008 ,persistent atrial fibrillation on coumadin, abdominal aortic aneurysm, chronic congestive heart failure, type 2 diabetes, hypertension, hyperlipidemia, obstructive sleep apnea, peripheral vascular disease. We are asked to see patient in consultation for congestive heart failure. Patient presents to the hospital with symptoms of generalized fatigue, shortness of breath, symptoms of PND, but denies orthopnea. He denies any chest pain, palpitations, lightheadedness, dizziness, or syncope. DIAGNOSTICS * EKG reveals Ventricular paced rhythm, PVC noted, HR 53. * Telemetry tracings indicate V paced rhythm * Chest xray cardiomegaly, pulmonary vascular congestion, bilateral pleural effusions * Echocardiogram 08/2021 revealed EF 55-60%, moderate to severe concentric LVH, mild mitral regurgitation, pulmonary hypertension with an RVSP of 60 mmHg * Most recent cardiac catheterization 04/2020, mild triple vessel coronary artery disease * Laboratory reviewed, WBC 7.5, hemoglobin 10.0, platelets 170, sodium 133, potassium 4.2, BUN 56, serum creatinine 1.9, BNP 10,700, COVID-19 negative * Current cardiac medications include metolazone 5mg , Coumadin, metoprolol tartrate 25mg BID, Lovastatin, Lasix 40mg BID REVIEW OF SYSTEMS At the time of my exam: CONSTITUTIONAL: Denies fever or chills. CARDIOVASCULAR: Denies chest pain, +shortness of breath, orthopnea, +PND Denies palpitations. RESPIRATORY: Reports cough. GASTROINTESTINAL: Denies abdominal pain, diarrhea, constipation, nausea or vomiting. MUSCULOSKELETAL: Denies myalgias. NEUROLOGIC: Denies numbness, tingling, headacbe or weakness. ENDOCRINE: Denies fatigue, weight change, polydipsia or polyurina. GENITOURINARY: Denies burning, hematuria or urgency with micturation. HEMATOLOGIC: Denies history of anemia or bleeding. PHYSICAL EXAMINATION Vitals stable and reviewed. CONSTITUTIONAL: No apparent distress. HEENT: Head is normocephalic. Pupils are equal, round. Sclerae anicteric. Mucous membranes of the mouth are moist. No JVD. No carotid bruit. CHEST EXAMINATION: Lungs are crackles in the bases to auscultation. No chest wall tenderness is noted on palpation or with deep breathing. HEART EXAMINATION: Regular rate and rhythm. S1, S2 heard. No murmurs, gallops or rub. ABDOMEN: Soft, nontender. Positive bowel sounds. EXTREMITIES: 2+ peripheral pulses, no lower extremity edema and no calf tenderness. NEUROLOGIC EXAMINATION: Patient is awake, alert and oriented x3. ASSESSMENT Acute on chronic heart failure with preserved ejection fraction Bladder cancer s/p resection in 08/2021 Mild triple vessel coronary artery disease Sick sinus syndrome status post single-chamber pacemaker implantation in 2008 Persistent atrial fibrillation on coumadin Abdominal aortic aneurysm Type 2 diabetes Hypertension Hyperlipidemia Obstructive sleep apnea Peripheral vascular disease Severe pulmonary hypertension Subtherapeutic INR PLAN IV Lasix 40mg BID Monitor I/Os daily weights, renal function and electrolytes Continue statin Continue anticoagulation with Coumadin Further recommendations based on clinical course Nurse Practitioner note has been reviewed, I agree with a documented findings and plan of care. Patient was seen and examined. 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, past L pleural effusion with thoracentesis, DVT L lower extremity, BPH with surgery, CKD, kiney stones with surgery, abdominal aortic aneurysm being monitored every 6 months, STEPHAN-unable to tolerate CPap, SSS with pacemaker, vertigo in the past, seasonal allergies History of Any Multi-Drug Resistant Organisms: None Reported Past Surgical History: Heart Catheterization, Pacemaker, Prostate Surgery Additional Past Surgical History / Comment(s): Pacemaker inserted 01/01/09 and gen change 04/11/18, TURP, ESWL, cysto/TURP, colonoscopy, "scraped bladder out" with adamson catheter inserted 04/14/22 Past Anesthesia/Blood Transfusion Reactions: Motion Sickness Type of Cardiac Device: Permanent Pacemaker Device Placement Date:: 01/01/2009 and gen change 03/2018 Past Psychological History: No Psychological Hx Reported Additional Psychological History / Comment(s): Lives at [facility] Smoking Status: Never smoker Past Alcohol Use History: None Reported Additional Past Alcohol Use History / Comment(s): Pt denies smoking history. Past Drug Use History: None Reported - Past Family History Mother Family Medical History: CVA/TIA, Hypertension Additional Family Medical History / Comment(s): Mother lived to be 85yrs old. Father Family Medical History: CVA/TIA Additional Family Medical History / Comment(s): Father from a CVA at the age of 78yrs. Medications and Allergies Home Medications Medication Instructions Recorded Confirmed Type Metoprolol Tartrate [Lopressor] 25 mg PO BID 02/28/14 04/19/22 History Fenofibrate [Lofibra] 160 mg PO DAILY 12/14/18 04/19/22 History Lovastatin [Mevacor] 40 mg PO HS 12/14/18 04/19/22 History Insulin Glargine,Hum.rec.anlog 12 unit SQ DAILY@1800 05/26/20 04/19/22 History [Lantus Solostar Pen] Warfarin [Coumadin] 1 mg PO DAILY@1700 05/26/20 04/19/22 History Cyanocobalamin (Vitamin B-12) 1,000 mcg PO DAILY 09/06/21 04/19/22 History [Vitamin B-12] metOLazone [Zaroxolyn] 5 mg PO TH 09/06/21 04/19/22 History Furosemide [Lasix] 40 mg PO DAILY 04/19/22 04/19/22 History Allergies Allergy/AdvReac Type Severity Reaction Status Date / Time doxazosin mesylate AdvReac see Verified 04/19/22 19:49 [From Cardura] comments finasteride [From Proscar] AdvReac see Verified 04/19/22 19:49 comments gatifloxacin [From Tequin] AdvReac see Verified 04/19/22 19:49 comments glipizide AdvReac see Verified 04/19/22 19:49 comments hydroxyzine HCl [From Atarax] AdvReac see Verified 04/19/22 19:49 comments levofloxacin [From Levaquin] AdvReac see Verified 04/19/22 19:49 comments lisinopril AdvReac see Verified 04/19/22 19:49 comments meperidine HCl [From Demerol] AdvReac see Verified 04/19/22 19:49 comments metformin AdvReac see Verified 04/19/22 19:49 comments oxybutynin AdvReac see Verified 04/19/22 19:49 comments oxybutynin chloride AdvReac see Verified 04/19/22 19:49 [From Ditropan] comments pseudoephedrine HCl AdvReac see Verified 04/19/22 19:49 [From Sudafed] comments rosuvastatin calcium AdvReac see Verified 04/19/22 19:49 [From Crestor] comments Sulfa (Sulfonamide AdvReac see Verified 04/19/22 19:49 Antibiotics) comments tamsulosin AdvReac see Verified 04/19/22 19:49 comments tamsulosin HCl [From Flomax] AdvReac see Verified 04/19/22 19:49 comments terazosin HCl [From Hytrin] AdvReac see Verified 04/19/22 19:49 comments Physical Exam Vitals: Vital Signs Temp Pulse Resp BP Pulse Ox 04/21/22 04:12 98.0 F 50 L 16 113/55 98 04/20/22 23:14 99.0 F 51 L 16 124/58 97 04/20/22 19:45 99.7 F H 61 16 124/47 98 04/20/22 15:42 98.1 F 51 L 20 128/57 93 L 04/20/22 15:05 96 04/20/22 13:52 51 L 04/20/22 11:28 51 L 22 114/55 95 Intake and Output 04/20/22 04/21/22 04/21/22 22:59 06:59 14:59 Intake Total 250 Output Total 300 1100 Balance -300 -850 Intake: Intake, IV Titration 50 Amount cefTRIAXone 2 gm In 50 Sodium Chloride 0.9% 50 ml @ 100 mls/hr IVPB Q24H [facility] Rx#:[id number] Oral 200 Output: Urine 300 1100 Other: Voiding Method Indwelling Catheter Indwelling Catheter Weight 77.2 kg Results 04/21/22 08:59 04/21/22 08:59 Comprehensive Metabolic Panel 04/20/22 Range/Units 14:55 Sodium 136 L (137-145) mmol/L Potassium 3.9 (3.5-5.1) mmol/L Chloride 92 L (98-107) mmol/L Carbon Dioxide 30 (22-30) mmol/L BUN 60 H (9-20) mg/dL Creatinine 2.13 H (0.66-1.25) mg/dL Glucose 132 H (74-99) mg/dL Calcium 8.9 (8.4-10.2) mg/dL Current Medications Generic Name Dose Route Start Last Admin Trade Name Freq PRN Reason Stop Dose Admin Acetaminophen 650 mg 04/20/22 06:27 Acetaminophen Tab 325 Mg Tab PO Q6HR PRN Mild Pain or Fever > 100.5 Alprazolam 0.25 mg 04/20/22 06:27 Alprazolam 0.25 Mg Tab PO Q6HR PRN Anxiety Atorvastatin Calcium 10 mg 04/20/22 21:00 04/20/22 20:40 Atorvastatin 10 Mg Tab PO 10 mg HS HANNA Administration Fenofibrate 160 mg 04/21/22 09:00 Fenofibrate 160 Mg Tab PO DAILY [facility] Furosemide 40 mg 04/19/22 21:15 04/21/22 04:14 Furosemide 10 Mg/Ml 4 Ml Vial IV 40 mg Q8H HANNA Administration Ceftriaxone Sodium 2 gm/ 50 mls @ 100 mls/hr 04/20/22 20:00 04/20/22 20:40 Sodium Chloride IVPB 100 mls/hr Q24H HANNA Administration Protocol Insulin Aspart 0 unit 04/20/22 07:30 04/21/22 06:11 Insulin Aspart (Novolog) 100 Unit/Ml Vial SQ Not Given ACHS [facility] Protocol Insulin Detemir 12 unit 04/20/22 18:00 04/20/22 17:59 Insulin Detemir (Levemir) 100 Unit/Ml Syr SQ Not Given DAILY@1800 [facility] Metoprolol Tartrate 25 mg 04/20/22 09:00 04/20/22 20:41 Metoprolol Tartrate 25 Mg Tab PO 25 mg BID HANNA Administration Miscellaneous Information 1 each 04/20/22 06:35 Warfarin Per Pharmacy MISCELLANE DIRECTED PRN Per Protocol Protocol Morphine Sulfate 4 mg 04/20/22 06:27 Morphine Sulfate 4 Mg/Ml Syringe IVP Q4HR PRN Severe Pain Naloxone HCl 0.2 mg 04/20/22 06:27 Naloxone 0.4 Mg/Ml 1 Ml Vial IV Q2M PRN Opioid Reversal Ondansetron HCl 4 mg 04/20/22 06:27 Ondansetron 4 Mg/2 Ml Vial IVP Q8HR PRN Nausea And Vomiting Intake and Output 04/20/22 04/21/22 04/21/22 22:59 06:59 14:59 Intake Total 250 Output Total 300 1100 Balance -300 -850 Intake: Intake, IV Titration 50 Amount cefTRIAXone 2 gm In 50 Sodium Chloride 0.9% 50 ml @ 100 mls/hr IVPB Q24H [facility] Rx#:[id number] Oral 200 Output: Urine 300 1100 Other: Voiding Method Indwelling Catheter Indwelling Catheter Weight 77.2 kg 04/19/22 20:03 04/20/22 14:55
[2022-04-21 12:44] VITALS: BMI 27.4
--- NOTE | 2022-04-21 13:19 | P.PN ---
Subjective Progress Note Date: 04/21/22 no acute overnight events, denies any abdominal pain or fevers Objective - Vital Signs Vital signs: Vital Signs Temp 97.9 F 04/21/22 08:48 Pulse 55 L 04/21/22 08:48 Resp 24 04/21/22 08:48 BP 119/53 04/21/22 08:48 Pulse Ox 93 L 04/21/22 08:48 FiO2 Intake & Output 04/20/22 04/21/22 04/21/22 18:59 06:59 18:59 Intake Total 250 180 Output Total 1100 1100 Balance -1100 -850 180 Weight 76.204 kg 77.2 kg 77.2 kg Intake: Intake, IV Titration 50 Amount cefTRIAXone 2 gm In 50 Sodium Chloride 0.9% 50 ml @ 100 mls/hr IVPB Q24H [facility] Rx#:[id number] Oral 200 180 Output: Urine 1100 1100 Other: Voiding Method Indwelling Catheter Indwelling Catheter Indwelling Catheter - Constitutional General appearance: Present: no acute distress - Gastrointestinal General gastrointestinal: Present: soft. Absent: distended, tenderness - Labs CBC & Chem 7: 04/21/22 08:59 04/21/22 08:59 Labs: Abnormal Lab Results - Last 24 Hours (Table) 04/20/22 04/20/22 04/20/22 Range/Units 14:55 16:19 20:53 RBC (4.30-5.90) m/uL Hgb (13.0-17.5) gm/dL Hct (39.0-53.0) % MCV (80.0-100.0) fL Plt Count (150-450) k/uL PT (9.0-12.0) sec INR (<1.2) Sodium 136 L (137-145) mmol/L Chloride 92 L (98-107) mmol/L BUN 60 H (9-20) mg/dL Creatinine 2.13 H (0.66-1.25) mg/dL Glucose 132 H (74-99) mg/dL POC Glucose (mg/dL) 128 H 122 H (70-110) mg/dL Calcium (8.4-10.2) mg/dL 04/21/22 04/21/22 04/21/22 Range/Units 06:07 08:59 08:59 RBC 2.76 L (4.30-5.90) m/uL Hgb 9.2 L (13.0-17.5) gm/dL Hct 28.0 L (39.0-53.0) % MCV 101.3 H (80.0-100.0) fL Plt Count 119 L (150-450) k/uL PT 12.9 H (9.0-12.0) sec INR 1.2 H (<1.2) Sodium (137-145) mmol/L Chloride (98-107) mmol/L BUN (9-20) mg/dL Creatinine (0.66-1.25) mg/dL Glucose (74-99) mg/dL POC Glucose (mg/dL) 119 H (70-110) mg/dL Calcium (8.4-10.2) mg/dL 04/21/22 04/21/22 Range/Units 08:59 11:40 RBC (4.30-5.90) m/uL Hgb (13.0-17.5) gm/dL Hct (39.0-53.0) % MCV (80.0-100.0) fL Plt Count (150-450) k/uL PT (9.0-12.0) sec INR (<1.2) Sodium 134 L (137-145) mmol/L Chloride 91 L (98-107) mmol/L BUN 62 H (9-20) mg/dL Creatinine 1.77 H (0.66-1.25) mg/dL Glucose 169 H (74-99) mg/dL POC Glucose (mg/dL) 156 H (70-110) mg/dL Calcium 8.3 L (8.4-10.2) mg/dL Microbiology - Last 24 Hours (Table) 04/19/22 20:03 Blood Culture - Preliminary Blood No Growth after 24 hours 04/19/22 20:05 Blood Culture - Preliminary Blood No Growth after 24 hours Assessment and Plan Assessment: 82-year-old status post transurethral resection of the bladder tumor on April [address] Brand for bladder cancer. Presents to the hospital with shortness of breath and fever, urinalysis positive for leukocyte esterase, given his catheters difficult if the leukocyte esterase is secondary to his recent surgery and catheter or UTI. Given his recent surgery in fever recommend continuing antibiotics, until cultures finalized. -Keep Ko catheter in place -Ok for DISCHARGE FROM UROLOGY standpoint, CAN FOLLOW-UP WITH DR. Brand AN OUTPATIENT for catheter removal
--- NOTE | 2022-04-21 16:15 | P.PN ---
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 In the ER he underwent an extensive evaluation. Initial vital signs showed temperature of 99.7 that escalated to 101.3. Laboratory analysis was remarkable for hemoglobin of 10, creatinine 1.95 (baseline 2.3), sodium 133, and urinalysis with large leukocyte esterase and 12 white blood cells. His COVID-19 testing was negative. BNP was 10,700 and chest x-ray showed pulmonary vascular congestion with bilateral pleural effusions. He was started on Lasix and Rocephin. Arrangements were made for admission. Urology was consulted. Patient seen and examined at bedside. Feeling much better today, breathing is easier but not back to baseline still with some edema, no nausea, no vomiting, no diarrhea General: nontoxic, no distress, appears at stated age Derm: warm, dry Head: atraumatic, normocephalic, symmetric Eyes: EOMI, no lid lag, anicteric sclera Mouth: no lip lesion, mucus membranes moist Cardiovascular: S1S2 reg, no murmur, positive posterior tibial pulse bilateral, Lungs: Decreased bs bilateral, no rhonchi, no rales , no accessory muscle use Abdominal: soft, nontender to palpation, no guarding, no appreciable organomegaly Ext: no gross muscle atrophy, 1+ edema, no contractures Neuro: CN II-XI grossly intact, no focal neuro deficits Psych: Alert, oriented, appropriate affect Assessment/plan: Probable urinary tract infection status post transurethral resection of bladder tumor -Continue with Rocephin -Urology recommendations appreciated- okay to follow-up as outpatient. -Await final cultures, was not taken before antibiotics so likely will be negative. Acute on chronic systolic congestive heart failure, last noted ejection fraction was recovering at 55% Pulm HTN -Continue with Lasix IV -Continue with Lopressor -Not chronically on JAYANT inhibitor -cardiology recs appreciated -echocardiogram with EF 55%, severe pulm HTN Diabetes mellitus type 2 -Long-acting -Sliding-scale insulin -Follow blood sugars Paroxysmal atrial fibrillation status post permanent pacemaker -Patient is chronically on Coumadin -Pharmacy to dose Dyslipidemia -Statin and fenofibrate Chronic kidney disease -Creatinine better than baseline of 2.3 -Monitor closely with diuresis -Avoid additional nephrotoxic agents Anemia, at or near baseline -Follow CBC -Outpatient follow-up DVT prophylaxis: Coumadin Discussed with: Patient, nursing Anticipated discharge: in am Anticipated discharge place: home A total of 35 minutes was spent on the care of this complex patient more than 50% of the time was spent in counseling and care coordination. Objective - Vital Signs Vital signs: Vital Signs Temp 98.8 F 04/21/22 12:00 Pulse 92 04/21/22 12:00 Resp 20 04/21/22 12:00 BP 115/56 04/21/22 12:00 Pulse Ox 92 L 04/21/22 12:00 FiO2 Intake & Output 04/20/22 04/21/22 04/21/22 18:59 06:59 18:59 Intake Total 250 720 Output Total 1100 1100 Balance -1100 -850 720 Weight 76.204 kg 77.2 kg 77.2 kg Intake: Intake, IV Titration 50 Amount cefTRIAXone 2 gm In 50 Sodium Chloride 0.9% 50 ml @ 100 mls/hr IVPB Q24H [facility] Rx#:[id number] Oral 200 720 Output: Urine 1100 1100 Other: Voiding Method Indwelling Catheter Indwelling Catheter Indwelling Catheter - Labs CBC & Chem 7: 04/21/22 08:59 04/21/22 08:59 Labs: Abnormal Lab Results - Last 24 Hours (Table) 04/20/22 04/20/22 04/21/22 Range/Units 16:19 20:53 06:07 RBC (4.30-5.90) m/uL Hgb (13.0-17.5) gm/dL Hct (39.0-53.0) % MCV (80.0-100.0) fL Plt Count (150-450) k/uL PT (9.0-12.0) sec INR (<1.2) Sodium (137-145) mmol/L Chloride (98-107) mmol/L BUN (9-20) mg/dL Creatinine (0.66-1.25) mg/dL Glucose (74-99) mg/dL POC Glucose (mg/dL) 128 H 122 H 119 H (70-110) mg/dL Calcium (8.4-10.2) mg/dL 04/21/22 04/21/22 04/21/22 Range/Units 08:59 08:59 08:59 RBC 2.76 L (4.30-5.90) m/uL Hgb 9.2 L (13.0-17.5) gm/dL Hct 28.0 L (39.0-53.0) % MCV 101.3 H (80.0-100.0) fL Plt Count 119 L (150-450) k/uL PT 12.9 H (9.0-12.0) sec INR 1.2 H (<1.2) Sodium 134 L (137-145) mmol/L Chloride 91 L (98-107) mmol/L BUN 62 H (9-20) mg/dL Creatinine 1.77 H (0.66-1.25) mg/dL Glucose 169 H (74-99) mg/dL POC Glucose (mg/dL) (70-110) mg/dL Calcium 8.3 L (8.4-10.2) mg/dL 04/21/22 Range/Units 11:40 RBC (4.30-5.90) m/uL Hgb (13.0-17.5) gm/dL Hct (39.0-53.0) % MCV (80.0-100.0) fL Plt Count (150-450) k/uL PT (9.0-12.0) sec INR (<1.2) Sodium (137-145) mmol/L Chloride (98-107) mmol/L BUN (9-20) mg/dL Creatinine (0.66-1.25) mg/dL Glucose (74-99) mg/dL POC Glucose (mg/dL) 156 H (70-110) mg/dL Calcium (8.4-10.2) mg/dL Microbiology - Last 24 Hours (Table) 04/19/22 20:03 Blood Culture - Preliminary Blood No Growth after 24 hours 04/19/22 20:05 Blood Culture - Preliminary Blood No Growth after 24 hours
[2022-04-21 16:41] LABS: Glucose,Whole Blood 110 mg/dL (70-110)
[2022-04-21] MEDS: INSULIN DETEMIR (LEVEMIR) 100 UNIT/ML SYR SQ SCH (17:50)
[2022-04-21] MEDS ORDERED: WARFARIN 3 MG TAB PO ONE (18:00)
[2022-04-21 20:22] LABS: Glucose,Whole Blood 149 mg/dL (70-110)
[2022-04-21] MEDS: ATORVASTATIN 10 MG TAB PO SCH (20:58)
[2022-04-22 06:25] LABS: Glucose,Whole Blood 107 mg/dL (70-110)
[2022-04-22] MEDS: INSULIN ASPART (NovoLOG) 100 UNIT/ML VIAL SQ SCH ×2 (06:30→12:10)
[2022-04-22 08:37] LABS: HCT 28.5 % (39.0-53.0); HGB 9.4 gm/dL (13.0-17.5); MCH 33.4 pg (25.0-35.0); MCHC 33.1 g/dL (31.0-37.0); MCV 101.1 fL (80.0-100.0); Mean Platelet Volume 7.5; Platelet Count 126 k/uL (150-450); RBC 2.82 m/uL (4.30-5.90); RDW 12.9 % (11.5-15.5); WBC 6.2 k/uL (3.8-10.6)
[2022-04-22 08:49] LABS: INR 1.4 (<1.2); Prothrombin Time 14.7 sec (9.0-12.0)
[2022-04-22 08:50] LABS: Calcium 8.4 mg/dL (8.4-10.2); Potassium 3.5 mmol/L (3.5-5.1)
[2022-04-22] MEDS: FUROSEMIDE 10 MG/ML 4 ML VIAL IV SCH (09:46)
[2022-04-22] MEDS: FENOFIBRATE 160 MG TAB PO SCH (09:46)
[2022-04-22] MEDS: METOPROLOL TARTRATE 25 MG TAB PO SCH (09:46)
[2022-04-22 12:05] LABS: Glucose,Whole Blood 124 mg/dL (70-110)
--- NOTE | 2022-04-22 12:26 | P.PN ---
Subjective This is a pleasant 81-year-old gentleman who follows regularly with Dr. Fall in the office. Past medica history includes bladder cancer s/p resection in 08/[address] Brand, history of mild triple vessel coronary artery disease, sick sinus syndrome status post single-chamber pacemaker implantation in 2008 ,persistent atrial fibrillation on coumadin, abdominal aortic aneurysm, chronic congestive heart failure, type 2 diabetes, hy pertension, hyperlipidemia, obstructive sleep apnea, peripheral vascular disease. We are asked to see patient in consultation for congestive heart failure. Patient presents to the hospital with symptoms of generalized fatigue, shortness of breath, symptoms of PND, but denies orthopnea. Also found to have UTI 04/22/22 Patient seen and examined at bedside, he is lying comfortably, no shortness of breath. He denies any chest pain. His vital signs are stable. Scr is improving 1.56. His echocardiogram revealed EF 5560 percent, moderate severe concentric LVH, severe right ventricular dilatation, severe pulmonary hypertension, mild to moderate tricuspid regurgitation, mild mitral regurgitation PHYSICAL EXAMINATION Vitals stable and reviewed. CONSTITUTIONAL: No apparent distress. HEENT: Neck Supple. No JVD. No carotid bruit. CHEST EXAMINATION: Lungs are diminished bilaterally to auscultation. No chest wall tenderness is noted on palpation or with deep breathing. HEART EXAMINATION: Regular rate and rhythm. S1, S2 heard. No murmurs, gallops or rub. ABDOMEN: Soft, nontender. Positive bowel sounds. EXTREMITIES: 2+ peripheral pulses, no lower extremity edema and no calf tenderness. NEUROLOGIC EXAMINATION: Patient is awake, alert and oriented x3. ASSESSMENT Acute on chronic heart failure with preserved ejection fraction Bladder cancer s/p resection in 08/2021 Mild triple vessel coronary artery disease Sick sinus syndrome status post single-chamber pacemaker implantation in 2008 Persistent atrial fibrillation on coumadin Abdominal aortic aneurysm Type 2 diabetes Hypertension Hyperlipidemia Obstructive sleep apnea Peripheral vascular disease Severe pulmonary hypertension Subtherapeutic INR PLAN Transition to PO Lasix 40mg BID Continue statin, metoprolol Continue anticoagulation with Coumadin From a cardiology perspective, patient is stable. Discharge per primary and clearance from other consultants Recommend follow up with Dr. Fall outpatient Nurse Practitioner note has been reviewed, I agree with a documented findings and plan of care. Patient was seen and examined. Objective - Vital Signs Vital signs: Vital Signs Temp 97.9 F 08/25/22 09:31 Pulse 50 L 04/22/22 09:31 Resp 15 04/22/22 09:31 BP 122/58 04/22/22 09:31 Pulse Ox 98 04/22/22 09:31 FiO2 Intake & Output 04/21/22 04/22/22 04/22/22 18:59 06:59 18:59 Intake Total 1260 120 Output Total 2200 Balance 1260 -2200 120 Weight 77.2 kg 77.1 kg Intake: Oral 1260 120 Output: Urine 2200 Other: Voiding Method Indwelling Catheter Indwelling Catheter # Voids 1 - Labs CBC & Chem 7: 04/22/22 07:41 04/22/22 07:41 Labs: Abnormal Lab Results - Last 24 Hours (Table) 04/21/22 04/22/22 04/22/22 Range/Units 20:21 07:41 07:41 RBC (4.30-5.90) m/uL Hgb (13.0-17.5) gm/dL Hct (39.0-53.0) % MCV (80.0-100.0) fL Plt Count (150-450) k/uL PT 14.7 H (9.0-12.0) sec INR 1.4 H (<1.2) Sodium 136 L (137-145) mmol/L Chloride 92 L (98-107) mmol/L Carbon Dioxide 34 H (22-30) mmol/L BUN 51 H (9-20) mg/dL Creatinine 1.56 H (0.66-1.25) mg/dL Glucose 104 H (74-99) mg/dL POC Glucose (mg/dL) 149 H (70-110) mg/dL 04/22/22 04/22/22 Range/Units 07:41 12:04 RBC 2.82 L (4.30-5.90) m/uL Hgb 9.4 L (13.0-17.5) gm/dL Hct 28.5 L (39.0-53.0) % MCV 101.1 H (80.0-100.0) fL Plt Count 126 L (150-450) k/uL PT (9.0-12.0) sec INR (<1.2) Sodium (137-145) mmol/L Chloride (98-107) mmol/L Carbon Dioxide (22-30) mmol/L BUN (9-20) mg/dL Creatinine (0.66-1.25) mg/dL Glucose (74-99) mg/dL POC Glucose (mg/dL) 124 H (70-110) mg/dL Microbiology - Last 24 Hours (Table) 04/21/22 15:38 Urine Culture - Preliminary Urine,Catheterized 04/19/22 20:03 Blood Culture - Preliminary Blood No Growth after 48 hours 04/19/22 20:05 Blood Culture - Preliminary Blood No Growth after 48 hours
[2022-04-22 13:56] VITALS: BP 128/58; PULSE 76; TEMP 97.1
--- NOTE | 2022-04-22 15:32 | CDI ---
Documentation Clarification Form Date: 04/22/2022 03:21:00 PM From: Casie Arauz CCS, CCDS Admit Date: 04/19/2022 09:13:00 PM Patient Name: Stephen Bain Visit Number: [id number] Discharge Date: ATTENTION: The Clinical Documentation Specialists (CDI) and [facility] Coding Staff appreciate your assistance in clarifying documentation. Please respond to the clarification below the line at the bottom and electronically sign. The CDI & [facility] Coding staff will review the response and follow-up if needed. Please note: Queries are made part of the Legal Health Record. If you have any questions, please contact the author of this message via ITS. Dr. Adri Alexander: Chronic Anemia is documented in the 04/20 H/P and in subsequent Progress Notes without further specificity. Additional specificity regarding the Type and Acuity of Anemia is requested. 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 Clinical indicators: Presented to the ED on 04/19 with Fever, possible infection, had bladder scraping on Tuesday, has Ko catheter in place. Admit with UTI, Acute pulmonary edema. Hemoglobin: 04/19: 10.0. 04/21: 9.2. 04/22: 9.4 Hematocrit: 04/19: 29.6. 04/21: 28.0. 04/22: 28.5 Treatment 04/19: Ko catheter, Urology Consult, Cardiology Consult, Blood cultures, O2, IV Rocephin 50 mls @ 100 mls/hr x1, IV Rocephin 1,000 mg x1, IV Lasix 40 mg x1, IV Lasix 40 mg q8H. Home meds: Zaroxolyn, Coumadin, Mevacor, Insulin sq, Vit B12, Lopressor, Lasix, Lofibra Please clarify the Type & Acuity of Anemia if known: [ ] Chronic blood loss anemia [ ] Hemolytic anemia [ ] Drug induced anemia [ ] Anemia due to malignancy [ ] Anemia of chronic kidney disease [ ] Anemia of Chronic Disease [ ] Unable to determine [ ] Other, please specify (Template Last Revised: September 2020) Unkown and not investigated during this stay MTDD
--- NOTE | 2022-04-22 15:35 | P.PN ---
Progress Note - Text Progress Note Date: 04/22/22 Mr. Bain is resting comfortably. His Ko catheter is draining clear yellow urine. I discussed with him the fact that his pathology revealed low-grade, noninvasive urothelial carcinoma of the bladder. He will require no adjuvant therapy, but the recurrence rate is high and therefore he will undergo cystoscopy in 3 months. The Ko catheter may be removed when no longer medically needed, and he will follow up with me in approximately 2 weeks after discharge to confirm that he is voiding without difficulty and infection free. Please notify us if we can be of any further assistance.
--- NOTE | 2022-04-22 15:48 | P.DS ---
Providers Date of admission: 04/19/22 21:13 Expected date of discharge: 04/22/22 Attending physician: Jorge Alberto Mcclelland MD Consults: 04/19/22 21:13 Consult Physician Routine Consulting Provider: EHSAN DUMONT Consult Reason/Comments: Urinary tract infection Do you want consulting provider notified?: Yes 04/20/22 12:32 Consult Physician Routine Consulting Provider: Sadi Fall Consult Reason/Comments: chf Do you want consulting provider notified?: Yes Primary care physician: Lonnie Hewitt Hospital Course: Discharge Diagnosis: Probable urinary tract infection status post transurethral resection of bladder tumor Acute on chronic systolic congestive heart failure, last noted ejection fraction was recovering at 55% Pulm HTN Diabetes mellitus type 2 Paroxysmal atrial fibrillation status post permanent pacemaker Dyslipidemia Chronic kidney disease Anemia, at or near baseline Hospital Course: 82-year-old male with systolic congestive heart failure last ejection reaction was recovering at 55%, chronic kidney disease, paroxysmal atrial fibrillation, and noninvasive papillary adenocarcinoma of the bladder status post recent transurethral resection who presented to the ER with complaints of fevers and urinary tract irritation. In the ER he underwent an extensive evaluation. Initial vital signs showed temperature of 99.7 that escalated to 101.3. Laboratory analysis was remarkable for hemoglobin of 10, creatinine 1.95 (baseline 2.3), sodium 133, and urinalysis with large leukocyte esterase and 12 white blood cells. His COVID-19 testing was negative. BNP was 10,700 and chest x-ray showed pulmonary vascular congestion with bilateral pleural effusions. He was started on Lasix and Rocephin. Arrangements were made for admission. Urology was consulted. They recommended continuing Adamson catheter. Patient had possible urinary tract infection was started on IV Rocephin. Unfortunately urine culture was done after antibiotics were started and therefore was determined to treat patient with a 5 day course of antibiotics. He underwent an echocardiogram which showed severe pulmonary hypertension and ejection fraction at 55%. He continued to do well with IV diuresis. He was up and ambulating. He was seen back patient therapy who recommended home with family. Cardiology cleared the patient. He was determined stable for discharge. Follow-up: Dr. Fall in 2 weeks, Dr. Vargas as scheduled, Dr Quevedo in 3-4 days, home with adamson, Lasix increased to BID for discharge. Patient seen and examined at bedside. He is feeling better today. He is breathing well. Lower extremity edema has resolved. He is feeling somewhat weak so we talked about having physical therapy see him before discharge and he was in agreement. He did well with therapy and will be discharged home. Vital signs reviewed and stable. General: nontoxic, no distress, appears at stated age Derm: warm, dry Head: atraumatic, normocephalic, symmetric Eyes: EOMI, no lid lag, anicteric sclera Mouth: no lip lesion, mucus membranes moist Cardiovascular: S1S2 reg, no murmur, positive posterior tibial pulse bilateral, Lungs: CTA bilateral, no rhonchi, no rales , no accessory muscle use Abdominal: soft, nontender to palpation, no guarding, no appreciable organomegaly, Adamson catheter in place with yellow urine Ext: no gross muscle atrophy, no edema, no contractures Neuro: CN II-XI grossly intact, no focal neuro deficits Psych: Alert, oriented, appropriate affect A total of 35 minutes of time were spent preparing this complex discharge summary. Patient was discharged on 04/22/22. Plan - Discharge Summary Discharge Rx Participant: No New Discharge Prescriptions: New Cefpodoxime Proxetil [Vantin] 200 mg PO Q12HR #6 tab Furosemide [Lasix] 40 mg PO BID@0900,1600 #60 tab Continue Metoprolol Tartrate [Lopressor] 25 mg PO BID Lovastatin [Mevacor] 40 mg PO HS Fenofibrate [Lofibra] 160 mg PO DAILY Warfarin [Coumadin] 1 mg PO DAILY@1700 Insulin Glargine,Hum.rec.anlog [Lantus Solostar Pen] 12 unit SQ DAILY@1800 Cyanocobalamin (Vitamin B-12) [Vitamin B-12] 1,000 mcg PO DAILY metOLazone [Zaroxolyn] 5 mg PO TH Discontinued Furosemide [Lasix] 40 mg PO DAILY Discharge Medication List Metoprolol Tartrate [Lopressor] 25 mg PO BID 02/28/14 [History] Fenofibrate [Lofibra] 160 mg PO DAILY 12/14/18 [History] Lovastatin [Mevacor] 40 mg PO HS 12/14/18 [History] Insulin Glargine,Hum.rec.anlog [Lantus Solostar Pen] 12 unit SQ DAILY@1800 05/26/20 [History] Warfarin [Coumadin] 1 mg PO DAILY@1700 05/26/20 [History] Cyanocobalamin (Vitamin B-12) [Vitamin B-12] 1,000 mcg PO DAILY 09/06/21 [History] metOLazone [Zaroxolyn] 5 mg PO TH 09/06/21 [History] Cefpodoxime Proxetil [Vantin] 200 mg PO Q12HR #6 tab 04/22/22 [Rx] Furosemide [Lasix] 40 mg PO BID@0900,1600 #60 tab 04/22/22 [Rx] Follow up Appointment(s)/Referral(s): Sadi Fall MD [STAFF PHYSICIAN] - 1 Week Moses Brand MD [STAFF PHYSICIAN] - 2 Weeks Lonnie Hewitt DO [Primary Care Provider] - 1-2 days Activity/Diet/Wound Care/Special Instructions: Activity: as tolerated Diet: heart healthy, 2L fluid restriction Special Instructions: Please wear oxygen with ambulation Thank you for trusting up with your care. We wish you well on your journey to better health. Good luck with recovery from your tumor resection! Discharge Disposition: HOME SELF-CARE
[2022-04-22 15:53] VITALS: RESP 15
[2022-04-22] MEDS ORDERED: FUROSEMIDE 40 MG TAB PO SCH (16:00)
[2022-04-22] MEDS ORDERED: WARFARIN 3 MG TAB PO ONE (18:00)
--- NOTE | 2022-04-23 19:13 | CDI ---
Documentation Clarification Form Date: 04/23/2022 06:52:54 PM From: Abigail Phelps Admit Date: 04/19/2022 09:13:00 PM Patient Name: Stephen Bain Visit Number: [id number] Discharge Date: 04/22/2022 05:36:00 PM ATTENTION: The Clinical Documentation Specialists (CDI) and [facility] Coding Staff appreciate your assistance in clarifying documentation. Please respond to the clarification below the line at the bottom and electronically sign. The CDI & [facility] Coding staff will review the response and follow-up if needed. Please note: Queries are made part of the Legal Health Record. If you have any questions, please contact the author of this message via ITS. Dr. Jorge Alberto Mcclelland Unspecified CKD is documented per ED Note and Progress notes. Additional clarification regarding the stage of CKD is requested. History/Risk Factors: 82yo M, UTI s/p TURP, ACSHF, Pulm HTN, DMII w neuropathy, PVD, HLD, CKD, Anemia Patients Creatinine better than baseline of 2.3 Clinical Indicators: BUN 56 H (9-20) mg/dL Creatinine 1.95 H (0.66-1.25) mg/dL Est GFR (CKD-EPI) AfAm 36 (>60 ml/min/1.73 sqM) Est GFR (CKD-EPI) NonAf 31 (>60 ml/min/1.73 sqM) Treatment: Continue to monitor renal function. Monitor urine output Please clarify the stage of the CKD, if known: [ ] CKD Stage 3 (GFR 30-59) [ ] CKD Stage 3a (GFR 45-59) [ ] CKD Stage 3b (GFR 30-44) [ ] CKD Stage 4 (GFR 15-29) [ ] Other, please specify [ ] Unable to determine CKD Stage 3 (GFR 30-59) MTDD
--- NOTE | 2022-04-26 10:23 | CDI ---
Documentation Clarification Form Date: 04/26/2022 09:53:09 AM From: Abigail Phelps Admit Date: 04/19/2022 09:13:00 PM Patient Name: Stephen Bain Visit Number: [id number] Discharge Date: 04/22/2022 05:36:00 PM ATTENTION: The Clinical Documentation Specialists (CDI) and [facility] Coding Staff appreciate your assistance in clarifying documentation. Please respond to the clarification below the line at the bottom and electronically sign. The CDI & [facility] Coding staff will review the response and follow-up if needed. Please note: Queries are made part of the Legal Health Record. If you have any questions, please contact the author of this message via ITS. Dr. Jorge Alberto Mcclelland UTI is documented per ED Note and patient is noted to be s/p TURP with Ko catheter. Please clarify if there is a relationship between the diagnosis, recent TURP status and/ or Ko catheter. History/Risk Factors: 82yo M, UTI, Acute pulm edema, A fib, Asthma, CAD, DMII w feet neuropathy, Hx DVT, HLD, HTN, BPH, CKD, Kidney stones, AAA, STEPHAN, SSS w/PPM, Hx bladder Cx, ACSCHF Clinical Indicators: Vital Signs: 99.7 F H 101.3 F H 100.7 F H; Pulse Rate 53 L 58 L 58 L; Respiratory 18 25 H 26 H; BP122/52 127/51 108/49; O2 Sat by Pulse 92 L 92 L 93 L WBC 7.5 (3.8-10.6) k/uL Urinalysis: urinalysis positive for leukocyte esterase Urine Culture: urine culture was done after antibiotics were started Antibiotics: Rocephin Please clarify the relationship, if any, which is clinically appropriate for this patient: [ ] UTI is due to recent TURP [ ] UTI is due to Ko catheter [ ] UTI is not due to Ko catheter or recent TURP [ ] Other explanation of clinical findings (please specify) [ ] Unable to determine (no explanation for clinical findings) Unable to determine (no explanation for clinical findings) MTDD
== END 2022-04-22 17:36 | disposition home or self-care (01) | DRG 689 ==
LOC: EC 13:36 → 3SCARD 21:13
PROVIDERS: ADMIT Internal Medicine; ATTEND Internal Medicine
DX: N39.0 Urinary tract infection, site not specified (principal); I50.33 Acute on chronic diastolic (congestive) heart failure; J81.0 Acute pulmonary edema; I13.0 Hypertensive heart and chronic kidney disease with heart failure and stage 1 through stage 4 chronic kidney disease, or unspecified chronic kidney disease; I48.19 Other persistent atrial fibrillation; I27.20 Pulmonary hypertension, unspecified; E11.51 Type 2 diabetes mellitus with diabetic peripheral angiopathy without gangrene; E11.42 Type 2 diabetes mellitus with diabetic polyneuropathy; E11.22 Type 2 diabetes mellitus with diabetic chronic kidney disease; C67.9 Malignant neoplasm of bladder, unspecified; I71.4 Abdominal aortic aneurysm, without rupture; J45.909 Unspecified asthma, uncomplicated; I08.1 Rheumatic disorders of both mitral and tricuspid valves; N18.30 Chronic kidney disease, stage 3 unspecified; I49.5 Sick sinus syndrome; D63.1 Anemia in chronic kidney disease; I25.10 Atherosclerotic heart disease of native coronary artery without angina pectoris; E78.5 Hyperlipidemia, unspecified; G47.33 Obstructive sleep apnea (adult) (pediatric); I49.3 Ventricular premature depolarization; Z20.822 Contact with and (suspected) exposure to COVID-19; R79.1 Abnormal coagulation profile; N40.0 Benign prostatic hyperplasia without lower urinary tract symptoms; R53.1 Weakness; Z87.442 Personal history of urinary calculi; Z82.3 Family history of stroke; Z88.8 Allergy status to other drugs, medicaments and biological substances; Z86.718 Personal history of other venous thrombosis and embolism; Z87.891 Personal history of nicotine dependence; Z98.890 Other specified postprocedural states; Z79.899 Other long term (current) drug therapy; Z79.01 Long term (current) use of anticoagulants; Z79.4 Long term (current) use of insulin; Z79.84 Long term (current) use of oral hypoglycemic drugs; Z95.0 Presence of cardiac pacemaker; Z85.51 Personal history of malignant neoplasm of bladder; Z82.49 Family history of ischemic heart disease and other diseases of the circulatory system
CPT/HCPCS: 36415; 71046; 80048; 80053; 81001; 83605; 83735; 83880; 84132; 85025; 85027; 85610; 85730; 87040; 87086; 87635; 93005; 93306; 94760; 96365; 96375; 96376; 99285

== ENCOUNTER 2022-05-14 14:46 | Inpatient (IN) | payer MEDICARE ==
--- NOTE | 2022-05-14 15:10 | ED ---
General Adult HPI - General Chief complaint: Shortness of Breath Stated complaint: CARMITA Time Seen by Provider: 05/14/22 14:50 Source: patient, EMS, RN notes reviewed Mode of arrival: EMS Limitations: no limitations - History of Present Illness Initial comments: Patient is a pleasant 82-year-old male presenting to the emergency department with difficulty in breathing. Symptoms have progressed over several weeks. Symptoms are worse with lying flat or exertion. No chest pain. Patient states her may be some mild leg swelling. No calf pain. Patient does have history of previous CHF. Patient also has history of previous effusion with 2 L drained. - Related Data Home Medications Medication Instructions Recorded Confirmed Metoprolol Tartrate [Lopressor] 25 mg PO BID 02/28/14 05/14/22 Lovastatin [Mevacor] 40 mg PO HS 12/14/18 05/14/22 Insulin Glargine,Hum.rec.anlog 12.5 unit SQ DAILY@1800 05/26/20 05/14/22 [Lantus Solostar Pen] Warfarin [Coumadin] 1 mg PO DAILY@1700 05/26/20 05/14/22 Cyanocobalamin (Vitamin B-12) 1,000 mcg PO DAILY 09/06/21 05/14/22 [Vitamin B-12] metOLazone [Zaroxolyn] 5 mg PO TH 09/06/21 05/14/22 Dapagliflozin Propanediol [Farxiga] 10 mg PO DAILY 05/14/22 05/14/22 Famotidine [Pepcid] 20 mg PO BID 05/14/22 05/14/22 Multivitamins, Thera [Multivitamin 1 tab PO DAILY 05/14/22 05/14/22 (formulary)] Nitroglycerin Sl Tabs [Nitrostat] 0.4 mg SUBLINGUAL Q5M PRN 05/14/22 05/14/22 Previous Rx's Medication Instructions Recorded Furosemide [Lasix] 40 mg PO BID@0900,1600 #60 tab 04/22/22 Allergies Allergy/AdvReac Type Severity Reaction Status Date / Time doxazosin mesylate AdvReac see Verified 05/14/22 16:42 [From Cardura] comments finasteride [From Proscar] AdvReac see Verified 05/14/22 16:42 comments gatifloxacin [From Tequin] AdvReac see Verified 05/14/22 16:42 comments glipizide AdvReac see Verified 05/14/22 16:42 comments hydroxyzine HCl [From Atarax] AdvReac see Verified 05/14/22 16:42 comments levofloxacin [From Levaquin] AdvReac see Verified 05/14/22 16:42 comments lisinopril AdvReac see Verified 05/14/22 16:42 comments meperidine HCl [From Demerol] AdvReac see Verified 05/14/22 16:42 comments metformin AdvReac see Verified 05/14/22 16:42 comments oxybutynin AdvReac see Verified 05/14/22 16:42 comments oxybutynin chloride AdvReac see Verified 05/14/22 16:42 [From Ditropan] comments pseudoephedrine HCl AdvReac see Verified 05/14/22 16:42 [From Sudafed] comments rosuvastatin calcium AdvReac see Verified 05/14/22 16:42 [From Crestor] comments Sulfa (Sulfonamide AdvReac see Verified 05/14/22 16:42 Antibiotics) comments tamsulosin AdvReac see Verified 05/14/22 16:42 comments tamsulosin HCl [From Flomax] AdvReac see Verified 05/14/22 16:42 comments terazosin HCl [From Hytrin] AdvReac see Verified 05/14/22 16:42 comments Review of Systems ROS Statement: Those systems with pertinent positive or pertinent negative responses have been documented in the HPI. ROS Other: All systems not noted in ROS Statement are negative. Constitutional: Denies: fever Eyes: Denies: eye pain ENT: Denies: ear pain Respiratory: Reports: as per HPI, dyspnea. Denies: cough Cardiovascular: Reports: dyspnea on exertion, orthopnea Endocrine: Denies: fatigue Gastrointestinal: Denies: abdominal pain Genitourinary: 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, past L pleural effusion with thoracentesis, DVT L lower extremity, BPH with surgery, CKD, kiney stones with surgery, abdominal aortic aneurysm being monitored every 6 months, STEPHAN-unable to tolerate CPap, SSS with pacemaker, vertigo in the past, seasonal allergies History of Any Multi-Drug Resistant Organisms: None Reported Past Surgical History: Heart Catheterization, Pacemaker, Prostate Surgery Additional Past Surgical History / Comment(s): Pacemaker inserted 01/01/09 and gen change 04/11/18, TURP, ESWL, cysto/TURP, colonoscopy, "scraped bladder out" with adamson catheter inserted 04/14/22 Past Anesthesia/Blood Transfusion Reactions: Motion Sickness Type of Cardiac Device: Permanent Pacemaker Device Placement Date:: 01/01/2009 and gen change 03/2018 Past Psychological History: No Psychological Hx Reported Smoking Status: Never smoker Past Alcohol Use History: None Reported Past Drug Use History: None Reported - Past Family History Mother Family Medical History: CVA/TIA, Hypertension Additional Family Medical History / Comment(s): Mother lived to be 85yrs old. Father Family Medical History: CVA/TIA Additional Family Medical History / Comment(s): Father from a CVA at the age of 78yrs. General Exam Limitations: no limitations General appearance: alert, in no apparent distress Head exam: Present: normocephalic Eye exam: Present: normal appearance Neck exam: Present: normal inspection Respiratory exam: Present: normal lung sounds bilaterally Cardiovascular Exam: Present: regular rate, normal rhythm GI/Abdominal exam: Present: soft. Absent: tenderness Extremities exam: Present: pedal edema (Trace bilateral). Absent: calf tenderness Neurological exam: Present: alert Psychiatric exam: Present: normal affect, normal mood Skin exam: Present: normal color Course Vital Signs 05/14/22 05/14/22 05/14/22 14:48 14:54 15:07 Temperature 98.0 F Pulse Rate 76 Respiratory 22 22 Rate Blood Pressure 109/54 O2 Sat by Pulse 82 L 98 Oximetry 05/14/22 15:54 Temperature Pulse Rate 56 L Respiratory 18 Rate Blood Pressure 118/50 O2 Sat by Pulse 100 Oximetry EKG Findings - EKG Comments: EKG Findings:: Paced rhythm with a rate of 65. QRS 191. QT 468. QTC 480. Left axis. Wide QRS complex. Nonspecific ST-T. Medical Decision Making - Medical Decision Making Case discussed with Dr. Ignacio will admit covering Dr. Govind steve. Patient updated. - Lab Data Result diagrams: 05/14/22 15:11 05/14/22 15:11 Lab Results 05/14/22 05/14/22 05/14/22 Range/Units 15:11 15:11 15:11 WBC 6.5 (3.8-10.6) k/uL RBC 3.20 L (4.30-5.90) m/uL Hgb 10.4 L (13.0-17.5) gm/dL Hct 32.6 L (39.0-53.0) % MCV 101.9 H (80.0-100.0) fL MCH 32.5 (25.0-35.0) pg MCHC 31.8 (31.0-37.0) g/dL RDW 14.7 (11.5-15.5) % Plt Count 222 (150-450) k/uL MPV 7.4 Neutrophils % 71 % Lymphocytes % 14 % Monocytes % 9 % Eosinophils % 4 % Basophils % 1 % Neutrophils # 4.6 (1.3-7.7) k/uL Lymphocytes # 0.9 L (1.0-4.8) k/uL Monocytes # 0.6 (0-1.0) k/uL Eosinophils # 0.3 (0-0.7) k/uL Basophils # 0.1 (0-0.2) k/uL Macrocytosis Slight PT 13.4 H (9.0-12.0) sec INR 1.3 H (<1.2) APTT 27.0 (22.0-30.0) sec Sodium 136 L (137-145) mmol/L Potassium 4.2 (3.5-5.1) mmol/L Chloride 92 L (98-107) mmol/L Carbon Dioxide 32 H (22-30) mmol/L Anion Gap 12 mmol/L BUN 35 H (9-20) mg/dL Creatinine 1.99 H (0.66-1.25) mg/dL Est GFR (CKD-EPI)AfAm 35 (>60 ml/min/1.73 sqM) Est GFR (CKD-EPI)NonAf 30 (>60 ml/min/1.73 sqM) Glucose 123 H (74-99) mg/dL Plasma Lactic Acid Parth (0.7-2.0) mmol/L Calcium 9.1 (8.4-10.2) mg/dL Total Bilirubin 0.6 (0.2-1.3) mg/dL AST 29 (17-59) U/L ALT 11 (4-49) U/L Alkaline Phosphatase 77 (38-126) U/L Troponin I (0.000-0.034) ng/mL NT-Pro-B Natriuret Pep pg/mL Total Protein 8.4 H (6.3-8.2) g/dL Albumin 4.2 (3.5-5.0) g/dL Coronavirus (PCR) (Not Detectd) Influenza Type A RNA (Not Detectd) Influenza Type B (PCR) (Not Detectd) 05/14/22 05/14/22 05/14/22 Range/Units 15:11 15:11 15:11 WBC (3.8-10.6) k/uL RBC (4.30-5.90) m/uL Hgb (13.0-17.5) gm/dL Hct (39.0-53.0) % MCV (80.0-100.0) fL MCH (25.0-35.0) pg MCHC (31.0-37.0) g/dL RDW (11.5-15.5) % Plt Count (150-450) k/uL MPV Neutrophils % % Lymphocytes % % Monocytes % % Eosinophils % % Basophils % % Neutrophils # (1.3-7.7) k/uL Lymphocytes # (1.0-4.8) k/uL Monocytes # (0-1.0) k/uL Eosinophils # (0-0.7) k/uL Basophils # (0-0.2) k/uL Macrocytosis PT (9.0-12.0) sec INR (<1.2) APTT (22.0-30.0) sec Sodium (137-145) mmol/L Potassium (3.5-5.1) mmol/L Chloride (98-107) mmol/L Carbon Dioxide (22-30) mmol/L Anion Gap mmol/L BUN (9-20) mg/dL Creatinine (0.66-1.25) mg/dL Est GFR (CKD-EPI)AfAm (>60 ml/min/1.73 sqM) Est GFR (CKD-EPI)NonAf (>60 ml/min/1.73 sqM) Glucose (74-99) mg/dL Plasma Lactic Acid Parth 1.1 (0.7-2.0) mmol/L Calcium (8.4-10.2) mg/dL Total Bilirubin (0.2-1.3) mg/dL AST (17-59) U/L ALT (4-49) U/L Alkaline Phosphatase (38-126) U/L Troponin I 0.040 H* (0.000-0.034) ng/mL NT-Pro-B Natriuret Pep 12814 pg/mL Total Protein (6.3-8.2) g/dL Albumin (3.5-5.0) g/dL Coronavirus (PCR) (Not Detectd) Influenza Type A RNA (Not Detectd) Influenza Type B (PCR) (Not Detectd) 05/14/22 05/14/22 Range/Units 15:11 15:11 WBC (3.8-10.6) k/uL RBC (4.30-5.90) m/uL Hgb (13.0-17.5) gm/dL Hct (39.0-53.0) % MCV (80.0-100.0) fL MCH (25.0-35.0) pg MCHC (31.0-37.0) g/dL RDW (11.5-15.5) % Plt Count (150-450) k/uL MPV Neutrophils % % Lymphocytes % % Monocytes % % Eosinophils % % Basophils % % Neutrophils # (1.3-7.7) k/uL Lymphocytes # (1.0-4.8) k/uL Monocytes # (0-1.0) k/uL Eosinophils # (0-0.7) k/uL Basophils # (0-0.2) k/uL Macrocytosis PT (9.0-12.0) sec INR (<1.2) APTT (22.0-30.0) sec Sodium (137-145) mmol/L Potassium (3.5-5.1) mmol/L Chloride (98-107) mmol/L Carbon Dioxide (22-30) mmol/L Anion Gap mmol/L BUN (9-20) mg/dL Creatinine (0.66-1.25) mg/dL Est GFR (CKD-EPI)AfAm (>60 ml/min/1.73 sqM) Est GFR (CKD-EPI)NonAf (>60 ml/min/1.73 sqM) Glucose (74-99) mg/dL Plasma Lactic Acid Parth (0.7-2.0) mmol/L Calcium (8.4-10.2) mg/dL Total Bilirubin (0.2-1.3) mg/dL AST (17-59) U/L ALT (4-49) U/L Alkaline Phosphatase (38-126) U/L Troponin I (0.000-0.034) ng/mL NT-Pro-B Natriuret Pep pg/mL Total Protein (6.3-8.2) g/dL Albumin (3.5-5.0) g/dL Coronavirus (PCR) Not Detected (Not Detectd) Influenza Type A RNA Not Detected (Not Detectd) Influenza Type B (PCR) Not Detected (Not Detectd) - Radiology Data Radiology results: report reviewed (Chest x-ray does show concern for chronic pulmonary venous decompensation. Similar to previous. Cardiomegaly.) Disposition Clinical Impression: Congestive heart failure Disposition: ADMITTED IP TO THIS HOSP Is patient prescribed a controlled substance at d/c from ED?: No Referrals: Lonnie Hewitt DO [Primary Care Provider] - 1-2 days Time of Disposition: 16:52
[2022-05-14 15:20] LABS: Basophils # (A) 0.1 k/uL (0-0.2); Basophils % (A) 1 %; Eosinophils # (A) 0.3 k/uL (0-0.7); Eosinophils % (A) 4 %; HCT 32.6 % (39.0-53.0); HGB 10.4 gm/dL (13.0-17.5); Lymphocytes # (A) 0.9 k/uL (1.0-4.8); Lymphocytes % (A) 14 %; MCH 32.5 pg (25.0-35.0); MCHC 31.8 g/dL (31.0-37.0); MCV 101.9 fL (80.0-100.0); Macrocytosis Slight; Mean Platelet Volume 7.4; Monocytes # (A) 0.6 k/uL (0-1.0); Monocytes % (A) 9 %; Neutrophils # (A) 4.6 k/uL (1.3-7.7); Neutrophils % (A) 71 %; Platelet Count 222 k/uL (150-450); RDW 14.7 % (11.5-15.5); WBC 6.5 k/uL (3.8-10.6)
[2022-05-14 15:29] LABS: INR 1.3 (<1.2); Prothrombin Time 13.4 sec (9.0-12.0)
[2022-05-14 15:30] LABS: Albumin 4.2 g/dL (3.5-5.0); Calcium 9.1 mg/dL (8.4-10.2); Potassium 4.2 mmol/L (3.5-5.1); Total Bilirubin 0.6 mg/dL (0.2-1.3); Total Protein 8.4 g/dL (6.3-8.2)
--- NOTE | 2022-05-14 15:42 | XR ---
EXAMINATION TYPE: XR chest 2V DATE OF EXAM: 05/14/2022 COMPARISON: 04/19/2022 HISTORY: Shortness of breath TECHNIQUE: Frontal and lateral views of the chest are obtained. FINDINGS: Scattered senescent parenchymal changes noted. Hyperinflation compatible with COPD. Cardiomegaly with pulmonary venous congestion and small effusions. Mediastinal structures are stable and grossly unremarkable. No evidence for hilar prominence. Degenerative changes dorsal spine. IMPRESSION: 1. Correlate for chronic pulmonary venous decompensation. Overall appearance is stable relative to th e prior study.
[2022-05-14] MEDS ORDERED: ASPIRIN 325 MG TAB PO STA (16:52)
[2022-05-14] MEDS ORDERED: NALOXONE 0.4 MG/ML 1 ML VIAL IV PRN (17:11)
[2022-05-14] MEDS ORDERED: NITROGLYCERIN SL TABS 0.4 MG TAB SUBLINGUAL PRN (17:15)
[2022-05-14] MEDS: FUROSEMIDE 10 MG/ML 4 ML VIAL IV SCH (17:28)
[2022-05-14] MEDS ORDERED: DEXTROSE 50% SYRINGE 50 ML IVP PRN ×2 (17:38)
--- NOTE | 2022-05-14 17:44 | P.HPIM ---
History of Present Illness H&P Date: 05/14/22 Chief Complaint: dyspnea Patient is a 82-year-old male with history of bladder cancer status post resection, diastolic heart failure, CAD, severe pulmonary hypertension, sick sinus syndrome status post pacemaker, persistent A. fib, diabetes presenting with worsening shortness of breath and orthopnea. Patient was recently admitted in 04/19 for UTI. He claims that ever since going home he has not been able to get back to his usual state of health. Soon after going home, he started to develop orthopnea and PND. Started sleeping in his recliner chair. He has noticed some worsening office peripheral edema as well. He is also dyspneic with exertion, can only walk 70 feet. He does not climb any stairs. He denies any worsening cough, chest pain, palpitations, abdominal pain, nausea, vomiting, diarrhea, constipation, or urinary complaints. He denies any recent travel history, or sick contacts. He claims that he is compliant with his medications, and diet. In the ED, his pulse ox was 82% on room air, increased to 100% on 2 L. Rest of the vitals were otherwise stable. His labs were mostly unremarkable except for troponin of 0.04 and proBNP of 11,200. His chest x-ray demonstrated bilateral pleural effusions which are similar to prior. His EKG showed v-paced rhythm. He was COVID-19 negative. Pertinent positives and negatives as discussed in HPI, a complete review of systems was performed and all other systems are negative. Patient seen and examined at bedside. Vital signs reviewed General: nontoxic, no distress, appears at stated age Derm: warm, dry Head: atraumatic, normocephalic, symmetric Eyes: EOMI, no lid lag, anicteric sclera, pupils equal round reactive to light ENT: Nose and ears atraumatic Neck: No thyromegaly, supple Mouth: no lip lesion, mucus membranes moist Cardiovascular: S1S2 reg, no murmur, trace edema, Lungs: Bilateral rales up to mid lungs more prominent on the right, no wheeze, no accessory muscle use, on 2 L nasal cannula Abdominal: soft, nontender to palpation, no guarding, no appreciable organom egaly, normal bowel sounds Ext: no gross muscle atrophy, muscle strength muscle strength 5 out of 5 in all 4 extremities, no contractures Neuro: CN II-XII grossly intact, light touch intact all 4 extremities Psych: Alert, oriented, appropriate affect Assessment/Plan: Acute hypoxic respiratory failure Acute on chronic diastolic heart failure Bilateral pleural effusions -Last echo in 04/19 showed LVEF 55-60%, severe pulmonary hypertension -Patient compliant with his medications and diet at home -Started on IV Lasix 40 every 8 hours -Patient currently only takes metolazone once a week, can consider increasing frequency if symptoms -Monitor I's and O's, urine output -Cardiology consult -Patient agrees to speak with palliative care, consult pending Elevated troponin -No active chest pain -Likely in the setting of demand ischemia -Repeat troponin pending -EKG shows ventricularly paced rhythm -Aspirin and statin Persistent atrial fibrillation SSS s/p PM Subtherapeutic INR -Pharmacy to dose warfarin Diabetes melitis -Continue home glargine -Sliding-scale insulin Chronic medical problems: CAD Hypertension Dyslipidemia PVD History of bladder cancer - Continue home medications The patient is admitted with an anticipated greater than 2 midnight stay for evaluation of [CHF exacerbation]. Surrogate decision-maker: Son CODE STATUS: DO NOT RESUSCITATE/DO NOT INTUBATE DVT prophylaxis: Warfarin Anticipated discharge date: 05/17/[address]: Home A total of 45 minutes was spent on the care of this complex patient more than 50% of the time was spent in counseling and care coordination. 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, past L pleural effusion with thoracentesis, DVT L lower extremity, BPH with surgery, CKD, kiney stones with surgery, abdominal aortic aneurysm being monitored every 6 months, STEPHAN-unable to tolerate CPap, SSS with pacemaker, vertigo in the past, seasonal allergies History of Any Multi-Drug Resistant Organisms: None Reported Past Surgical History: Heart Catheterization, Pacemaker, Prostate Surgery Additional Past Surgical History / Comment(s): Pacemaker inserted 01/01/09 and gen change 04/11/18, TURP, ESWL, cysto/TURP, colonoscopy, "scraped bladder out" with adamson catheter inserted 04/14/22 Past Anesthesia/Blood Transfusion Reactions: Motion Sickness Type of Cardiac Device: Permanent Pacemaker Device Placement Date:: 01/01/2009 and gen change 03/2018 Past Psychological History: No Psychological Hx Reported Smoking Status: Never smoker Past Alcohol Use History: None Reported Past Drug Use History: None Reported - Past Family History Mother Family Medical History: CVA/TIA, Hypertension Additional Family Medical History / Comment(s): Mother lived to be 85yrs old. Father Family Medical History: CVA/TIA Additional Family Medical History / Comment(s): Father from a CVA at the age of 78yrs. Medications and Allergies Home Medications Medication Instructions Recorded Confirmed Type Metoprolol Tartrate [Lopressor] 25 mg PO BID 02/28/14 05/14/22 History Lovastatin [Mevacor] 40 mg PO HS 12/14/18 05/14/22 History Insulin Glargine,Hum.rec.anlog 12.5 unit SQ DAILY@1800 05/26/20 05/14/22 History [Lantus Solostar Pen] Warfarin [Coumadin] 1 mg PO DAILY@1700 05/26/20 05/14/22 History Cyanocobalamin (Vitamin B-12) 1,000 mcg PO DAILY 09/06/21 05/14/22 History [Vitamin B-12] metOLazone [Zaroxolyn] 5 mg PO TH 09/06/21 05/14/22 History Furosemide [Lasix] 40 mg PO BID@0900,1600 #60 tab 04/22/22 05/14/22 Rx Dapagliflozin Propanediol [Farxiga] 10 mg PO DAILY 05/14/22 05/14/22 History Famotidine [Pepcid] 20 mg PO BID 05/14/22 05/14/22 History Multivitamins, Thera [Multivitamin 1 tab PO DAILY 05/14/22 05/14/22 History (formulary)] Nitroglycerin Sl Tabs [Nitrostat] 0.4 mg SUBLINGUAL Q5M PRN 05/14/22 05/14/22 History Allergies Allergy/AdvReac Type Severity Reaction Status Date / Time doxazosin mesylate AdvReac see Verified 05/14/22 16:42 [From Cardura] comments finasteride [From Proscar] AdvReac see Verified 05/14/22 16:42 comments gatifloxacin [From Tequin] AdvReac see Verified 05/14/22 16:42 comments glipizide AdvReac see Verified 05/14/22 16:42 comments hydroxyzine HCl [From Atarax] AdvReac see Verified 05/14/22 16:42 comments levofloxacin [From Levaquin] AdvReac see Verified 05/14/22 16:42 comments lisinopril AdvReac see Verified 05/14/22 16:42 comments meperidine HCl [From Demerol] AdvReac see Verified 05/14/22 16:42 comments metformin AdvReac see Verified 05/14/22 16:42 comments oxybutynin AdvReac see Verified 05/14/22 16:42 comments oxybutynin chloride AdvReac see Verified 05/14/22 16:42 [From Ditropan] comments pseudoephedrine HCl AdvReac see Verified 05/14/22 16:42 [From Sudafed] comments rosuvastatin calcium AdvReac see Verified 05/14/22 16:42 [From Crestor] comments Sulfa (Sulfonamide AdvReac see Verified 05/14/22 16:42 Antibiotics) comments tamsulosin AdvReac see Verified 05/14/22 16:42 comments tamsulosin HCl [From Flomax] AdvReac see Verified 05/14/22 16:42 comments terazosin HCl [From Hytrin] AdvReac see Verified 05/14/22 16:42 comments Physical Exam Vitals: Vital Signs Temp Pulse Resp BP Pulse Ox 05/14/22 17:42 76 20 113/50 100 05/14/22 15:54 56 L 18 118/50 100 05/14/22 15:07 22 05/14/22 14:54 98 05/14/22 14:48 98.0 F 76 22 109/54 82 L Intake and Output 05/14/22 05/14/22 05/14/22 06:59 14:59 22:59 Other: Weight 75.705 kg Results CBC & Chem 7: 05/14/22 15:11 05/14/22 15:11 Labs: Abnormal Lab Results - Last 24 Hours (Table) 05/14/22 05/14/22 05/14/22 Range/Units 15:11 15:11 15:11 RBC 3.20 L (4.30-5.90) m/uL Hgb 10.4 L (13.0-17.5) gm/dL Hct 32.6 L (39.0-53.0) % MCV 101.9 H (80.0-100.0) fL Lymphocytes # 0.9 L (1.0-4.8) k/uL PT 13.4 H (9.0-12.0) sec INR 1.3 H (<1.2) Sodium 136 L (137-145) mmol/L Chloride 92 L (98-107) mmol/L Carbon Dioxide 32 H (22-30) mmol/L BUN 35 H (9-20) mg/dL Creatinine 1.99 H (0.66-1.25) mg/dL Glucose 123 H (74-99) mg/dL Troponin I (0.000-0.034) ng/mL Total Protein 8.4 H (6.3-8.2) g/dL 05/14/22 Range/Units 15:11 RBC (4.30-5.90) m/uL Hgb (13.0-17.5) gm/dL Hct (39.0-53.0) % MCV (80.0-100.0) fL Lymphocytes # (1.0-4.8) k/uL PT (9.0-12.0) sec INR (<1.2) Sodium (137-145) mmol/L Chloride (98-107) mmol/L Carbon Dioxide (22-30) mmol/L BUN (9-20) mg/dL Creatinine (0.66-1.25) mg/dL Glucose (74-99) mg/dL Troponin I 0.040 H* (0.000-0.034) ng/mL Total Protein (6.3-8.2) g/dL
[2022-05-14] MEDS ORDERED: WARFARIN 1.25 MG TAB PO ONE (18:00)
[2022-05-14 18:46] LABS: Glucose,Whole Blood 153 mg/dL (70-110)
[2022-05-14] MEDS: INSULIN DETEMIR (LEVEMIR) 100 UNIT/ML SYR SQ SCH (18:47)
[2022-05-14] MEDS: NITROGLYCERIN OINT 1 INCH/GM PACKET TOPICAL SCH (18:49)
[2022-05-14 22:39] LABS: Glucose,Whole Blood 111 mg/dL (70-110)
[2022-05-14] MEDS: FAMOTIDINE 20 MG TAB PO SCH (22:44)
[2022-05-14] MEDS: ATORVASTATIN 10 MG TAB PO SCH (22:44)
[2022-05-14] MEDS: METOPROLOL TARTRATE 25 MG TAB PO SCH (22:44)
[2022-05-14] MEDS: INSULIN ASPART (NovoLOG) 100 UNIT/ML VIAL SQ SCH (22:44)
[2022-05-15] MEDS ORDERED: HEPARIN SODIUM,PORCINE/PF 5,000 UNIT/0.5 ML SYRINGE SQ SCH
[2022-05-15] MEDS: FUROSEMIDE 10 MG/ML 4 ML VIAL IV SCH ×4 (01:42→23:06)
[2022-05-15] MEDS: NITROGLYCERIN OINT 1 INCH/GM PACKET TOPICAL SCH ×5 (02:23→23:06)
--- NOTE | 2022-05-15 05:48 | P.CRDCN ---
History of Present Illness Consult date: 05/15/22 Chief complaint: Shortness of breath and lower extremities edema History of present illness: This is a pleasant 82-year-old gentleman with a past medical history significant for mild nonobstructive coronary artery disease as well as heart failure with preserved ejection fraction and also permanent atrial fibrillation and status post permanent pacemaker and also history of bladder cancer presented to the hospital complaining of shortness of breath which has progressed for the last few weeks associated with bilateral lower extremities edema. He is known to have heart failure with preserved ejection fraction but he stated that he has been compliant with all of his medications including Lasix. Beside that he reports no fever and no chills. No cough or wheezing. No symptoms of chest pain or chest discomfort and no dizziness or lightheadedness or any feeling of heart racing or fluttering or presyncope or syncope. The EKG showed underlying atrial fibrillation with ventricular paced rhythm. The chest x-ray showed bilateral pleural effusion and finding consistent with CHF. An K proBNP came in to be elevated at 11,000. The patient subsequently was diagnosed with heart failure clinically and he was started on Lasix IV. He was seen this morning he states that the shortness of breath has been better. Recent echocardiogram show ed preserved left ventricular systolic function was evidence of severe pulmonary hypertension and mild to moderate tricuspid regurgitation but no significant left sided valvular abnormalities noted. 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, past L pleural effusion with tho racentesis, DVT L lower extremity, BPH with surgery, CKD, kiney stones with surgery, abdominal aortic aneurysm being monitored every 6 months, STEPHAN-unable to tolerate CPap, SSS with pacemaker, vertigo in the past, seasonal allergies History of Any Multi-Drug Resistant Organisms: None Reported Past Surgical History: Heart Catheterization, Pacemaker, Prostate Surgery Additional Past Surgical History / Comment(s): Pacemaker inserted 01/01/09 and gen change 04/11/18, TURP, ESWL, cysto/TURP, colonoscopy, "scraped bladder out" with adamson catheter inserted 04/14/22 Past Anesthesia/Blood Transfusion Reactions: Motion Sickness Type of Cardiac Device: Permanent Pacemaker Device Placement Date:: 01/01/2009 and gen change 03/2018 Past Psychological History: No Psychological Hx Reported Additional Psychological History / Comment(s): Lives at [facility] Smoking Status: Never smoker Past Alcohol Use History: None Reported Additional Past Alcohol Use History / Comment(s): Pt denies smoking history. Past Drug Use History: None Reported - Past Family History Mother Family Medical History: CVA/TIA, Hypertension Additional Family Medical History / Comment(s): Mother lived to be 85yrs old. Father Family Medical History: CVA/TIA Additional Family Medical History / Comment(s): Father from a CVA at the age of 78yrs. Medications and Allergies Home Medications Medication Instructions Recorded Confirmed Type Metoprolol Tartrate [Lopressor] 25 mg PO BID 02/28/14 05/14/22 History Lovastatin [Mevacor] 40 mg PO HS 12/14/18 05/14/22 History Insulin Glargine,Hum.rec.anlog 12.5 unit SQ DAILY@1800 05/26/20 05/14/22 History [Lantus Solostar Pen] Warfarin [Coumadin] 1 mg PO DAILY@1700 05/26/20 05/14/22 History Cyanocobalamin (Vitamin B-12) 1,000 mcg PO DAILY 09/06/21 05/14/22 History [Vitamin B-12] metOLazone [Zaroxolyn] 5 mg PO TH 09/06/21 05/14/22 History Furosemide [Lasix] 40 mg PO BID@0900,1600 #60 tab 04/22/22 05/14/22 Rx Dapagliflozin Propanediol [Farxiga] 10 mg PO DAILY 05/14/22 05/14/22 History Famotidine [Pepcid] 20 mg PO BID 05/14/22 05/14/22 History Multivitamins, Thera [Multivitamin 1 tab PO DAILY 05/14/22 05/14/22 History (formulary)] Nitroglycerin Sl Tabs [Nitrostat] 0.4 mg SUBLINGUAL Q5M PRN 05/14/22 05/14/22 History Allergies Allergy/AdvReac Type Severity Reaction Status Date / Time doxazosin mesylate AdvReac see Verified 05/14/22 16:42 [From Cardura] comments finasteride [From Proscar] AdvReac see Verified 05/14/22 16:42 comments gatifloxacin [From Tequin] AdvReac see Verified 05/14/22 16:42 comments glipizide AdvReac see Verified 05/14/22 16:42 comments hydroxyzine HCl [From Atarax] AdvReac see Verified 05/14/22 16:42 comments levofloxacin [From Levaquin] AdvReac see Verified 05/14/22 16:42 comments lisinopril AdvReac see Verified 05/14/22 16:42 comments meperidine HCl [From Demerol] AdvReac see Verified 05/14/22 16:42 comments metformin AdvReac see Verified 05/14/22 16:42 comments oxybutynin AdvReac see Verified 05/14/22 16:42 comments oxybutynin chloride AdvReac see Verified 05/14/22 16:42 [From Ditropan] comments pseudoephedrine HCl AdvReac see Verified 05/14/22 16:42 [From Sudafed] comments rosuvastatin calcium AdvReac see Verified 05/14/22 16:42 [From Crestor] comments Sulfa (Sulfonamide AdvReac see Verified 05/14/22 16:42 Antibiotics) comments tamsulosin AdvReac see Verified 05/14/22 16:42 comments tamsulosin HCl [From Flomax] AdvReac see Verified 05/14/22 16:42 comments terazosin HCl [From Hytrin] AdvReac see Verified 05/14/22 16:42 comments Physical Exam Vitals: Vital Signs Temp Pulse Pulse Resp BP BP Pulse Ox 05/15/22 04:00 98.1 F 54 L 18 125/71 90 L 05/15/22 02:00 67 18 05/15/22 00:00 98.0 F 67 18 116/55 90 L 05/14/22 21:36 55 L 16 142/68 94 L 05/14/22 21:22 55 L 16 142/68 94 L 05/14/22 17:42 76 20 113/50 100 05/14/22 15:54 56 L 18 118/50 100 05/14/22 15:07 22 05/14/22 14:54 98 05/14/22 14:48 98.0 F 76 22 109/54 82 L Intake and Output 05/14/22 05/14/22 05/15/22 14:59 22:59 06:59 Output Total 425 Balance -425 Output: Urine 425 Other: Voiding Method Urinal Urinal # Voids 1 Weight 75.705 kg 77.2 kg - Constitutional General appearance: no acute distress - Respiratory Respiratory: bilateral: diminished - Cardiovascular Rhythm: irregularly irregular Heart sounds: normal: S1, S2 Results 05/14/22 15:11 05/14/22 15:11 Cardiac Enzymes 05/14/22 05/14/22 05/14/22 Range/Units 15:11 15:11 17:12 AST 29 (17-59) U/L Troponin I 0.040 H* 0.038 H* (0.000-0.034) ng/mL 05/14/22 Range/Units 19:48 AST (17-59) U/L Troponin I 0.047 H* (0.000-0.034) ng/mL Coagulation 05/14/22 Range/Units 15:11 PT 13.4 H (9.0-12.0) sec APTT 27.0 (22.0-30.0) sec CBC 05/14/22 Range/Units 15:11 WBC 6.5 (3.8-10.6) k/uL RBC 3.20 L (4.30-5.90) m/uL Hgb 10.4 L (13.0-17.5) gm/dL Hct 32.6 L (39.0-53.0) % Plt Count 222 (150-450) k/uL Comprehensive Metabolic Panel 05/14/22 Range/Units 15:11 Sodium 136 L (137-145) mmol/L Potassium 4.2 (3.5-5.1) mmol/L Chloride 92 L (98-107) mmol/L Carbon Dioxide 32 H (22-30) mmol/L BUN 35 H (9-20) mg/dL Creatinine 1.99 H (0.66-1.25) mg/dL Glucose 123 H (74-99) mg/dL Calcium 9.1 (8.4-10.2) mg/dL AST 29 (17-59) U/L ALT 11 (4-49) U/L Alkaline Phosphatase 77 (38-126) U/L Total Protein 8.4 H (6.3-8.2) g/dL Albumin 4.2 (3.5-5.0) g/dL Current Medications Generic Name Dose Route Start Last Admin Trade Name Freq PRN Reason Stop Dose Admin Aspirin 81 mg 05/15/22 09:00 Aspirin 81 Mg PO DAILY [facility] Atorvastatin Calcium 10 mg 05/14/22 21:00 05/14/22 22:44 Atorvastatin 10 Mg Tab PO 10 mg HS HANNA Administration Cyanocobalamin 1,000 mcg 05/15/22 09:00 Cyanocobalamin 500 Mcg Tab PO DAILY [facility] Dextrose/Water 25 ml 05/14/22 17:38 Dextrose 50% Syringe 50 Ml IVP PER PROTOCOL PRN Hypoglycemia Protocol Dextrose/Water 50 ml 05/14/22 17:38 Dextrose 50% Syringe 50 Ml IVP PER PROTOCOL PRN Hypoglycemia Protocol Famotidine 20 mg 05/14/22 21:00 05/14/22 22:44 Famotidine 20 Mg Tab PO 20 mg BID HANNA Administration Furosemide 40 mg 05/14/22 17:00 05/15/22 01:42 Furosemide 10 Mg/Ml 4 Ml Vial IV 40 mg Q8HR [facility] Administration Insulin Aspart 0 unit 05/14/22 21:00 05/14/22 22:44 Insulin Aspart (Novolog) 100 Unit/Ml Vial SQ Not Given ACHS [facility] Protocol Insulin Detemir 12.5 unit 05/14/22 18:00 05/14/22 18:47 Insulin Detemir (Levemir) 100 Unit/Ml Syr SQ 12.5 unit DAILY@1800 [facility] Administration Metolazone 5 mg 05/20/22 09:00 Metolazone 5 Mg Tab PO TH [facility] Metoprolol Tartrate 25 mg 05/14/22 21:00 05/14/22 22:44 Metoprolol Tartrate 25 Mg Tab PO 25 mg BID HANNA Administration Miscellaneous Information 1 each 05/14/22 17:20 Warfarin Per Pharmacy MISCELLANE DIRECTED PRN Per Protocol Multivitamins 1 each 05/15/22 09:00 Multivitamins, Thera 1 Each Tab PO DAILY [facility] Naloxone HCl 0.2 mg 05/14/22 17:11 Naloxone 0.4 Mg/Ml 1 Ml Vial IV Q2M PRN Opioid Reversal Nitroglycerin 1 inch 05/14/22 18:00 05/15/22 02:23 Nitroglycerin Oint 1 Inch/Gm Packet TOPICAL Not Given QID HANNA Nitroglycerin 0.4 mg 05/14/22 17:15 Nitroglycerin Sl Tabs 0.4 Mg Tab SUBLINGUAL Q5M PRN Chest Pain Sodium Chloride 10 ml 05/14/22 21:00 05/14/22 22:45 Sodium Chloride 0.9% Flush 10 Ml Syringe IV 10 ml BID AHNNA Administration Intake and Output 05/14/22 05/14/22 05/15/22 14:59 22:59 06:59 Output Total 425 Balance -425 Output: Urine 425 Other: Voiding Method Urinal Urinal # Voids 1 Weight 75.705 kg 77.2 kg Patient Weight 05/15/22 06:59 Weight 77.2 kg 05/14/22 15:11 05/14/22 15:11 Assessment and Plan Assessment: Assessment #1 heart failure exacerbation secondary to heart failure with preserved ejection fraction with evidence of right and left heart failure #2 permanent atrial fibrillation was controlled heart rate #3 bilateral pleural effusion secondary to the heart failure #4 severe pulmonary hypertension #5 coronary artery disease #6 chronic kidney disease Plan #1 continue the current dose of Lasix IV. #2 continue monitor the kidney function and electrolytes #3 avoid aggressive blood pressure control in the light of severe pulmonary hypertension #4 continue Coumadin for anticoagulation #5 follow-up with the
[2022-05-15 07:10] LABS: Glucose,Whole Blood 106 mg/dL (70-110)
[2022-05-15 08:26] LABS: INR 1.3 (<1.2); Prothrombin Time 13.2 sec (9.0-12.0)
[2022-05-15] MEDS: INSULIN ASPART (NovoLOG) 100 UNIT/ML VIAL SQ SCH ×4 (08:30→21:21)
[2022-05-15] MEDS: FAMOTIDINE 20 MG TAB PO SCH (08:40)
[2022-05-15] MEDS: CYANOCOBALAMIN 500 MCG TAB PO SCH (08:40)
[2022-05-15] MEDS: ASPIRIN 81 MG PO SCH (08:40)
[2022-05-15] MEDS: MULTIVITAMINS, THERA 1 EACH TAB PO SCH (08:40)
[2022-05-15] MEDS: METOPROLOL TARTRATE 25 MG TAB PO SCH ×2 (08:40→21:20)
[2022-05-15 08:53] LABS: Calcium 8.9 mg/dL (8.4-10.2); Magnesium 2.2 mg/dL (1.6-2.3); Potassium 3.6 mmol/L (3.5-5.1)
[2022-05-15] MEDS ORDERED: ASPIRIN 325 MG TAB PO SCH (09:00)
--- NOTE | 2022-05-15 10:16 | P.PN ---
Subjective Progress Note Date: 05/15/22 Principal diagnosis: CHF Hospital Course: 82-year-old male with history of diastolic heart failure, COPD, severe pulmonary hypertension, persistent atrial fibrillation presenting with dyspnea on exertion and orthopnea. Patient was admitted for acute on chronic diastolic heart failure exacerbation. He is being diuresed with IV Lasix. Subjective: Patient seen and examined at bedside. No acute events overnight. He claims that his breathing has improved. He was able to walk to the bathroom without getting short of breath. He was able to lie down flat for a few hours. He denies any chest pain, palpitations, abdominal pain, nausea, vomiting, diarrhea or constipation, or urinary complaints. Pertinent positives and negatives as discussed above, a complete review of systems was performed and all other systems are negative. Vitals Signs Reviewed. General: nontoxic, no distress, appears at stated age Derm: warm, dry Head: atraumatic, normocephalic, symmetric Eyes: EOMI, no lid lag, anicteric sclera Mouth: no lip lesion, mucus membranes moist Cardiovascular: S1S2 reg, no murmur Lungs: Bilateral rales up to mid lungs more prominent on the right, no accessory muscle use Abdominal: soft, nontender to palpation, no guarding, no appreciable organomegaly Ext: no gross muscle atrophy, no edema, no contractures Neuro: CN II-XI grossly intact, no focal neuro deficits Psych: Alert, oriented, appropriate affect Assessment and Plan: Acute hypoxic respiratory failure Acute on chronic diastolic heart failure Bilateral pleural effusions -Last echo in 04/19 showed LVEF 55-60%, severe pulmonary hypertension -on IV Lasix 40 every 8 hours -Monitor I's and O's, urine output -Cardiology consult - continue current therapy, avoid aggressive blood pressure control due to severe pulmonary hypertension -Patient agrees to speak with palliative care, consult pending Elevated troponin -No active chest pain -Likely in the setting of demand ischemia -Troponin flat -EKG shows ventricularly paced rhythm -Aspirin and statin Persistent atrial fibrillation SSS s/p PM Subtherapeutic INR -Pharmacy to dose warfarin Diabetes melitis -Continue home glargine -Sliding-scale insulin -A1c 6.1 Chronic medical problems: CAD Hypertension Dyslipidemia PVD History of bladder cancer - Continue home medications F: Oral E: Replete as needed N: Heart healthy A: Early ambulation DVT ppx: On warfarin Code status: DO NOT RESUSCITATE/DO NOT INTUBATE Anticipated discharge place: Home Anticipated discharge time: 05/16/22 Objective - Vital Signs Vital signs: Vital Signs Temp 98.1 F 05/15/22 04:00 Pulse 54 L 05/15/22 04:00 Resp 18 05/15/22 04:00 BP 125/71 05/15/22 04:00 Pulse Ox 90 L 05/15/22 04:00 FiO2 Intake & Output 05/14/22 05/15/22 05/15/22 18:59 06:59 18:59 Intake Total 120 Output Total 425 Balance -425 120 Weight 75.705 kg 77 kg Intake: Oral 120 Output: Urine 425 Other: Voiding Method Urinal # Voids 1 - Labs CBC & Chem 7: 05/14/22 15:11 05/15/22 07:24 Labs: Abnormal Lab Results - Last 24 Hours (Table) 05/14/22 05/14/22 05/14/22 Range/Units 15:11 15:11 15:11 RBC 3.20 L (4.30-5.90) m/uL Hgb 10.4 L (13.0-17.5) gm/dL Hct 32.6 L (39.0-53.0) % MCV 101.9 H (80.0-100.0) fL Lymphocytes # 0.9 L (1.0-4.8) k/uL PT 13.4 H (9.0-12.0) sec INR 1.3 H (<1.2) Sodium 136 L (137-145) mmol/L Chloride 92 L (98-107) mmol/L Carbon Dioxide 32 H (22-30) mmol/L BUN 35 H (9-20) mg/dL Creatinine 1.99 H (0.66-1.25) mg/dL Glucose 123 H (74-99) mg/dL POC Glucose (mg/dL) (70-110) mg/dL Hemoglobin A1c (0.0-6.0) % Troponin I (0.000-0.034) ng/mL Total Protein 8.4 H (6.3-8.2) g/dL 05/14/22 05/14/22 05/14/22 Range/Units 15:11 17:12 18:44 RBC (4.30-5.90) m/uL Hgb (13.0-17.5) gm/dL Hct (39.0-53.0) % MCV (80.0-100.0) fL Lymphocytes # (1.0-4.8) k/uL PT (9.0-12.0) sec INR (<1.2) Sodium (137-145) mmol/L Chloride (98-107) mmol/L Carbon Dioxide (22-30) mmol/L BUN (9-20) mg/dL Creatinine (0.66-1.25) mg/dL Glucose (74-99) mg/dL POC Glucose (mg/dL) 153 H (70-110) mg/dL Hemoglobin A1c (0.0-6.0) % Troponin I 0.040 H* 0.038 H* (0.000-0.034) ng/mL Total Protein (6.3-8.2) g/dL 05/14/22 05/14/22 05/14/22 Range/Units 19:48 19:48 22:37 RBC (4.30-5.90) m/uL Hgb (13.0-17.5) gm/dL Hct (39.0-53.0) % MCV (80.0-100.0) fL Lymphocytes # (1.0-4.8) k/uL PT (9.0-12.0) sec INR (<1.2) Sodium (137-145) mmol/L Chloride (98-107) mmol/L Carbon Dioxide (22-30) mmol/L BUN (9-20) mg/dL Creatinine (0.66-1.25) mg/dL Glucose (74-99) mg/dL POC Glucose (mg/dL) 111 H (70-110) mg/dL Hemoglobin A1c 6.1 H (0.0-6.0) % Troponin I 0.047 H* (0.000-0.034) ng/mL Total Protein (6.3-8.2) g/dL 05/15/22 05/15/22 Range/Units 07:24 07:24 RBC (4.30-5.90) m/uL Hgb (13.0-17.5) gm/dL Hct (39.0-53.0) % MCV (80.0-100.0) fL Lymphocytes # (1.0-4.8) k/uL PT 13.2 H (9.0-12.0) sec INR 1.3 H (<1.2) Sodium (137-145) mmol/L Chloride 90 L (98-107) mmol/L Carbon Dioxide 38 H (22-30) mmol/L BUN 38 H (9-20) mg/dL Creatinine 1.72 H (0.66-1.25) mg/dL Glucose (74-99) mg/dL POC Glucose (mg/dL) (70-110) mg/dL Hemoglobin A1c (0.0-6.0) % Troponin I (0.000-0.034) ng/mL Total Protein (6.3-8.2) g/dL
[2022-05-15 11:42] VITALS: BMI 27.3
[2022-05-15 12:35] LABS: Glucose,Whole Blood 133 mg/dL (70-110)
[2022-05-15 16:19] LABS: Glucose,Whole Blood 117 mg/dL (70-110)
[2022-05-15] MEDS ORDERED: WARFARIN 1.25 MG TAB PO ONE (18:00)
[2022-05-15] MEDS: INSULIN DETEMIR (LEVEMIR) 100 UNIT/ML SYR SQ SCH (18:36)
[2022-05-15 20:00] LABS: Glucose,Whole Blood 104 mg/dL (70-110)
[2022-05-15] MEDS: ATORVASTATIN 10 MG TAB PO SCH (21:20)
--- NOTE | 2022-05-16 05:44 | P.PN ---
Subjective Progress Note Date: 05/16/22 Principal diagnosis: Heart failure with preserved ejection fraction This is a pleasant 82-year-old gentleman with a past medical history significant for mild nonobstructive coronary artery disease as well as heart failure with preserved ejection fraction and also permanent atrial fibrillation and status post permanent pacemaker and also history of bladder cancer presented to the hospital complaining of shortness of breath which has progressed for the last few weeks associated with bilateral lower extremities edema. He is known to have heart failure with preserved ejection fraction but he stated that he has been compliant with all of his medications including Lasix. Beside that he reports no fever and no chills. No cough or wheezing. No symptoms of chest pain or chest discomfort and no dizziness or lightheadedness or any feeling of heart racing or fluttering or presyncope or syncope. The EKG showed underlying atrial fibrillation with ventricular paced rhythm. The chest x-ray showed bilateral pleural effusion and finding consistent with CHF. An K proBNP came in to be elevated at 11,000. The patient subsequently was diagnosed with heart failure clinically and he was started on Lasix IV. He was seen this morning he states that the shortness of breath has been better. Recent echocardiogram showed preserved left ventricular systolic function was evidence of severe pulmonary hypertension and mild to moderate tricuspid regurgitation but no significant left sided valvular abnormalities noted. May [id number] The patient was seen and evaluated this morning. Clinically is doing better. The shortness of breath has improved. The lower extremities edema also has improved. The majority he is stable was marginally low blood pressure but above 90 mmHg systolic. Currently he is on Lasix 40 mg IV twice a day. The creatinine is slightly better compared to yesterday. From a cardiovascular standpoint of view, I would advise continue the IV Lasix for additional 24 hours. Continue monitor the kidney function and electrolytes and follow-up with the patient Objective - Vital Signs Vital signs: Vital Signs Temp 96.7 F L 05/16/22 04:00 Pulse 50 L 05/16/22 04:00 Resp 16 05/16/22 04:00 BP 99/53 05/16/22 04:00 Pulse Ox 97 05/16/22 04:00 FiO2 Intake & Output 05/15/22 05/15/22 05/16/22 06:59 18:59 06:59 Intake Total 240 Output Total 425 0 0 Balance -425 240 0 Weight 77 kg 77 kg 76.7 kg Intake: Oral 240 Output: Urine 425 0 Stool 0 0 Urine/Stool Mix 0 Other: Voiding Method Urinal Urinal Urinal # Voids 1 0 2 # Bowel Movements 0 - Constitutional General appearance: Present: no acute distress - Respiratory Respiratory: bilateral: diminished - Cardiovascular Rhythm: irregularly irregular Heart sounds: normal: S1, S2 Abnormal Heart Sounds: Present: systolic murmur - Labs CBC & Chem 7: 05/14/22 15:11 05/15/22 07:24 Labs: Abnormal Lab Results - Last 24 Hours (Table) 05/15/22 05/15/22 05/15/22 Range/Units 07:24 07:24 12:33 PT 13.2 H (9.0-12.0) sec INR 1.3 H (<1.2) Chloride 90 L (98-107) mmol/L Carbon Dioxide 38 H (22-30) mmol/L BUN 38 H (9-20) mg/dL Creatinine 1.72 H (0.66-1.25) mg/dL POC Glucose (mg/dL) 133 H (70-110) mg/dL 05/15/22 Range/Units 16:18 PT (9.0-12.0) sec INR (<1.2) Chloride (98-107) mmol/L Carbon Dioxide (22-30) mmol/L BUN (9-20) mg/dL Creatinine (0.66-1.25) mg/dL POC Glucose (mg/dL) 117 H (70-110) mg/dL Assessment and Plan Assessment: Assessment #1 heart failure exacerbation secondary to heart failure with preserved ejection fraction with evidence of right and left heart failure #2 permanent atrial fibrillation was controlled heart rate #3 bilateral pleural effusion secondary to the heart failure #4 severe pulmonary hypertension #5 permanent pacemaker implantation #6 chronic kidney disease Plan #1 continue the current dose of Lasix IV for additional 24-hour #2 continue monitor the kidney function and electrolytes #3 continue Coumadin for anticoagulation #4 follow-up with the patient
[2022-05-16 06:35] LABS: Glucose,Whole Blood 85 mg/dL (70-110)
[2022-05-16 07:09] LABS: Calcium 8.7 mg/dL (8.4-10.2); INR 1.3 (<1.2); Magnesium 2.1 mg/dL (1.6-2.3); Potassium 3.6 mmol/L (3.5-5.1); Prothrombin Time 13.6 sec (9.0-12.0)
[2022-05-16] MEDS: INSULIN ASPART (NovoLOG) 100 UNIT/ML VIAL SQ SCH ×4 (08:05→21:02)
[2022-05-16] MEDS: METOPROLOL TARTRATE 25 MG TAB PO SCH ×2 (08:18→21:06)
[2022-05-16] MEDS: ASPIRIN 81 MG PO SCH (08:18)
[2022-05-16] MEDS: FUROSEMIDE 10 MG/ML 4 ML VIAL IV SCH ×2 (08:18→15:42)
[2022-05-16] MEDS: FAMOTIDINE 20 MG TAB PO SCH (08:18)
[2022-05-16] MEDS: MULTIVITAMINS, THERA 1 EACH TAB PO SCH (08:18)
[2022-05-16] MEDS: CYANOCOBALAMIN 500 MCG TAB PO SCH (08:18)
--- NOTE | 2022-05-16 09:32 | P.PN ---
Subjective Progress Note Date: 05/16/22 Principal diagnosis: CHF Hospital Course: 82-year-old male with history of diastolic heart failure, COPD, severe pulmonary hypertension, persistent atrial fibrillation presenting with dyspnea on exertion and orthopnea. Patient was admitted for acute on chronic diastolic heart failure exacerbation. He is being diuresed with IV Lasix. Cardiology consulted. Would like to keep him for another day for IV diuretics. Likely discharge tomorrow on PO lasix. Subjective: Patient seen and examined at bedside. No acute events overnight. He claims that his breathing has improved. He was able to walk to the bathroom without getting short of breath. He was able to lie down flat for a few hours. He denies any chest pain, palpitations, abdominal pain, nausea, vomiting, diarrhea or constipation, or urinary complaints. Pertinent positives and negatives as discussed above, a complete review of systems was performed and all other systems are negative. Vitals Signs Reviewed. General: nontoxic, no distress, appears at stated age Derm: warm, dry Head: atraumatic, normocephalic, symmetric Eyes: EOMI, no lid lag, anicteric sclera Mouth: no lip lesion, mucus membranes moist Cardiovascular: S1S2 reg, no murmur Lungs: Bilateral rales up to mid lungs more prominent on the right, no accessory muscle use Abdominal: soft, nontender to palpation, no guarding, no appreciable organomegaly Ext: no gross muscle atrophy, no edema, no contractures Neuro: CN II-XI grossly intact, no focal neuro deficits Psych: Alert, oriented, appropriate affect Assessment and Plan: Acute hypoxic respiratory failure Acute on chronic diastolic heart failure Bilateral pleural effusions -Last echo in 04/19 showed LVEF 55-60%, severe pulmonary hypertension -on IV Lasix 40 every 8 hours -Monitor I's and O's, urine output -Cardiology consult - continue current therapy, avoid aggressive blood pressure control due to severe pulmonary hypertension -Patient agrees to speak with palliative care, consult pending Elevated troponin -No active chest pain -Likely in the setting of demand ischemia -Troponin flat -EKG shows ventricularly paced rhythm -Aspirin and statin Persistent atrial fibrillation SSS s/p PM Subtherapeutic INR -Pharmacy to dose warfarin Diabetes melitis -Continue home glargine -Sliding-scale insulin -A1c 6.1 Chronic medical problems: CAD Hypertension Dyslipidemia CKD PVD History of bladder cancer - Continue home medications F: Oral E: Replete as needed N: Heart healthy A: Early ambulation DVT ppx: On warfarin Code status: DO NOT RESUSCITATE/DO NOT INTUBATE Anticipated discharge place: Home Anticipated discharge time: 05/17/22 Objective - Vital Signs Vital signs: Vital Signs Temp 97.7 F 05/16/22 08:24 Pulse 52 L 05/16/22 08:24 Resp 18 05/16/22 08:24 BP 105/48 05/16/22 08:24 Pulse Ox 98 05/16/22 08:24 FiO2 Intake & Output 05/15/22 05/16/22 05/16/22 18:59 06:59 18:59 Intake Total 240 125 Output Total 0 0 Balance 240 0 125 Weight 77 kg 76.7 kg Intake: IV 5 Invasive Line 1 5 Oral 240 120 Output: Urine 0 Stool 0 0 Urine/Stool Mix 0 Other: Voiding Method Urinal Urinal Urinal # Voids 0 2 # Bowel Movements 0 - Labs CBC & Chem 7: 05/14/22 15:11 05/16/22 06:15 Labs: Abnormal Lab Results - Last 24 Hours (Table) 05/15/22 05/15/22 05/16/22 Range/Units 12:33 16:18 06:15 PT 13.6 H (9.0-12.0) sec INR 1.3 H (<1.2) Sodium (137-145) mmol/L Chloride (98-107) mmol/L Carbon Dioxide (22-30) mmol/L BUN (9-20) mg/dL Creatinine (0.66-1.25) mg/dL POC Glucose (mg/dL) 133 H 117 H (70-110) mg/dL 05/16/22 Range/Units 06:15 PT (9.0-12.0) sec INR (<1.2) Sodium 136 L (137-145) mmol/L Chloride 89 L (98-107) mmol/L Carbon Dioxide 39 H (22-30) mmol/L BUN 38 H (9-20) mg/dL Creatinine 1.77 H (0.66-1.25) mg/dL POC Glucose (mg/dL) (70-110) mg/dL
[2022-05-16] MEDS: NITROGLYCERIN OINT 1 INCH/GM PACKET TOPICAL SCH ×4 (10:23→21:07)
[2022-05-16 11:58] LABS: Glucose,Whole Blood 99 mg/dL (70-110)
[2022-05-16 16:51] LABS: Glucose,Whole Blood 101 mg/dL (70-110)
[2022-05-16] MEDS: INSULIN DETEMIR (LEVEMIR) 100 UNIT/ML SYR SQ SCH (17:05)
[2022-05-16] MEDS ORDERED: WARFARIN 2 MG TAB PO ONE (18:00)
[2022-05-16 20:08] LABS: Glucose,Whole Blood 131 mg/dL (70-110)
[2022-05-16] MEDS: ATORVASTATIN 10 MG TAB PO SCH (21:07)
[2022-05-17] MEDS: FUROSEMIDE 10 MG/ML 4 ML VIAL IV SCH ×2 (00:17→08:26)
[2022-05-17 06:11] LABS: Glucose,Whole Blood 99 mg/dL (70-110)
[2022-05-17] MEDS: INSULIN ASPART (NovoLOG) 100 UNIT/ML VIAL SQ SCH ×2 (06:24→12:20)
[2022-05-17 06:51] LABS: INR 1.3 (<1.2); Prothrombin Time 13.4 sec (9.0-12.0)
[2022-05-17 07:27] LABS: Calcium 8.9 mg/dL (8.4-10.2); Magnesium 2.1 mg/dL (1.6-2.3); Potassium 3.3 mmol/L (3.5-5.1)
[2022-05-17] MEDS ORDERED: POTASSIUM CHLORIDE ER 20 MEQ TAB.ER PO STA (07:57)
[2022-05-17] MEDS: CYANOCOBALAMIN 500 MCG TAB PO SCH (08:26)
[2022-05-17] MEDS: MULTIVITAMINS, THERA 1 EACH TAB PO SCH (08:27)
[2022-05-17] MEDS: ASPIRIN 81 MG PO SCH (08:27)
[2022-05-17] MEDS: METOPROLOL TARTRATE 25 MG TAB PO SCH (08:27)
[2022-05-17] MEDS: FAMOTIDINE 20 MG TAB PO SCH (08:27)
[2022-05-17] MEDS: NITROGLYCERIN OINT 1 INCH/GM PACKET TOPICAL SCH ×2 (08:36→12:21)
--- NOTE | 2022-05-17 08:44 | P.DS ---
Providers Date of admission: 05/14/22 16:53 Expected date of discharge: 05/17/22 Attending physician: Cr Leyva MD Consults: 05/14/22 16:52 Consult Physician Routine Consulting Provider: Sebastien De Souza Consult Reason/Comments: chf Do you want consulting provider notified?: Yes 05/14/22 17:25 Consult to Palliative Care Routine Consulting Provider: Tracy Swanson Consult Reason/Comments: end stage CHF Do you want consulting provider notified?: Yes, Notify in am Primary care physician: Lonnie [place] Hospital Course: Patient is a 82-year-old male with history of bladder cancer status post resection, diastolic heart failure, CAD, severe pulmonary hypertension, sick sinus syndrome status post pacemaker, persistent A. fib, diabetes presenting with worsening shortness of breath and orthopnea. Patient was recently admitted in 04/19 for UTI. He claims that ever since going home he has not been able to get back to his usual state of health. Soon after going home, he started to develop orthopnea and PND. Started sleeping in his recliner chair. He has noticed some worsening office peripheral edema as well. He is also dyspneic with exertion, can only walk 70 feet. He does not climb any stairs. He denies any worsening cough, chest pain, palpitations, abdominal pain, nausea, vomiting, diarrhea, constipation, or urinary complaints. He denies any recent travel history, or sick contacts. He claims that he is compliant with his medications, and diet. In the ED, his pulse ox was 82% on room air, increased to 100% on 2 L. Rest of the vitals were otherwise stable. His labs were mostly unremarkable except for troponin of 0.04 and proBNP of 11,200. His chest x-ray demonstrated bilateral pleural effusions which are similar to prior. His EKG showed v-paced rhythm. He was COVID-19 negative. Patient was noted to have an echocardiogram on March 2022 which showed EF of 55-60% with severe pulmonary hypertension. He was started on Lasix 40 mg IV times a day. Cardiology was consulted and followed the patient during his hospitalization. Patient was noted to have elevated troponins of 0.04, 0.038, 0.047 with EKG showing no ST elevation. This was thought to be demand ischemia. Acute coronary syndrome was ruled out. Patient diuresed well and his oxygen requirements went down. Patient was seen and examined. No acute events overnight. Patient reports feeling almost at baseline. He denies any chest pain, shortness of breath or palpitations. No nausea or vomiting. No fever or chills. Would like to go home. General: nontoxic, no distress, appears at stated age Derm: warm, dry Head: atraumatic, normocephalic, symmetric Eyes: EOMI, no lid lag, anicteric sclera Mouth: no lip lesion, mucus membranes moist Cardiovascular: S1S2 reg, no murmur Lungs: Decreased breath sounds bilaterally, no accessory muscle use Ext: no gross muscle atrophy, no edema, no contractures Neuro: no focal neuro deficits Psych: Alert, oriented, appropriate affect Discharge diagnosis: Acute hypoxic respiratory failure Acute on chronic diastolic heart failure Bilateral pleural effusions Elevated troponin Persistent atrial fibrillation Diabetes melitis CAD Hypertension Dyslipidemia CKD PVD This complex discharge took about 45 minutes to complete. Pertinent Studies: Chest x-ray Patient Condition at Discharge: Stable Plan - Discharge Summary Discharge Rx Participant: No New Discharge Prescriptions: No Action Metoprolol Tartrate [Lopressor] 25 mg PO BID Lovastatin [Mevacor] 40 mg PO HS Warfarin [Coumadin] 1 mg PO DAILY@1700 Insulin Glargine,Hum.rec.anlog [Lantus Solostar Pen] 12.5 unit SQ DAILY@1800 Cyanocobalamin (Vitamin B-12) [Vitamin B-12] 1,000 mcg PO DAILY Multivitamins, Thera [Multivitamin (formulary)] 1 tab PO DAILY metOLazone [Zaroxolyn] 5 mg PO TH Furosemide [Lasix] 40 mg PO BID@0900,1600 #60 tab Nitroglycerin Sl Tabs [Nitrostat] 0.4 mg SUBLINGUAL Q5M PRN PRN Reason: Chest Pain Famotidine [Pepcid] 20 mg PO BID Dapagliflozin Propanediol [Farxiga] 10 mg PO DAILY Discharge Medication List Metoprolol Tartrate [Lopressor] 25 mg PO BID 02/28/14 [History] Lovastatin [Mevacor] 40 mg PO HS 12/14/18 [History] Insulin Glargine,Hum.rec.anlog [Lantus Solostar Pen] 12.5 unit SQ DAILY@1800 05/26/20 [History] Warfarin [Coumadin] 1 mg PO DAILY@1700 05/26/20 [History] Cyanocobalamin (Vitamin B-12) [Vitamin B-12] 1,000 mcg PO DAILY 09/06/21 [History] metOLazone [Zaroxolyn] 5 mg PO TH 09/06/21 [History] Furosemide [Lasix] 40 mg PO BID@0900,1600 #60 tab 04/22/22 [Rx] Dapagliflozin Propanediol [Farxiga] 10 mg PO DAILY 05/14/22 [History] Famotidine [Pepcid] 20 mg PO BID 05/14/22 [History] Multivitamins, Thera [Multivitamin (formulary)] 1 tab PO DAILY 05/14/22 [History] Nitroglycerin Sl Tabs [Nitrostat] 0.4 mg SUBLINGUAL Q5M PRN 05/14/22 [History] Follow up Appointment(s)/Referral(s): Lonnie Hewitt DO [Primary Care Provider] - 1-2 days
[2022-05-17 09:45] VITALS: BP 105/49; RESP 16; TEMP 98.6
--- NOTE | 2022-05-17 10:38 | P.CONS ---
History of Present Illness - Reason for Consult Consult date: 05/17/22 Goals of care/end stage CHF Requesting physician: Cr Leyva - Chief Complaint Shortness of breath - History of Present Illness Patient is a 82-year-old male with history of bladder cancer status post resection, diastolic heart failure, CAD, severe pulmonary hypertension, sick sinus syndrome status post pacemaker, persistent A. fib, diabetes presenting with worsening shortness of breath and orthopnea. Patient was recently admitted in 04/19 for UTI. He claims that ever since going home he has not been able to get back to his usual state of health. Soon after going home, he started to develop orthopnea and PND. Started sleeping in his recliner chair. He has noticed some worsening office peripheral edema as well. He is also dyspneic with exertion, can only walk 70 feet. He does not climb any stairs. He denies any worsening cough, chest pain, palpitations, abdominal pain, nausea, vomiting, diarrhea, constipation, or urinary complaints. He denies any recent travel history, or sick contacts. He claims that he is compliant with his medications, and diet. In the ED, his pulse ox was 82% on room air, increased to 100% on 2 L. Rest of the vitals were otherwise stable. His labs were mostly unremarkable except for troponin of 0.04 and proBNP of 11,200. His chest x-ray demonstrated bilateral pleural effusions which are similar to prior. His EKG showed v-paced rhythm. He was COVID-19 negative. Patient was noted to have an echocardiogram on March 2022 which showed EF of 55-60% with severe pulmonary hypertension. He was started on Lasix 40 mg IV times a day. Cardiology was consulted and followed the patient during his hospitalization. Patient was noted to have elevated troponins of 0.04, 0.038, 0.047 with EKG showing no ST elevation. This was thought to be demand ischemia. Acute coronary syndrome was ruled out. Patient diuresed well and his oxygen requirements went down. 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, past L pleural effusion with thoracentesis, DVT L lower extremity, BPH with surgery, CKD, kiney stones with surgery, abdominal aortic aneurysm being monitored every 6 months, STEPHAN-unable to tolerate CPap, SSS with pacemaker, vertigo in the past, seasonal allergies History of Any Multi-Drug Resistant Organisms: None Reported Past Surgical History: Heart Catheterization, Pacemaker, Prostate Surgery Additional Past Surgical History / Comment(s): Pacemaker inserted 01/01/09 and gen change 04/11/18, TURP, ESWL, cysto/TURP, colonoscopy, "scraped bladder out" with adamson catheter inserted 04/14/22 Past Anesthesia/Blood Transfusion Reactions: Motion Sickness Type of Cardiac Device: Permanent Pacemaker Device Placement Date:: 01/01/2009 and gen change 03/2018 Past Psychological History: No Psychological Hx Reported Additional Psychological History / Comment(s): Lives at [facility] Smoking Status: Never smoker Past Alcohol Use History: None Reported Additional Past Alcohol Use History / Comment(s): Pt denies smoking history. Past Drug Use History: None Reported - Past Family History Mother Family Medical History: CVA/TIA, Hypertension Additional Family Medical History / Comment(s): Mother lived to be 85yrs old. Father Family Medical History: CVA/TIA Additional Family Medical History / Comment(s): Father from a CVA at the age of 78yrs. Medications and Allergies Home Medications Medication Instructions Recorded Confirmed Type Metoprolol Tartrate [Lopressor] 25 mg PO BID 02/28/14 05/14/22 History Lovastatin [Mevacor] 40 mg PO 12/14/18 05/14/22 History Insulin Glargine,Hum.rec.anlog 12.5 unit SQ DAILY@1800 05/26/20 05/14/22 History [Lantus Solostar Pen] Warfarin [Coumadin] 1 mg PO DAILY@1700 05/26/20 05/14/22 History Cyanocobalamin (Vitamin B-12) 1,000 mcg PO DAILY 09/06/21 05/14/22 History [Vitamin B-12] metOLazone [Zaroxolyn] 5 mg PO TH 09/06/21 05/14/22 History Furosemide [Lasix] 40 mg PO BID@0900,1600 #60 tab 04/22/22 05/14/22 Rx Dapagliflozin Propanediol [Farxiga] 10 mg PO DAILY 05/14/22 05/14/22 History Famotidine [Pepcid] 20 mg PO BID 05/14/22 05/14/22 History Multivitamins, Thera [Multivitamin 1 tab PO DAILY 05/14/22 05/14/22 History (formulary)] Nitroglycerin Sl Tabs [Nitrostat] 0.4 mg SUBLINGUAL Q5M PRN 05/14/22 05/14/22 History Aspirin 81 mg PO DAILY #30 tab 05/17/22 Rx Allergies Allergy/AdvReac Type Severity Reaction Status Date / Time doxazosin mesylate AdvReac see Verified 05/14/22 16:42 [From Cardura] comments finasteride [From Proscar] AdvReac see Verified 05/14/22 16:42 comments gatifloxacin [From Tequin] AdvReac see Verified 05/14/22 16:42 comments glipizide AdvReac see Verified 05/14/22 16:42 comments hydroxyzine HCl [From Atarax] AdvReac see Verified 05/14/22 16:42 comments levofloxacin [From Levaquin] AdvReac see Verified 05/14/22 16:42 comments lisinopril AdvReac see Verified 05/14/22 16:42 comments meperidine HCl [From Demerol] AdvReac see Verified 05/14/22 16:42 comments metformin AdvReac see Verified 05/14/22 16:42 comments oxybutynin AdvReac see Verified 05/14/22 16:42 comments oxybutynin chloride AdvReac see Verified 05/14/22 16:42 [From Ditropan] comments pseudoephedrine HCl AdvReac see Verified 05/14/22 16:42 [From Sudafed] comments rosuvastatin calcium AdvReac see Verified 05/14/22 16:42 [From Crestor] comments Sulfa (Sulfonamide AdvReac see Verified 05/14/22 16:42 Antibiotics) comments tamsulosin AdvReac see Verified 05/14/22 16:42 comments tamsulosin HCl [From Flomax] AdvReac see Verified 05/14/22 16:42 comments terazosin HCl [From Hytrin] AdvReac see Verified 05/14/22 16:42 comments Physical Exam Vitals: Vital Signs Temp Pulse Resp BP Pulse Ox 05/17/22 08:38 98 05/17/22 08:00 98.6 F 51 L 16 105/49 98 05/17/22 03:56 98.3 F 56 L 12 99/41 98 05/17/22 00:00 97.7 F 50 L 12 110/51 97 05/16/22 20:00 98.1 F 58 L 12 116/51 98 05/16/22 15:41 97.5 F L 51 L 18 102/48 91 L 05/16/22 11:06 97.6 F 50 L 16 88/46 98 Intake and Output 05/16/22 05/17/22 05/17/22 22:59 06:59 14:59 Intake Total 118 118 Output Total 350 Balance 118 -350 118 Intake: Oral 118 118 Output: Urine 350 Other: Voiding Method Toilet Urinal Urinal Urinal # Voids 2 Weight 74.4 kg General: Well developed, well nourished. No acute distress. Appears stated age. HEENT: Head is atraumatic, normocephalic. Sclerae are clear. Pupils equal, round and reactive to light bilaterally. Mucus membranes moist. CV: Heart regular in rate and rhythm positive S1 and S2. No clicks, rubs or murmurs. Lungs: Diminished bilateral bases. No wheezes rales or rhonchi. Respirations even and nonlabored. On 22L NC Abdomen/GI: Soft. Bowel sounds present in all 4 quadrants.No guarding, rigidity, or abdominal tenderness. Musculoskeletal/ Extremities: COPELAND, no joint deformity or swelling. No gross atrophy. + generalized weakness Vascular: Radial pulses equal. 2/4. +1 bilateral LE edema Skin: Warm and dry, No rash or lesions. Neurologic: Awake, alert and oriented times 3. CN II-XII grossly intact. No focal deficits. Psychiatric: Appropriate mood and affect. Results CBC & Chem 7: 05/14/22 15:11 05/17/22 05:27 Labs: Abnormal Lab Results - Last 24 Hours (Table) 05/16/22 05/17/22 05/17/22 Range/Units 20:06 05:27 05:27 PT 13.4 H (9.0-12.0) sec INR 1.3 H (<1.2) Sodium 136 L (137-145) mmol/L Potassium 3.3 L (3.5-5.1) mmol/L Chloride 88 L (98-107) mmol/L Carbon Dioxide 39 H (22-30) mmol/L BUN 44 H (9-20) mg/dL Creatinine 1.64 H (0.66-1.25) mg/dL POC Glucose (mg/dL) 131 H (70-110) mg/dL Abdominal x-ray: report reviewed Assessment and Plan Assessment: Social * Occupation - Retired. 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 3 boys and 1 girl * Residence - Moved to an assisted living apartment approximately 1 year ago * Who do you reside with - * ETOH - None * Tobacco - Never smoked * Illicit drugs - No Spiritual/Cultural * A spiritual person - Yes * Anglican - Yazidism * Belong to a particular jain - Left jain when they moved to assisted liveing * Beliefs a source of comfort and strength - yes * Protestant or cultural practices restrictions - no * EOL considerations/rituals - none Functional Assessment * Able to walk independently - yes * Assistive devices - none * Able to use the bathroom independently - yes * Continent - yes * Require assistance bathing- no * Able to feed self - yes * Who prepares meals - patient and together, they prepare 2 meals in their apt, assisted living provides a 3rd meal * How many meals a day eaten - 3 * What percentage of meals eaten daily - < 50% * Able to clean house/do laundry - No * Transportation - Patient stil drives * Able to shop - No * Who manages medications - Son * Who manages finances - Son * Psychological/Emotional * Dementia present - No * Insight and judgment - Intact * Depression - A little, because he had to sell his house and move * Suicidal thoughts - No * Good support system - Yes, family * Patients goals - Comfort * Frequent hospitalizations - No * Desire to keep coming back to the hospital for treatment - Yes Symptoms * Pain - 0/10 * Fatigue - + fatigue, low endurance * SOB - + sob with exertion, continue lasix and zaroxolyn * Insomnia - Yes, does not like to take sleeping pills, tried Melatonin without success * N/V - None * Anxiety - None * Depression -"a little" * Confusion - No * Agitation - No * Hallucinations - No * Appetite/weight loss - + decreased appetite in the last month, no recent weight loss * Dysphagia - None * Constipation - No, LBM today 05/17 * Incontinence - No, void per urinal * Itch - No Plan: Summary/Goals - The patient is very pleasant and resting in bed. No visitors present. Education regarding advanced CHF provided. The patient smiled and stated that he has had a good 82 years, what else could you want? Information about palliative care philosophies and services given to patient. He thought it would be a good idea to manage his symptoms better at home so he does not have to return to the hospital. He would like to talk to his son, because he it the one who manages his medical care and medication. Spoke to the patient's son, Simon, via telephone. He stated he thinks the patient would benefit from palliative care service. He does not think he is ready for hospice yet. He stated he would like to talk to his other brother and his mother before deciding. Information and contact information for OP palliative care left with patient. Recommendations - Discharge home with OP palliative care Advanced Directives - No Code Status - DNR Thank you for this consult Tracy Swanson [facility] Palliative Care [facility] [address] Email: [email or web address] Time with Patient: Greater than 30
[2022-05-17 11:33] LABS: Glucose,Whole Blood 131 mg/dL (70-110)
[2022-05-17 12:15] VITALS: PULSE 56
--- NOTE | 2022-05-17 13:25 | P.PN ---
Subjective Progress Note Date: 05/17/22 HISTORY OF PRESENT ILLNESS: This is a pleasant 82-year-old gentleman with a past medical history significant for mild nonobstructive coronary artery disease as well as heart failure with preserved ejection fraction and also permanent atrial fibrillation and status post permanent pacemaker and also history of bladder cancer presented to the hospital complaining of shortness of breath which has progressed for the last few weeks associated with bilateral lower extremities edema. He is known to have heart failure with preserved ejection fraction but he stated that he has been compliant with all of his medications including Lasix. Beside that he reports no fever and no chills. No cough or wheezing. No symptoms of chest pain or chest discomfort and no dizziness or lightheadedness or any feeling of heart racing or fluttering or presyncope or syncope. The EKG showed underlying atrial fibrillation with ventricular paced rhythm. The chest x-ray showed bilateral pleural effusion and finding consistent with CHF. An K proBNP came in to be elevated at 11,000. The patient subsequently was diagnosed with heart failure clinically and he was started on Lasix IV. He was seen this morning he states that the shortness of breath has been better. Recent echocardiogram showed preserved left ventricular systolic function was evidence of severe pulmonary hypertension and mild to moderate tricuspid regurgitation but no significant left sided valvular abnormalities noted. May [id number] The patient was seen and evaluated this morning. Clinically is doing better. T he shortness of breath has improved. The lower extremities edema also has improved. The majority he is stable was marginally low blood pressure but above 90 mmHg systolic. Currently he is on Lasix 40 mg IV twice a day. The creatinine is slightly better compared to yesterday. From a cardiovascular standpoint of view, I would advise continue the IV Lasix for additional 24 hours. Continue monitor the kidney function and electrolytes and follow-up with the patient 05/17/2022 This is an 82-year-old male who follows with Dr. Fall. Patient examined this morning at the bedside. Patient denies chest pain or pressure. Denies SOB. He remains on IV lasix. Vital signs are stable. PHYSICAL EXAM: VITAL SIGNS: Reviewed. GENERAL: Well-developed in no acute distress. NECK: Supple. No JVD or thyromegaly LUNGS: Respirations even and unlabored. Lungs essentially clear to auscultation bilaterally. HEART: Irregular rate and rhythm. S1 and S2 heard. + systolic murmur. EXTREMITIES: Normal range of motion. No clubbing or cyanosis. Peripheral pulses intact. No lower extremity edema ASSESSMENT: Shortness of breath Acute on chronic heart failure with preserved ejection fraction Permanent atrial fibrillation Bilateral pleural effusions Severe pulmonary hypertension History of permanent pacemaker implantation Chronic kidney disease PLAN: Continue current cardiac medications Patient has been cleared for DC from internal medicine He may be discharged home today from a cardiac standpoint Patient to resume Lasix 40mg BID upon discharge Nurse practitioner note has been reviewed by physician. Signing provider agrees with the documented findings, assessment, and plan of care. Objective - Vital Signs Vital signs: Vital Signs Temp 98.6 F 05/17/22 12:00 Pulse 56 L 05/17/22 12:00 Resp 16 05/17/22 12:00 BP 105/49 05/17/22 08:00 Pulse Ox 90 L 05/17/22 12:00 FiO2 Intake & Output 05/16/22 05/17/22 05/17/22 18:59 06:59 18:59 Intake Total 365 118 716 Output Total 0 350 Balance 365 -232 716 Weight 74.4 kg Intake: IV 5 Invasive Line 1 5 Oral 360 118 716 Output: Urine 350 Stool 0 Other: Voiding Method Urinal Urinal Urinal # Voids 2 2 - Labs CBC & Chem 7: 05/14/22 15:11 05/17/22 05:27 Labs: Abnormal Lab Results - Last 24 Hours (Table) 05/16/22 05/17/22 05/17/22 Range/Units 20:06 05:27 05:27 PT 13.4 H (9.0-12.0) sec INR 1.3 H (<1.2) Sodium 136 L (137-145) mmol/L Potassium 3.3 L (3.5-5.1) mmol/L Chloride 88 L (98-107) mmol/L Carbon Dioxide 39 H (22-30) mmol/L BUN 44 H (9-20) mg/dL Creatinine 1.64 H (0.66-1.25) mg/dL POC Glucose (mg/dL) 131 H (70-110) mg/dL 05/17/22 Range/Units 11:30 PT (9.0-12.0) sec INR (<1.2) Sodium (137-145) mmol/L Potassium (3.5-5.1) mmol/L Chloride (98-107) mmol/L Carbon Dioxide (22-30) mmol/L BUN (9-20) mg/dL Creatinine (0.66-1.25) mg/dL POC Glucose (mg/dL) 131 H (70-110) mg/dL
[2022-05-17] MEDS ORDERED: WARFARIN 3 MG TAB PO ONE (18:00)
[2022-05-20] MEDS ORDERED: metOLazone 5 MG TAB PO SCH (09:00)
== END 2022-05-17 14:19 | disposition home or self-care (01) | DRG 291 ==
LOC: EC 14:46 → 3SCARD 16:53
PROVIDERS: ADMIT Student in an Organized Health Care Education/Training Program; ATTEND Student in an Organized Health Care Education/Training Program
DX: I13.0 Hypertensive heart and chronic kidney disease with heart failure and stage 1 through stage 4 chronic kidney disease, or unspecified chronic kidney disease (principal); I50.33 Acute on chronic diastolic (congestive) heart failure; J96.01 Acute respiratory failure with hypoxia; I48.21 Permanent atrial fibrillation; E11.22 Type 2 diabetes mellitus with diabetic chronic kidney disease; E11.51 Type 2 diabetes mellitus with diabetic peripheral angiopathy without gangrene; E78.5 Hyperlipidemia, unspecified; F32.A Depression, unspecified; G47.00 Insomnia, unspecified; I07.1 Rheumatic tricuspid insufficiency; R77.8 Other specified abnormalities of plasma proteins; I25.10 Atherosclerotic heart disease of native coronary artery without angina pectoris; I27.20 Pulmonary hypertension, unspecified; Z79.01 Long term (current) use of anticoagulants; I49.5 Sick sinus syndrome; I50.84 End stage heart failure; J44.9 Chronic obstructive pulmonary disease, unspecified; N18.9 Chronic kidney disease, unspecified; I71.4 Abdominal aortic aneurysm, without rupture; N40.0 Benign prostatic hyperplasia without lower urinary tract symptoms; R79.1 Abnormal coagulation profile; Z20.822 Contact with and (suspected) exposure to COVID-19; Z66 Do not resuscitate; Z79.4 Long term (current) use of insulin; Z79.82 Long term (current) use of aspirin; Z79.84 Long term (current) use of oral hypoglycemic drugs; Z79.899 Other long term (current) drug therapy; Z82.3 Family history of stroke; Z82.49 Family history of ischemic heart disease and other diseases of the circulatory system; Z85.51 Personal history of malignant neoplasm of bladder; Z95.0 Presence of cardiac pacemaker; Z88.1 Allergy status to other antibiotic agents; Z88.2 Allergy status to sulfonamides; Z88.8 Allergy status to other drugs, medicaments and biological substances
CPT/HCPCS: 36415; 71046; 80048; 80053; 83036; 83605; 83735; 83880; 84484; 85025; 85610; 85730; 87502; 87635; 93005; 94760; 96374; 99285

== ENCOUNTER → 2022-12-01 | Outpatient (CLI) | payer MEDICARE ==
--- NOTE | 2022-12-01 11:13 | XR ---
EXAMINATION TYPE: XR chest 2V DATE OF EXAM: 12/01/2022 COMPARISON: 05/14/2022 TECHNIQUE: PA and lateral views submitted. HISTORY: Difficulty in breathing FINDINGS: Cardiac device is seen in this atherosclerotic change aorta. Heart is large with no overt failure. Th ere is right lower lobe infiltrate and small effusion. Underlying COPD suspected. Hypertrophic degene rative change of the spine. IMPRESSION: 1. Cardiomegaly, COPD with right lower lobe infiltrate and small pleural effusion.
== END | disposition home or self-care (01) ==
LOC: RADXRMAIN 10:44
PROVIDERS: ATTEND Nurse Practitioner Adult Health
DX: J44.9 Chronic obstructive pulmonary disease, unspecified (principal); I50.9 Heart failure, unspecified; J90 Pleural effusion, not elsewhere classified; I51.7 Cardiomegaly
CPT/HCPCS: 71046; 83880

== ENCOUNTER 2022-12-09 08:19 | Inpatient (IN) | payer MEDICARE ==
--- NOTE | 2022-12-09 09:00 | ED ---
General Adult HPI - General Chief complaint: Weakness Stated complaint: Weakness Time Seen by Provider: 12/09/22 08:40 Source: patient, family Mode of arrival: wheelchair Limitations: no limitations - History of Present Illness Initial comments: Dictation was produced using Kann[employer] dictation software. please excuse any grammatical, word or spelling errors. 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 fib, coronary artery disease, dyslipidemia and DVT. Presents to the emergency department today for with son for worsening debility. Patient has been the last several weeks been having lower extremity weakness. He has been having difficulty ambulating and performing his activities of daily living. He lives at home in an apartment with his who also is experiencing some worsening debility. Last night patient had an episode where he fell down. Patient states that his legs felt so weak and gave out. States that he hit the back of his head. He denies any loss of consciousness. Son reports that he had a discussion with his brother and [facility] They've been working on his weakness. Primary care doctor. They have scheduled an appointment with primary care doctor to address these issues next week. Patient has not noticed any symptoms when sitting at rest. States that he feels fine at the bedside in the rney. The ROS documented in this emergency department record has been reviewed and confirmed by me. Those systems with pertinent positive or negative responses have been documented in the HPI. All other systems are other negative and/or noncontributory. - Related Data Home Medications Medication Instructions Recorded Confirmed Metoprolol Tartrate [Lopressor] 25 mg PO BID 02/28/14 05/14/22 Lovastatin [Mevacor] 40 mg PO HS 12/14/18 05/14/22 Insulin Glargine,Hum.rec.anlog 12.5 unit SQ DAILY@1800 05/26/20 05/14/22 [Lantus Solostar Pen] Warfarin [Coumadin] 1 mg PO DAILY@1700 05/26/20 05/14/22 Cyanocobalamin (Vitamin B-12) 1,000 mcg PO DAILY 09/06/21 05/14/22 [Vitamin B-12] metOLazone [Zaroxolyn] 5 mg PO TH 09/06/21 05/14/22 Dapagliflozin Propanediol [Farxiga] 10 mg PO DAILY 05/14/22 05/14/22 Famotidine [Pepcid] 20 mg PO BID 05/14/22 05/14/22 Multivitamins, Thera [Multivitamin 1 tab PO DAILY 05/14/22 05/14/22 (formulary)] Nitroglycerin Sl Tabs [Nitrostat] 0.4 mg SUBLINGUAL Q5M PRN 05/14/22 05/14/22 Previous Rx's Medication Instructions Recorded Furosemide [Lasix] 40 mg PO BID@0900,1600 #60 tab 04/22/22 Aspirin 81 mg PO DAILY #30 tab 05/17/22 Allergies Allergy/AdvReac Type Severity Reaction Status Date / Time doxazosin mesylate AdvReac see Verified 12/09/22 08:38 [From Cardura] comments finasteride [From Proscar] AdvReac see Verified 12/09/22 08:38 comments gatifloxacin [From Tequin] AdvReac see Verified 12/09/22 08:38 comments glipizide AdvReac see Verified 12/09/22 08:38 comments hydroxyzine HCl [From Atarax] AdvReac see Verified 12/09/22 08:38 comments levofloxacin [From Levaquin] AdvReac see Verified 12/09/22 08:38 comments lisinopril AdvReac see Verified 12/09/22 08:38 comments meperidine HCl [From Demerol] AdvReac see Verified 12/09/22 08:38 comments metformin AdvReac see Verified 12/09/22 08:38 comments oxybutynin AdvReac see Verified 12/09/22 08:38 comments oxybutynin chloride AdvReac see Verified 12/09/22 08:38 [From Ditropan] comments pseudoephedrine HCl AdvReac see Verified 05/14/22 16:42 [From Sudafed] comments rosuvastatin calcium AdvReac see Verified 12/09/22 08:38 [From Crestor] comments Sulfa (Sulfonamide AdvReac see Verified 12/09/22 08:38 Antibiotics) comments tamsulosin AdvReac see Verified 12/09/22 08:38 comments tamsulosin HCl [From Flomax] AdvReac see Verified 12/09/22 08:38 comments terazosin HCl [From Hytrin] AdvReac see Verified 12/09/22 08:38 comments Review of Systems ROS Statement: Those systems with pertinent positive or pertinent negative responses have been documented in the HPI. ROS Other: All systems not noted in ROS Statement are negative. 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, past L pleural effusion with thoracentesis, DVT L lower extremity, BPH with surgery, CKD, kiney stones with surgery, abdominal aortic aneurysm being monitored every 6 months, STEPHAN-unable to tolerate CPap, SSS with pacemaker, vertigo in the past, seasonal allergies History of Any Multi-Drug Resistant Organisms: None Reported Past Surgical History: Heart Catheterization, Pacemaker, Prostate Surgery Additional Past Surgical History / Comment(s): Pacemaker inserted 01/01/09 and gen change 04/11/18, TURP, ESWL, cysto/TURP, colonoscopy, "scraped bladder out" with adamson catheter inserted 04/14/22 Past Anesthesia/Blood Transfusion Reactions: Motion Sickness Type of Cardiac Device: Permanent Pacemaker Device Placement Date:: 01/01/2009 and gen change 03/2018 Past Psychological History: No Psychological Hx Reported Smoking Status: Never smoker Past Alcohol Use History: None Reported Past Drug Use History: None Reported - Past Family History Mother Family Medical History: CVA/TIA, Hypertension Additional Family Medical History / Comment(s): Mother lived to be 85yrs old. Father Family Medical History: CVA/TIA Additional Family Medical History / Comment(s): Father from a CVA at the age of 78yrs. General Exam - General Exam Comments Initial Comments: PHYSICAL EXAM: General Impression: Alert and oriented x3, not in acute distress HEENT: Normocephalic atraumatic, extra-ocular movements intact, pupils equal and reactive to light bilaterally, mucous membranes moist. Cardiovascular: Heart regular rate and rhythm Chest: Able to complete full sentences, no retractions, no tachypnea Abdomen: abdomen soft, non-tender, non-distended, no organomegaly Musculoskeletal: Pulses present and equal in all extremities, no peripheral edema Motor: no focal deficits noted Neurological: CN II-XII grossly intact, no focal motor or sensory deficits noted Skin: Intact with no visualized rashes Psych: Normal affect and mood Limitations: no limitations Course Vital Signs 12/09/22 08:33 Temperature 97.6 F Pulse Rate 57 L Respiratory 18 Rate Blood Pressure 96/54 O2 Sat by Pulse 95 Oximetry EKG Findings - EKG Comments: EKG Findings:: My EKG interpretation: Ventricular rate 55, ventricular paced rhythm, QRS 179, QTC 268. No DC prolongation, no QTC prolongation, no ST or T- wave changes noted. No excessive discordance, no Concordant abnormalities. No myocardial infarction. Medical Decision Making - Medical Decision Making Was pt. sent in by a medical professional or institution (, PA, MINING AND QUARRYING MACHINERY REPAIRER, urgent care, hospital, or penitentiary...) When possible be specific @ -No Did you speak to anyone other than the patient for history (EMS, parent, family, police, friend...)? What history was obtained from this source @ -Son at the bedside reports that he is having worsening weakness. They were about his safety at home. He does not have significant assistance. Did you review nursing and triage notes (agree or disagree)? Why? @ -I reviewed and agree with nursing and triage notes Were old charts reviewed (outside hosp., previous admission, EMS record, old EKG, old radiological studies, urgent care reports/EKG's, penitentiary records)? Report findings @ -Prior cardiology progress notes a medical consultation was reviewed. Suggest that patient has acute on chronic heart failure severe pulmonary hypertension. He was evaluated by palliative care in April of last year. Differential Diagnosis (chest pain, altered mental status, abdominal pain women, abdominal pain men, vaginal bleeding, musculoskeletal, weakness, fever, dyspnea, syncope, headache, dizziness, GI bleed, back pain, seizure, CVA, palpatations, mental health)? @ -Differential Weakness: Hypoglycemia, shock, sepsis, hyponatremia, anemia, infection, [place], ETOH, adverse medicine reaction, overdose, stroke, this is not meant to be an all-inclusive list. EKG interpreted by me (3pts min.). @ -See above X-rays interpreted by me (1pt min.). @ -Chest x-ray is nonacute. CT interpreted by me (1pt min.). @ -CT of the C-spine and Brain shows no acute processes. U/S interpreted by me (1pt. min.). @ -None done What testing was considered but not performed or refused? (CT, X-rays, U/S, labs)? Why? @ -None What meds were considered but not given or refused? Why? @ -None Did you discuss the management of the patient with other professionals (professionals i.e. , PA, MINING AND QUARRYING MACHINERY REPAIRER, lab, RT, psych nurse, social media editor, laboratory development technician, teacher, airfield engineer officer, casework specialist)? Give summary @ -Discussed with Sound physician hospitalist for admission Was smoking cessation discussed for >3mins.? @ -No Was critical care preformed (if so, how long)? @ -No Were there social determinants of health that impacted care today? How? (Homelessness, low income, unemployed, alcoholism, drug addiction, transportation, low edu. Level, literacy, decrease access to med. care, usp, rehab)? @ -No Was there de-escalation of care discussed even if they declined (Discuss DNR or withdrawal of care, Hospice)? DNR status @ -No What co-morbidities impacted this encounter? (DM, HTN, Smoking, COPD, CAD, Cancer, CVA, ARF, Chemo, Hep., AIDS, mental health diagnosis, sleep apnea, morbid obesity)? @ -cardiac comorbidities Was patient admitted / discharged? Hospital course, mention meds given and route, prescriptions, significant lab abnormalities, going to OR and other pertinent info. @ -82-year-old male presents emergency department for worsening debility. Patient does have elevated troponin above his baseline although slightly there is reasonably that his weakness may be secondary to worsening cardiac function. Patient does not have a traumatic injuries despite falling earlier today. Patient be admitted to hospital for further care. Undiagnosed new problem with uncertain prognosis? @ -No Drug Therapy requiring intensive monitoring for toxicity (Heparin, Nitro, Insulin, Cardizem)? @ -No Were any procedures done? @ -No Diagnosis/symptom? Acute, or Chronic, or Acute on Chronic? Uncomplicated (without systemic symptoms) or Complicated (systemic symptoms)? @ -1.Acute on chronic debility Side effects of treatment? @ -No Exacerbation, Progression, or Severe Exacerbation? @ -Progression Poses a threat to life or bodily function? How? (Chest pain, [place], [place], pneumonia, PE, COPD, DKA, ARF, appy, cholecystitis, CVA, Diverticulitis, Homicidal, Suicidal, threat to staff... and all critical care pts) @ -Yes - Lab Data Result diagrams: 12/09/22 09:04 12/09/22 09:04 Lab Results 12/09/22 12/09/22 12/09/22 Range/Units 09:04 09:04 09:04 WBC 8.8 (3.8-10.6) k/uL RBC 3.68 L (4.30-5.90) m/uL Hgb 11.7 L (13.0-17.5) gm/dL Hct 32.4 L (39.0-53.0) % MCV 88.1 (80.0-100.0) fL MCH 31.7 (25.0-35.0) pg MCHC 36.0 (31.0-37.0) g/dL RDW 14.1 (11.5-15.5) % Plt Count 260 (150-450) k/uL MPV 8.0 Neutrophils % 76 % Lymphocytes % 12 % Monocytes % 6 % Eosinophils % 2 % Basophils % 0 % Neutrophils # 6.7 (1.3-7.7) k/uL Lymphocytes # 1.1 (1.0-4.8) k/uL Monocytes # 0.6 (0-1.0) k/uL Eosinophils # 0.2 (0-0.7) k/uL Basophils # 0.0 (0-0.2) k/uL Sodium 129 L (137-145) mmol/L Potassium 2.9 L (3.5-5.1) mmol/L Chloride 81 L (98-107) mmol/L Carbon Dioxide 39 H (22-30) mmol/L Anion Gap 9 mmol/L BUN 79 H (9-20) mg/dL Creatinine 2.27 H (0.66-1.25) mg/dL Est GFR (CKD-EPI)AfAm 30 (>60 ml/min/1.73 sqM) Est GFR (CKD-EPI)NonAf 26 (>60 ml/min/1.73 sqM) Glucose 104 H (74-99) mg/dL Plasma Lactic Acid Parth 1.1 (0.7-2.0) mmol/L Calcium 9.3 (8.4-10.2) mg/dL Magnesium 2.6 H (1.6-2.3) mg/dL Total Bilirubin 0.7 (0.2-1.3) mg/dL AST 20 (17-59) U/L ALT 12 (4-49) U/L Alkaline Phosphatase 95 (38-126) U/L Troponin I (0.000-0.034) ng/mL Total Protein 9.0 H (6.3-8.2) g/dL Albumin 4.1 (3.5-5.0) g/dL 12/09/22 Range/Units 09:23 WBC (3.8-10.6) k/uL RBC (4.30-5.90) m/uL Hgb (13.0-17.5) gm/dL Hct (39.0-53.0) % MCV (80.0-100.0) fL MCH (25.0-35.0) pg MCHC (31.0-37.0) g/dL RDW (11.5-15.5) % Plt Count (150-450) k/uL MPV Neutrophils % % Lymphocytes % % Monocytes % % Eosinophils % % Basophils % % Neutrophils # (1.3-7.7) k/uL Lymphocytes # (1.0-4.8) k/uL Monocytes # (0-1.0) k/uL Eosinophils # (0-0.7) k/uL Basophils # (0-0.2) k/uL Sodium (137-145) mmol/L Potassium (3.5-5.1) mmol/L Chloride (98-107) mmol/L Carbon Dioxide (22-30) mmol/L Anion Gap mmol/L BUN (9-20) mg/dL Creatinine (0.66-1.25) mg/dL Est GFR (CKD-EPI)AfAm (>60 ml/min/1.73 sqM) Est GFR (CKD-EPI)NonAf (>60 ml/min/1.73 sqM) Glucose (74-99) mg/dL Plasma Lactic Acid Parth (0.7-2.0) mmol/L Calcium (8.4-10.2) mg/dL Magnesium (1.6-2.3) mg/dL Total Bilirubin (0.2-1.3) mg/dL AST (17-59) U/L ALT (4-49) U/L Alkaline Phosphatase (38-126) U/L Troponin I 0.088 H* (0.000-0.034) ng/mL Total Protein (6.3-8.2) g/dL Albumin (3.5-5.0) g/dL Disposition Clinical Impression: Debility Disposition: ADMITTED IP TO THIS HOSP Referrals: Lonnie Hewitt DO [Primary Care Provider] - 1-2 days Decision Time: 11:04
[2022-12-09 09:29] LABS: Basophils % (A) 0 %; Eosinophils # (A) 0.2 k/uL (0-0.7); Eosinophils % (A) 2 %; HCT 32.4 % (39.0-53.0); HGB 11.7 gm/dL (13.0-17.5); Lymphocytes # (A) 1.1 k/uL (1.0-4.8); Lymphocytes % (A) 12 %; MCH 31.7 pg (25.0-35.0); MCV 88.1 fL (80.0-100.0); Monocytes # (A) 0.6 k/uL (0-1.0); Monocytes % (A) 6 %; Neutrophils # (A) 6.7 k/uL (1.3-7.7); Neutrophils % (A) 76 %; Platelet Count 260 k/uL (150-450); RBC 3.68 m/uL (4.30-5.90); RDW 14.1 % (11.5-15.5); WBC 8.8 k/uL (3.8-10.6)
[2022-12-09 09:48] LABS: Albumin 4.1 g/dL (3.5-5.0); Calcium 9.3 mg/dL (8.4-10.2); Magnesium 2.6 mg/dL (1.6-2.3); Potassium 2.9 mmol/L (3.5-5.1); Total Bilirubin 0.7 mg/dL (0.2-1.3)
--- NOTE | 2022-12-09 09:50 | XR ---
EXAMINATION TYPE: XR chest 2V DATE OF EXAM: 12/09/2022 COMPARISON: 12/01/2022 INDICATION: Fall, weakness TECHNIQUE: Frontal and lateral views of the chest are obtained. FINDINGS: The heart size is largest. The pulmonary vasculature is normal. Moderate right pleural effusion is present. This appears somewhat more extensive on the lateral proje ction. Pacemaker overlies left chest.. IMPRESSION: 1. Remotely. 2. Small to moderate posterior right pleural effusion is stable.
--- NOTE | 2022-12-09 09:52 | CT ---
EXAMINATION TYPE: CT brain nolvia albert con DATE OF EXAM: 12/09/2022 COMPARISON: 07/19/2015 HISTORY: [facility] CT DLP: 1418.[address] of the brain was performed. The ventricles, basal cisterns and sulci overlying the cerebral convexities demonstrate mild enlargem ent. There is no evidence for intracranial hemorrhage or sulcal effacement. There is decreased attenuatio n about the periventricular white matter and deep white matter of both cerebral hemispheres, compatib le with chronic small vessel ischemia. No mass effects are seen. If symptoms persist consider MRI. Osseous calvarium is intact. IMPRESSION: 1. Age related atrophic and chronic small vessel ischemic change without acute intracranial process seen at this time. CT Cervical Spine: Unenhanced CT of the cervical spine was performed with bone and soft tissue window settings submitted . Coronal and sagittal reconstruction is obtained. There is normal alignment and prevertebral soft tissues. No evidence for acute cervical fracture . Scattered degenerative disc disease and spondylosis. Biapical scarring. IMPRESSION: 1. No evidence for acute fracture or subluxation of the cervical spine.
[2022-12-09] MEDS ORDERED: ASPIRIN 81 MG PO STA (10:15)
[2022-12-09] MEDS ORDERED: POTASSIUM CHLORIDE ER 20 MEQ TAB.ER PO STA (10:15)
[2022-12-09] MEDS ORDERED: SODIUM CHLORIDE 0.9% 500 ML 500 ML IV STA (10:15)
[2022-12-09] MEDS ORDERED: SODIUM CHLORIDE 0.9% 1,000 ML IV STA (10:59)
[2022-12-09] MEDS ORDERED: ONDANSETRON 4 MG/2 ML VIAL IVP PRN (11:01)
[2022-12-09] MEDS ORDERED: NALOXONE 0.4 MG/ML 1 ML VIAL IV PRN (11:01)
[2022-12-09] MEDS ORDERED: DEXTROSE 50% SYRINGE 50 ML IVP PRN ×2 (15:39)
[2022-12-09 16:02] LABS: INR 2.7 (<1.2); Prothrombin Time 26.6 sec (9.0-12.0)
--- NOTE | 2022-12-09 16:46 | P.HPIM ---
History of Present Illness H&P Date: 12/09/22 Patient is a 82-year-old male with history of bladder cancer status post resection, diastolic heart failure, CAD, severe pulmonary hypertension, sick sinus syndrome status post pacemaker, persistent A. fib, diabetes presents to the ED for difficulties with ADL and IADL that has been ongoing for the past 2-3 weeks. He reports generalized weakness and difficulty with ambulating. He lives at home in an apartment with his . He reports a mechanical fall yesterday states that his legs gave in. He denies any headache, lower extremity edema, nausea or vomiting, fever or chills, cough, chest pain, shortness of breath, palpitations, changes in urination or bowel habits. No changes in weight. He denies any dizziness, numbness/tingling of the extremities. He reports a poor appetite. In the ED, his vital signs were stable. He was initially hypotensive with BP of 96/54. CBC showed hemoglobin of 11.7. CMP shows sodium of 129, potassium of 2.9, chloride 81, bicarb of 39, BUN of 79, creatinine of 2.27, glucose 104. Magnesium was 2.6. Troponin was 0.088. EKG showed ventricular paced rhythm. Chest x-ray showed small to moderate posterior right pleural effusion. CT head and CT C-spine was negative for acute finding. Patient is admitted for debility and electrolyte abnormalities along with troponin elevation. Pertinent positives and negatives as discussed in HPI, a complete review of systems was performed and all other systems are negative. General: nontoxic, no distress, appears at stated age Derm: warm, dry Head: atraumatic, normocephalic, symmetric Eyes: EOMI, no lid lag, anicteric sclera Mouth: no lip lesion, mucus membranes moist Cardiovascular: S1S2 reg, no murmur Lungs: Decreased breath sounds bilaterally, no accessory muscle use Ext: no gross muscle atrophy, no edema, no contractures Neuro: no focal neuro deficits Psych: Alert, oriented, appropriate affect Acute kidney injury on chronic kidney disease Elevated troponin Hyponatremia Hypokalemia Metabolic alkalosis Debility and mechanical fall Chronic conditions: Diastolic heart failure, Persistent atrial fibrillation, Diabetes melitis, CAD, Hypertension, Dyslipidemia, PVD Based on my assessment of this patient, this patient meets a high complexity level of care. I have reviewed the following real estate consultant notes: None. I have reviewed the results of the following tests: CBC showed hemoglobin of 11.7. CMP shows sodium of 129, potassium of 2.9, chloride 81, bicarb of 39, BUN of 79, creatinine of 2.27, glucose 104. Magnesium was 2.6. Troponin was 0.088. I have ordered the following tests: PT/INR since patient is on Coumadin. Troponin. Repeat BMP tomorrow morning to evaluate sodium, potassium and renal function. I have discussed the care of this patient with the following independent historian: None. I have independently interpreted the following test below: EKG showed ventricular paced rhythm. Chest x-ray shows right pleural effusion. I have discussed the management of this patient with the following physician: The case was discussed with the ED physician and decision made to admit the patient for IV hydration and PT OT consultation for possible placement. This patient has a high risk of morbidity due to the following reasons: Patient has an acute diagnosis of debility with inability to take care of his ADL and IADL that poses a threat to life or bodily function. His laboratory analysis significant for hyponatremia, hypokalemia and acute kidney injury along with troponin elevation. His electrolyte abnormality is likely related to the use of Lasix at home along with poor oral intake. Patient will be started on normal saline at 50 mL per hour. Lasix will be discontinued at this time. His potassium has been replaced with 40 mEq potassium chloride by mouth. We will repeat BMP tomorrow morning. PT and OT will be consulted to work with this patient. His troponin is elevated at 0.088 and 0.086. EKG shows ventricular paced rhythm. His most recent echocardiogram shows EF of 55-60% with moderate to severe concentric LVH along with severe pulmonary hypertension. Plans to trend troponin/EKG to rule out acute coronary syndrome. Telemetry monitoring will be ordered. Review of previous admission shows persistently elevated troponins at baseline. 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, past L pleural effusion with thoracentesis, DVT L lower extremity, BPH with surgery, CKD, kiney stones with surgery, abdominal aortic aneurysm being monitored every 6 months, STEPHAN-unable to tolerate CPap, SSS with pacemaker, vertigo in the past, seasonal allergies History of Any Multi-Drug Resistant Organisms: None Reported Past Surgical History: Heart Catheterization, Pacemaker, Prostate Surgery Additional Past Surgical History / Comment(s): Pacemaker inserted 01/01/09 and gen change 04/11/18, TURP, ESWL, cysto/TURP, colonoscopy, "scraped bladder out" with adamson catheter inserted 04/14/22 Past Anesthesia/Blood Transfusion Reactions: Motion Sickness Type of Cardiac Device: Permanent Pacemaker Device Placement Date:: 01/01/2009 and gen change 03/2018 Past Psychological History: No Psychological Hx Reported Smoking Status: Never smoker Past Alcohol Use History: None Reported Past Drug Use History: None Reported - Past Family History Mother Family Medical History: CVA/TIA, Hypertension Additional Family Medical History / Comment(s): Mother lived to be 85yrs old. Father Family Medical History: CVA/TIA Additional Family Medical History / Comment(s): Father from a CVA at the age of 78yrs. Medications and Allergies Home Medications Medication Instructions Recorded Confirmed Type Metoprolol Tartrate [Lopressor] 25 mg PO BID 02/28/14 12/09/22 History Lovastatin [Mevacor] 40 mg PO HS 12/14/18 12/09/22 History Insulin Glargine,Hum.rec.anlog 12 unit SQ PC-SUPPER 05/26/20 12/09/22 History [Lantus Solostar Pen] Warfarin [Coumadin] 1 mg PO PC-SUPPER 05/26/20 12/09/22 History Dapagliflozin Propanediol [Farxiga] 10 mg PO DAILY 05/14/22 12/09/22 History Furosemide [Lasix] 40 mg PO DAILY 12/09/22 12/09/22 History buPROPion HCL [Wellbutrin XL] 150 mg PO DAILY 12/09/22 12/09/22 History traZODone HCL [Desyrel] 50 - 100 mg PO HS 12/09/22 12/09/22 History Allergies Allergy/AdvReac Type Severity Reaction Status Date / Time doxazosin mesylate AdvReac "irritates Verified 12/09/22 12:18 [From Cardura] urinary tract, jeter all the time when I pee" finasteride [From Proscar] AdvReac "irritates Verified 12/09/22 12:18 urinary tract, jeter all the time when I pee" gatifloxacin [From Tequin] AdvReac "irritates Verified 12/09/22 12:18 urinary tract, jeter all the time when I pee" glipizide AdvReac severe Verified 12/09/22 12:18 hypoglycemia hydroxyzine HCl [From Atarax] AdvReac "irritates Verified 12/09/22 12:18 urinary tract, jeter all the time when I pee" levofloxacin [From Levaquin] AdvReac "irritates Verified 12/09/22 12:18 urinary tract, jeter all the time when I pee" lisinopril AdvReac "irritates Verified 12/09/22 12:18 urinary tract, jeter all the time when I pee" meperidine HCl [From Demerol] AdvReac "irritates Verified 12/09/22 12:17 urinary tract, jeter all the time when I pee" metformin AdvReac "irritates Verified 12/09/22 12:17 urinary tract, jeter all the time when I pee" oxybutynin AdvReac "irritates Verified 12/09/22 12:17 urinary tract, jeter all the time when I pee" oxybutynin chloride AdvReac "irritates Verified 12/09/22 12:17 [From Ditropan] urinary tract, jeter all the time when I pee" pseudoephedrine HCl AdvReac "irritates Verified 12/09/22 12:17 [From Sudafed] urinary tract, jeter all the time when I pee" rosuvastatin calcium AdvReac "irritates Verified 12/09/22 12:17 [From Crestor] urinary tract, jeter all the time when I pee" Sulfa (Sulfonamide AdvReac "irritates Verified 12/09/22 12:17 Antibiotics) urinary tract, jeter all the time when I pee" tamsulosin AdvReac "irritates Verified 12/09/22 12:17 urinary tract, jeter all the time when I pee" tamsulosin HCl [From Flomax] AdvReac "irritates Verified 12/09/22 12:17 urinary tract, jeter all the time when I pee" terazosin HCl [From Hytrin] AdvReac "irritates Verified 12/09/22 12:17 urinary tract, jeter all the time when I pee" Physical Exam Vitals: Vital Signs Temp Pulse Resp BP Pulse Ox 12/09/22 12:51 61 18 113/46 96 12/09/22 08:33 97.6 F 57 L 18 96/54 95 Intake and Output 12/09/22 12/09/22 12/09/22 06:59 14:59 22:59 Other: Weight 68.492 kg Results CBC & Chem 7: 12/09/22 09:04 12/09/22 09:04 Labs: Abnormal Lab Results - Last 24 Hours (Table) 12/09/22 12/09/22 12/09/22 Range/Units 09:04 09:04 09:23 RBC 3.68 L (4.30-5.90) m/uL Hgb 11.7 L (13.0-17.5) gm/dL Hct 32.4 L (39.0-53.0) % Sodium 129 L (137-145) mmol/L Potassium 2.9 L (3.5-5.1) mmol/L Chloride 81 L (98-107) mmol/L Carbon Dioxide 39 H (22-30) mmol/L BUN 79 H (9-20) mg/dL Creatinine 2.27 H (0.66-1.25) mg/dL Glucose 104 H (74-99) mg/dL Magnesium 2.6 H (1.6-2.3) mg/dL Troponin I 0.088 H* (0.000-0.034) ng/mL Total Protein 9.0 H (6.3-8.2) g/dL 12/09/22 Range/Units 12:55 RBC (4.30-5.90) m/uL Hgb (13.0-17.5) gm/dL Hct (39.0-53.0) % Sodium (137-145) mmol/L Potassium (3.5-5.1) mmol/L Chloride (98-107) mmol/L Carbon Dioxide (22-30) mmol/L BUN (9-20) mg/dL Creatinine (0.66-1.25) mg/dL Glucose (74-99) mg/dL Magnesium (1.6-2.3) mg/dL Troponin I 0.086 H* (0.000-0.034) ng/mL Total Protein (6.3-8.2) g/dL
[2022-12-09 17:50] LABS: Glucose,Whole Blood 139 mg/dL (70-110)
[2022-12-09] MEDS ORDERED: WARFARIN 1 MG TAB PO SCH (18:00)
[2022-12-09] MEDS: INSULIN ASPART (NovoLOG) 100 UNIT/ML VIAL SQ SCH ×2 (18:13→22:26)
[2022-12-09 22:16] LABS: Glucose,Whole Blood 136 mg/dL (70-110)
[2022-12-09] MEDS: traZODone HCL 50 MG TAB PO SCH (22:35)
[2022-12-09] MEDS: ATORVASTATIN 10 MG TAB PO SCH (22:35)
[2022-12-09] MEDS: METOPROLOL TARTRATE 25 MG TAB PO SCH (22:35)
[2022-12-09 23:51] LABS: Calcium 8.5 mg/dL (8.4-10.2); Potassium 4.3 mmol/L (3.5-5.1)
[2022-12-10 06:10] LABS: Glucose,Whole Blood 103 mg/dL (70-110)
[2022-12-10] MEDS: INSULIN ASPART (NovoLOG) 100 UNIT/ML VIAL SQ SCH ×4 (06:26→21:15)
[2022-12-10] MEDS: buPROPion XL 150 MG TAB.ER.24H PO SCH (07:34)
[2022-12-10] MEDS: METOPROLOL TARTRATE 25 MG TAB PO SCH ×2 (07:34→21:12)
[2022-12-10 08:31] LABS: INR 2.9 (<1.2); Prothrombin Time 28.5 sec (9.0-12.0)
[2022-12-10 09:08] LABS: Calcium 8.8 mg/dL (8.4-10.2); Potassium 3.5 mmol/L (3.5-5.1)
[2022-12-10 11:43] LABS: Glucose,Whole Blood 105 mg/dL (70-110)
[2022-12-10 11:45] LABS: VBG PH 7.5 (7.31-7.41)
[2022-12-10 12:57] VITALS: BMI 24.5
--- NOTE | 2022-12-10 14:29 | P.PN ---
Subjective Progress Note Date: 12/10/22 Patient is a 82-year-old male with history of bladder cancer status post resection, diastolic heart failure, CAD, severe pulmonary hypertension, sick sinus syndrome status post pacemaker, persistent A. fib, diabetes presents to the ED for difficulties with ADL and IADL that has been ongoing for the past 2-3 weeks. He reports generalized weakness and difficulty with ambulating. He lives at home in an apartment with his . He reports a mechanical fall yesterday states that his legs gave in. He denies any headache, lower extremity edema, nausea or vomiting, fever or chills, cough, chest pain, shortness of breath, palpitations, changes in urination or bowel habits. No changes in weight. He denies any dizziness, numbness/tingling of the extremities. He reports a poor appetite. In the ED, his vital signs were stable. He was initially hypotensive with BP of 96/54. CBC showed hemoglobin of 11.7. CMP shows sodium of 129, potassium of 2.9, chloride 81, bicarb of 39, BUN of 79, creatinine of 2.27, glucose 104. Magnesium was 2.6. Troponin was 0.088. EKG showed ventricular paced rhythm. Chest x-ray showed small to moderate posterior right pleural effusion. CT head and CT C-spine was negative for acute finding. Patient is admitted for debility and electrolyte abnormalities along with troponin elevation. Patient was seen and examined. No acute events overnight. Patient reports lower extremity weakness. He has no other complaints. General: nontoxic, no distress, appears at stated age Derm: warm, dry Head: atraumatic, normocephalic, symmetric Eyes: EOMI, no lid lag, anicteric sclera Mouth: no lip lesion, mucus membranes moist Cardiovascular: S1S2 reg, no murmur Lungs: Decreased breath sounds bilaterally, no accessory muscle use Ext: no gross muscle atrophy, no edema, no contractures Neuro: no focal neuro deficits Psych: Alert, oriented, appropriate affect Acute kidney injury on chronic kidney disease Elevated troponin Hyponatremia Hypokalemia Metabolic alkalosis Debility and mechanical fall Chronic conditions: Diastolic heart failure, Persistent atrial fibrillation, Diabetes melitis, CAD, Hypertension, Dyslipidemia, PVD Based on my assessment of this patient, this patient meets a moderate complexity level of care. I have reviewed the following senior financial consultant notes: None. I have reviewed the results of the following tests: INR is 2.9. QBG shows pH 7.5, pCO2 46, HCO3 36. CMP shows sodium of 135, chloride 91, bicarb of 39, BUN of 60, creatinine of 1.66, glucose 105. I have ordered the following tests: Repeat BMP tomorrow morning to evaluate sodium, potassium and renal function. I have discussed the care of this patient with the following independent historian: None. I have independently interpreted the following test below: None. I have discussed the management of this patient with the following physician: None. This patient has a moderate risk of morbidity due to the following reasons: Patient has an acute diagnosis of debility with inability to take care of his ADL and IADL that poses a threat to life or bodily function. His laboratory analysis significant for hyponatremia, hypokalemia and acute kidney injury along with troponin elevation. His electrolyte abnormality is likely related to the use of Lasix at home along with poor oral intake. This has improved with IV hydration and potassium replacement. PT and OT recommends SNF but patient would rather go home. Plans for family to meet with the patient and discuss a plan. His troponin are elevated but flat, ACS has been ruled out. EKG shows ventricular paced rhythm. His most recent echocardiogram shows EF of 55-60% with moderate to severe concentric LVH along with severe pulmonary hypertension. Review of previous admission shows persistently elevated troponins at baseline. Surrogate decision-maker: Son CODE STATUS: DO NOT RESUSCITATE/DO NOT INTUBATE DVT prophylaxis: Warfarin Objective - Vital Signs Vital signs: Vital Signs Temp 97.8 F 12/10/22 11:38 Pulse 56 L 12/10/22 11:38 Resp 18 12/10/22 11:38 BP 125/61 12/10/22 11:38 Pulse Ox 97 12/10/22 11:38 FiO2 Intake & Output 12/09/22 12/10/22 12/10/22 18:59 06:59 18:59 Intake Total 723 Output Total 200 850 Balance -200 -127 Weight 68.492 kg 69.1 kg 69.1 kg Intake: IV 5 Invasive Line 1 5 Oral 718 Output: Urine 200 850 Other: Voiding Method Urinal Urinal # Voids 1 - Labs CBC & Chem 7: 12/09/22 09:04 12/10/22 07:38 Labs: Abnormal Lab Results - Last 24 Hours (Table) 12/09/22 12/09/22 12/09/22 Range/Units 09:09 12:55 14:21 PT 26.6 H (9.0-12.0) sec INR 2.7 H (<1.2) VBG pH (7.31-7.41) VBG HCO3 (24-28) mmol/L Sodium (137-145) mmol/L Chloride (98-107) mmol/L Carbon Dioxide (22-30) mmol/L BUN (9-20) mg/dL Creatinine (0.66-1.25) mg/dL Glucose (74-99) mg/dL POC Glucose (mg/dL) (70-110) mg/dL Troponin I 0.086 H* 0.084 H* (0.000-0.034) ng/mL 12/09/22 12/09/22 12/09/22 Range/Units 17:46 22:15 23:05 PT (9.0-12.0) sec INR (<1.2) VBG pH (7.31-7.41) VBG HCO3 (24-28) mmol/L Sodium 131 L (137-145) mmol/L Chloride 90 L (98-107) mmol/L Carbon Dioxide 34 H (22-30) mmol/L BUN 73 H (9-20) mg/dL Creatinine 1.74 H (0.66-1.25) mg/dL Glucose 111 H (74-99) mg/dL POC Glucose (mg/dL) 139 H 136 H (70-110) mg/dL Troponin I (0.000-0.034) ng/mL 12/10/22 12/10/22 12/10/22 Range/Units 07:38 07:38 11:29 PT 28.5 H (9.0-12.0) sec INR 2.9 H (<1.2) VBG pH 7.50 H (7.31-7.41) VBG HCO3 36 H (24-28) mmol/L Sodium 135 L (137-145) mmol/L Chloride 91 L (98-107) mmol/L Carbon Dioxide 39 H (22-30) mmol/L BUN 60 H (9-20) mg/dL Creatinine 1.66 H (0.66-1.25) mg/dL Glucose 105 H (74-99) mg/dL POC Glucose (mg/dL) (70-110) mg/dL Troponin I (0.000-0.034) ng/mL
[2022-12-10 16:50] LABS: Glucose,Whole Blood 134 mg/dL (70-110)
[2022-12-10] MEDS ORDERED: WARFARIN 0.5 MG TAB PO ONE (18:00)
[2022-12-10] MEDS: traZODone HCL 50 MG TAB PO SCH (21:12)
[2022-12-10] MEDS: ATORVASTATIN 10 MG TAB PO SCH (21:12)
[2022-12-10 21:16] LABS: Glucose,Whole Blood 104 mg/dL (70-110)
[2022-12-11 06:02] LABS: Glucose,Whole Blood 117 mg/dL (70-110)
[2022-12-11] MEDS: INSULIN ASPART (NovoLOG) 100 UNIT/ML VIAL SQ SCH ×4 (07:05→21:00)
[2022-12-11] MEDS: buPROPion XL 150 MG TAB.ER.24H PO SCH (07:26)
[2022-12-11] MEDS: METOPROLOL TARTRATE 25 MG TAB PO SCH ×2 (07:26→17:57)
[2022-12-11 10:51] LABS: INR 2.4 (<1.2); Prothrombin Time 23.4 sec (9.0-12.0)
--- NOTE | 2022-12-11 11:14 | P.PN ---
Subjective Progress Note Date: 12/11/22 Patient is a 82-year-old male with history of bladder cancer status post resection, diastolic heart failure, CAD, severe pulmonary hypertension, sick sinus syndrome status post pacemaker, persistent A. fib, diabetes presents to the ED for difficulties with ADL and IADL that has been ongoing for the past 2-3 weeks. He reports generalized weakness and difficulty with ambulating. He lives at home in an apartment with his . He reports a mechanical fall yesterday states that his legs gave in. He denies any headache, lower extremity edema, nausea or vomiting, fever or chills, cough, chest pain, shortness of breath, palpitations, changes in urination or bowel habits. No changes in weight. He denies any dizziness, numbness/tingling of the extremities. He reports a poor appetite. In the ED, his vital signs were stable. He was initially hypotensive with BP of 96/54. CBC showed hemoglobin of 11.7. CMP shows sodium of 129, potassium of 2.9, chloride 81, bicarb of 39, BUN of 79, creatinine of 2.27, glucose 104. Magnesium was 2.6. Troponin was 0.088. EKG showed ventricular paced rhythm. Chest x-ray showed small to moderate posterior right pleural effusion. CT head and CT C-spine was negative for acute finding. Patient is admitted for debility and electrolyte abnormalities along with troponin elevation. Patient was seen and examined. No acute events overnight. Patient reports lower extremity weakness. He has no other complaints. General: nontoxic, no distress, appears at stated age Derm: warm, dry Head: atraumatic, normocephalic, symmetric Eyes: EOMI, no lid lag, anicteric sclera Mouth: no lip lesion, mucus membranes moist Cardiovascular: S1S2 reg, no murmur Lungs: Decreased breath sounds bilaterally, no accessory muscle use Ext: no gross muscle atrophy, no edema, no contractures Neuro: no focal neuro deficits Psych: Alert, oriented, appropriate affect Acute kidney injury on chronic kidney disease Elevated troponin Hyponatremia Metabolic alkalosis Debility and mechanical fall Resolved: Hypokalemia Chronic conditions: Diastolic heart failure, Persistent atrial fibrillation, Diabetes mellitus, CAD, Hypertension, Dyslipidemia, PVD Based on my assessment of this patient, this patient meets a moderate complexity level of care. I have reviewed the following quantitative consultant notes: None. I have reviewed the results of the following tests: INR is 2.4. I have ordered the following tests: Repeat BMP tomorrow morning to evaluate sodium, potassium and renal function. I have discussed the care of this patient with the following independent historian: None. I have independently interpreted the following test below: None. I have discussed the management of this patient with the following physician: None. This patient has a moderate risk of morbidity due to the following reasons: Patient has an acute diagnosis of debility with inability to take care of his ADL and IADL that poses a threat to life or bodily function. His laboratory analysis significant for hyponatremia, hypokalemia and acute kidney injury along with troponin elevation. His electrolyte abnormality is likely related to the use of Lasix at home along with poor oral intake. This has improved with IV hydration and potassium replacement. PT and OT recommends SNF. Patient is now agreeable. His troponin are elevated but flat, ACS has been ruled out. EKG shows ve ntricular paced rhythm. His most recent echocardiogram shows EF of 55-60% with moderate to severe concentric LVH along with severe pulmonary hypertension. Review of previous admission shows persistently elevated troponins at baseline. Plans to discharge when we are able to find an accepting SNF. Medically stable. Surrogate decision-maker: Son CODE STATUS: DO NOT RESUSCITATE/DO NOT INTUBATE DVT prophylaxis: Warfarin Objective - Vital Signs Vital signs: Vital Signs Temp 97.8 F 12/11/22 07:35 Pulse 64 12/11/22 07:35 Resp 18 12/11/22 07:35 BP 115/55 12/11/22 07:35 Pulse Ox 95 12/11/22 07:35 FiO2 Intake & Output 12/10/22 12/11/22 12/11/22 18:59 06:59 18:59 Intake Total 1323 1205 1325 Output Total 1275 550 200 Balance 48 655 1125 Weight 69.1 kg Intake: IV 5 5 5 Invasive Line 1 5 5 5 Oral 1318 1200 1320 Output: Urine 1275 550 200 Other: Voiding Method Urinal Urinal Urinal # Voids 1 1 - Labs CBC & Chem 7: 12/09/22 09:04 12/10/22 07:38 Labs: Abnormal Lab Results - Last 24 Hours (Table) 12/10/22 12/10/22 12/11/22 Range/Units 11:29 16:48 06:00 PT (9.0-12.0) sec INR (<1.2) VBG pH 7.50 H (7.31-7.41) VBG HCO3 36 H (24-28) mmol/L POC Glucose (mg/dL) 134 H 117 H (70-110) mg/dL 12/11/22 Range/Units 09:38 PT 23.4 H (9.0-12.0) sec INR 2.4 H (<1.2) VBG pH (7.31-7.41) VBG HCO3 (24-28) mmol/L POC Glucose (mg/dL) (70-110) mg/dL
[2022-12-11 11:41] LABS: Glucose,Whole Blood 150 mg/dL (70-110)
[2022-12-11] MEDS ORDERED: MAGNESIUM HYDROXIDE 2,400 MG/10 ML CUP PO PRN (11:44)
[2022-12-11] MEDS: polyethylene glycoL 3350 17 GM POWD.PACK PO SCH (11:55)
[2022-12-11 16:11] LABS: Glucose,Whole Blood 119 mg/dL (70-110)
[2022-12-11] MEDS: traZODone HCL 50 MG TAB PO SCH (17:56)
[2022-12-11] MEDS: ATORVASTATIN 10 MG TAB PO SCH (17:57)
[2022-12-11] MEDS ORDERED: WARFARIN 1 MG TAB PO ONE (18:00)
[2022-12-11 20:16] LABS: Glucose,Whole Blood 140 mg/dL (70-110)
[2022-12-12 06:08] LABS: Glucose,Whole Blood 98 mg/dL (70-110)
[2022-12-12] MEDS: INSULIN ASPART (NovoLOG) 100 UNIT/ML VIAL SQ SCH ×4 (06:18→21:39)
[2022-12-12] MEDS: METOPROLOL TARTRATE 25 MG TAB PO SCH ×2 (08:12→20:09)
[2022-12-12] MEDS: buPROPion XL 150 MG TAB.ER.24H PO SCH (08:12)
[2022-12-12] MEDS: polyethylene glycoL 3350 17 GM POWD.PACK PO SCH ×2 (08:13→08:14)
[2022-12-12 10:08] LABS: Prothrombin Time 19.3 sec (9.0-12.0)
[2022-12-12 10:16] LABS: Calcium 8.7 mg/dL (8.4-10.2); Potassium 4.2 mmol/L (3.5-5.1)
[2022-12-12 11:30] LABS: Glucose,Whole Blood 124 mg/dL (70-110)
--- NOTE | 2022-12-12 14:09 | P.PN ---
Subjective Progress Note Date: 12/12/22 Patient is a 82-year-old male with history of bladder cancer status post resection, diastolic heart failure, CAD, severe pulmonary hypertension, sick sinus syndrome status post pacemaker, persistent A. fib, diabetes presents to the ED for difficulties with ADL and IADL that has been ongoing for the past 2-3 weeks. He reports generalized weakness and difficulty with ambulating. He lives at home in an apartment with his . He reports a mechanical fall yesterday states that his legs gave in. He denies any headache, lower extremity edema, nausea or vomiting, fever or chills, cough, chest pain, shortness of breath, palpitations, changes in urination or bowel habits. No changes in weight. He denies any dizziness, numbness/tingling of the extremities. He reports a poor appetite. In the ED, his vital signs were stable. He was initially hypotensive with BP of 96/54. CBC showed hemoglobin of 11.7. CMP shows sodium of 129, potassium of 2.9, chloride 81, bicarb of 39, BUN of 79, creatinine of 2.27, glucose 104. Magnesium was 2.6. Troponin was 0.088. EKG showed ventricular paced rhythm. Chest x-ray showed small to moderate posterior right pleural effusion. CT head and CT C-spine was negative for acute finding. Patient is admitted for debility and electrolyte abnormalities along with troponin elevation. Patient was seen and examined. No acute events overnight. Patient reports lower extremity weakness. He has no other complaints. General: nontoxic, no distress, appears at stated age Derm: warm, dry Head: atraumatic, normocephalic, symmetric Eyes: EOMI, no lid lag, anicteric sclera Mouth: no lip lesion, mucus membranes moist Cardiovascular: Good distal perfusion in all 4 extremities Lungs: no accessory muscle use Ext: no gross muscle atrophy, no edema, no contractures Neuro: no focal neuro deficits Psych: Alert, oriented, appropriate affect Acute kidney injury on chronic kidney disease Elevated troponin Hyponatremia Metabolic alkalosis Debility and mechanical fall Resolved: Hypokalemia Chronic conditions: Diastolic heart failure, Persistent atrial fibrillation, Diabetes mellitus, CAD, Hypertension, Dyslipidemia, PVD Based on my assessment of this patient, this patient meets a moderate complexity level of care. I have reviewed the following webmethods consultant notes: None. I have reviewed the results of the following tests: INR is 2. BMP shows sodium 134, chloride 91, bicarb of 38, BUN of 35, Cr 1.35, glucose of 109. I have ordered the following tests: None. I have discussed the care of this patient with the following independent his karon: Case discussed with the son at bedside. I have independently interpreted the following test below: None. I have discussed the management of this patient with the following physician: None. This patient has a moderate risk of morbidity due to the following reasons: Patient has an acute diagnosis of debility with inability to take care of his ADL and IADL that poses a threat to life or bodily function. His laboratory analysis significant for hyponatremia, hypokalemia and acute kidney injury along with troponin elevation. His electrolyte abnormality is likely related to the use of Lasix at home along with poor oral intake. This has improved with IV hydration and potassium replacement. PT and OT recommends SNF. Patient is now agreeable. His troponin are elevated but flat, ACS has been ruled out. EKG shows ventricular paced rhythm. His most recent echocardiogram shows EF of 55-60% with moderate to severe concentric LVH along with severe pulmonary hypertension. Review of previous admission shows persistently elevated troponins at baseline. Plans to discharge when we are able to find an accepting SNF. Medically stable. Surrogate decision-maker: Son CODE STATUS: DO NOT RESUSCITATE/DO NOT INTUBATE DVT prophylaxis: Warfarin Objective - Vital Signs Vital signs: Vital Signs Temp 97.7 F 12/12/22 11:33 Pulse 53 L 12/12/22 11:33 Resp 20 12/12/22 11:33 BP 103/42 12/12/22 11:33 Pulse Ox 96 12/12/22 11:33 FiO2 Intake & Output 12/11/22 12/12/22 12/12/22 18:59 06:59 18:59 Intake Total 1982 540 Output Total 575 400 300 Balance 1408 -400 240 Intake: IV 5 Invasive Line 1 5 Oral 1977 540 Output: Urine 575 400 300 Other: Voiding Method Urinal Urinal # Voids 1 2 # Bowel Movements 1 1 - Labs CBC & Chem 7: 12/09/22 09:04 12/12/22 09:26 Labs: Abnormal Lab Results - Last 24 Hours (Table) 12/11/22 12/11/22 12/12/22 Range/Units 16:10 20:12 09:26 PT 19.3 H (9.0-12.0) sec INR 2.0 H (<1.2) Sodium (137-145) mmol/L Chloride (98-107) mmol/L Carbon Dioxide (22-30) mmol/L BUN (9-20) mg/dL Creatinine (0.66-1.25) mg/dL Glucose (74-99) mg/dL POC Glucose (mg/dL) 119 H 140 H (70-110) mg/dL 12/12/22 12/12/22 Range/Units 09:26 11:29 PT (9.0-12.0) sec INR (<1.2) Sodium 134 L (137-145) mmol/L Chloride 91 L (98-107) mmol/L Carbon Dioxide 38 H (22-30) mmol/L BUN 35 H (9-20) mg/dL Creatinine 1.35 H (0.66-1.25) mg/dL Glucose 109 H (74-99) mg/dL POC Glucose (mg/dL) 124 H (70-110) mg/dL
[2022-12-12 16:33] LABS: Glucose,Whole Blood 181 mg/dL (70-110)
[2022-12-12] MEDS ORDERED: WARFARIN 1 MG TAB PO ONE (18:00)
[2022-12-12] MEDS: traZODone HCL 50 MG TAB PO SCH (20:09)
[2022-12-12] MEDS: ATORVASTATIN 10 MG TAB PO SCH (20:09)
[2022-12-12 20:50] LABS: Glucose,Whole Blood 153 mg/dL (70-110)
[2022-12-13 06:05] LABS: Glucose,Whole Blood 108 mg/dL (70-110)
[2022-12-13] MEDS: INSULIN ASPART (NovoLOG) 100 UNIT/ML VIAL SQ SCH ×4 (06:06→20:26)
[2022-12-13] MEDS: polyethylene glycoL 3350 17 GM POWD.PACK PO SCH (08:31)
[2022-12-13] MEDS: buPROPion XL 150 MG TAB.ER.24H PO SCH (08:31)
[2022-12-13] MEDS: METOPROLOL TARTRATE 25 MG TAB PO SCH ×2 (08:31→20:31)
[2022-12-13 09:42] LABS: INR 1.9 (<1.2); Prothrombin Time 18.5 sec (9.0-12.0)
[2022-12-13 11:26] LABS: Glucose,Whole Blood 117 mg/dL (70-110)
--- NOTE | 2022-12-13 14:24 | P.PN ---
Subjective Progress Note Date: 12/13/22 Patient is a 82-year-old male with history of bladder cancer status post resection, diastolic heart failure, CAD, severe pulmonary hypertension, sick sinus syndrome status post pacemaker, persistent A. fib, diabetes presents to the ED for difficulties with ADL and IADL that has been ongoing for the past 2-3 weeks. He reports generalized weakness and difficulty with ambulating. He lives at home in an apartment with his . He reports a mechanical fall yesterday states that his legs gave in. He denies any headache, lower extremity edema, nausea or vomiting, fever or chills, cough, chest pain, shortness of breath, palpitations, changes in urination or bowel habits. No changes in weight. He denies any dizziness, numbness/tingling of the extremities. He reports a poor appetite. In the ED, his vital signs were stable. He was initially hypotensive with BP of 96/54. CBC showed hemoglobin of 11.7. CMP shows sodium of 129, potassium of 2.9, chloride 81, bicarb of 39, BUN of 79, creatinine of 2.27, glucose 104. Magnesium was 2.6. Troponin was 0.088. EKG showed ventricular paced rhythm. Chest x-ray showed small to moderate posterior right pleural effusion. CT head and CT C-spine was negative for acute finding. Patient is admitted for debility and electrolyte abnormalities along with troponin elevation. Patient was seen and examined. No acute events overnight. Patient reports lower extremity weakness. He has no other complaints. General: nontoxic, no distress, appears at stated age Derm: warm, dry Head: atraumatic, normocephalic, symmetric Eyes: EOMI, no lid lag, anicteric sclera Mouth: no lip lesion, mucus membranes moist Cardiovascular: Good distal perfusion in all 4 extremities Lungs: no accessory muscle use Ext: no gross muscle atrophy, no edema, no contractures Neuro: no focal neuro deficits Psych: Alert, oriented, appropriate affect Acute kidney injury on chronic kidney disease Elevated troponin Hyponatremia Metabolic alkalosis Debility and mechanical fall Resolved: Hypokalemia Chronic conditions: Diastolic heart failure, Persistent atrial fibrillation, Diabetes mellitus, CAD, Hypertension, Dyslipidemia, PVD Based on my assessment of this patient, this patient meets a moderate complexity level of care. I have reviewed the following work and family life consultant notes: None. I have reviewed the results of the following tests: INR is 1.9. I have ordered the following tests: None. I have discussed the care of this patient with the following independent historian: None. I have independently interpreted the following test below: None. I have discussed the management of this patient with the following physician: None. This patient has a moderate risk of morbidity due to the following reasons: Patient has an acute diagnosis of debility with inability to take care of his ADL and IADL that poses a threat to life or bodily function. His laboratory analysis significant for hyponatremia, hypokalemia and acute kidney injury along with troponin elevation. His electrolyte abnormality is likely related to the use of Lasix at home along with poor oral intake. This has improved with IV hydration and potassium replacement. PT and OT recommends SNF. Patient is now agreeable. His troponin are elevated but flat, ACS has been ruled out. EKG shows ventricular paced rhythm. His most recent echocardiogram shows EF of 55-60% with moderate to severe concentric LVH along with severe pulmonary hypertension. Review of previous admission shows persistently elevated troponins at baseline. Plans to discharge when we are able to find an accepting SNF. Medically stable. Surrogate decision-maker: Son CODE STATUS: DO NOT RESUSCITATE/DO NOT INTUBATE DVT prophylaxis: Warfarin Objective - Vital Signs Vital signs: Vital Signs Temp 98 F 12/13/22 08:00 Pulse 77 12/13/22 12:10 Resp 17 12/13/22 12:10 BP 112/55 12/13/22 12:10 Pulse Ox 92 L 12/13/22 12:10 FiO2 Intake & Output 12/12/22 12/13/22 12/13/22 18:59 06:59 18:59 Intake Total 540 10 236 Output Total 990 125 120 Balance -450 -115 116 Intake: IV 10 0.9 10 Oral 540 236 Output: Urine 990 125 120 Other: Voiding Method Urinal Urinal - Labs CBC & Chem 7: 12/09/22 09:04 12/12/22 09:26 Labs: Abnormal Lab Results - Last 24 Hours (Table) 12/12/22 12/12/22 12/13/22 Range/Units 16:32 20:48 08:21 PT 18.5 H (9.0-12.0) sec INR 1.9 H (<1.2) POC Glucose (mg/dL) 181 H 153 H (70-110) mg/dL 12/13/22 Range/Units 11:24 PT (9.0-12.0) sec INR (<1.2) POC Glucose (mg/dL) 117 H (70-110) mg/dL
--- NOTE | 2022-12-13 16:10 | CDI ---
Documentation Clarification Form Date: 12/13/2022 3:51:39 PM From: Cindy Panchal RN, CCDS Admit Date: 12/09/2022 11:02:00 AM Patient Name: Stephen Bain Visit Number: [id number] Discharge Date: ATTENTION: The Clinical Documentation Specialists (CDI) and [facility] Coding Staff appreciate your assistance in clarifying documentation. Please respond to the clarification below the line at the bottom and electronically sign. The CDI & [facility] Coding staff will review the response and follow-up if needed. Please note: Queries are made part of the Legal Health Record. If you have any questions, please contact the author of this message via ITS. Dr. Bobbi Ayala Unspecified CKD is documented in the H/P and subsequent progress notes. Additional clarification regarding the stage of CKD is requested. History/Risk Factors: AFIB CAD DVT Hyperlipidemia, DM CHF, HTN, Prostate disorder talita leslie, Clinical Indicators: 82-Year-old male with complaints of worsening weakness. H/P has acute kidney injury with chronic kidney disease. 12/09 BUN 79 CR 2.27 GFR 26, BUN 73, CR 1.74, GFR 35 12/10 BUN 60 CR 1.66 GFR 37 12/12 BUN 35 CR 1.35 GFR 48 Treatment: Monitor renal function daily and per orders .9NS @ 50 MLS/HR 12/09 .9 NS 500 ML Bolus 12/09 Please clarify the stage of the CKD, if known: [ ] CKD Stage 1 (GFR > 90) [ ] CKD Stage 2 (GFR 60-89) [ ] CKD Stage 3 (GFR 30-59) [ ] CKD Stage 3a (GFR 45-59) [ ] CKD Stage 3b (GFR 30-44) [ ] CKD Stage 4 (GFR 15-26 [ ] Other, please specify [ ] Unable to determine (Template Last revised: September 2020) MTDD
[2022-12-13 16:24] LABS: Glucose,Whole Blood 145 mg/dL (70-110)
[2022-12-13] MEDS ORDERED: WARFARIN 1.5 MG TAB PO ONE (18:00)
[2022-12-13 20:17] LABS: Glucose,Whole Blood 139 mg/dL (70-110)
[2022-12-13] MEDS: traZODone HCL 50 MG TAB PO SCH (20:31)
[2022-12-13] MEDS: ATORVASTATIN 10 MG TAB PO SCH (20:31)
[2022-12-14 05:51] LABS: Glucose,Whole Blood 138 mg/dL (70-110)
[2022-12-14] MEDS: INSULIN ASPART (NovoLOG) 100 UNIT/ML VIAL SQ SCH ×2 (06:16→12:10)
[2022-12-14 07:38] LABS: Prothrombin Time 19.7 sec (9.0-12.0)
[2022-12-14] MEDS: buPROPion XL 150 MG TAB.ER.24H PO SCH (09:06)
[2022-12-14] MEDS: polyethylene glycoL 3350 17 GM POWD.PACK PO SCH (09:06)
[2022-12-14] MEDS: METOPROLOL TARTRATE 25 MG TAB PO SCH (09:06)
--- NOTE | 2022-12-14 10:43 | P.DS ---
Providers Date of admission: 12/09/22 11:02 Expected date of discharge: 12/14/22 Attending physician: Cr Leyva MD Primary care physician: Lonnie Hewitt Hospital Course: Discharge Diagnosis: Acute kidney injury on chronic kidney disease Hypokalemia Elevated troponin Hyponatremia Metabolic alkalosis Debility and mechanical fall Acute on chronic hypoxic respiratory failure Diastolic heart failure, not in exacerbation Stable small to moderate posterior right pleural effusion Persistent atrial fibrillation on Coumadin Hospital Course: Patient is a 82-year-old male with history of bladder cancer status post resecti on, diastolic heart failure, CAD, severe pulmonary hypertension, sick sinus syndrome status post pacemaker, persistent A. fib, diabetes presents to the ED for difficulties with ADL and IADL that has been ongoing for the past 2-3 weeks. He reports generalized weakness and difficulty with ambulating. He lives at home in an apartment with his . He reports a mechanical fall yesterday states that his legs gave in. He denies any headache, lower extremity edema, nausea or vomiting, fever or chills, cough, chest pain, shortness of breath, palpitations, changes in urination or bowel habits. No changes in weight. He denies any dizziness, numbness/tingling of the extremities. He reports a poor appetite. In the ED, his vital signs were stable. He was initially hypotensive with BP of 96/54. CBC showed hemoglobin of 11.7. CMP shows sodium of 129, potassium of 2.9, chloride 81, bicarb of 39, BUN of 79, creatinine of 2.27, glucose 104. Magnesium was 2.6. Troponin was 0.088. EKG showed ventricular paced rhythm. Chest x-ray showed small to moderate posterior right pleural effusion. CT head and CT C-spine was negative for acute finding. Patient is admitted for debility and electrolyte abnormalities along with troponin elevation. Acute kidney injury and electrolyte abnormalities likely in the setting of diuretic use. Patient was also alkalotic, likely contraction. Diuretics was discontinued. Renal function improved. Patient being discharged to subacute rehab. Patient seen and examined at bedside. Vital signs reviewed and stable. General: nontoxic, no distress, appears at stated age Derm: warm, dry Head: atraumatic, normocephalic, symmetric Eyes: EOMI, no lid lag, anicteric sclera Mouth: no lip lesion, mucus membranes moist Cardiovascular: S1S2 reg, no murmur Lungs: CTA bilateral, no rhonchi, no rales , no accessory muscle use, supplemental oxygen Abdominal: soft, nontender to palpation, no guarding, no appreciable organomegaly Ext: no gross muscle atrophy, no edema, no contractures Neuro: CN II-XI grossly intact, no focal neuro deficits Psych: Alert, oriented, appropriate affect A total of 36 minutes of time were spent preparing this complex discharge summary. Patient was discharged on 12/14/22 at 10:38. Patient Condition at Discharge: Stable Plan - Discharge Summary Discharge Rx Participant: No New Discharge Prescriptions: New Magnesium Hydroxide [Milk of Magnesia Concentrate] 2,400 mg PO BID PRN ml PRN Reason: Constipation polyethylene glycoL 3350 [Miralax] 17 gm PO DAILY packet Continue Metoprolol Tartrate [Lopressor] 25 mg PO BID Lovastatin [Mevacor] 40 mg PO HS Warfarin [Coumadin] 1 mg PO PC-SUPPER Insulin Glargine,Hum.rec.anlog [Lantus Solostar Pen] 12 unit SQ PC-SUPPER Dapagliflozin Propanediol [Farxiga] 10 mg PO DAILY traZODone HCL [Desyrel] 50 - 100 mg PO HS buPROPion HCL [Wellbutrin XL] 150 mg PO DAILY Discontinued Furosemide [Lasix] 40 mg PO DAILY Discharge Medication List Metoprolol Tartrate [Lopressor] 25 mg PO BID 02/28/14 [History] Lovastatin [Mevacor] 40 mg PO HS 12/14/18 [History] Insulin Glargine,Hum.rec.anlog [Lantus Solostar Pen] 12 unit SQ PC-SUPPER 05/26/20 [History] Warfarin [Coumadin] 1 mg PO PC-SUPPER 05/26/20 [History] Dapagliflozin Propanediol [Farxiga] 10 mg PO DAILY 05/14/22 [History] buPROPion HCL [Wellbutrin XL] 150 mg PO DAILY 12/09/22 [History] traZODone HCL [Desyrel] 50 - 100 mg PO HS 12/09/22 [History] Magnesium Hydroxide [Milk of Magnesia Concentrate] 2,400 mg PO BID PRN ml 12/14/22 [Rx] polyethylene glycoL 3350 [Miralax] 17 gm PO DAILY packet 04/18/23 [Rx] Follow up Appointment(s)/Referral(s): Lonnie Hweitt DO [Primary Care Provider] - 1-2 days Patient Instructions/Handouts: Weakness (DC), Hypokalemia (DC) Activity/Diet/Wound Care/Special Instructions: Please see your PCP as soon as possible. Discharge Disposition: TRANSFER TO SNF/ECF
[2022-12-14 11:01] VITALS: TEMP 97.9
[2022-12-14 11:38] LABS: Glucose,Whole Blood 121 mg/dL (70-110)
[2022-12-14 12:35] VITALS: BP 117/61; RESP 17
[2022-12-14 13:08] VITALS: PULSE 84
--- NOTE | 2022-12-14 15:40 | CDI ---
Documentation Clarification Form Date: 12/14/2022 3:30:05 PM From: Cindy Panchal RN, CCDS Admit Date: 12/09/2022 11:02:00 AM Patient Name: Stephen Bain Visit Number: [id number] Discharge Date: 12/14/2022 1:05:00 PM ATTENTION: The Clinical Documentation Specialists (CDI) and [facility] Coding Staff appreciate your assistance in clarifying documentation. Please respond to the clarification below the line at the bottom and electronically sign. The CDI & [facility] Coding staff will review the response and follow-up if needed. Please note: Queries are made part of the Legal Health Record. If you have any questions, please contact the author of this message via ITS. Dr. Cr Leyva Acute on chronic hypoxic respiratory failure is documented in the discharge summary on 12/14/22 which may lack sufficient clinical evidence/support in the medical record. Additional clarification is requested. History/Risk Factors: Bladder cancer, Diastolic heart failure, Coronary artery disease, Persistent atrial fibrillation, Clinical Indicators: 82-year-old male present with difficulties with ADL ongoing for past 2-3 weeks. He reports generalized weakness and difficulty with ambulating. He denies lower extremity edema, cough or shortness of breath. 12/09 CXR: Stable small to moderate posterior right pleural effusion 12/14 Discharge summary: Lungs CTA bilateral, no rhonchi, no rales, no accessory muscle use, supplemental oxygen. 12/14 02:00 Vital signs: 143/66 75 18 85 % RA post going to bathroom 2/L applied, went up to 95 % 12/14 10:45 Vital signs: pulse at rest 84 pulse with exercise 92, Sat 90 % RA 12/14 11:45 Vital signs: 117/61 62 17 96 % RA Treatment: Monitor O2 Sat's No home O2 Please clarify if acute on chronic hypoxic respiratory failure is a valid diagnosis? [ x ] Yes, acute on chronic hypoxic respiratory failure is present as evidence by (additional clinical support): ____likely from pleural effusion, worse with ambulation [ ] No, acute on chronic hypoxic respiratory failure is ruled out. [ ] Other (please specify diagnosis) [ ] Unable to determine. (Template Last Revised: October 2020) MTDD
[2022-12-14] MEDS ORDERED: WARFARIN 1 MG TAB PO ONE (18:00)
== END 2022-12-14 13:05 | DRG 682 ==
LOC: EC 08:19 → 3SCARD 11:02
PROVIDERS: ADMIT Student in an Organized Health Care Education/Training Program; ATTEND Student in an Organized Health Care Education/Training Program
DX: N17.9 Acute kidney failure, unspecified (principal); J96.21 Acute and chronic respiratory failure with hypoxia; E87.1 Hypo-osmolality and hyponatremia; E87.3 Alkalosis; I13.0 Hypertensive heart and chronic kidney disease with heart failure and stage 1 through stage 4 chronic kidney disease, or unspecified chronic kidney disease; I48.19 Other persistent atrial fibrillation; I50.32 Chronic diastolic (congestive) heart failure; N18.9 Chronic kidney disease, unspecified; N40.0 Benign prostatic hyperplasia without lower urinary tract symptoms; E78.5 Hyperlipidemia, unspecified; E87.6 Hypokalemia; R53.81 Other malaise; G47.30 Sleep apnea, unspecified; R77.8 Other specified abnormalities of plasma proteins; E11.22 Type 2 diabetes mellitus with diabetic chronic kidney disease; I49.5 Sick sinus syndrome; I95.9 Hypotension, unspecified; E11.51 Type 2 diabetes mellitus with diabetic peripheral angiopathy without gangrene; I25.10 Atherosclerotic heart disease of native coronary artery without angina pectoris; I27.20 Pulmonary hypertension, unspecified; Z66 Do not resuscitate; Z91.81 History of falling; Z79.01 Long term (current) use of anticoagulants; Z79.4 Long term (current) use of insulin; Z79.82 Long term (current) use of aspirin; Z79.84 Long term (current) use of oral hypoglycemic drugs; Z79.899 Other long term (current) drug therapy; Z82.49 Family history of ischemic heart disease and other diseases of the circulatory system; Z85.51 Personal history of malignant neoplasm of bladder; Z95.0 Presence of cardiac pacemaker
CPT/HCPCS: 36415; 70450; 71046; 72125; 80048; 80053; 82803; 83605; 83735; 84484; 85025; 85610; 93005; 96360; 99285

== ENCOUNTER 2023-03-02 08:10 | Observation (INO) | payer MEDICARE ==
[2023-03-02 08:38] LABS: Basophils % (A) 0 %; Eosinophils # (A) 0.1 k/uL (0-0.7); Eosinophils % (A) 3 %; HCT 27.2 % (39.0-53.0); HGB 8.5 gm/dL (13.0-17.5); Hypochromasia Slight; Lymphocytes # (A) 0.8 k/uL (1.0-4.8); Lymphocytes % (A) 19 %; MCH 30.7 pg (25.0-35.0); MCHC 31.1 g/dL (31.0-37.0); MCV 98.5 fL (80.0-100.0); Macrocytosis Slight; Mean Platelet Volume 8.2; Monocytes # (A) 0.3 k/uL (0-1.0); Monocytes % (A) 7 %; Neutrophils # (A) 2.8 k/uL (1.3-7.7); Neutrophils % (A) 68 %; Platelet Count 136 k/uL (150-450); RBC 2.76 m/uL (4.30-5.90); RDW 15.4 % (11.5-15.5); WBC 4.2 k/uL (3.8-10.6)
[2023-03-02 08:49] LABS: INR 2.2 (<1.2); Partial Thromboplastin Time 31.1 sec (22.0-30.0); Prothrombin Time 21.6 sec (9.0-12.0)
--- NOTE | 2023-03-02 08:53 | ED ---
General Adult HPI - General Chief complaint: Syncope Stated complaint: Syncope Time Seen by Provider: 03/02/23 08:12 Source: patient, EMS, RN notes reviewed, old records reviewed Mode of arrival: EMS - History of Present Illness Initial comments: 83-year-old male history of CHF, pulmonary hypertension presenting for evaluation of syncopal episode while taking a shower. Patient had felt lightheaded, was lowered to the ground. He states he did not fall or injure himself. No head trauma. He is on anticoagulation. He is currently on home oxygen which she states is new over the past several months. There is reported history of bladder cancer, patient denies any current or past cancer. He has no complaints of chest pain, no worsening dyspnea, he had one episode of vomiting prior to arrival. - Related Data Home Medications Medication Instructions Recorded Confirmed Metoprolol Tartrate [Lopressor] 25 mg PO BID 02/28/14 12/27/22 Lovastatin [Mevacor] 40 mg PO HS 12/14/18 12/27/22 Insulin Glargine,Hum.rec.anlog 12 unit SQ PC-SUPPER 05/26/20 12/27/22 [Lantus Solostar Pen] Warfarin [Coumadin] 1 mg PO PC-SUPPER 05/26/20 12/27/22 Dapagliflozin Propanediol [Farxiga] 10 mg PO DAILY 05/14/22 12/27/22 buPROPion HCL [Wellbutrin XL] 150 mg PO DAILY 12/09/22 12/27/22 traZODone HCL [Desyrel] 50 - 100 mg PO HS 12/09/22 12/27/22 Previous Rx's Medication Instructions Recorded Magnesium Hydroxide [Milk of 2,400 mg PO BID PRN ml 12/14/22 Magnesia Concentrate] polyethylene glycoL 3350 [Miralax] 17 gm PO DAILY packet 12/14/22 Ascorbic Acid [Vitamin C] 250 mg PO DAILY #30 tab 12/31/22 Ferrous Sulfate [Iron (65 MG 325 mg PO W/LUNCH #30 tab 12/31/22 Elemental)] Furosemide [Lasix] 40 mg PO BID@0900,1600 #60 tab 12/31/22 Allergies Allergy/AdvReac Type Severity Reaction Status Date / Time doxazosin mesylate AdvReac "irritates Verified 03/02/23 08:19 [From Cardura] urinary tract, jeter all the time when I pee" finasteride [From Proscar] AdvReac "irritates Verified 03/02/23 08:19 urinary tract, jeter all the time when I pee" gatifloxacin [From Tequin] AdvReac "irritates Verified 03/02/23 08:19 urinary tract, jeter all the time when I pee" glipizide AdvReac severe Verified 03/02/23 08:19 hypoglycemia hydroxyzine HCl [From Atarax] AdvReac "irritates Verified 03/02/23 08:19 urinary tract, jeter all the time when I pee" levofloxacin [From Levaquin] AdvReac "irritates Verified 03/02/23 08:19 urinary tract, jeter all the time when I pee" lisinopril AdvReac "irritates Verified 03/02/23 08:19 urinary tract, jeter all the time when I pee" meperidine HCl [From Demerol] AdvReac "irritates Verified 03/02/23 08:19 urinary tract, jeter all the time when I pee" metformin AdvReac "irritates Verified 03/02/23 08:19 urinary tract, jeter all the time when I pee" oxybutynin AdvReac "irritates Verified 03/02/23 08:19 urinary tract, jeter all the time when I pee" oxybutynin chloride AdvReac "irritates Verified 03/02/23 08:19 [From Ditropan] urinary tract, jeter all the time when I pee" pseudoephedrine HCl AdvReac "irritates Verified 03/02/23 08:19 [From Sudafed] urinary tract, jeter all the time when I pee" rosuvastatin calcium AdvReac "irritates Verified 03/02/23 08:19 [From Crestor] urinary tract, jeter all the time when I pee" Sulfa (Sulfonamide AdvReac "irritates Verified 03/02/23 08:19 Antibiotics) urinary tract, jeter all the time when I pee" tamsulosin AdvReac "irritates Verified 03/02/23 08:19 urinary tract, jeter all the time when I pee" tamsulosin HCl [From Flomax] AdvReac "irritates Verified 03/02/23 08:19 urinary tract, jeter all the time when I pee" terazosin HCl [From Hytrin] AdvReac "irritates Verified 03/02/23 08:19 urinary tract, jeter all the time when I pee" Review of Systems ROS Statement: Those systems with pertinent positive or pertinent negative responses have been documented in the HPI. ROS Other: All systems not noted in ROS Statement are negative. 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, past L pleural effusion with thoracentesis, DVT L lower extremity, BPH with surgery, CKD, kiney stones with surgery, abdominal aortic aneurysm being monitored every 6 months, STEPHAN-unable to tolerate CPap, SSS with pacemaker, vertigo in the past, seasonal allergies History of Any Multi-Drug Resistant Organisms: None Reported Past Surgical History: Heart Catheterization, Pacemaker, Prostate Surgery Additional Past Surgical History / Comment(s): Pacemaker inserted 01/01/09 and gen change 04/11/18, TURP, ESWL, cysto/TURP, colonoscopy, "scraped bladder out" with adamson catheter inserted 04/14/22 Past Anesthesia/Blood Transfusion Reactions: Motion Sickness Type of Cardiac Device: Permanent Pacemaker Device Placement Date:: 01/01/2009 and gen change 03/2018 Past Psychological History: No Psychological Hx Reported Smoking Status: Never smoker Past Alcohol Use History: None Reported Past Drug Use History: None Reported - Past Family History Mother Family Medical History: CVA/TIA, Hypertension Additional Family Medical History / Comment(s): Mother lived to be 85yrs old. Father Family Medical History: CVA/TIA Additional Family Medical History / Comment(s): Father from a CVA at the age of 78yrs. General Exam General appearance: alert, in no apparent distress Head exam: Present: atraumatic, normocephalic Eye exam: Present: normal appearance, PERRL ENT exam: Present: normal exam Neck exam: Present: normal inspection. Absent: tenderness, meningismus Respiratory exam: Present: decreased breath sounds. Absent: respiratory distress Cardiovascular Exam: Present: regular rate, normal rhythm GI/Abdominal exam: Present: soft. Absent: distended, tenderness Extremities exam: Present: normal inspection, normal capillary refill Neurological exam: Present: alert. Absent: motor sensory deficit Psychiatric exam: Present: normal affect, normal mood Skin exam: Present: warm, dry, intact Course Vital Signs 03/02/23 08:11 Temperature 97.7 F Pulse Rate 66 Respiratory 16 Rate Blood Pressure 113/71 O2 Sat by Pulse 98 Oximetry - Reevaluation(s) Reevaluation #1: 03/02/23 10:04 Son is at bedside and does indicate that the patient may have overtaken his medication accidentally. Medical Decision Making - Medical Decision Making Was pt. sent in by a medical professional or institution (, PA, COAL DELIVERER, urgent care, hospital, or penitentiary...) When possible be specific @ -No Did you speak to anyone other than the patient for history (EMS, parent, family, police, friend...)? What history was obtained from this source @ -Paramedics and patient's son Did you review nursing and triage notes (agree or disagree)? Why? @ -I reviewed and agree with nursing and triage notes Were old charts reviewed (outside hosp., previous admission, EMS record, old EKG, old radiological studies, urgent care reports/EKG's, penitentiary records)? Report findings @ These admissions, previous labs including hemoglobin, troponin, Differential Diagnosis (chest pain, altered mental status, abdominal pain women, abdominal pain men, vaginal bleeding, weakness, fever, dyspnea, syncope, headache, dizziness, GI bleed, back pain, seizure, CVA, palpatations, mental he alth, musculoskeletal)? @ -[Differential Syncope: Valvular disease, hypertrophic cardiomyopathy, pulmonary embolism, tamponade, tachycardia, bradycardia, OK, hypovolemia, hemorrhage, dissection, anemia, intracranial hemorrhage, seizure, hypoglycemia, carbon monoxide poisoning, this is not meant to be an all-inclusive list. EKG interpreted by me (3pts min.). @ -Paced rhythm rate of 59, QRS duration to 10, QTC 522, X-rays interpreted by me (1pt min.). @ -Bilateral pleural effusions and venous congestion CT interpreted by me (1pt min.). @ -None done U/S interpreted by me (1pt. min.). @ -None done What testing was considered but not performed or refused? (CT, X-rays, U/S, labs)? Why? @ -None What meds were considered but not given or refused? Why? @ -None Did you discuss the management of the patient with other professionals (professionals i.e. Dr., PA, COAL DELIVERER, lab, RT, psych nurse, public health social worker, broaching machine operator, teacher, fisheries technical officer, corrections caseworker)? Give summary @ Dr. Leyva Was smoking cessation discussed for >3mins.? @ -No Was critical care preformed (if so, how long)? @ -No Were there social determinants of health that impacted care today? How? (Homelessness, low income, unemployed, alcoholism, drug addiction, transportation, low edu. Level, literacy, decrease access to med. care, longterm, rehab)? @ -No Was there de-escalation of care discussed even if they declined (Discuss DNR or withdrawal of care, Hospice)? DNR status @ -No What co-morbidities impacted this encounter? (DM, HTN, Smoking, COPD, CAD, Cancer, CVA, ARF, Chemo, Hep., AIDS, mental health diagnosis, sleep apnea, morbid obesity)? @ -[Chronic kidney disease, chronic anemia, CHF, pulmonary hypertension Was patient admitted / discharged? Hospital course, mention meds given and route, prescriptions, significant lab abnormalities, going to OR and other pertinent info. @ -[83-year-old male with syncopal episode. Patient has no complaints time my evaluation. He has paced rhythm, chronic anemia, chronic kidney disease, chronic troponin elevation. Patient will require observation, telemetry, serial cardiac enzymes. Undiagnosed new problem with uncertain prognosis? @ -No Drug Therapy requiring intensive monitoring for toxicity (Heparin, Nitro, Insu nelli, Cardizem)? @ -No Were any procedures done? @ -No Diagnosis/symptom? @ -Syncope, troponin elevation Acute, or Chronic, or Acute on Chronic? @ -Acute Uncomplicated (without systemic symptoms) or Complicated (systemic symptoms)? @ -[Complicated Side effects of treatment? @ -No Exacerbation, Progression, or Severe Exacerbation? @ -No Poses a threat to life or bodily function? How? (Chest pain, USA, OK, pneumonia, PE, COPD, DKA, ARF, appy, cholecystitis, CVA, Diverticulitis, Homicidal, Suicidal, threat to staff... and all critical care pts) @ -[Yes - Lab Data Result diagrams: 03/02/23 08:26 03/02/23 08:26 Lab Results 03/02/23 03/02/23 03/02/23 Range/Units 08:26 08:26 08:26 WBC 4.2 (3.8-10.6) k/uL RBC 2.76 L (4.30-5.90) m/uL Hgb 8.5 L (13.0-17.5) gm/dL Hct 27.2 L (39.0-53.0) % MCV 98.5 (80.0-100.0) fL MCH 30.7 (25.0-35.0) pg MCHC 31.1 (31.0-37.0) g/dL RDW 15.4 (11.5-15.5) % Plt Count 136 L (150-450) k/uL MPV 8.2 Neutrophils % 68 % Lymphocytes % 19 % Monocytes % 7 % Eosinophils % 3 % Basophils % 0 % Neutrophils # 2.8 (1.3-7.7) k/uL Lymphocytes # 0.8 L (1.0-4.8) k/uL Monocytes # 0.3 (0-1.0) k/uL Eosinophils # 0.1 (0-0.7) k/uL Basophils # 0.0 (0-0.2) k/uL Hypochromasia Slight Macrocytosis Slight PT 21.6 H (9.0-12.0) sec INR 2.2 H (<1.2) APTT 31.1 H (22.0-30.0) sec Sodium 140 (137-145) mmol/L Potassium 4.2 (3.5-5.1) mmol/L Chloride 96 L (98-107) mmol/L Carbon Dioxide 34 H (22-30) mmol/L Anion Gap 10 mmol/L BUN 41 H (9-20) mg/dL Creatinine 2.01 H (0.66-1.25) mg/dL Est GFR (CKD-EPI)AfAm 34 (>60 ml/min/1.73 sqM) Est GFR (CKD-EPI)NonAf 29 (>60 ml/min/1.73 sqM) Glucose 108 H (74-99) mg/dL Calcium 8.5 (8.4-10.2) mg/dL Magnesium 2.5 H (1.6-2.3) mg/dL Total Bilirubin 0.6 (0.2-1.3) mg/dL AST 24 (17-59) U/L ALT 12 (4-49) U/L Alkaline Phosphatase 107 (38-126) U/L Troponin I (0.000-0.034) ng/mL NT-Pro-B Natriuret Pep pg/mL Total Protein 9.1 H (6.3-8.2) g/dL Albumin 3.5 (3.5-5.0) g/dL 03/02/23 03/02/23 Range/Units 08:26 08:26 WBC (3.8-10.6) k/uL RBC (4.30-5.90) m/uL Hgb (13.0-17.5) gm/dL Hct (39.0-53.0) % MCV (80.0-100.0) fL MCH (25.0-35.0) pg MCHC (31.0-37.0) g/dL RDW (11.5-15.5) % Plt Count (150-450) k/uL MPV Neutrophils % % Lymphocytes % % Monocytes % % Eosinophils % % Basophils % % Neutrophils # (1.3-7.7) k/uL Lymphocytes # (1.0-4.8) k/uL Monocytes # (0-1.0) k/uL Eosinophils # (0-0.7) k/uL Basophils # (0-0.2) k/uL Hypochromasia Macrocytosis PT (9.0-12.0) sec INR (<1.2) APTT (22.0-30.0) sec Sodium (137-145) mmol/L Potassium (3.5-5.1) mmol/L Chloride (98-107) mmol/L Carbon Dioxide (22-30) mmol/L Anion Gap mmol/L BUN (9-20) mg/dL Creatinine (0.66-1.25) mg/dL Est GFR (CKD-EPI)AfAm (>60 ml/min/1.73 sqM) Est GFR (CKD-EPI)NonAf (>60 ml/min/1.73 sqM) Glucose (74-99) mg/dL Calcium (8.4-10.2) mg/dL Magnesium (1.6-2.3) mg/dL Total Bilirubin (0.2-1.3) mg/dL AST (17-59) U/L ALT (4-49) U/L Alkaline Phosphatase (38-126) U/L Troponin I 0.045 H* (0.000-0.034) ng/mL NT-Pro-B Natriuret Pep 82535 pg/mL Total Protein (6.3-8.2) g/dL Albumin (3.5-5.0) g/dL Disposition Clinical Impression: Renal insufficiency, Anemia, Congestive heart failure, Syncope Disposition: ADMITTED IP TO THIS HOSP Condition: Stable Is patient prescribed a controlled substance at d/c from ED?: No Referrals: Lonnie Hewitt DO [Primary Care Provider] - 1-2 days Time of Disposition: 10:07
[2023-03-02 09:05] LABS: ALT 12 U/L (4-49); AST 24 U/L (17-59); African American GFR (CKD) 34 (>60 ml/min/1.73 sqM); Albumin 3.5 g/dL (3.5-5.0); Alkaline Phosphatase 107 U/L (38-126); Anion Gap 10 mmol/L; Blood Urea Nitrogen 41 mg/dL (9-20); Calcium 8.5 mg/dL (8.4-10.2); Carbon Dioxide 34 mmol/L (22-30); Chloride 96 mmol/L (98-107); Glucose 108 mg/dL (74-99); Magnesium 2.5 mg/dL (1.6-2.3); Non-African American GFR(CKD) 29 (>60 ml/min/1.73 sqM); Potassium 4.2 mmol/L (3.5-5.1); Sodium 140 mmol/L (137-145); Total Bilirubin 0.6 mg/dL (0.2-1.3); Total Protein 9.1 g/dL (6.3-8.2)
--- NOTE | 2023-03-02 09:05 | XR ---
EXAMINATION TYPE: XR chest 2V DATE OF EXAM: 03/02/2023 COMPARISON: 12/29/2022 TECHNIQUE: PA and lateral views submitted. HISTORY: Syncope FINDINGS: There is a cardiac device with cardiomegaly and bilateral consolidation with pleural effusion. No pne umothorax. There is arthropathy of the shoulders. IMPRESSION: 1. A bilateral pleural effusion and basilar consolidation stable. Correlate for mild underlying venou s congestion.
[2023-03-02] MEDS ORDERED: FUROSEMIDE 10 MG/ML 4 ML VIAL IV STA (09:31)
[2023-03-02] MEDS ORDERED: NALOXONE 0.4 MG/ML 1 ML VIAL IV PRN (10:03)
[2023-03-02] MEDS ORDERED: ACETAMINOPHEN TAB 325 MG TAB PO PRN (10:03)
[2023-03-02 10:56] LABS: Appearance,Urine Clear (Clear); Bilirubin,Urine Negative (Negative); Blood,Urine Negative (Negative); Color,Urine Light Yellow; Glucose,Urine (UA) Trace (Negative); Ketones,Urine Negative (Negative); Leukocyte Esterase,Urine Negative (Negative); Nitrite,Urine Negative (Negative); PH, Urine 6.5 (5.0-8.0); Protein,Urine Trace (Negative); Specific Gravity,Urine 1.008 (1.001-1.035); Urobilinogen,Urine <2.0 mg/dL (<2.0)
[2023-03-02] MEDS ORDERED: DEXTROSE 50% SYRINGE 50 ML IVP PRN ×2 (12:21)
[2023-03-02] MEDS: INSULIN ASPART (NovoLOG) 100 UNIT/ML VIAL SQ SCH ×2 (12:28→17:29)
[2023-03-02 12:29] LABS: Glucose,Whole Blood 91 mg/dL (70-110)
--- NOTE | 2023-03-02 16:15 | P.HPIM ---
History of Present Illness H&P Date: 03/02/23 Patient is pleasantly confused and majority of information is obtained from charting and documentation. Patient is an 83-year-old male with PMH of atrial fibrillation, CAD, CHF, diabetes mellitus, hypertension, dyslipidemia, chronic kidney disease, sleep apnea, AAA, pacemaker for SSS presents to the ED after a syncopal episode. Patient has an extremely poor historian however the son was able to provide history to the ED physician. Apparently, patient had a presyncopal episode while taking a shower. Symptoms included lightheadedness nausea and one episode of vomiting. No head trauma is endorsed. His son noticed that patient may have taken double doses of his medication when examining the pill box. Patient currently denies any complaints. He denies any chest pain, shortness breath or palpitations. No nausea or vomiting. He denies any dizziness. No changes in urination or bowel habits. In the ED, his vital signs were stable. He was noted to be bradycardic with heart rate 49. CBC showed hemoglobin of 8.5 and platelet count of 136. INR was 2.2. CMP showed chloride of 96, bicarb of 34, BUN of 41, creatinine of 2.01, glucose 108. Magnesium was 2.5. Troponin was 0.045, 0.047, 0.045. EKG showed electronic ventricular pacemaker. BNP was 20,200. Chest x-ray showed bilateral pleural effusion and pulmonary vascular congestion. Urinalysis was negative for nitrite or leukocyte esterase. Pertinent positives and negatives as discussed in HPI, a complete review of systems was performed and all other systems are negative. General: non toxic, no distress, appears at stated age Derm: warm, dry Head: atraumatic, normocephalic, symmetric Eyes: EOMI, no lid lag, anicteric sclera Mouth: no lip lesion, mucus membranes moist Cardiovascular: S1S2 reg, no murmur Lungs: CTA bilateral, no rhonchi, no rales , no accessory muscle use Abdominal: soft, nontender to palpation, no guarding, no appreciable organomegaly Ext: no gross muscle atrophy, no edema, no contractures Neuro: no focal neuro deficits Psych: Pleasantly confused Syncopal episode Bradycardia Troponin elevation Hypochloremic metabolic alkalosis Normocytic anemia Thrombocytopenia Chronic conditions: atrial fibrillation, CAD, CHF, diabetes mellitus, hypertension, dyslipidemia, chronic kidney disease, sleep apnea, AAA, pacemaker for SSS Based on my assessment of this patient, this patient meets a high complexity level of care. Patient has an acute diagnosis of troponin elevation in the setting of syncopal episode that poses a threat to life or bodily function. There is question of medication overdose. Patient is noted to be bradycardic with heart rate in the 40s and 60s. Troponins have remained flat and ACS has been ruled out. Most recent echocardiogram done in 12/2022 shows EF of 50-55% with moderate to severe LV thickness. Start telemetry monitoring. Cardiology will be consulted for fur ther management of this patient. Fall precautions. Obtain orthostats. PT consulted. His hemoglobin and creatinine appears at baseline. Likely related to chronic kidney disease. Metabolic alkalosis likely related to Lasix. Warfarin for DVT prophylaxis. FULL CODE. I have reviewed the following loans consultant notes: I have reviewed the results of the following tests: CBC, Coagulation panel, CMP, Mag, Troponin, BNP, CXR, UA as above. I have ordered the following tests: I have discussed the care of this patient with the following independent historian: I have independently interpreted the following test below: EKG as above. I have discussed the management of this patient with the following physician: Case discussed with the ED physician in detail. 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, past L pleural effusion with thoracentesis, DVT L lower extremity, BPH with surgery, CKD, kiney stones with surgery, abdominal aortic aneurysm being monitored every 6 months, STEPHAN-unable to tolerate CPap, SSS with pacemaker, vertigo in the past, seasonal allergies History of Any Multi-Drug Resistant Organisms: None Reported Past Surgical History: Heart Catheterization, Pacemaker, Prostate Surgery Additional Past Surgical History / Comment(s): Pacemaker inserted 01/01/09 and gen change 04/11/18, TURP, ESWL, cysto/TURP, colonoscopy, "scraped bladder out" with adamson catheter inserted 04/14/22 Past Anesthesia/Blood Transfusion Reactions: Motion Sickness Type of Cardiac Device: Permanent Pacemaker Device Placement Date:: 01/01/2009 and gen change 03/2018 Past Psychological History: No Psychological Hx Reported Smoking Status: Never smoker Past Alcohol Use History: None Reported Past Drug Use History: None Reported - Past Family History Mother Family Medical History: CVA/TIA, Hypertension Additional Family Medical History / Comment(s): Mother lived to be 85yrs old. Father Family Medical History: CVA/TIA Additional Family Medical History / Comment(s): Father from a CVA at the age of 78yrs. Medications and Allergies Home Medications Medication Instructions Recorded Confirmed Type Metoprolol Tartrate [Lopressor] 25 mg PO BID 02/28/14 03/02/23 History Lovastatin [Mevacor] 40 mg PO HS 12/14/18 03/02/23 History Insulin Glargine,Hum.rec.anlog 20 unit SQ PC-SUPPER 05/26/20 03/02/23 History [Lantus Solostar Pen] Warfarin [Coumadin] 1 mg PO PC-SUPPER 05/26/20 03/02/23 History Dapagliflozin Propanediol [Farxiga] 10 mg PO DAILY 05/14/22 03/02/23 History buPROPion HCL [Wellbutrin XL] 150 mg PO DAILY 12/09/22 03/02/23 History traZODone HCL [Desyrel] 50 - 100 mg PO HS 12/09/22 03/02/23 History Famotidine [Pepcid] 40 mg PO BID 03/02/23 03/02/23 History Furosemide [Lasix] 20 mg PO BID-W/MEALS 03/02/23 03/02/23 History Allergies Allergy/AdvReac Type Severity Reaction Status Date / Time doxazosin mesylate AdvReac "irritates Verified 03/02/23 10:48 [From Cardura] urinary tract, jeter all the time when I pee" finasteride [From Proscar] AdvReac "irritates Verified 03/02/23 10:48 urinary tract, jeter all the time when I pee" gatifloxacin [From Tequin] AdvReac "irritates Verified 03/02/23 10:48 urinary tract, jeter all the time when I pee" glipizide AdvReac severe Verified 03/02/23 10:48 hypoglycemia hydroxyzine HCl [From Atarax] AdvReac "irritates Verified 03/02/23 10:48 urinary tract, jeter all the time when I pee" levofloxacin [From Levaquin] AdvReac "irritates Verified 03/02/23 10:48 urinary tract, jeter all the time when I pee" lisinopril AdvReac "irritates Verified 03/02/23 10:48 urinary tract, jeter all the time when I pee" meperidine HCl [From Demerol] AdvReac "irritates Verified 03/02/23 10:48 urinary tract, jeter all the time when I pee" metformin AdvReac "irritates Verified 03/02/23 10:48 urinary tract, jeter all the time when I pee" oxybutynin AdvReac "irritates Verified 03/02/23 10:48 urinary tract, jeter all the time when I pee" oxybutynin chloride AdvReac "irritates Verified 03/02/23 10:48 [From Ditropan] urinary tract, jeter all the time when I pee" pseudoephedrine HCl AdvReac "irritates Verified 03/02/23 10:48 [From Sudafed] urinary tract, jeter all the time when I pee" rosuvastatin calcium AdvReac "irritates Verified 03/02/23 10:48 [From Crestor] urinary tract, jeter all the time when I pee" Sulfa (Sulfonamide AdvReac "irritates Verified 03/02/23 10:48 Antibiotics) urinary tract, jeter all the time when I pee" tamsulosin AdvReac "irritates Verified 03/02/23 10:48 urinary tract, jeter all the time when I pee" tamsulosin HCl [From Flomax] AdvReac "irritates Verified 03/02/23 10:48 urinary tract, jeter all the time when I pee" terazosin HCl [From Hytrin] AdvReac "irritates Verified 03/02/23 10:48 urinary tract, jeter all the time when I pee" Physical Exam Vitals: Vital Signs Temp Pulse Resp BP Pulse Ox 03/02/23 15:43 57 L 14 127/77 100 03/02/23 11:44 65 20 129/57 99 03/02/23 10:37 49 L 14 103/52 100 03/02/23 08:11 97.7 F 66 16 113/71 98 Intake and Output 03/02/23 03/02/23 03/02/23 06:59 14:59 22:59 Other: Weight 72.121 kg Results CBC & Chem 7: 03/02/23 08:26 03/02/23 08:26 Labs: Abnormal Lab Results - Last 24 Hours (Table) 03/02/23 03/02/23 03/02/23 Range/Units 08:26 08:26 08:26 RBC 2.76 L (4.30-5.90) m/uL Hgb 8.5 L (13.0-17.5) gm/dL Hct 27.2 L (39.0-53.0) % Plt Count 136 L (150-450) k/uL Lymphocytes # 0.8 L (1.0-4.8) k/uL PT 21.6 H (9.0-12.0) sec INR 2.2 H (<1.2) APTT 31.1 H (22.0-30.0) sec Chloride (98-107) mmol/L Carbon Dioxide (22-30) mmol/L BUN (9-20) mg/dL Creatinine (0.66-1.25) mg/dL Glucose (74-99) mg/dL Magnesium (1.6-2.3) mg/dL Troponin I (0.000-0.034) ng/mL Total Protein (6.3-8.2) g/dL Urine Protein Trace H (Negative) Urine Glucose (UA) Trace H (Negative) 03/02/23 03/02/23 03/02/23 Range/Units 08:26 08:26 11:50 RBC (4.30-5.90) m/uL Hgb (13.0-17.5) gm/dL Hct (39.0-53.0) % Plt Count (150-450) k/uL Lymphocytes # (1.0-4.8) k/uL PT (9.0-12.0) sec INR (<1.2) APTT (22.0-30.0) sec Chloride 96 L (98-107) mmol/L Carbon Dioxide 34 H (22-30) mmol/L BUN 41 H (9-20) mg/dL Creatinine 2.01 H (0.66-1.25) mg/dL Glucose 108 H (74-99) mg/dL Magnesium 2.5 H (1.6-2.3) mg/dL Troponin I 0.045 H* 0.047 H* (0.000-0.034) ng/mL Total Protein 9.1 H (6.3-8.2) g/dL Urine Protein (Negative) Urine Glucose (UA) (Negative) 03/02/23 Range/Units 14:26 RBC (4.30-5.90) m/uL Hgb (13.0-17.5) gm/dL Hct (39.0-53.0) % Plt Count (150-450) k/uL Lymphocytes # (1.0-4.8) k/uL PT (9.0-12.0) sec INR (<1.2) APTT (22.0-30.0) sec Chloride (98-107) mmol/L Carbon Dioxide (22-30) mmol/L BUN (9-20) mg/dL Creatinine (0.66-1.25) mg/dL Glucose (74-99) mg/dL Magnesium (1.6-2.3) mg/dL Troponin I 0.045 H* (0.000-0.034) ng/mL Total Protein (6.3-8.2) g/dL Urine Protein (Negative) Urine Glucose (UA) (Negative)
[2023-03-02 17:24] LABS: Glucose,Whole Blood 111 mg/dL (70-110)
[2023-03-02] MEDS: FUROSEMIDE 20 MG TAB PO SCH (17:34)
[2023-03-02] MEDS: WARFARIN 1 MG TAB PO SCH (18:45)
[2023-03-02] MEDS: INSULIN DETEMIR (LEVEMIR) 100 UNIT/ML SYR SQ SCH (18:45)
[2023-03-02] MEDS: FAMOTIDINE 20 MG TAB PO SCH (20:55)
[2023-03-02] MEDS: ATORVASTATIN 10 MG TAB PO SCH (20:55)
[2023-03-02] MEDS: METOPROLOL TARTRATE 25 MG TAB PO SCH (20:56)
[2023-03-02] MEDS: traZODone HCL 50 MG TAB PO SCH (20:56)
--- NOTE | 2023-03-03 05:58 | P.CRDCN ---
History of Present Illness Consult date: 03/03/23 Chief complaint: Syncope History of present illness: This is an 83-year-old gentleman with permanent atrial fibrillation currently on anticoagulation was, then as well as heart failure with preserved ejection fraction as well as permanent pacemaker and also valvular heart disease including mitral regurgitation and pulmonary hypertension was admitted to the hospital from extended care facility after an episode of syncope. The patient was in his usual state of health when he is on oxygen at 2 L continuously at the extended care facility and he was in the shower when he did have an episode of syncope and he lost his consciousness for brief time only. He woke up to find ambulance around him. He does not recall having any warmth feeling or any prodromal symptoms. No symptoms of any pain in the chest or shortness of breath and no feeling of heart racing or fluttering or any dizziness or light and is around episodes. He was brought to the emergency department where he underwent a workup including troponin which came in to be mildly abnormal but that has been chronically elevated and also he does have history of chronic kidney dis ease which could be responsible for the elevation in the troponin. The EKG showed underlying atrial fibrillation with ventricular paced rhythm. The rest of the workup came in to be unremarkable including the chest x-ray. Currently the patient is hypoxic but is on 3 L and he is on 2 L at the extended care facility. His pressure has been marginal but he is only on Lasix at the small dose orally and also is on beta calvin for the atrial fibrillation. I'm going to perform an orthostatic blood pressure. Recent echo showed normal LV systolic function with dilated right ventricle as well as moderate mitral regurgitation and moderate tricuspid regurgitation and moderate pulmonary hypertension The examination is remarkable for irregular rhythm was diminished breathing sounds bilaterally and mild bilateral lower extremity edema and also marginally low blood pressure Assessment Syncopal episode Marginally low blood pressure Permanent pacemaker Permanent atrial fibrillation on anticoagulation Pulmonary hypertension Valvular heart disease Chronic kidney disease Evidence of myocardial injury was elevated troponin was no evidence of ischemia Plan Avoid aggressive blood pressure control and lowering PERFORM orthostatic blood pressure check Pacemaker interrogation Continue the rest of the current medical regimen Follow-up with the patient 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, past L pleural effusion with thoracentesis, DVT L lower extremity, BPH with surgery, CKD, kiney stones with surgery, abdominal aortic aneurysm being monitored every 6 months, STEPHAN-unable to tolerate CPap, SSS with pacemaker, vertigo in the past, seasonal allergies History of Any Multi-Drug Resistant Organisms: None Reported Past Surgical History: Heart Catheterization, Pacemaker, Prostate Surgery Additional Past Surgical History / Comment(s): Pacemaker inserted 01/01/09 and gen change 04/11/18, TURP, ESWL, cysto/TURP, colonoscopy, "scraped bladder out" with adamson catheter inserted 04/14/22 Past Anesthesia/Blood Transfusion Reactions: Motion Sickness Type of Cardiac Device: Permanent Pacemaker Device Placement Date:: 01/01/2009 and gen change 03/2018 Past Psychological History: No Psychological Hx Reported Additional Psychological History / Comment(s): Lives at [facility] Smoking Status: Never smoker Past Alcohol Use History: None Reported Additional Past Alcohol Use History / Comment(s): Pt denies smoking history. Past Drug Use History: None Reported - Past Family History Mother Family Medical History: CVA/TIA, Hypertension Additional Family Medical History / Comment(s): Mother lived to be 85yrs old. Father Family Medical History: CVA/TIA Additional Family Medical History / Comment(s): Father from a CVA at the age of 78yrs. Medications and Allergies Home Medications Medication Instructions Recorded Confirmed Type Metoprolol Tartrate [Lopressor] 25 mg PO BID 02/28/14 03/02/23 History Lovastatin [Mevacor] 40 mg PO HS 12/14/18 03/02/23 History Insulin Glargine,Hum.rec.anlog 20 unit SQ PC-SUPPER 05/26/20 03/02/23 History [Lantus Solostar Pen] Warfarin [Coumadin] 1 mg PO PC-SUPPER 05/26/20 03/02/23 History Dapagliflozin Propanediol [Farxiga] 10 mg PO DAILY 05/14/22 03/02/23 History buPROPion HCL [Wellbutrin XL] 150 mg PO DAILY 12/09/22 03/02/23 History traZODone HCL [Desyrel] 50 - 100 mg PO HS 12/09/22 03/02/23 History Famotidine [Pepcid] 40 mg PO BID 03/02/23 03/02/23 History Furosemide [Lasix] 20 mg PO BID-W/MEALS 03/02/23 03/02/23 History Allergies Allergy/AdvReac Type Severity Reaction Status Date / Time doxazosin mesylate AdvReac "irritates Verified 03/02/23 10:48 [From Cardura] urinary tract, jeter all the time when I pee" finasteride [From Proscar] AdvReac "irritates Verified 03/02/23 10:48 urinary tract, jeter all the time when I pee" gatifloxacin [From Tequin] AdvReac "irritates Verified 03/02/23 10:48 urinary tract, jeter all the time when I pee" glipizide AdvReac severe Verified 03/02/23 10:48 hypoglycemia hydroxyzine HCl [From Atarax] AdvReac "irritates Verified 03/02/23 10:48 urinary tract, jeter all the time when I pee" levofloxacin [From Levaquin] AdvReac "irritates Verified 03/02/23 10:48 urinary tract, jeter all the time when I pee" lisinopril AdvReac "irritates Verified 03/02/23 10:48 urinary tract, jeter all the time when I pee" meperidine HCl [From Demerol] AdvReac "irritates Verified 03/02/23 10:48 urinary tract, jeter all the time when I pee" metformin AdvReac "irritates Verified 03/02/23 10:48 urinary tract, jeter all the time when I pee" oxybutynin AdvReac "irritates Verified 03/02/23 10:48 urinary tract, jeter all the time when I pee" oxybutynin chloride AdvReac "irritates Verified 03/02/23 10:48 [From Ditropan] urinary tract, jeter all the time when I pee" pseudoephedrine HCl AdvReac "irritates Verified 03/02/23 10:48 [From Sudafed] urinary tract, jeter all the time when I pee" rosuvastatin calcium AdvReac "irritates Verified 03/02/23 10:48 [From Crestor] urinary tract, jeter all the time when I pee" Sulfa (Sulfonamide AdvReac "irritates Verified 03/02/23 10:48 Antibiotics) urinary tract, jeter all the time when I pee" tamsulosin AdvReac "irritates Verified 03/02/23 10:48 urinary tract, jeter all the time when I pee" tamsulosin HCl [From Flomax] AdvReac "irritates Verified 03/02/23 10:48 urinary tract, jeter all the time when I pee" terazosin HCl [From Hytrin] AdvReac "irritates Verified 03/02/23 10:48 urinary tract, jeter all the time when I pee" Physical Exam Vitals: Vital Signs Temp Pulse Pulse Resp BP BP Pulse Ox 03/03/23 03:55 18 96 03/03/23 03:50 97.9 F 52 L 18 102/49 82 L 03/03/23 02:00 61 18 03/02/23 23:51 97.8 F 61 18 122/67 98 03/02/23 21:15 97.6 F 60 18 124/68 97 03/02/23 20:41 97.8 F 79 18 134/75 98 03/02/23 20:00 86 18 122/80 97 03/02/23 19:04 52 L 20 122/63 100 03/02/23 18:50 50 L 18 122/65 99 03/02/23 15:43 57 L 14 127/77 100 03/02/23 11:44 65 20 129/57 99 03/02/23 10:37 49 L 14 103/52 100 03/02/23 08:11 97.7 F 66 16 113/71 98 Intake and Output 03/02/23 03/02/23 03/03/23 14:59 22:59 06:59 Intake Total 10 Output Total 225 400 Balance -215 -400 Intake: IV 10 0.9 10 Output: Urine 225 400 Other: Voiding Method Urinal Urinal # Voids 1 Weight 72.121 kg 72.121 kg 75.5 kg Results 03/02/23 08:26 03/02/23 08:26 Cardiac Enzymes 03/02/23 03/02/23 03/02/23 Range/Units 08:26 08:26 11:50 AST 24 (17-59) U/L Troponin I 0.045 H* 0.047 H* (0.000-0.034) ng/mL 03/02/23 Range/Units 14:26 AST (17-59) U/L Troponin I 0.045 H* (0.000-0.034) ng/mL Coagulation 03/02/23 Range/Units 08:26 PT 21.6 H (9.0-12.0) sec APTT 31.1 H (22.0-30.0) sec CBC 03/02/23 Range/Units 08:26 WBC 4.2 (3.8-10.6) k/uL RBC 2.76 L (4.30-5.90) m/uL Hgb 8.5 L (13.0-17.5) gm/dL Hct 27.2 L (39.0-53.0) % Plt Count 136 L (150-450) k/uL Comprehensive Metabolic Panel 03/02/23 Range/Units 08:26 Sodium 140 (137-145) mmol/L Potassium 4.2 (3.5-5.1) mmol/L Chloride 96 L (98-107) mmol/L Carbon Dioxide 34 H (22-30) mmol/L BUN 41 H (9-20) mg/dL Creatinine 2.01 H (0.66-1.25) mg/dL Glucose 108 H (74-99) mg/dL Calcium 8.5 (8.4-10.2) mg/dL AST 24 (17-59) U/L ALT 12 (4-49) U/L Alkaline Phosphatase 107 (38-126) U/L Total Protein 9.1 H (6.3-8.2) g/dL Albumin 3.5 (3.5-5.0) g/dL Current Medications Generic Name Dose Route Start Last Admin Trade Name Freq PRN Reason Stop Dose Admin Acetaminophen 650 mg 03/02/23 10:03 Acetaminophen Tab 325 Mg Tab PO Q6HR PRN Mild Pain or Fever > 100.5 Atorvastatin Calcium 10 mg 03/02/23 21:00 03/02/23 20:55 Atorvastatin 10 Mg Tab PO 10 mg HS HANNA Administration Bupropion HCl 150 mg 03/03/23 09:00 Bupropion Xl 150 Mg Tab.Er.24h PO DAILY HANNA Dextrose/Water 25 ml 03/02/23 12:21 Dextrose 50% Syringe 50 Ml IVP PER PROTOCOL PRN Hypoglycemia Protocol Dextrose/Water 50 ml 03/02/23 12:21 Dextrose 50% Syringe 50 Ml IVP PER PROTOCOL PRN Hypoglycemia Protocol Famotidine 40 mg 03/02/23 21:00 03/02/23 20:55 Famotidine 20 Mg Tab PO 40 mg HS HANNA Administration Furosemide 20 mg 03/02/23 17:30 03/02/23 17:34 Furosemide 20 Mg Tab PO 20 mg BID-W/MEALS HANNA Administration Insulin Aspart 0 unit 03/02/23 12:30 03/02/23 17:29 Insulin Aspart (Novolog) 100 Unit/Ml Vial SQ Not Given AC-TID [facility] Protocol Insulin Detemir 20 unit 03/02/23 18:30 03/02/23 18:45 Insulin Detemir (Levemir) 100 Unit/Ml Syr SQ 20 unit PC-SUPPER HANNA Administration Metoprolol Tartrate 25 mg 03/02/23 21:00 03/02/23 20:56 Metoprolol Tartrate 25 Mg Tab PO Not Given BID [facility] Miscellaneous Information 0 each 03/02/23 14:19 Warfarin Per Pharmacy MISCELLANE DIRECTED PRN ANTICOAG Naloxone HCl 0.2 mg 03/02/23 10:03 Naloxone 0.4 Mg/Ml 1 Ml Vial IV Q2M PRN Opioid Reversal Trazodone HCl 50 mg 03/02/23 21:00 03/02/23 20:56 Trazodone Hcl 50 Mg Tab PO Not Given HS [facility] Warfarin Sodium 1 mg 03/02/23 18:30 03/02/23 18:45 Warfarin 1 Mg Tab PO 1 mg PC-SUPPER HANNA Administration Protocol Intake and Output 03/02/23 03/02/23 03/03/23 14:59 22:59 06:59 Intake Total 10 Output Total 225 400 Balance -215 -400 Intake: IV 10 0.9 10 Output: Urine 225 400 Other: Voiding Method Urinal Urinal # Voids 1 Weight 72.121 kg 72.121 kg 75.5 kg Patient Weight 03/03/23 06:59 Weight 75.5 kg 03/02/23 08:26 03/02/23 08:26
[2023-03-03 06:05] LABS: Glucose,Whole Blood 77 mg/dL (70-110)
[2023-03-03] MEDS: INSULIN ASPART (NovoLOG) 100 UNIT/ML VIAL SQ SCH ×3 (06:13→17:11)
[2023-03-03] MEDS: FUROSEMIDE 20 MG TAB PO SCH ×2 (06:20→17:27)
[2023-03-03] MEDS: METOPROLOL TARTRATE 25 MG TAB PO SCH ×2 (10:24→20:23)
[2023-03-03] MEDS: buPROPion XL 150 MG TAB.ER.24H PO SCH (10:24)
[2023-03-03 11:37] LABS: Glucose,Whole Blood 102 mg/dL (70-110)
[2023-03-03 12:38] LABS: INR 2.2 (<1.2); Prothrombin Time 21.7 sec (9.0-12.0)
--- NOTE | 2023-03-03 15:48 | P.PN ---
Subjective Progress Note Date: 03/03/23 Patient is an 83-year-old male with PMH of atrial fibrillation, CAD, CHF, diabetes mellitus, hypertension, dyslipidemia, chronic kidney disease, sleep apnea, AAA, pacemaker for SSS presents to the ED after a syncopal episode. His son noticed that patient may have taken double doses of his medication when examining the pill box. In the ED, his vital signs were stable. He was noted to be bradycardic with heart rate 49. CBC showed hemoglobin of 8.5 and platelet count of 136. INR was 2.2. CMP showed chloride of 96, bicarb of 34, BUN of 41, creatinine of 2.01, glucose 108. Magnesium was 2.5. Troponin was 0.045, 0.047, 0.045. EKG showed electronic ventricular pacemaker. BNP was 20,200. Chest x- ray showed bilateral pleural effusion and pulmonary vascular congestion. Urinalysis was negative for nitrite or leukocyte esterase. 03/03 Patient was seen and examined. No acute events overnight. Patient reports no complaints. No dizziness. No chest pain, SOB, palptiations. Orthostats performed were negative. INR is 2.2. Cardiology recommends pacemaker interrogation. General: non toxic, no distress, appears at stated age Derm: warm, dry Head: atraumatic, normocephalic, symmetric Eyes: EOMI, no lid lag, anicteric sclera Cardiovascular: Irregularly irregular, no murmur Lungs: CTA bilateral, no rhonchi, no rales , no accessory muscle use Ext: no gross muscle atrophy, no edema, no contractures Neuro: no focal neuro deficits Psych: Pleasantly confused Syncopal episode Bradycardia Troponin elevation Hypochloremic metabolic alkalosis Normocytic anemia Thrombocytopenia Chronic conditions: atrial fibrillation, CAD, CHF, diabetes mellitus, hypertension, dyslipidemia, chronic kidney disease, sleep apnea, AAA, pacemaker for SSS Based on my assessment of this patient, this patient meets a moderate complexity level of care. Patient has an acute diagnosis of troponin elevation in the setting of syncopal episode that poses a threat to life or bodily function. There is question of medication overdose. Patient is noted to be bradycardic with heart rate in the 40s and 60s. Troponins have remained flat and ACS has been ruled out. Most recent echocardiogram done in 12/2022 shows EF of 50-55% with moderate to severe LV thickness. Telemetry monitoring. Pacemaker to be interrogated. Orthostats negative. Cardiology will be consulted for further management of this patient. PT recommends SNF. His hemoglobin and creatinine appears at baseline. Likely related to chronic kidney disease. Metabolic alkalosis likely related to Lasix. Warfarin for DVT prophylaxis. FULL CODE. I have reviewed the following procurement consultant notes: I have reviewed the results of the following tests: INR. I have ordered the following tests: I have discussed the care of this patient with the following independent historian: I have independently interpreted the following test below: I have discussed the management of this patient with the following physician: Objective - Vital Signs Vital signs: Vital Signs Temp 97.5 F L 03/03/23 12:00 Pulse 55 L 03/03/23 12:00 Resp 18 03/03/23 12:00 BP 101/58 03/03/23 12:00 Pulse Ox 92 L 03/03/23 12:08 FiO2 Intake & Output 03/02/23 03/03/23 03/03/23 18:59 06:59 18:59 Intake Total 10 354 Output Total 625 100 Balance -615 254 Weight 72.121 kg 75.5 kg Intake: IV 10 0.9 10 Oral 354 Output: Urine 625 100 Other: Voiding Method Urinal # Voids 1 - Labs CBC & Chem 7: 03/02/23 08:26 03/02/23 08:26 Labs: Abnormal Lab Results - Last 24 Hours (Table) 03/02/23 03/03/23 Range/Units 17:23 11:15 PT 21.7 H (9.0-12.0) sec INR 2.2 H (<1.2) POC Glucose (mg/dL) 111 H (70-110) mg/dL
[2023-03-03 16:44] LABS: Glucose,Whole Blood 131 mg/dL (70-110)
[2023-03-03] MEDS: WARFARIN 1 MG TAB PO SCH (18:30)
[2023-03-03] MEDS: INSULIN DETEMIR (LEVEMIR) 100 UNIT/ML SYR SQ SCH (18:31)
[2023-03-03 20:05] LABS: Glucose,Whole Blood 123 mg/dL (70-110)
[2023-03-03] MEDS: traZODone HCL 50 MG TAB PO SCH (20:23)
[2023-03-03] MEDS: ATORVASTATIN 10 MG TAB PO SCH (20:23)
[2023-03-03] MEDS: FAMOTIDINE 20 MG TAB PO SCH (20:23)
[2023-03-03 21:48] VITALS: RESP 18
--- NOTE | 2023-03-04 06:01 | P.PN ---
Subjective Progress Note Date: 03/04/23 Principal diagnosis: Syncopal This is an 83-year-old gentleman with permanent atrial fibrillation currently on anticoagulation was, then as well as heart failure with preserved ejection fraction as well as permanent pacemaker and also valvular heart disease including mitral regurgitation and pulmonary hypertension was admitted to the hospital from extended care facility after an episode of syncope. The patient was in his usual state of health when he is on oxygen at 2 L continuously at the extended care facility and he was in the shower when he did have an episode of syncope and he lost his consciousness for brief time only. He woke up to find ambulance around him. He does not recall having any warmth feeling or any prodromal symptoms. No symptoms of any pain in the chest or shortness of breath and no feeling of heart racing or fluttering or any dizziness or light and is around episodes. He was brought to the emergency department where he underwent a workup including troponin which came in to be mildly abnormal but that has been chronically elevated and also he does have history of chronic kidney disease which could be responsible for the elevation in the troponin. The EKG showed underlying atrial fibrillation with ventricular paced rhythm. The rest of the workup came in to be unremarkable including the chest x-ray. Currently the patient is hypoxic but is on 3 L and he is on 2 L at the extended care facility. His pressure has been marginal but he is only on Lasix at the small dose orally and also is on beta calvin for the atrial fibrillation. I'm going to perform an orthostatic blood pressure. Recent echo showed normal LV systolic function with dilated right ventricle as well as moderate mitral regurgitation and moderate tricuspid regurgitation and moderate pulmonary hypertension 03/04/2023 The patient was seen and evaluated this morning. The pacemaker was interrogated and did not show any evidence of ventricular tachycardia. Clinically he remained stable was marginally low blood pressure which is likely secondary to pulmonary hypertension. The only medication he is on 2 lower the pressure is Lasix which is 4 heart failure which is he is known to have. Clinically he otherwise remains stable. He remains asymptomatic. Retrospectively the syncope is likely related to orthostatic hypotension versus vasovagal. From the car diovascular standpoint of view, he potentially can be discharged home The examination is remarkable for irregular rhythm was diminished breathing sounds bilaterally and mild bilateral lower extremity edema and also marginally low blood pressure Assessment Syncopal episode likely related to orthostatic hypotension versus vasovagal Marginally low blood pressure Permanent pacemaker Permanent atrial fibrillation on anticoagulation Pulmonary hypertension Valvular heart disease Chronic kidney disease Evidence of myocardial injury was elevated troponin was no evidence of ischemia Plan Avoid aggressive blood pressure control and lowering Pacemaker interrogation is unremarkable The patient can be discharged home in the next 12-24 hour Objective - Vital Signs Vital signs: Vital Signs Temp 97.7 F 03/04/23 03:15 Pulse 60 03/04/23 03:15 Resp 18 03/04/23 03:18 BP 105/55 03/04/23 03:15 Pulse Ox 94 L 03/04/23 03:18 FiO2 Intake & Output 03/03/23 03/03/23 03/04/23 06:59 18:59 06:59 Intake Total 10 1412 10 Output Total 625 100 200 Balance -615 1312 -190 Weight 75.5 kg Intake: IV 10 10 0.9 10 10 Oral 1412 Output: Urine 625 100 200 Other: Voiding Method Urinal Urinal # Voids 1 1 - Labs CBC & Chem 7: 03/02/23 08:26 03/02/23 08:26 Labs: Abnormal Lab Results - Last 24 Hours (Table) 03/03/23 03/03/23 03/03/23 Range/Units 11:15 16:37 19:59 PT 21.7 H (9.0-12.0) sec INR 2.2 H (<1.2) POC Glucose (mg/dL) 131 H 123 H (70-110) mg/dL
[2023-03-04 06:17] LABS: Glucose,Whole Blood 70 mg/dL (70-110)
[2023-03-04] MEDS: INSULIN ASPART (NovoLOG) 100 UNIT/ML VIAL SQ SCH ×3 (06:23→16:32)
[2023-03-04] MEDS: FUROSEMIDE 20 MG TAB PO SCH ×2 (06:45→16:33)
[2023-03-04 06:54] LABS: INR 2.2 (<1.2)
[2023-03-04 06:55] LABS: Prothrombin Time 21.8 sec (9.0-12.0)
[2023-03-04 08:35] VITALS: TEMP 97.6
[2023-03-04] MEDS: METOPROLOL TARTRATE 25 MG TAB PO SCH (08:35)
[2023-03-04] MEDS: buPROPion XL 150 MG TAB.ER.24H PO SCH (08:35)
[2023-03-04 11:24] LABS: Glucose,Whole Blood 102 mg/dL (70-110)
[2023-03-04 16:05] VITALS: BP 133/66; PULSE 59
[2023-03-04 16:24] LABS: Glucose,Whole Blood 114 mg/dL (70-110)
--- NOTE | 2023-03-04 17:20 | P.DS ---
Providers Date of admission: 03/02/23 10:03 Expected date of discharge: 03/04/23 Attending physician: Cr Leyva MD Consults: 03/02/23 16:10 Consult Physician Routine Consulting Provider: Sebastien De Souza Consult Reason/Comments: trop Do you want consulting provider notified?: Yes Primary care physician: [facility] Course: Patient is an 83-year-old male with PMH of atrial fibrillation, CAD, CHF, diabetes mellitus, hypertension, dyslipidemia, chronic kidney disease, sleep apnea, AAA, pacemaker for SSS presents to the ED after a syncopal episode. His son noticed that patient may have taken double doses of his medication when examining the pill box. In the ED, his vital signs were stable. He was noted to be bradycardic with heart rate 49. CBC showed hemoglobin of 8.5 and platelet count of 136. INR was 2.2. CMP showed chloride of 96, bicarb of 34, BUN of 41, creatinine of 2.01, glucose 108. Magnesium was 2.5. Troponin was 0.045, 0.047, 0.045. EKG showed electronic ventricular pacemaker. BNP was 20,200. Chest x- ray showed bilateral pleural effusion and pulmonary vascular congestion. Urinalysis was negative for nitrite or leukocyte esterase. 03/03 Patient was seen and examined. No acute events overnight. Patient reports no complaints. No dizziness. No chest pain, SOB, palptiations. Orthostats performed were negative. INR is 2.2. Cardiology recommends pacemaker interrogation. 03/04 Patient was seen and examined. He reports some weakness when ambulating. This was discussed with the family by the case resource manager. Patient stays at [facility] and family is able to get someone to check on him every 2 hours. They are in the process of moving him to assisted living. Cardiology has cleared the patient for discharge. Pacemaker interrogation showed to ventricular arrhythmias. Pertinent studies as above. General: non toxic, no distress, appears at stated age Derm: warm, dry Head: atraumatic, normocephalic, symmetric Eyes: EOMI, no lid lag, anicteric sclera Cardiovascular: Irregularly irregular, no murmur Lungs: CTA bilateral, no rhonchi, no rales , no accessory muscle use Ext: no gross muscle atrophy, no edema, no contractures Neuro: no focal neuro deficits Psych: Pleasantly confused Discharge Diagnosis: Syncopal episode Bradycardia Troponin elevation Hypochloremic metabolic alkalosis Normocytic anemia Thrombocytopenia Chronic conditions: atrial fibrillation, CAD, CHF, diabetes mellitus, hypertension, dyslipidemia, chronic kidney disease, sleep apnea, AAA, pacemaker for SSS This complex discharge took 35 minutes to complete. Patient Condition at Discharge: Stable Plan - Discharge Summary Discharge Rx Participant: Yes New Discharge Prescriptions: Continue Metoprolol Tartrate [Lopressor] 25 mg PO BID Lovastatin [Mevacor] 40 mg PO HS Warfarin [Coumadin] 1 mg PO PC-SUPPER Insulin Glargine,Hum.rec.anlog [Lantus Solostar Pen] 20 unit SQ PC-SUPPER Furosemide [Lasix] 20 mg PO BID-W/MEALS Famotidine [Pepcid] 40 mg PO BID Dapagliflozin Propanediol [Farxiga] 10 mg PO DAILY traZODone HCL [Desyrel] 50 - 100 mg PO HS buPROPion HCL [Wellbutrin XL] 150 mg PO DAILY Discharge Medication List Metoprolol Tartrate [Lopressor] 25 mg PO BID 02/28/14 [History] Lovastatin [Mevacor] 40 mg PO HS 12/14/18 [History] Insulin Glargine,Hum.rec.anlog [Lantus Solostar Pen] 20 unit SQ PC-SUPPER 05/26/20 [History] Warfarin [Coumadin] 1 mg PO PC-SUPPER 05/26/20 [History] Dapagliflozin Propanediol [Farxiga] 10 mg PO DAILY 05/14/22 [History] buPROPion HCL [Wellbutrin XL] 150 mg PO DAILY 12/09/22 [History] traZODone HCL [Desyrel] 50 - 100 mg PO HS 12/09/22 [History] Famotidine [Pepcid] 40 mg PO BID 03/02/23 [History] Furosemide [Lasix] 20 mg PO BID-W/MEALS 03/02/23 [History] Follow up Appointment(s)/Referral(s): [facility], [NON-STAFF] - Lonnie Hewitt DO [Primary Care Provider] - 03/08/23 4:20 pm Patient Instructions/Handouts: Syncope (DC) Discharge Disposition: HOME SELF-CARE
== END 2023-03-04 16:47 | disposition home or self-care (01) ==
LOC: EC 08:10 → 3SCARD 10:03
PROVIDERS: ADMIT Student in an Organized Health Care Education/Training Program; ATTEND Student in an Organized Health Care Education/Training Program
DX: R00.1 Bradycardia, unspecified (principal); R77.8 Other specified abnormalities of plasma proteins; R55 Syncope and collapse; E87.8 Other disorders of electrolyte and fluid balance, not elsewhere classified; D64.9 Anemia, unspecified; E87.3 Alkalosis; J90 Pleural effusion, not elsewhere classified; D69.6 Thrombocytopenia, unspecified; I48.91 Unspecified atrial fibrillation; I13.0 Hypertensive heart and chronic kidney disease with heart failure and stage 1 through stage 4 chronic kidney disease, or unspecified chronic kidney disease; I50.9 Heart failure, unspecified; N18.9 Chronic kidney disease, unspecified; E11.22 Type 2 diabetes mellitus with diabetic chronic kidney disease; I25.10 Atherosclerotic heart disease of native coronary artery without angina pectoris; N40.0 Benign prostatic hyperplasia without lower urinary tract symptoms; Z95.0 Presence of cardiac pacemaker; I49.5 Sick sinus syndrome; G47.33 Obstructive sleep apnea (adult) (pediatric); I71.40 Abdominal aortic aneurysm, without rupture, unspecified; Z82.49 Family history of ischemic heart disease and other diseases of the circulatory system; Z79.01 Long term (current) use of anticoagulants; Z79.899 Other long term (current) drug therapy; Z79.4 Long term (current) use of insulin; Z88.5 Allergy status to narcotic agent; Z88.8 Allergy status to other drugs, medicaments and biological substances
CPT/HCPCS: 99285; 36415; 94760 ×2; 93005; 97116; 97162; 83880; 80053; 83735; 84484; 85025; 85610 ×3; 85730; 81003; 71046; G0378 ×3

== ENCOUNTER 2023-09-29 01:59 | Inpatient (IN) | payer MEDICARE ==
--- NOTE | 2023-09-29 02:24 | ED ---
SOB HPI - General Chief Complaint: Shortness of Breath Stated Complaint: CARMITA Time Seen by Provider: 09/29/23 02:10 Source: patient, EMS Mode of arrival: EMS Limitations: no limitations - History of Present Illness Initial Comments: Stephen is a 83-year-old male who presents to the emergency department today via ambulance for evaluation of shortness of breath. Patient has a history of CHF. Son reports that he has been progressively worsening he has been having a lot of hallucinations. Today staff at his nursing facility noted that he seemed to have labored breathing patient reported that he could not catch his breath brought him to the ER for evaluation. Patient states that he just cannot breathe and that he needs to stay sitting up. - Related Data Home Medications Medication Instructions Recorded Confirmed Metoprolol Tartrate [Lopressor] 25 mg PO BID 02/28/14 03/02/23 Lovastatin [Mevacor] 40 mg PO HS 12/14/18 03/02/23 Insulin Glargine,Hum.rec.anlog 20 unit SQ PC-SUPPER 05/26/20 03/02/23 [Lantus Solostar Pen] Warfarin [Coumadin] 1 mg PO PC-SUPPER 05/26/20 03/02/23 Dapagliflozin Propanediol [Farxiga] 10 mg PO DAILY 05/14/22 03/02/23 buPROPion HCL [Wellbutrin XL] 150 mg PO DAILY 12/09/22 03/02/23 traZODone HCL [Desyrel] 50 - 100 mg PO HS 12/09/22 03/02/23 Famotidine [Pepcid] 40 mg PO BID 03/02/23 03/02/23 Furosemide [Lasix] 20 mg PO BID-W/MEALS 03/02/23 03/02/23 Allergies Allergy/AdvReac Type Severity Reaction Status Date / Time doxazosin mesylate AdvReac "irritates Verified 03/02/23 10:48 [From Cardura] urinary tract, jeter all the time when I pee" finasteride [From Proscar] AdvReac "irritates Verified 03/02/23 10:48 urinary tract, jeter all the time when I pee" gatifloxacin [From Tequin] AdvReac "irritates Verified 03/02/23 10:48 urinary tract, jeter all the time when I pee" glipizide AdvReac severe Verified 03/02/23 10:48 hypoglycemia hydroxyzine HCl [From Atarax] AdvReac "irritates Verified 03/02/23 10:48 urinary tract, jeter all the time when I pee" levofloxacin [From Levaquin] AdvReac "irritates Verified 03/02/23 10:48 urinary tract, jeter all the time when I pee" lisinopril AdvReac "irritates Verified 03/02/23 10:48 urinary tract, jeter all the time when I pee" meperidine HCl [From Demerol] AdvReac "irritates Verified 03/02/23 10:48 urinary tract, jeter all the time when I pee" metformin AdvReac "irritates Verified 03/02/23 10:48 urinary tract, jeter all the time when I pee" oxybutynin AdvReac "irritates Verified 03/02/23 10:48 urinary tract, jeter all the time when I pee" oxybutynin chloride AdvReac "irritates Verified 03/02/23 10:48 [From Ditropan] urinary tract, jeter all the time when I pee" pseudoephedrine HCl AdvReac "irritates Verified 03/02/23 10:48 [From Sudafed] urinary tract, jeter all the time when I pee" rosuvastatin calcium AdvReac "irritates Verified 03/02/23 10:48 [From Crestor] urinary tract, jeter all the time when I pee" Sulfa (Sulfonamide AdvReac "irritates Verified 03/02/23 10:48 Antibiotics) urinary tract, jeter all the time when I pee" tamsulosin AdvReac "irritates Verified 03/02/23 10:48 urinary tract, jeter all the time when I pee" tamsulosin HCl [From Flomax] AdvReac "irritates Verified 03/02/23 10:48 urinary tract, jeter all the time when I pee" terazosin HCl [From Hytrin] AdvReac "irritates Verified 03/02/23 10:48 urinary tract, jeter all the time when I pee" Review of Systems ROS Statement: Those systems with pertinent positive or pertinent negative responses have been documented in the HPI. ROS Other: All systems not noted in ROS Statement are negative. 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, past L pleural effusion with thoracentesis, DVT L lower extremity, BPH with surgery, CKD, kiney stones with surgery, abdominal aortic aneurysm being monitored every 6 months, STEPHAN-unable to tolerate CPap, SSS with pacemaker, vertigo in the past, seasonal allergies History of Any Multi-Drug Resistant Organisms: None Reported Past Surgical History: Heart Catheterization, Pacemaker, Prostate Surgery Additional Past Surgical History / Comment(s): Pacemaker inserted 01/01/09 and gen change 04/11/18, TURP, ESWL, cysto/TURP, colonoscopy, "scraped bladder out" with adamson catheter inserted 04/14/22 Past Anesthesia/Blood Transfusion Reactions: Motion Sickness Type of Cardiac Device: Permanent Pacemaker Device Placement Date:: 01/01/2009 and gen change 03/2018 Past Psychological History: No Psychological Hx Reported Smoking Status: Never smoker Past Alcohol Use History: None Reported Past Drug Use History: None Reported - Past Family History Mother Family Medical History: CVA/TIA, Hypertension Additional Family Medical History / Comment(s): Mother lived to be 85yrs old. Father Family Medical History: CVA/TIA Additional Family Medical History / Comment(s): Father from a CVA at the age of 78yrs. General Exam Limitations: no limitations General appearance: alert, other (Tachypneic with moderate respiratory distress) Eye exam: Present: PERRL ENT exam: Present: normal exam Neck exam: Present: normal inspection Respiratory exam: Present: rales Cardiovascular Exam: Present: regular rate, systolic murmur GI/Abdominal exam: Present: soft Rectal exam: Present: deferred Extremities exam: Present: pedal edema Neurological exam: Present: alert Psychiatric exam: Present: normal affect Skin exam: Present: warm, dry Course Vital Signs 09/29/23 09/29/23 02:01 02:26 Temperature 97.8 F Pulse Rate 96 Respiratory 26 H 26 H Rate Blood Pressure 134/79 O2 Sat by Pulse 95 Oximetry Medical Decision Making - Medical Decision Making Was pt. sent in by a medical professional or institution (SRINIVAS Delgado, CERTIFIED WELDER, urgent care, hospital, or alf...) When possible be specific @ -Yes sent from alf Did you speak to anyone other than the patient for history (EMS, parent, family, police, friend...)? What history was obtained from this source @ -EMS, son Did you review nursing and triage notes (agree or disagree)? Why? @ -I reviewed and agree with nursing and triage notes Were old charts reviewed (outside hosp., previous admission, EMS record, old EKG, old radiological studies, urgent care reports/EKG's, alf records)? Report findings @ -Previous visits were reviewed Differential Diagnosis (chest pain, altered mental status, abdominal pain women, abdominal pain men, vaginal bleeding, weakness, fever, dyspnea, syncope, headache, dizziness, GI bleed, back pain, seizure, CVA, palpatations, mental health)? @ -Differential Dyspnea: Coronary syndrome, arrhythmia, tamponade, asthma, COPD, pulmonary embolism, pneumonia, pneumothorax, pulmonary effusion, anaphylaxis, diabetic ketoacidosis, flailed chest, pulmonary contusion, diaphragmatic rupture, anemia, neuromuscular , this is not meant to be an all-inclusive list. EKG interpreted by me (3pts min.). @ -EKG interpreted by me, EKG obtained due to complaint of shortness of breath, EKG obtained at 2:20 AM, rate is 65 rhythm is ventricularly paced with no evidence of acute ischemia or infarction. X-rays interpreted by me (1pt min.). @ -Cardiomegaly with pleural effusions and pulmonary congestion CT interpreted by me (1pt min.). @ -None done U/S interpreted by me (1pt. min.). @ -None done What testing was considered but not performed or refused? (CT, X-rays, U/S, labs)? Why? @ -None What meds were considered but not given or refused? Why? @ -None Did you discuss the management of the patient with other professionals (professionals i.e. SRINIVAS Delgado, CERTIFIED WELDER, lab, RT, psych nurse, social science research assistant, java software, teacher, dental officer, case making machine operator)? Give summary @ -No Was smoking cessation discussed for >3mins.? @ -No Was critical care preformed (if so, how long)? @ -No Were there social determinants of health that impacted care today? How? (Homelessness, low income, unemployed, alcoholism, drug addiction, tr ansportation, low edu. Level, literacy, decrease access to med. care, residential, rehab)? @ -No Was there de-escalation of care discussed even if they declined (Discuss DNR or withdrawal of care, Hospice)? DNR status @ -Yes, patient and son at bedside confirmed patient is DNR wants to be kept comfortable What co-morbidities impacted this encounter? (DM, HTN, Smoking, COPD, CAD, Cancer, CVA, ARF, Chemo, Hep., AIDS, mental health diagnosis, sleep apnea, morbid obesity)? @ -CHF, hypertension, CKD Was patient admitted / discharged? Hospital course, mention meds given and route, prescriptions, significant lab abnormalities, going to OR and other pertinent info. @ -Admit Patient was seen and evaluated, elderly gentleman with CHF presenting with CHF exacerbation. Labs were obtained. Patient has mildly elevated troponin, evidence of prerenal azotemia with acute kidney injury. I suspect he has a cardiorenal syndrome. At this time patient is doing well on 4 L nasal cannula son does not know if he would be compliant with BiPAP and would like to avoid that if possible. Patient is DNAR. Lasix was ordered. Patient care was discussed with admitting physician Dr. Hirsch who accepts admission. Undiagnosed new problem with uncertain prognosis? @ -No Drug Therapy requiring intensive monitoring for toxicity (Heparin, Nitro, Insulin, Cardizem)? @ -No Were any procedures done? @ -No Diagnosis/symptom? @ -CHF exacerbation, cardiorenal syndrome Acute, or Chronic, or Acute on Chronic? @ -Acute on chronic Uncomplicated (without systemic symptoms) or Complicated (systemic symptoms)? @ -Complicated Side effects of treatment? @ -No Exacerbation, Progression, or Severe Exacerbation? @ -Exacerbation Poses a threat to life or bodily function? How? (Chest pain, [place], NE, pneumonia, PE, COPD, DKA, ARF, appy, cholecystitis, CVA, Diverticulitis, Homicidal, Suicidal, threat to staff... and all critical care pts) @ -Yes, heart is failing leading to failure of other organs - Lab Data Result diagrams: 09/29/23 02:34 09/29/23 02:34 Lab Results 09/29/23 09/29/23 09/29/23 Range/Units 02:34 02:34 02:34 WBC 4.8 (3.8-10.6) k/uL RBC 2.42 L (4.30-5.90) m/uL Hgb 8.1 L (13.0-17.5) gm/dL Hct 25.2 L (39.0-53.0) % MCV 104.1 H (80.0-100.0) fL MCH 33.7 (25.0-35.0) pg MCHC 32.3 (31.0-37.0) g/dL RDW 15.2 (11.5-15.5) % Plt Count 148 L (150-450) k/uL MPV 8.5 Neutrophils % 73 % Lymphocytes % 14 % Monocytes % 7 % Eosinophils % 2 % Basophils % 0 % Neutrophils # 3.5 (1.3-7.7) k/uL Lymphocytes # 0.7 L (1.0-4.8) k/uL Monocytes # 0.3 (0-1.0) k/uL Eosinophils # 0.1 (0-0.7) k/uL Basophils # 0.0 (0-0.2) k/uL Macrocytosis Moderate PT 22.3 H (10.0-12.5) sec INR 2.2 H (<1.2) APTT 33.1 H (22.0-30.0) sec Sodium 134 L (137-145) mmol/L Potassium 3.4 L (3.5-5.1) mmol/L Chloride 94 L (98-107) mmol/L Carbon Dioxide 33 H (22-30) mmol/L Anion Gap 7 mmol/L BUN 106 H* (9-20) mg/dL Creatinine 2.61 H (0.66-1.25) mg/dL Est GFR (CKD-EPI)AfAm 25 (>60 ml/min/1.73 sqM) Est GFR (CKD-EPI)NonAf 21 (>60 ml/min/1.73 sqM) Glucose 78 (74-99) mg/dL Plasma Lactic Acid Parth (0.7-2.0) mmol/L Calcium 8.7 (8.4-10.2) mg/dL Total Bilirubin 0.8 (0.2-1.3) mg/dL AST 25 (17-59) U/L ALT 10 (4-49) U/L Alkaline Phosphatase 83 (38-126) U/L Troponin I (0.000-0.034) ng/mL NT-Pro-B Natriuret Pep 33868 pg/mL Total Protein 8.9 H (6.3-8.2) g/dL Albumin 3.5 (3.5-5.0) g/dL Influenza Type A (PCR) (Not Detectd) Influenza Type B (PCR) (Not Detectd) RSV (PCR) (Not Detectd) SARS-CoV-2 (PCR) (Not Detectd) 09/29/23 09/29/23 09/29/23 Range/Units 02:34 02:34 02:34 WBC (3.8-10.6) k/uL RBC (4.30-5.90) m/uL Hgb (13.0-17.5) gm/dL Hct (39.0-53.0) % MCV (80.0-100.0) fL MCH (25.0-35.0) pg MCHC (31.0-37.0) g/dL RDW (11.5-15.5) % Plt Count (150-450) k/uL MPV Neutrophils % % Lymphocytes % % Monocytes % % Eosinophils % % Basophils % % Neutrophils # (1.3-7.7) k/uL Lymphocytes # (1.0-4.8) k/uL Monocytes # (0-1.0) k/uL Eosinophils # (0-0.7) k/uL Basophils # (0-0.2) k/uL Macrocytosis PT (10.0-12.5) sec INR (<1.2) APTT (22.0-30.0) sec Sodium (137-145) mmol/L Potassium (3.5-5.1) mmol/L Chloride (98-107) mmol/L Carbon Dioxide (22-30) mmol/L Anion Gap mmol/L BUN (9-20) mg/dL Creatinine (0.66-1.25) mg/dL Est GFR (CKD-EPI)AfAm (>60 ml/min/1.73 sqM) Est GFR (CKD-EPI)NonAf (>60 ml/min/1.73 sqM) Glucose (74-99) mg/dL Plasma Lactic Acid Parth 1.0 (0.7-2.0) mmol/L Calcium (8.4-10.2) mg/dL Total Bilirubin (0.2-1.3) mg/dL AST (17-59) U/L ALT (4-49) U/L Alkaline Phosphatase (38-126) U/L Troponin I 0.081 H* (0.000-0.034) ng/mL NT-Pro-B Natriuret Pep pg/mL Total Protein (6.3-8.2) g/dL Albumin (3.5-5.0) g/dL Influenza Type A (PCR) Not Detected (Not Detectd) Influenza Type B (PCR) Not Detected (Not Detectd) RSV (PCR) Not Detected (Not Detectd) SARS-CoV-2 (PCR) Not Detected (Not Detectd) Disposition Clinical Impression: Renal insufficiency, S/P cardiac pacemaker procedure, Acute exacerbation of CHF (congestive heart failure) Disposition: ADMITTED IP TO THIS HOSP Condition: Serious
[2023-09-29 02:59] LABS: Basophils % (A) 0 %; Eosinophils # (A) 0.1 k/uL (0-0.7); Eosinophils % (A) 2 %; HCT 25.2 % (39.0-53.0); HGB 8.1 gm/dL (13.0-17.5); Lymphocytes # (A) 0.7 k/uL (1.0-4.8); Lymphocytes % (A) 14 %; MCH 33.7 pg (25.0-35.0); MCHC 32.3 g/dL (31.0-37.0); MCV 104.1 fL (80.0-100.0); Macrocytosis Moderate; Mean Platelet Volume 8.5; Monocytes # (A) 0.3 k/uL (0-1.0); Monocytes % (A) 7 %; Neutrophils # (A) 3.5 k/uL (1.3-7.7); Neutrophils % (A) 73 %; Platelet Count 148 k/uL (150-450); RBC 2.42 m/uL (4.30-5.90); RDW 15.2 % (11.5-15.5); WBC 4.8 k/uL (3.8-10.6)
[2023-09-29 03:04] LABS: INR 2.2 (<1.2); Partial Thromboplastin Time 33.1 sec (22.0-30.0); Prothrombin Time 22.3 sec (10.0-12.5)
--- NOTE | 2023-09-29 03:05 | XR ---
EXAMINATION TYPE: XR chest 2V DATE OF EXAM: 09/29/2023 COMPARISON: Chest x-ray March 02, 2023 HISTORY: Difficulty in breathing. TECHNIQUE: Frontal and lateral views of the chest are obtained. FINDINGS: The osseous structures are intact. Cardiomegaly with single lead pacemaker and atheroscler otic thoracic aorta is redemonstrated. There is mild central vascular congestion and small to tiny bi lateral pleural effusions. No suspicious focal consolidation. IMPRESSION: Findings consistent with CHF exacerbation are felt present. Correlate clinically.
[2023-09-29 03:39] LABS: ALT 10 U/L (4-49); AST 25 U/L (17-59); African American GFR (CKD) 25 (>60 ml/min/1.73 sqM); Albumin 3.5 g/dL (3.5-5.0); Alkaline Phosphatase 83 U/L (38-126); Anion Gap 7 mmol/L; Calcium 8.7 mg/dL (8.4-10.2); Carbon Dioxide 33 mmol/L (22-30); Chloride 94 mmol/L (98-107); Glucose 78 mg/dL (74-99); Non-African American GFR(CKD) 21 (>60 ml/min/1.73 sqM); Potassium 3.4 mmol/L (3.5-5.1); Sodium 134 mmol/L (137-145); Total Bilirubin 0.8 mg/dL (0.2-1.3); Total Protein 8.9 g/dL (6.3-8.2)
[2023-09-29 03:46] LABS: NT-Pro-B-Type Natriuretic Pept 26600 pg/mL
[2023-09-29 03:59] LABS: Blood Urea Nitrogen 106 mg/dL (9-20)
--- NOTE | 2023-09-29 04:39 | P.HPIM ---
History of Present Illness H&P Date: 09/29/23 The patient is a 83-year-old male with a PMH of A-fib on Coumadin, cardiorenal syndrome, CAD, diastolic CHF (echo from 01/18 showed moderate to severe LVH with a EF 50 to 55%) with cardiorenal syndrome, status post pacemaker placement, type II DM, hypertension, hyperlipidemia, AAA, chronic kidney disease stage IIIb, who presented to the emergency room from [facility] with complaints of shortness of breath. The patient reports that he has been experiencing lower extremity edema and shortness of breath of the past several days. Denies chest discomfort, fever, chills, cough, nausea, vomiting. Denies lower extremity pain. Chest x-ray in the emergency room was consistent with congestive heart failure. Laboratory evaluation was remarkable for troponin 0.081, proBNP 26,600, BUN 106 (previously 41 in 03/20), creatinine 2.6 (baseline 2.0), sodium 134, potassium 3.4, CO2 33, hemoglobin 8.1 (at baseline), and INR 2.2.. ED documentation reviewed and case discussed with ED provider. Review of systems: Pertinent positives and negatives as discussed in HPI, a complete review of systems was performed and all other systems are negative. Physical examination: Vital signs reviewed General: non toxic, no distress, appears at stated age, normal weight Derm: no unusual rashes/lesions, warm Head: atraumatic, normocephalic, symmetric Eyes: EOMI, no lid lag, anicteric sclera, pupils equal round reactive to light ENT: Nose and ears atraumatic Neck: No cervical lymphadenopathy, trachea midline, supple Mouth: no lip lesion, mucus membranes moist Cardiovascular: S1S2 reg, no murmur, positive dorsalis pedis pulse bilateral, 2+ bilateral lower extremity pitting edema Lungs: Some scattered rhonchi and rales, no accessory muscle use Abdominal: soft, nontender to palpation, no guarding Ext: muscle strength 3 out of 5 in all 4 extremities grossly, no gross muscle atrophy, no contractures, Neuro: CN II-XI grossly intact, no gross focal neuro deficits Psych: Alert, oriented to person and place only, not oriented to time Assessment: Fluid overload, likely acute diastolic CHF exacerbation with cardiorenal syndrome Acute kidney injury on chronic kidney disease stage IIIb Hypokalemia Elevated troponin, at baseline Chronic conditions: Type II DM, hypertension, hyperlipidemia, CAD, A-fib Imaging: Chest x-ray in the emergency room was consistent with congestive heart failure. Data Review: Laboratory evaluation was remarkable for troponin 0.081, proBNP 26,600, BUN 106 (previously 41 in 03/20), creatinine 2.6 (baseline 2.0), sodium 134, potassium 3.4, CO2 33, hemoglobin 8.1 (at baseline), and INR 2.2 Plan: Continue with Lasix Cardiology and nephrology consulted Cardiac monitoring Intake and output Daily weights Monitor electrolytes Continue with home medications DVT prophylaxis: Coumadin The patient is admitted with an anticipated greater than 2 midnight stay for evaluation of CHF exacerbation CODE STATUS: Full Code Discussed with: Patient Anticipated discharge place: [facility] 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, past L pleural effusion with thoracentesis, DVT L lower extremity, BPH with surgery, CKD, kiney stones with surgery, abdominal aortic aneurysm being monitored every 6 months, STEPHAN-unable to tolerate CPap, SSS with pacemaker, vertigo in the past, seasonal allergies History of Any Multi-Drug Resistant Organisms: None Reported Past Surgical History: Heart Catheterization, Pacemaker, Prostate Surgery Additional Past Surgical History / Comment(s): Pacemaker inserted 01/01/09 and gen change 04/11/18, TURP, ESWL, cysto/TURP, colonoscopy, "scraped bladder out" with adamson catheter inserted 04/14/22 Past Anesthesia/Blood Transfusion Reactions: Motion Sickness Type of Cardiac Device: Permanent Pacemaker Device Placement Date:: 01/01/2009 and gen change 03/2018 Past Psychological History: No Psychological Hx Reported Smoking Status: Never smoker Past Alcohol Use History: None Reported Past Drug Use History: None Reported - Past Family History Mother Family Medical History: CVA/TIA, Hypertension Additional Family Medical History / Comment(s): Mother lived to be 85yrs old. Father Family Medical History: CVA/TIA Additional Family Medical History / Comment(s): Father from a CVA at the age of 78yrs. Medications and Allergies Home Medications Medication Instructions Recorded Confirmed Type Metoprolol Tartrate [Lopressor] 25 mg PO BID 02/28/14 03/02/23 History Lovastatin [Mevacor] 40 mg PO HS 12/14/18 03/02/23 History Insulin Glargine,Hum.rec.anlog 20 unit SQ PC-SUPPER 05/26/20 03/02/23 History [Lantus Solostar Pen] Warfarin [Coumadin] 1 mg PO PC-SUPPER 05/26/20 03/02/23 History Dapagliflozin Propanediol [Farxiga] 10 mg PO DAILY 05/14/22 03/02/23 History buPROPion HCL [Wellbutrin XL] 150 mg PO DAILY 12/09/22 03/02/23 History traZODone HCL [Desyrel] 50 - 100 mg PO HS 12/09/22 03/02/23 History Famotidine [Pepcid] 40 mg PO BID 03/02/23 03/02/23 History Furosemide [Lasix] 20 mg PO BID-W/MEALS 03/02/23 03/02/23 History Allergies Allergy/AdvReac Type Severity Reaction Status Date / Time doxazosin mesylate AdvReac "irritates Verified 03/02/23 10:48 [From Cardura] urinary tract, jeter all the time when I pee" finasteride [From Proscar] AdvReac "irritates Verified 03/02/23 10:48 urinary tract, jeter all the time when I pee" gatifloxacin [From Tequin] AdvReac "irritates Verified 03/02/23 10:48 urinary tract, jeter all the time when I pee" glipizide AdvReac severe Verified 03/02/23 10:48 hypoglycemia hydroxyzine HCl [From Atarax] AdvReac "irritates Verified 03/02/23 10:48 urinary tract, jeter all the time when I pee" levofloxacin [From Levaquin] AdvReac "irritates Verified 03/02/23 10:48 urinary tract, jeter all the time when I pee" lisinopril AdvReac "irritates Verified 03/02/23 10:48 urinary tract, jeter all the time when I pee" meperidine HCl [From Demerol] AdvReac "irritates Verified 03/02/23 10:48 urinary tract, jeter all the time when I pee" metformin AdvReac "irritates Verified 03/02/23 10:48 urinary tract, jeter all the time when I pee" oxybutynin AdvReac "irritates Verified 03/02/23 10:48 urinary tract, jeter all the time when I pee" oxybutynin chloride AdvReac "irritates Verified 03/02/23 10:48 [From Ditropan] urinary tract, jeter all the time when I pee" pseudoephedrine HCl AdvReac "irritates Verified 03/02/23 10:48 [From Sudafed] urinary tract, jeter all the time when I pee" rosuvastatin calcium AdvReac "irritates Verified 03/02/23 10:48 [From Crestor] urinary tract, jeter all the time when I pee" Sulfa (Sulfonamide AdvReac "irritates Verified 03/02/23 10:48 Antibiotics) urinary tract, jeter all the time when I pee" tamsulosin AdvReac "irritates Verified 03/02/23 10:48 urinary tract, jeter all the time when I pee" tamsulosin HCl [From Flomax] AdvReac "irritates Verified 03/02/23 10:48 urinary tract, jeter all the time when I pee" terazosin HCl [From Hytrin] AdvReac "irritates Verified 03/02/23 10:48 urinary tract, jeter all the time when I pee" Physical Exam Vitals: Vital Signs Temp Pulse Resp BP Pulse Ox 09/29/23 02:26 26 H 09/29/23 02:01 97.8 F 96 26 H 134/79 95 Intake and Output 09/28/23 09/28/23 09/29/23 14:59 22:59 06:59 Other: Weight 68.039 kg Results CBC & Chem 7: 09/29/23 02:34 09/29/23 02:34 Labs: Abnormal Lab Results - Last 24 Hours (Table) 09/29/23 09/29/23 09/29/23 Range/Units 02:34 02:34 02:34 RBC 2.42 L (4.30-5.90) m/uL Hgb 8.1 L (13.0-17.5) gm/dL Hct 25.2 L (39.0-53.0) % MCV 104.1 H (80.0-100.0) fL Plt Count 148 L (150-450) k/uL Lymphocytes # 0.7 L (1.0-4.8) k/uL PT 22.3 H (10.0-12.5) sec INR 2.2 H (<1.2) APTT 33.1 H (22.0-30.0) sec Sodium 134 L (137-145) mmol/L Potassium 3.4 L (3.5-5.1) mmol/L Chloride 94 L (98-107) mmol/L Carbon Dioxide 33 H (22-30) mmol/L BUN 106 H* (9-20) mg/dL Creatinine 2.61 H (0.66-1.25) mg/dL Troponin I (0.000-0.034) ng/mL Total Protein 8.9 H (6.3-8.2) g/dL 09/29/23 Range/Units 02:34 RBC (4.30-5.90) m/uL Hgb (13.0-17.5) gm/dL Hct (39.0-53.0) % MCV (80.0-100.0) fL Plt Count (150-450) k/uL Lymphocytes # (1.0-4.8) k/uL PT (10.0-12.5) sec INR (<1.2) APTT (22.0-30.0) sec Sodium (137-145) mmol/L Potassium (3.5-5.1) mmol/L Chloride (98-107) mmol/L Carbon Dioxide (22-30) mmol/L BUN (9-20) mg/dL Creatinine (0.66-1.25) mg/dL Troponin I 0.081 H* (0.000-0.034) ng/mL Total Protein (6.3-8.2) g/dL
[2023-09-29] MEDS: FUROSEMIDE 10 MG/ML 4 ML VIAL IV SCH (05:42)
[2023-09-29] MEDS: POTASSIUM CHLORIDE ER 20 MEQ TAB.ER PO STA (05:42)
[2023-09-29 07:28] LABS: Glucose,Whole Blood 108 mg/dL (70-110)
[2023-09-29] MEDS: INSULIN ASPART (NovoLOG) 100 UNIT/ML VIAL SQ SCH (07:51)
[2023-09-29] MEDS: METOPROLOL TARTRATE 25 MG TAB PO SCH (09:39)
[2023-09-29 10:06] LABS: HCT 25.8 % (39.0-53.0); HGB 8.6 gm/dL (13.0-17.5); MCH 34.9 pg (25.0-35.0); MCHC 33.5 g/dL (31.0-37.0); MCV 104.1 fL (80.0-100.0); Macrocytosis Moderate; Mean Platelet Volume 7.8; Platelet Count 171 k/uL (150-450); RBC 2.48 m/uL (4.30-5.90); WBC 4.3 k/uL (3.8-10.6)
[2023-09-29 10:10] LABS: ALT 9 U/L (4-49); AST 25 U/L (17-59); African American GFR (CKD) 25 (>60 ml/min/1.73 sqM); Albumin 3.4 g/dL (3.5-5.0); Alkaline Phosphatase 85 U/L (38-126); Anion Gap 8 mmol/L; Calcium 8.6 mg/dL (8.4-10.2); Carbon Dioxide 33 mmol/L (22-30); Chloride 94 mmol/L (98-107); Glucose 118 mg/dL (74-99); Non-African American GFR(CKD) 21 (>60 ml/min/1.73 sqM); Potassium 3.9 mmol/L (3.5-5.1); Sodium 135 mmol/L (137-145); Total Bilirubin 0.8 mg/dL (0.2-1.3); Total Protein 8.8 g/dL (6.3-8.2)
[2023-09-29 10:28] LABS: Blood Urea Nitrogen 104 mg/dL (9-20)
--- NOTE | 2023-09-29 11:09 | P.NPCON ---
History of Present Illness - Reason for Consult acute renal failure, chronic renal failure - History of Present Illness Reason for consultation: Acute kidney injury on chronic kidney disease History of present illness: Patient is 83-year-old male seen in renal consultation for acute kidney injury on chronic kidney disease. Patient denies seeing a cro outpatient. Patient is also not a very reliable historian. Looking at prior records it appears patient has chronic kidney disease stage IV with baseline creatinine in the range of 1.5-2 from December through February of 2023. Creatinine this admission is stable at 2.6. Patient came to the hospital from [facility] due to shortness of breath. Patient was also having lower extremity edema per records. Patient has history of diastolic CHF with severe pulmonary hypertension, moderate mitral and tricuspid regurgitation. He is currently receiving IV Lasix. He is on nasal cannula. He is also noted to have abdominal distention. Patient has a Adamson catheter and has been voiding according to the nurse. Patient has history of diabetes. Patient also has history of coronary artery disease as well as A- fib status post pacemaker placement. Vital signs are stable. General: No acute distress. HEENT: Head exam is unremarkable. On nasal cannula. LUNGS: No audible rhonchi or wheezes. HEART: Rate and Rhythm are regular. ABDOMEN: Nontender, distention noted. EXTREMITITES: 2+ edema. 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, past L pleural effusion with thoracentesis, DVT L lower extremity, BPH with surgery, CKD, kiney stones with surgery, abdominal aortic aneurysm being monitored every 6 months, STEPHAN-unable to tolerate CPap, SSS with pacemaker, vertigo in the past, seasonal allergies History of Any Multi-Drug Resistant Organisms: None Reported Past Surgical History: Heart Catheterization, Pacemaker, Prostate Surgery Additional Past Surgical History / Comment(s): Pacemaker inserted 01/01/09 and gen change 04/11/18, TURP, ESWL, cysto/TURP, colonoscopy, "scraped bladder out" with adamson catheter inserted 04/14/22 Past Anesthesia/Blood Transfusion Reactions: Motion Sickness Type of Cardiac Device: Permanent Pacemaker Device Placement Date:: 01/01/2009 and gen change 03/2018 Past Psychological History: No Psychological Hx Reported Smoking Status: Never smoker Past Alcohol Use History: None Reported Past Drug Use History: None Reported - Past Family History Mother Family Medical History: CVA/TIA, Hypertension Additional Family Medical History / Comment(s): Mother lived to be 85yrs old. Father Family Medical History: CVA/TIA Additional Family Medical History / Comment(s): Father from a CVA at the age of 78yrs. Medications and Allergies Home Medications Medication Instructions Recorded Confirmed Type Metoprolol Tartrate [Lopressor] 25 mg PO BID 02/28/14 09/29/23 History Lovastatin [Mevacor] 40 mg PO HS 12/14/18 09/29/23 History Insulin Glargine,Hum.rec.anlog 12 unit SQ DAILY 05/26/20 09/29/23 History [Lantus Solostar Pen] Warfarin [Coumadin] 1 mg PO HS 05/26/20 09/29/23 History Dapagliflozin Propanediol [Farxiga] 10 mg PO DAILY 05/14/22 09/29/23 History Furosemide [Lasix] 20 mg PO DAILY@1400 03/02/23 09/29/23 History Famotidine [Pepcid] 20 mg PO BID 09/29/23 09/29/23 History Furosemide [Lasix] 40 mg PO BID@0800,1600 09/29/23 09/29/23 History Miconazole Nitrate [Zeasorb AF] 1 applic TOPICAL TID 09/29/23 09/29/23 History Nitroglycerin Sl Tabs [Nitrostat] 0.4 mg SUBLINGUAL Q5M PRN 09/29/23 09/29/23 History Nystatin 100,000Unit/gm Cream 1 applic TOPICAL TID PRN 09/29/23 09/29/23 History [Mycostatin Cream] QUEtiapine FUMARATE [SEROquel] 25 mg PO HS 09/29/23 09/29/23 History metOLazone [Zaroxolyn] 2.5 mg PO MOFR 09/29/23 09/29/23 History Allergies Allergy/AdvReac Type Severity Reaction Status Date / Time doxazosin mesylate AdvReac "irritates Verified 09/29/23 06:58 [From Cardura] urinary tract, jeter all the time when I pee" finasteride [From Proscar] AdvReac "irritates Verified 09/29/23 06:58 urinary tract, jeter all the time when I pee" gatifloxacin [From Tequin] AdvReac "irritates Verified 09/29/23 06:58 urinary tract, jeter all the time when I pee" glipizide AdvReac severe Verified 09/29/23 06:58 hypoglycemia hydroxyzine HCl [From Atarax] AdvReac "irritates Verified 09/29/23 06:58 urinary tract, jeter all the time when I pee" levofloxacin [From Levaquin] AdvReac "irritates Verified 09/29/23 06:58 urinary tract, jeter all the time when I pee" lisinopril AdvReac "irritates Verified 09/29/23 06:58 urinary tract, jeter all the time when I pee" meperidine HCl [From Demerol] AdvReac "irritates Verified 09/29/23 06:58 urinary tract, jeter all the time when I pee" metformin AdvReac "irritates Verified 09/29/23 06:58 urinary tract, jeter all the time when I pee" oxybutynin AdvReac "irritates Verified 09/29/23 06:58 urinary tract, jeter all the time when I pee" oxybutynin chloride AdvReac "irritates Verified 09/29/23 06:58 [From Ditropan] urinary tract, jeter all the time when I pee" pseudoephedrine HCl AdvReac "irritates Verified 09/29/23 06:58 [From Sudafed] urinary tract, jeter all the time when I pee" rosuvastatin calcium AdvReac "irritates Verified 09/29/23 06:58 [From Crestor] urinary tract, jeter all the time when I pee" Sulfa (Sulfonamide AdvReac "irritates Verified 09/29/23 06:58 Antibiotics) urinary tract, jeter all the time when I pee" tamsulosin AdvReac "irritates Verified 09/29/23 06:58 urinary tract, jeter all the time when I pee" tamsulosin HCl [From Flomax] AdvReac "irritates Verified 09/29/23 06:58 urinary tract, jeter all the time when I pee" terazosin HCl [From Hytrin] AdvReac "irritates Verified 09/29/23 06:58 urinary tract, jeter all the time when I pee" Physical Exam Vitals: Vital Signs Temp Pulse Resp BP Pulse Ox 09/29/23 10:30 67 18 106/64 96 09/29/23 09:39 59 L 18 122/59 97 09/29/23 08:45 54 L 20 127/64 100 09/29/23 08:34 52 L 18 139/108 92 L 09/29/23 07:51 97.9 F 49 L 17 111/79 99 09/29/23 06:15 60 14 113/75 97 09/29/23 05:15 61 16 102/91 97 09/29/23 04:51 56 L 16 118/50 96 09/29/23 03:06 16 124/67 96 09/29/23 02:26 26 H 09/29/23 02:01 97.8 F 96 26 H 134/79 95 Intake and Output 09/28/23 09/29/23 09/29/23 22:59 06:59 14:59 Other: Weight 68.039 kg Results - Lab Results Most recent lab results Calcium 8.6 mg/dL (8.4-10.2) 09/29/23 09:30 09/29/23 09:30 09/29/23 09:30 Assessment and Plan Plan: Assessment: 1. Acute kidney injury secondary to ATN secondary to cardiorenal syndrome. Cr eatinine stable at 2.63 today. 2. Chronic kidney disease stage IIIb/IV with baseline creatinine 1.5-2 from December through February 2023. 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 3. Acute hypoxic respiratory failure. 4. Volume overload. 5. Acute on chronic diastolic CHF with moderate mitral and tricuspid regurgitation and severe pulmonary hypertension. 6. Diabetes mellitus. 7. Hypokalemia from diuresis. Replaced. Better. 8. Anemia of chronic kidney disease. Rule out iron deficiency. Plan: Maintain IV Lasix. Strict I's and O's. Check urinalysis. Check abdominal ultrasound. May need paracentesis if ascites present. Avoid nephrotoxins. Check iron studies. Follow-up echocardiogram. Thank you for the consultation. I will continue to follow the patient with you during his hospital stay.
--- NOTE | 2023-09-29 11:41 | P.CRDCN ---
History of Present Illness History of present illness: HISTORY OF PRESENT ILLNESS: This is a 83-year-old male with a past medical history significant for hypertension, hyperlipidemia, diabetes, mild triple-vessel disease, AAA, and atrial fibrillation. Patient follows in the office with Dr. Fall. We have been asked to see the patient in consultation for congestive heart failure. Patient examined at the bedside in the emergency room. Patient is confused at the time of examination and unable to provide any significant history. He was brought to the hospital from [facility] secondary to shortness of breath. Patient was found to be in acute CHF and was started on IV Lasix. At the time of examination, the patient denies any chest pain or pressure. He denies any shortness of breath. He is confused and is trying to get out of bed. There is no family present with the patient at the time of examination. DIAGNOSTICS: - EKG reveals ventricular paced rhythm - Chest xray findings consistent with CHF exacerbation. - Laboratory data: WBC 4.3. Hemoglobin 8.6. Platelet count 171. INR 2.2. Sodium 135. Potassium 3.9. BUN 104. Creatinine 2.63. Troponin 0.081. proBNP 26,600. - Current home cardiac medications include Farxiga 10 mg daily, Lasix 40 mg in the morning, 20 mg in the afternoon, and 40 mg at night, lovastatin 40 mg at night, warfarin 1 mg at night, and metoprolol tartrate 25 mg twice a day. - Most recent echocardiogram obtained in December 2022 revealed ejection fraction 50 to 55%, dilated right ventricle with global hypokinesia, severe pulmonary hypertension, moderate MR, moderate TR - Cardiac catheterization history: April 2020 revealing calcified coronary arteries with mild triple-vessel disease REVIEW OF SYSTEMS: At the time of my exam: Limited review of systems secondary to altered mental status PHYSICAL EXAM: VITAL SIGNS: Reviewed. GENERAL: Well-developed in no acute distress. HEENT: Head is normocephalic. Pupils are equal, round. Sclerae anicteric. Mucous membranes of the mouth are moist. Neck supple. + JVD. LUNGS: Respirations even and unlabored. Lungs essentially clear to auscultation bilaterally, diminished. HEART: Regular rate and rhythm. S1 and S2 heard. Systolic murmur noted. ABDOMEN: Soft. Nondistended. Nontender. EXTREMITIES: Normal range of motion. No clubbing or cyanosis. Peripheral pulses intact. Trace bilateral lower extremity edema NEUROLOGIC: Awake and alert. Oriented to self only ASSESSMENT: Shortness of breath Acute on chronic heart failure with preserved EF, 50 to 55% Acute kidney injury secondary to ATN Chronic kidney disease Coronary artery disease with mild triple-vessel disease Paroxysmal atrial fibrillation, on Coumadin outpatient History of permanent pacemaker implantation Valvular heart disease including moderate MR and moderate TR Severe pulmonary hypertension Hypertension Hyperlipidemia Diabetes History of AAA PLAN: Obtain limited echo to assess LV function and valvular structures Continue IV Lasix 40 mg every 8 hours Daily weights, accurate intake and output, and monitoring of kidney function Continue anticoagulation with Coumadin. Continue to monitor INR Resume metoprolol 25 mg twice a day Hold Farxiga and Zaroxolyn secondary to UTE Further recommendations pending patient course Nurse practitioner note has been reviewed by physician. Signing provider agrees with the documented findings, assessment, and plan of care documented by COMPUTER SCIENTIST as a scribe. 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, past L pleural effusion with thoracentesis, DVT L lower extremity, BPH with surgery, CKD, kiney stones with surgery, abdominal aortic aneurysm being monitored every 6 months, STEPHAN-unable to tolerate CPap, SSS with pacemaker, vertigo in the past, seasonal allergies History of Any Multi-Drug Resistant Organisms: None Reported Past Surgical History: Heart Catheterization, Pacemaker, Prostate Surgery Additional Past Surgical History / Comment(s): Pacemaker inserted 01/01/09 and gen change 04/11/18, TURP, ESWL, cysto/TURP, colonoscopy, "scraped bladder out" with adamson catheter inserted 04/14/22 Past Anesthesia/Blood Transfusion Reactions: Motion Sickness Type of Cardiac Device: Permanent Pacemaker Device Placement Date:: 01/01/2009 and gen change 03/2018 Past Psychological History: No Psychological Hx Reported Smoking Status: Never smoker Past Alcohol Use History: None Reported Past Drug Use History: None Reported - Past Family History Mother Family Medical History: CVA/TIA, Hypertension Additional Family Medical History / Comment(s): Mother lived to be 85yrs old. Father Family Medical History: CVA/TIA Additional Family Medical History / Comment(s): Father from a CVA at the age of 78yrs. Medications and Allergies Home Medications Medication Instructions Recorded Confirmed Type Metoprolol Tartrate [Lopressor] 25 mg PO BID 02/28/14 09/29/23 History Lovastatin [Mevacor] 40 mg PO HS 12/14/18 09/29/23 History Insulin Glargine,Hum.rec.anlog 12 unit SQ DAILY 05/26/20 09/29/23 History [Lantus Solostar Pen] Warfarin [Coumadin] 1 mg PO HS 05/26/20 09/29/23 History Dapagliflozin Propanediol [Farxiga] 10 mg PO DAILY 05/14/22 09/29/23 History Furosemide [Lasix] 20 mg PO DAILY@1400 03/02/23 09/29/23 History Famotidine [Pepcid] 20 mg PO BID 09/29/23 09/29/23 History Furosemide [Lasix] 40 mg PO BID@0800,1600 09/29/23 09/29/23 History Miconazole Nitrate [Zeasorb AF] 1 applic TOPICAL TID 09/29/23 09/29/23 History Nitroglycerin Sl Tabs [Nitrostat] 0.4 mg SUBLINGUAL Q5M PRN 09/29/23 09/29/23 History Nystatin 100,000Unit/gm Cream 1 applic TOPICAL TID PRN 09/29/23 09/29/23 History [Mycostatin Cream] QUEtiapine FUMARATE [SEROquel] 25 mg PO HS 09/29/23 09/29/23 History metOLazone [Zaroxolyn] 2.5 mg PO MOFR 09/29/23 09/29/23 History Allergies Allergy/AdvReac Type Severity Reaction Status Date / Time doxazosin mesylate AdvReac "irritates Verified 09/29/23 06:58 [From Cardura] urinary tract, jeter all the time when I pee" finasteride [From Proscar] AdvReac "irritates Verified 09/29/23 06:58 urinary tract, jeter all the time when I pee" gatifloxacin [From Tequin] AdvReac "irritates Verified 09/29/23 06:58 urinary tract, jeter all the time when I pee" glipizide AdvReac severe Verified 09/29/23 06:58 hypoglycemia hydroxyzine HCl [From Atarax] AdvReac "irritates Verified 09/29/23 06:58 urinary tract, jeter all the time when I pee" levofloxacin [From Levaquin] AdvReac "irritates Verified 09/29/23 06:58 urinary tract, jeter all the time when I pee" lisinopril AdvReac "irritates Verified 09/29/23 06:58 urinary tract, jeter all the time when I pee" meperidine HCl [From Demerol] AdvReac "irritates Verified 09/29/23 06:58 urinary tract, jeter all the time when I pee" metformin AdvReac "irritates Verified 09/29/23 06:58 urinary tract, jeter all the time when I pee" oxybutynin AdvReac "irritates Verified 09/29/23 06:58 urinary tract, jeter all the time when I pee" oxybutynin chloride AdvReac "irritates Verified 09/29/23 06:58 [From Ditropan] urinary tract, jeter all the time when I pee" pseudoephedrine HCl AdvReac "irritates Verified 09/29/23 06:58 [From Sudafed] urinary tract, jeter all the time when I pee" rosuvastatin calcium AdvReac "irritates Verified 09/29/23 06:58 [From Crestor] urinary tract, jeter all the time when I pee" Sulfa (Sulfonamide AdvReac "irritates Verified 09/29/23 06:58 Antibiotics) urinary tract, jeter all the time when I pee" tamsulosin AdvReac "irritates Verified 09/29/23 06:58 urinary tract, jeter all the time when I pee" tamsulosin HCl [From Flomax] AdvReac "irritates Verified 09/29/23 06:58 urinary tract, jeter all the time when I pee" terazosin HCl [From Hytrin] AdvReac "irritates Verified 09/29/23 06:58 urinary tract, jeter all the time when I pee" Physical Exam Vitals: Vital Signs Temp Pulse Resp BP Pulse Ox 09/29/23 10:30 67 18 106/64 96 09/29/23 09:39 59 L 18 122/59 97 09/29/23 08:45 54 L 20 127/64 100 09/29/23 08:34 52 L 18 139/108 92 L 09/29/23 07:51 97.9 F 49 L 17 111/79 99 09/29/23 06:15 60 14 113/75 97 09/29/23 05:15 61 16 102/91 97 09/29/23 04:51 56 L 16 118/50 96 09/29/23 03:06 16 124/67 96 09/29/23 02:26 26 H 09/29/23 02:01 97.8 F 96 26 H 134/79 95 Intake and Output 09/28/23 09/29/23 09/29/23 22:59 06:59 14:59 Other: Weight 68.039 kg Results 09/29/23 09:30 09/29/23 09:30 Cardiac Enzymes 09/29/23 09/29/23 09/29/23 Range/Units 02:34 02:34 09:30 AST 25 25 (17-59) U/L Troponin I 0.081 H* (0.000-0.034) ng/mL Coagulation 09/29/23 Range/Units 02:34 PT 22.3 H (10.0-12.5) sec APTT 33.1 H (22.0-30.0) sec CBC 09/29/23 09/29/23 Range/Units 02:34 09:30 WBC 4.8 4.3 (3.8-10.6) k/uL RBC 2.42 L 2.48 L (4.30-5.90) m/uL Hgb 8.1 L 8.6 L (13.0-17.5) gm/dL Hct 25.2 L 25.8 L (39.0-53.0) % Plt Count 148 L 171 (150-450) k/uL Comprehensive Metabolic Panel 09/29/23 09/29/23 Range/Units 02:34 09:30 Sodium 134 L 135 L (137-145) mmol/L Potassium 3.4 L 3.9 (3.5-5.1) mmol/L Chloride 94 L 94 L (98-107) mmol/L Carbon Dioxide 33 H 33 H (22-30) mmol/L BUN 106 H* 104 H* (9-20) mg/dL Creatinine 2.61 H 2.63 H (0.66-1.25) mg/dL Glucose 78 118 H (74-99) mg/dL Calcium 8.7 8.6 (8.4-10.2) mg/dL AST 25 25 (17-59) U/L ALT 10 9 (4-49) U/L Alkaline Phosphatase 83 85 (38-126) U/L Total Protein 8.9 H 8.8 H (6.3-8.2) g/dL Albumin 3.5 3.4 L (3.5-5.0) g/dL Current Medications Generic Name Dose Route Start Last Admin Trade Name Freq PRN Reason Stop Dose Admin Furosemide 40 mg 09/29/23 04:00 09/29/23 05:42 Furosemide 10 Mg/Ml 4 Ml Vial IV 40 mg Q8H HANNA Administration Insulin Aspart 0 unit 09/29/23 07:30 09/29/23 07:51 Insulin Aspart (Novolog) 100 Unit/Ml Vial SQ Not Given [facility] Protocol Metoprolol Tartrate 25 mg 09/29/23 09:00 09/29/23 09:39 Metoprolol Tartrate 25 Mg Tab PO 25 mg BID HANNA Administration Miscellaneous Information 1 each 09/29/23 04:40 Warfarin Per Pharmacy MISCELLANE DIRECTED PRN Per Protocol Protocol Warfarin Sodium 1 mg 09/29/23 21:00 Warfarin 1 Mg Tab PO [facility] Protocol Intake and Output 09/28/23 09/29/23 09/29/23 22:59 06:59 14:59 Other: Weight 68.039 kg 09/29/23 09:30 09/29/23 09:30
[2023-09-29 11:45] LABS: Glucose,Whole Blood 117 mg/dL (70-110)
--- NOTE | 2023-09-29 12:35 | US ---
EXAMINATION TYPE: US kidneys/renal and bladder DATE OF EXAM: 09/29/2023 COMPARISON: CT 09/08/2022 CLINICAL INDICATION: Male, 83 years old with history of UTE; EXAM MEASUREMENTS: Right Kidney: 9.4 x 4.7 x 4.7 cm Left Kidney: 10.2 x 5.8 x 5.5 cm Post Void Residual Volume: NA mL Right Kidney: wnl Left Kidney: wnl Bladder: Not able to assess Bilateral Jets seen: Not able to assess Normal Post Void Residual: NA Small amount of ascites is seen throughout the abdomen. There is no evidence for hydronephrosis at this point in time. No nephrolithiasis is seen. No liudmila s are identified. IMPRESSION: 1. No evidence for obstructive uropathy. Cortical medullary differentiation is maintained. 2. Small abdominal ascites.
[2023-09-29 15:39] LABS: % Iron Saturation 9.67 (15.00-50.00)
[2023-09-29 20:42] LABS: Glucose,Whole Blood 95 mg/dL (70-110)
[2023-09-29] MEDS: QUEtiapine 25 MG TAB PO SCH (20:45)
[2023-09-29] MEDS: ATORVASTATIN 40 MG TAB PO SCH (20:51)
[2023-09-29] MEDS ORDERED: FAMOTIDINE 20 MG TAB PO SCH (21:00)
[2023-09-29] MEDS ORDERED: NON FORMULARY DRUG (Lovastatin 40 MG Tab) PO SCH (21:00)
[2023-09-29] MEDS: WARFARIN 1 MG TAB PO SCH (21:03)
[2023-09-29 23:29] LABS: Glucose,Whole Blood 108 mg/dL (70-110)
[2023-09-30 07:03] LABS: African American GFR (CKD) 27 (>60 ml/min/1.73 sqM); Anion Gap 10 mmol/L; Calcium 8.8 mg/dL (8.4-10.2); Carbon Dioxide 31 mmol/L (22-30); Chloride 97 mmol/L (98-107); Glucose 86 mg/dL (74-99); Non-African American GFR(CKD) 23 (>60 ml/min/1.73 sqM); Sodium 138 mmol/L (137-145)
[2023-09-30 07:05] LABS: Magnesium 2.4 mg/dL (1.6-2.3); Potassium 4.4 mmol/L (3.5-5.1)
[2023-09-30 07:06] LABS: Glucose,Whole Blood 103 mg/dL (70-110)
[2023-09-30 07:06] LABS: Blood Urea Nitrogen 110 mg/dL (9-20)
[2023-09-30 07:12] LABS: INR 2.2 (<1.2); Prothrombin Time 21.8 sec (10.0-12.5)
[2023-09-30] MEDS ORDERED: metOLazone 2.5 MG TAB PO SCH (09:00)
[2023-09-30] MEDS: FAMOTIDINE 20 MG TAB PO SCH (09:36)
[2023-09-30] MEDS: INSULIN DETEMIR (LEVEMIR) 100 UNIT/ML SYR SQ SCH (10:07)
[2023-09-30] MEDS: DAPAGLIFLOZIN PROPANEDIOL 10 MG TABLET PO SCH (10:07)
--- NOTE | 2023-09-30 10:30 | CA ---
Transthoracic Echo Report Name: Stephen Bain Age: 83 Gender: M : 1940 Exam Date: 09/29/2023 14:06 Exam Location: [place] [facility] Ht (in): 66 Wt (lb): 150 Ordering Physician: Mary Garcia Attending/Referring Phys: [id number], Radha Employee Communications Specialist Aimee Hare RDCS Procedure CPT: Indications: LV function Cardiac Hx: Technical Quality: Technically difficult study Contrast 1: Definity Total Dose (mL): 1 Contrast 2: Total Dose (mL): MEASUREMENTS (Male / Female) Normal Values 2D ECHO LV Diastolic Diameter PLAX 5.6 cm 4.2 - 5.9 / 3.9 - 5.3 cm LV Systolic Diameter PLAX 4.3 cm IVS Diastolic Thickness 0.9 cm 0.6 - 1.0 / 0.6 - 0.9 cm LVPW Diastolic Thickness 0.8 cm 0.6 - 1.0 / 0.6 - 0.9 cm LV Relative Wall Thickness 0.3 RV Internal Dim ED PLAX 4.8 cm LA Systolic Diameter LX 4.6 cm 3.0 - 4.0 / 2.7 - 3.8 cm LV Diastolic Volume MOD BP 77.4 cm??? 67 - 155 / 56 - 104 cm??? LV Systolic Volume MOD BP 56.9 cm??? - 58 / 19 - 49 cm??? LV Ejection Fraction MOD BP 26.5 % >= 55 % LV Cardiac Index MOD BP 653.2 cm???/min???m??? LV Diastolic Volume MOD 4C 97.3 cm??? LV Systolic Volume MOD 4C 65.5 cm??? LV Ejection Fraction MOD 4C 32.7 % LV Cardiac Index MOD 4C 1012.5 cm???/min???m??? LV Diastolic Length 4C 7.9 cm LV Systolic Length 4C 8.3 cm LV Diastolic Volume MOD 2C 61.6 cm??? LV Systolic Volume MOD 2C 41.1 cm??? LV Ejection Fraction MOD 2C 33.2 % LV Cardiac Index MOD 2C 652.1 cm???/min???m??? LV Diastolic Length 2C 7.8 cm LV Systolic Length 2C 6.8 cm LA Volume 104.9 cm??? 18 - 58 / 22 - 52 cm??? LA Volume Index 58.7 cm???/m??? 16 - 28 cm???/m??? DOPPLER AV Peak Velocity 139.0 cm/s AV Peak Gradient 7.7 mmHg TR Peak Velocity 345.7 cm/s TR Peak Gradient 47.8 mmHg Right Atrial Pressure 15.0 mmHg Pulmonary Artery Systolic Pressu 62.8 mmHg Right Ventricular Systolic Press 62.8 mmHg FINDINGS Left Ventricle Left ventricular ejection fraction is estimated at 35-40 %. Left ventricular cavity size normal. Severely decreased left ventricular ejection fraction. Flattening of ventricular septum in systole and diastole Right Ventricle Severe right ventricular dilatation. Severe pulmonary hypertension. Right ventricular systolic pressure estimated at 63 mm hg. Right Atrium Normal right atrial size. Left Atrium Mildly increased left atrial diameter. Severely increased left atrial volume. Mildly increased left atrial area. Mitral Valve Mitral valve thickened. Mild mitral regurgitation. Aortic Valve Trileaflet aortic valve. No aortic valve stenosis or regurgitation. Tricuspid Valve Structurally normal tricuspid valve. [id number] tricuspid regurgitation. Pulmonic Valve Structurally normal pulmonic valve. Mild pulmonic regurgitation. Pericardium No pericardial effusion. Aorta Normal size aortic root and proximal ascending aorta. CONCLUSIONS Mild LV cavity dilatation. Severely reduced global LV systolic function LVEF estimated at 35 to 40% Severe RV dilatation. Signs of RV pressure and volume overload with septal flattening. RVSP estimated at >60 mmHg. Severe pulm hypertension. Mild functional MR, severe TR Dilated IVC with less than 50% collapse Previewed by: Dr Imer Zaldivar (Electronically Signed) Final Date: 30 September 2023 10:30
--- NOTE | 2023-09-30 10:37 | P.PN ---
Subjective Patient is seen in follow-up for acute kidney injury on chronic kidney disease. Patient is a poor historian. On IV Lasix. Renal function fairly stable. Nonoliguric. Has Ko catheter. Vital signs are stable. General: No acute distress. HEENT: Head exam is unremarkable. On nasal cannula. LUNGS: No audible rhonchi or wheezes. HEART: Rate and Rhythm are regular. ABDOMEN: Nontender, mild distention noted. EXTREMITITES: 1+ edema. Objective - Vital Signs Vital signs: Vital Signs Temp 98.5 F 09/30/23 08:45 Pulse 49 L 09/30/23 08:45 Resp 20 09/30/23 08:45 BP 101/51 09/30/23 08:45 Pulse Ox 92 L 09/30/23 10:10 FiO2 Intake & Output 09/29/23 09/30/23 09/30/23 18:59 06:59 18:59 Output Total 640 600 Balance -640 -600 Output: Urine 640 600 Uretheral (Ko) 420 - Labs CBC & Chem 7: 09/29/23 09:30 09/30/23 05:51 Labs: Abnormal Lab Results - Last 24 Hours (Table) 09/29/23 09/29/23 09/30/23 Range/Units 09:30 11:42 05:51 PT (10.0-12.5) sec INR (<1.2) Chloride 97 L (98-107) mmol/L Carbon Dioxide 31 H (22-30) mmol/L BUN 110 H* (9-20) mg/dL Creatinine 2.45 H (0.66-1.25) mg/dL POC Glucose (mg/dL) 117 H (70-110) mg/dL Magnesium 2.4 H (1.6-2.3) mg/dL Iron 38 L (65-175) UG/DL % Saturation 9.67 L (15.00-50.00) 09/30/23 Range/Units 05:51 PT 21.8 H (10.0-12.5) sec INR 2.2 H (<1.2) Chloride (98-107) mmol/L Carbon Dioxide (22-30) mmol/L BUN (9-20) mg/dL Creatinine (0.66-1.25) mg/dL POC Glucose (mg/dL) (70-110) mg/dL Magnesium (1.6-2.3) mg/dL Iron (65-175) UG/DL % Saturation (15.00-50.00) Assessment and Plan Plan: Assessment: 1. Acute kidney injury secondary to ATN secondary to cardiorenal syndrome. Creatinine stable at 2.45 today. No hydronephrosis noted on kidney ultrasound. 2. Chronic kidney disease stage IIIb/IV with baseline creatinine 1.5-2 from December through February 2023. 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 3. Acute hypoxic respiratory failure. 4. Volume overload. 5. Acute on chronic systolic CHF with ejection fraction of 35 to 40% with severe pulmonary hypertension. 6. Diabetes mellitus. 7. Hypokalemia from diuresis. Replaced. Better. 8. Anemia of chronic kidney disease. Iron deficiency noted. Plan: Maintain IV Lasix. Also on SGLT2i. Strict I's and O's. Follow-up urinalysis. Avoid nephrotoxins. Add IV iron. Hold midodrine for systolic blood pressure greater than 110.
[2023-09-30 12:56] LABS: Glucose,Whole Blood 149 mg/dL (70-110)
[2023-09-30] MEDS: MIDODRINE 5 MG TAB PO SCH (12:58)
--- NOTE | 2023-09-30 13:00 | P.PN ---
Subjective Progress Note Date: 09/30/23 HISTORY OF PRESENT ILLNESS: This is a 83-year-old male with a past medical history significant for hype rtension, hyperlipidemia, diabetes, mild triple-vessel disease, AAA, and atrial fibrillation. Patient follows in the office with Dr. Fall. We have been asked to see the patient in consultation for congestive heart failure. Patient examined at the bedside in the emergency room. Patient is confused at the time of examination and unable to provide any significant history. He was brought to the hospital from [facility] secondary to shortness of breath. Patient was found to be in acute CHF and was started on IV Lasix. At the time of examination, the patient denies any chest pain or pressure. He denies any shortness of breath. He is confused and is trying to get out of bed. There is no family present with the patient at the time of examination. DIAGNOSTICS: - EKG reveals ventricular paced rhythm - Chest xray findings consistent with CHF exacerbation. - Laboratory data: WBC 4.3. Hemoglobin 8.6. Platelet count 171. INR 2.2. Sodium 135. Potassium 3.9. BUN 104. Creatinine 2.63. Troponin 0.081. proBNP 26,600. - Current home cardiac medications include Farxiga 10 mg daily, Lasix 40 mg in the morning, 20 mg in the afternoon, and 40 mg at night, lovastatin 40 mg at night, warfarin 1 mg at night, and metoprolol tartrate 25 mg twice a day. - Most recent echocardiogram obtained in December 2022 revealed ejection fraction 50 to 55%, dilated right ventricle with global hypokinesia, severe pulmonary hypertension, moderate MR, moderate TR - Cardiac catheterization history: April 2020 revealing calcified coronary arteries with mild triple-vessel disease 2/2 Patient is seen today as a recheck in the emergency center waiting for a bed on the cardiac stepdown unit. Patient states that his breathing is better today. He feels tired. He has a Ko catheter draining. Patient has been afebrile, blood pressure 101/51, heart rate in the 40s, pulse ox 99% on 4 L nasal cannula. Echocardiogram reveals EF of 35 to 40%, severely reduced global LV systolic function, mild LV cavity dilation. Severe RV dilatation. Signs of RV pressure and volume overload with septal flattening. RVSP estimated greater than 60 mmHg. Severe pulmonary hypertension. Mild functional MR, severe TR. Dilated IVC with less than 50% collapse. Laboratory studies reveal INR 2.2. BUN 110, creatinine 2.45. Results of testing and plan of care discussed with the patient's son at the bedside. They feel the patient is worse in general than his baseline. They are questioning whether patient is appropriate for hospice. PHYSICAL EXAM: VITAL SIGNS: Reviewed. GENERAL: Well-developed in no acute distress. HEENT: Head is normocephalic. Pupils are equal, round. Sclerae anicteric. Mucous membranes of the mouth are moist. Neck supple. + JVD. LUNGS: Respirations even and unlabored. Lungs essentially clear to auscultation bilaterally, diminished. HEART: Regular rate and rhythm. S1 and S2 heard. Systolic murmur noted. ABDOMEN: Soft. Nondistended. Nontender. EXTREMITIES: Normal range of motion. No clubbing or cyanosis. Peripheral pulses intact. Trace bilateral lower extremity edema NEUROLOGIC: Awake and alert. Oriented to self only ASSESSMENT: Acute on chronic heart failure with preserved EF, 50 to 55% Acute kidney injury secondary to ATN Chronic kidney disease Coronary artery disease with mild triple-vessel disease Paroxysmal atrial fibrillation, on Coumadin outpatient History of permanent pacemaker implantation Valvular heart disease including moderate MR and moderate TR Severe pulmonary hypertension Hypertension Hyperlipidemia Diabetes History of AAA PLAN: Continue IV Lasix 40 mg every 8 hours Daily weights, accurate intake and output, and monitoring of kidney function Continue anticoagulation with Coumadin. Continue to monitor INR Resume metoprolol 25 mg twice a day Hold Farxiga and Zaroxolyn secondary to UTE Patient is appropriate for hospice. Nurse practitioner note has been reviewed by physician. Signing provider agrees with the documented findings, assessment, and plan of care documented by ENGINEERING INTERN as a scribe. Objective - Vital Signs Vital signs: Vital Signs Temp 98.5 F 09/30/23 08:45 Pulse 49 L 09/30/23 08:45 Resp 20 09/30/23 08:45 BP 101/51 09/30/23 08:45 Pulse Ox 92 L 09/30/23 10:10 FiO2 Intake & Output 09/29/23 09/30/23 09/30/23 18:59 06:59 18:59 Output Total 640 600 Balance -640 -600 Output: Urine 640 600 Uretheral (Ko) 420 - Labs CBC & Chem 7: 09/29/23 09:30 09/30/23 05:51 Labs: Abnormal Lab Results - Last 24 Hours (Table) 09/29/23 09/29/23 09/29/23 Range/Units 09:30 09:30 11:42 PT (10.0-12.5) sec INR (<1.2) Sodium 135 L (137-145) mmol/L Chloride 94 L (98-107) mmol/L Carbon Dioxide 33 H (22-30) mmol/L BUN 104 H* (9-20) mg/dL Creatinine 2.63 H (0.66-1.25) mg/dL Glucose 118 H (74-99) mg/dL POC Glucose (mg/dL) 117 H (70-110) mg/dL Magnesium (1.6-2.3) mg/dL Iron 38 L (65-175) UG/DL % Saturation 9.67 L (15.00-50.00) Total Protein 8.8 H (6.3-8.2) g/dL Albumin 3.4 L (3.5-5.0) g/dL 09/30/23 09/30/23 Range/Units 05:51 05:51 PT 21.8 H (10.0-12.5) sec INR 2.2 H (<1.2) Sodium (137-145) mmol/L Chloride 97 L (98-107) mmol/L Carbon Dioxide 31 H (22-30) mmol/L BUN 110 H* (9-20) mg/dL Creatinine 2.45 H (0.66-1.25) mg/dL Glucose (74-99) mg/dL POC Glucose (mg/dL) (70-110) mg/dL Magnesium 2.4 H (1.6-2.3) mg/dL Iron (65-175) UG/DL % Saturation (15.00-50.00) Total Protein (6.3-8.2) g/dL Albumin (3.5-5.0) g/dL
[2023-09-30] MEDS: SODIUM FERRIC GLUCONAT-SUCROSE 125 MG in SODIUM CHLORIDE 0.9% 100 ML IVPB SCH (13:09)
--- NOTE | 2023-09-30 14:32 | P.PN ---
Subjective Progress Note Date: 09/30/23 Hospital Course: 83-year-old male with a PMH of A-fib on Coumadin, cardiorenal syndrome, CAD, diastolic CHF (echo from 01/18 showed moderate to severe LVH with a EF 50 to 55%) with cardiorenal syndrome, status post pacemaker placement, type II DM, hypertension, hyperlipidemia, AAA, chronic kidney disease stage IIIb, who presented to the emergency room from [facility] with complaints of shortness of breath. Chest x-ray in the emergency room was consistent with congestive heart failure. Laboratory evaluation was remarkable for troponin 0.081, proBNP 26,600, BUN 106 (previously 41 in 03/20), creatinine 2.6 (baseline 2.0), sodium 134, potassium 3.4, CO2 33, hemoglobin 8.1 (at baseline), and INR 2.2. Patient admitted for CHF exacerbation with UTE. Cardiology and nephrology consulted. Subjective: Patient seen and examined at bedside. No acute events overnight. Claims that his shortness of breath has improved. Pertinent positives and negatives as discussed above, a complete review of systems was performed and all other systems are negative. Vitals Signs Reviewed. General: Nontoxic, no distress, appears at stated age Derm: Warm, dry Head: Atraumatic, normocephalic, symmetric Eyes: EOMI, no lid lag, anicteric sclera Mouth: No lip lesion, mucus membranes moist Cardiovascular: S1S2 reg, no murmur Lungs: [Bilateral rhonchi, no accessory muscle use Abdominal: Soft, nontender to palpation, no guarding, no appreciable organomegaly Ext: No gross muscle atrophy, 2+edema, no contractures Neuro: CN II-XI grossly intact, no focal neuro deficits Psych: Alert, oriented x 2, appropriate affect Data Reviewed Today: Pertinent Labs: INR 2.2, bicarb 31, creatinine 2.45, BUN 110, blood sugars range between 86-1 49, magnesium 2.4 Imaging: Echocardiogram report reviewed, shows LVEF 35 to 40%, RVSP greater than 60 Assessment and Plan: Active: Acute on chronic diastolic and systolic heart failure exacerbation UTE on CKD Hypertension Dyslipidemia -IV Lasix 40 mg every 8 hours, monitor renal output, electrolytes -Strict I's and O's -Daily weights -Renal function slowly improving -Cardiology note reviewed, Hospice being consulted given end-stage heart failure -Nephrology note reviewed continue IV Lasix, started on IV iron, also started on SGLT2 inhibitor Paroxysmal atrial fibrillation on Coumadin -Continue warfarin, pharmacy to dose, therapeutic INR Type 2 diabetes -Continue Farxiga 10 mg daily -Sliding scale insulin, monitor for hypoglycemia -Continue Levemir 12 units daily Chronic: Multivessel CAD History of pacemaker placement DVT ppx: Coumadin Code status: DNR/DNI Anticipated discharge place: Pending clinical course Anticipated discharge time: Pending clinical course Objective - Vital Signs Vital signs: Vital Signs Temp 97.1 F L 09/30/23 12:57 Pulse 49 L 09/30/23 12:57 Resp 20 09/30/23 12:57 BP 114/50 09/30/23 12:57 Pulse Ox 99 09/30/23 12:57 FiO2 Intake & Output 09/29/23 09/30/23 09/30/23 18:59 06:59 18:59 Intake Total 200 Output Total 640 600 Balance -640 -600 200 Intake: Oral 200 Output: Urine 640 600 Uretheral (Ko) 420 - Labs CBC & Chem 7: 09/29/23 09:30 09/30/23 05:51 Labs: Abnormal Lab Results - Last 24 Hours (Table) 09/29/23 09/30/23 09/30/23 Range/Units 09:30 05:51 05:51 PT 21.8 H (10.0-12.5) sec INR 2.2 H (<1.2) Chloride 97 L (98-107) mmol/L Carbon Dioxide 31 H (22-30) mmol/L BUN 110 H* (9-20) mg/dL Creatinine 2.45 H (0.66-1.25) mg/dL POC Glucose (mg/dL) (70-110) mg/dL Magnesium 2.4 H (1.6-2.3) mg/dL Iron 38 L (65-175) UG/DL % Saturation 9.67 L (15.00-50.00) 09/30/23 Range/Units 12:54 PT (10.0-12.5) sec INR (<1.2) Chloride (98-107) mmol/L Carbon Dioxide (22-30) mmol/L BUN (9-20) mg/dL Creatinine (0.66-1.25) mg/dL POC Glucose (mg/dL) 149 H (70-110) mg/dL Magnesium (1.6-2.3) mg/dL Iron (65-175) UG/DL % Saturation (15.00-50.00)
[2023-09-30 17:37] LABS: Glucose,Whole Blood 181 mg/dL (70-110)
[2023-09-30 21:38] LABS: Appearance,Urine Cloudy (Clear); Bacteria,Urine Many /hpf; Bilirubin,Urine Negative (Negative); Blood,Urine Large (Negative); Color,Urine Yellow; Glucose,Urine (UA) Negative (Negative); Hyaline Casts,Urine 29 /lpf (0-2); Ketones,Urine Negative (Negative); Leukocyte Esterase,Urine Large (Negative); Mucus,Urine Rare /hpf; Nitrite,Urine Negative (Negative); Protein,Urine 1+ (Negative); RBC,Urine 83 /hpf (0-5); Specific Gravity,Urine 1.013 (1.001-1.035); Squamous Epithelial Cell,Urine 1 /hpf (0-4); Urobilinogen,Urine <2.0 mg/dL (<2.0); WBC,Urine 56 /hpf (0-5)
[2023-09-30 22:19] LABS: Glucose,Whole Blood 296 mg/dL (70-110)
[2023-10-01 04:12] LABS: Glucose,Whole Blood 88 mg/dL (70-110)
[2023-10-01 05:20] LABS: Glucose,Whole Blood 82 mg/dL (70-110)
[2023-10-01 07:15] LABS: INR 2.7 (<1.2); Prothrombin Time 26.5 sec (10.0-12.5)
[2023-10-01 09:47] LABS: BUN/Creat Ratio 39.84 Ratio (12.00-20.00); Blood Urea Nitrogen 99.6 mg/dL (9.0-27.0); Calcium 8.5 mg/dL (8.7-10.3); Carbon Dioxide 33.9 mmol/L (21.6-31.8); Chloride 93 mmol/L (96-109); Glucose 89 mg/dL (70-110); Magnesium 2.5 mg/dL (1.5-2.4); Potassium 3.5 mmol/L (3.5-5.5); Sodium 137 mmol/L (135-145)
--- NOTE | 2023-10-01 11:21 | P.PN ---
Subjective Progress Note Date: 10/01/23 Patient is seen in follow-up for acute kidney injury on chronic kidney disease. Patient still feels short of breath. Vital signs are stable. General: No acute distress. HEENT: Head exam is unremarkable. On nasal cannula. LUNGS: +rhonchi and wheezes. HEART: Rate and Rhythm are regular. ABDOMEN: Nontender, mild distention noted. EXTREMITITES: 1+ edema. Objective - Vital Signs Vital signs: Vital Signs Temp 97.7 F 10/01/23 06:53 Pulse 52 L 10/01/23 06:53 Resp 20 10/01/23 06:53 BP 107/54 10/01/23 06:53 Pulse Ox 100 10/01/23 06:53 FiO2 Intake & Output 09/30/23 10/01/23 10/01/23 18:59 06:59 18:59 Intake Total 300 560 Output Total 1200 Balance 300 -1200 560 Weight 68 kg Intake: Intake, IV Titration 100 Amount Sodium Ferric Gluconat- 100 Sucrose 125 mg In Sodium Chloride 0.9% 100 ml @ 100 mls/hr IVPB DAILY COUNT INCLUDES THE [facility] Rx#:[id number] Oral 200 560 Output: Urine 1200 Uretheral (Ko) 200 Other: Voiding Method Indwelling Catheter Indwelling Catheter Indwelling Catheter # Voids 1 - Labs CBC & Chem 7: 09/29/23 09:30 10/01/23 06:35 Labs: Abnormal Lab Results - Last 24 Hours (Table) 09/30/23 09/30/23 09/30/23 Range/Units 12:54 17:36 21:20 PT (10.0-12.5) sec INR (<1.2) Chloride (96-109) mmol/L Carbon Dioxide (21.6-31.8) mmol/L BUN (9.0-27.0) mg/dL Creatinine (0.6-1.5) mg/dL Est GFR (CKD-EPI) (>=60) BUN/Creatinine Ratio (12.00-20.00) Ratio POC Glucose (mg/dL) 149 H 181 H (70-110) mg/dL Calcium (8.7-10.3) mg/dL Magnesium (1.5-2.4) mg/dL Urine Protein 1+ H (Negative) Urine Blood Large H (Negative) Ur Leukocyte Esterase Large H (Negative) Urine RBC 83 H (0-5) /hpf Urine WBC 56 H (0-5) /hpf Urine WBC Clumps Few H (None) /hpf Urine Bacteria Many H (None) /hpf Hyaline Casts 29 H (0-2) /lpf Urine Mucus Rare H (None) /hpf 09/30/23 10/01/23 10/01/23 Range/Units 22:18 06:35 06:35 PT 26.5 H (10.0-12.5) sec INR 2.7 H (<1.2) Chloride 93 L (96-109) mmol/L Carbon Dioxide 33.9 H (21.6-31.8) mmol/L BUN 99.6 H (9.0-27.0) mg/dL Creatinine 2.5 H (0.6-1.5) mg/dL Est GFR (CKD-EPI) 25 L (>=60) BUN/Creatinine Ratio 39.84 H (12.00-20.00) Ratio POC Glucose (mg/dL) 296 H (70-110) mg/dL Calcium 8.5 L (8.7-10.3) mg/dL Magnesium 2.5 H (1.5-2.4) mg/dL Urine Protein (Negative) Urine Blood (Negative) Ur Leukocyte Esterase (Negative) Urine RBC (0-5) /hpf Urine WBC (0-5) /hpf Urine WBC Clumps (None) /hpf Urine Bacteria (None) /hpf Hyaline Casts (0-2) /lpf Urine Mucus (None) /hpf Assessment and Plan Plan: Assessment: 1. Acute kidney injury secondary to ATN secondary to cardiorenal syndrome. Creatinine stable at 2.5 today. No hydronephrosis noted on kidney ultrasound. 2. Chronic kidney disease stage IIIb/IV with baseline creatinine 1.5-2 from December through February 2023. 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 3. Acute hypoxic respiratory failure. 4. Volume overload. 5. Acute on chronic systolic CHF with ejection fraction of 35 to 40% with severe pulmonary hypertension. 6. Diabetes mellitus. 7. Hypokalemia from diuresis. Replaced. Better. 8. Anemia of chronic kidney disease. Iron deficiency noted. Plan: Maintain IV Lasix, increased to 80mg TID. Can consider adding metolazone 5mg daily if still not diuresing well. Also on SGLT2i. Strict I's and O's. Urinalysis concerning for UTI, many hyaline casts Hold midodrine for systolic blood pressure greater than 110. Patient poor candidate for HD given end stage heart disease, hospice appro priate.
[2023-10-01] MEDS ORDERED: ACETAMINOPHEN TAB 325 MG TAB PO PRN (11:47)
[2023-10-01 11:49] LABS: Glucose,Whole Blood 172 mg/dL (70-110)
[2023-10-01 12:26] VITALS: BMI 24.2
[2023-10-01] MEDS: MORPHINE SULFATE IR 15 MG TABLET PO PRN (13:10)
--- NOTE | 2023-10-01 13:21 | P.PN ---
Subjective Progress Note Date: 10/01/23 Hospital Course: 83-year-old male with a PMH of A-fib on Coumadin, cardiorenal syndrome, CAD, diastolic CHF (echo from 01/18 showed moderate to severe LVH with a EF 50 to 55%) with cardiorenal syndrome, status post pacemaker placement, type II DM, hypertension, hyperlipidemia, AAA, chronic kidney disease stage IIIb, who presented to the emergency room from [facility] with complaints of shortness of breath. Chest x-ray in the emergency room was consistent with congestive heart failure. Laboratory evaluation was remarkable for troponin 0.081, proBNP 26,600, BUN 106 (previously 41 in 03/20), creatinine 2.6 (baseline 2.0), sodium 134, potassium 3.4, CO2 33, hemoglobin 8.1 (at baseline), and INR 2.2. Patient admitted for CHF exacerbation with UTE. Cardiology and nephrology consulted. He was started on IV diuretics. However family now wants to do hospice care. Hospice consulted. Subjective: Patient seen and examined at bedside. No acute events overnight. Has been more dyspneic and confused. Pertinent positives and negatives as discussed above, a complete review of systems was performed and all other systems are negative. Vitals Signs Reviewed. General: Nontoxic, no distress, appears at stated age Derm: Warm, dry Head: Atraumatic, normocephalic, symmetric Eyes: EOMI, no lid lag, anicteric sclera Mouth: No lip lesion, mucus membranes moist Cardiovascular: S1S2 reg, no murmur Lungs: Bilateral rhonchi, no accessory muscle use, supplemental oxygen Abdominal: Soft, nontender to palpation, no guarding, no appreciable organomegaly Ext: No gross muscle atrophy, 2+edema, no contractures Neuro: CN II-XI grossly intact, no focal neuro deficits Psych: Alert, oriented x 1, appropriate affect Data Reviewed Today: Pertinent Labs: INR 2.7, creatinine 2.5, blood sugars range between 82-1 72, magnesium 2.5 Imaging: No new imaging Assessment and Plan: Acute on chronic diastolic and systolic heart failure exacerbation UTE on CKD Hypertension Dyslipidemia Paroxysmal atrial fibrillation Type 2 diabetes -IV Lasix 40 mg every 8 hours -Cardiology following, hospice being consulted given end-stage heart failure -Nephrology following -Family agrees with comfort care measures, and hospice -Discontinued atorvastatin, Farxiga, insulin, midodrine, IV iron, warfarin -Added immediate release morphine oral 15 mg every 4 hours as needed for discomfort, also added morphine IV 4 mg every 4 hours as needed for pain and discomfort. -Also started on IV Ativan as needed -Hospice is following, likely patient to be discharged to hospice home Chronic: Multivessel CAD History of pacemaker placement DVT ppx: Not indicated Code status: DNR/DNI Anticipated discharge place: Pending clinical course Anticipated discharge time: Pending clinical course Objective - Vital Signs Vital signs: Vital Signs Temp 97.7 F 10/01/23 06:53 Pulse 52 L 10/01/23 06:53 Resp 20 10/01/23 06:53 BP 107/54 10/01/23 06:53 Pulse Ox 100 10/01/23 06:53 FiO2 Intake & Output 09/30/23 10/01/23 10/01/23 18:59 06:59 18:59 Intake Total 300 560 Output Total 1200 Balance 300 -1200 560 Weight 68 kg 68 kg Intake: Intake, IV Titration 100 Amount Sodium Ferric Gluconat- 100 Sucrose 125 mg In Sodium Chloride 0.9% 100 ml @ 100 mls/hr IVPB DAILY [facility] Rx#:[id number] Oral 200 560 Output: Urine 1200 Uretheral (Ko) 200 Other: Voiding Method Indwelling Catheter Indwelling Catheter Indwelling Catheter # Voids 1 - Labs CBC & Chem 7: 09/29/23 09:30 10/01/23 06:35 Labs: Abnormal Lab Results - Last 24 Hours (Table) 09/30/23 09/30/23 09/30/23 Range/Units 17:36 21:20 22:18 PT (10.0-12.5) sec INR (<1.2) Chloride (96-109) mmol/L Carbon Dioxide (21.6-31.8) mmol/L BUN (9.0-27.0) mg/dL Creatinine (0.6-1.5) mg/dL Est GFR (CKD-EPI) (>=60) BUN/Creatinine Ratio (12.00-20.00) Ratio POC Glucose (mg/dL) 181 H 296 H (70-110) mg/dL Calcium (8.7-10.3) mg/dL Magnesium (1.5-2.4) mg/dL Urine Protein 1+ H (Negative) Urine Blood Large H (Negative) Ur Leukocyte Esterase Large H (Negative) Urine RBC 83 H (0-5) /hpf Urine WBC 56 H (0-5) /hpf Urine WBC Clumps Few H (None) /hpf Urine Bacteria Many H (None) /hpf Hyaline Casts 29 H (0-2) /lpf Urine Mucus Rare H (None) /hpf 10/01/23 10/01/23 10/01/23 Range/Units 06:35 06:35 11:48 PT 26.5 H (10.0-12.5) sec INR 2.7 H (<1.2) Chloride 93 L (96-109) mmol/L Carbon Dioxide 33.9 H (21.6-31.8) mmol/L BUN 99.6 H (9.0-27.0) mg/dL Creatinine 2.5 H (0.6-1.5) mg/dL Est GFR (CKD-EPI) 25 L (>=60) BUN/Creatinine Ratio 39.84 H (12.00-20.00) Ratio POC Glucose (mg/dL) 172 H (70-110) mg/dL Calcium 8.5 L (8.7-10.3) mg/dL Magnesium 2.5 H (1.5-2.4) mg/dL Urine Protein (Negative) Urine Blood (Negative) Ur Leukocyte Esterase (Negative) Urine RBC (0-5) /hpf Urine WBC (0-5) /hpf Urine WBC Clumps (None) /hpf Urine Bacteria (None) /hpf Hyaline Casts (0-2) /lpf Urine Mucus (None) /hpf
[2023-10-01 16:48] LABS: Glucose,Whole Blood 176 mg/dL (70-110)
[2023-10-01 20:40] LABS: Glucose,Whole Blood 143 mg/dL (70-110)
[2023-10-02 08:17] LABS: INR 3.4 (<1.2); Prothrombin Time 33.3 sec (10.0-12.5)
[2023-10-02 08:21] VITALS: BP 108/59; PULSE 55; TEMP 97.4
[2023-10-02 08:24] LABS: African American GFR (CKD) 25 (>60 ml/min/1.73 sqM); Anion Gap 9 mmol/L; Calcium 8.6 mg/dL (8.4-10.2); Carbon Dioxide 34 mmol/L (22-30); Chloride 95 mmol/L (98-107); Glucose 119 mg/dL (74-99); Non-African American GFR(CKD) 21 (>60 ml/min/1.73 sqM); Sodium 138 mmol/L (137-145)
[2023-10-02 08:34] LABS: Blood Urea Nitrogen 109 mg/dL (9-20)
--- NOTE | 2023-10-02 09:12 | P.PN ---
Subjective Progress Note Date: 10/02/23 Patient is seen in follow-up for acute kidney injury on chronic kidney disease. Still short of breath with conversation. Vital signs are stable. General: No acute distress. HEENT: Head exam is unremarkable. On nasal cannula. LUNGS: +rhonchi and wheezes. HEART: Rate and Rhythm are regular. ABDOMEN: Nontender, mild distention noted. EXTREMITITES: 1+ edema. Objective - Vital Signs Vital signs: Vital Signs Temp 97.4 F L 10/02/23 07:08 Pulse 55 L 10/02/23 07:08 Resp 19 10/02/23 07:08 BP 108/59 10/02/23 07:08 Pulse Ox 100 10/02/23 07:08 FiO2 Intake & Output 10/01/23 10/02/23 10/02/23 18:59 06:59 18:59 Intake Total 560 Output Total 500 Balance 560 -500 Weight 68 kg Intake: Oral 560 Output: Urine 500 Other: Voiding Method Indwelling Catheter Indwelling Catheter - Labs CBC & Chem 7: 09/29/23 09:30 10/02/23 06:59 Labs: Abnormal Lab Results - Last 24 Hours (Table) 10/01/23 10/01/23 10/01/23 Range/Units 06:35 11:48 16:47 PT (10.0-12.5) sec INR (<1.2) Chloride 93 L (96-109) mmol/L Carbon Dioxide 33.9 H (21.6-31.8) mmol/L BUN 99.6 H (9.0-27.0) mg/dL Creatinine 2.5 H (0.6-1.5) mg/dL Est GFR (CKD-EPI) 25 L (>=60) BUN/Creatinine Ratio 39.84 H (12.00-20.00) Ratio Glucose (74-99) mg/dL POC Glucose (mg/dL) 172 H 176 H (70-110) mg/dL Calcium 8.5 L (8.7-10.3) mg/dL Magnesium 2.5 H (1.5-2.4) mg/dL 10/01/23 10/02/23 10/02/23 Range/Units 20:38 06:59 06:59 PT 33.3 H (10.0-12.5) sec INR 3.4 H (<1.2) Chloride 95 L (96-109) mmol/L Carbon Dioxide 34 H (21.6-31.8) mmol/L BUN 109 H* (9.0-27.0) mg/dL Creatinine 2.62 H (0.6-1.5) mg/dL Est GFR (CKD-EPI) (>=60) BUN/Creatinine Ratio (12.00-20.00) Ratio Glucose 119 H (74-99) mg/dL POC Glucose (mg/dL) 143 H (70-110) mg/dL Calcium (8.7-10.3) mg/dL Magnesium (1.5-2.4) mg/dL Assessment and Plan Plan: Assessment: 1. Acute kidney injury secondary to ATN secondary to cardiorenal syndrome. Creatinine mildly elevated 2.6 today. No hydronephrosis noted on kidney ultrasound. 2. Chronic kidney disease stage IIIb/IV with baseline creatinine 1.5-2 from December through February 2023. 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 3. Acute hypoxic respiratory failure. 4. Volume overload. 5. Acute on chronic systolic CHF with ejection fraction of 35 to 40% with severe pulmonary hypertension. 6. Diabetes mellitus. 7. Hypokalemia from diuresis. Replaced. Better. 8. Anemia of chronic kidney disease. Iron deficiency noted. Plan: Maintain IV Lasix 40mg TID, urine output responding well. Also on SGLT2i. Strict I's and O's. Urinalysis concerning for UTI, many hyaline casts Hold midodrine for systolic blood pressure greater than 110. Patient poor candidate for HD given end stage heart disease, hospice appropriate.
--- NOTE | 2023-10-02 11:27 | P.PN ---
Subjective Progress Note Date: 10/02/23 Hospital Course: 83-year-old male with a PMH of A-fib on Coumadin, cardiorenal syndrome, CAD, diastolic CHF (echo from 01/18 showed moderate to severe LVH with a EF 50 to 55%) with cardiorenal syndrome, status post pacemaker placement, type II DM, hypertension, hyperlipidemia, AAA, chronic kidney disease stage IIIb, who presented to the emergency room from [facility] with complaints of shortness of breath. Chest x-ray in the emergency room was consistent with congestive heart failure. Laboratory evaluation was remarkable for troponin 0.081, proBNP 26,600, BUN 106 (previously 41 in 03/20), creatinine 2.6 (baseline 2.0), sodium 134, potassium 3.4, CO2 33, hemoglobin 8.1 (at baseline), and INR 2.2. Patient admitted for CHF exacerbation with UTE. Cardiology and nephrology consulted. He was started on IV diuretics. However family now wants to do hospice care. Hospice consulted. Patient now on comfort care measures. Pending likely discharge to hospice care facility. Subjective: Patient seen and examined at bedside. No acute events overnight. More comfortable. Pertinent positives and negatives as discussed above, a complete review of systems was performed and all other systems are negative. Vitals Signs Reviewed. General: Nontoxic, no distress, appears at stated age Derm: Warm, dry Head: Atraumatic, normocephalic, symmetric Eyes: EOMI, no lid lag, anicteric sclera Mouth: No lip lesion, mucus membranes moist Cardiovascular: S1S2 reg, no murmur Lungs: Bilateral rhonchi, no accessory muscle use, supplemental oxygen Abdominal: Soft, nontender to palpation, no guarding, no appreciable organomegaly Ext: No gross muscle atrophy, 2+edema, no contractures Neuro: CN II-XI grossly intact, no focal neuro deficits Psych: Alert, oriented x 1, appropriate affect Data Reviewed Today: Pertinent Labs: INR 3.4, creatinine 2.60 Imaging: No new imaging Assessment and Plan: Acute on chronic diastolic and systolic heart failure exacerbation UTE on CKD Hypertension Dyslipidemia Paroxysmal atrial fibrillation Type 2 diabetes -IV Lasix 40 mg every 8 hours -Cardiology following and nephrology following -Family agrees with comfort care measures, and hospice -Continue immediate release morphine oral 15 mg every 4 hours as needed for discomfort, morphine IV 4 mg every 4 hours as needed for pain and discomfort. -Continue on IV Ativan as needed -Hospice is following, likely patient to be discharged to hospice care facility Chronic: Multivessel CAD History of pacemaker placement DVT ppx: Not indicated Code status: DNR/DNI Anticipated discharge place: Pending clinical course Anticipated discharge time: Pending clinical course Objective - Vital Signs Vital signs: Vital Signs Temp 97.4 F L 10/02/23 07:08 Pulse 55 L 10/02/23 07:08 Resp 19 10/02/23 07:08 BP 108/59 10/02/23 07:08 Pulse Ox 100 10/02/23 07:08 FiO2 Intake & Output 10/01/23 10/02/23 10/02/23 18:59 06:59 18:59 Intake Total 560 Output Total 500 Balance 560 -500 Weight 68 kg Intake: Oral 560 Output: Urine 500 Other: Voiding Method Indwelling Catheter Indwelling Catheter Indwelling Catheter - Labs CBC & Chem 7: 09/29/23 09:30 10/02/23 06:59 Labs: Abnormal Lab Results - Last 24 Hours (Table) 10/01/23 10/01/23 10/01/23 Range/Units 11:48 16:47 20:38 PT (10.0-12.5) sec INR (<1.2) Chloride (98-107) mmol/L Carbon Dioxide (22-30) mmol/L BUN (9-20) mg/dL Creatinine (0.66-1.25) mg/dL Glucose (74-99) mg/dL POC Glucose (mg/dL) 172 H 176 H 143 H (70-110) mg/dL 10/02/23 10/02/23 Range/Units 06:59 06:59 PT 33.3 H (10.0-12.5) sec INR 3.4 H (<1.2) Chloride 95 L (98-107) mmol/L Carbon Dioxide 34 H (22-30) mmol/L BUN 109 H* (9-20) mg/dL Creatinine 2.62 H (0.66-1.25) mg/dL Glucose 119 H (74-99) mg/dL POC Glucose (mg/dL) (70-110) mg/dL
[2023-10-02] MEDS: MORPHINE SULFATE 4 MG/ML SYRINGE IVP PRN (12:09)
[2023-10-02] MEDS: LORazepam 2 MG/ML INJ IV PRN (15:23)
[2023-10-02 19:07] VITALS: RESP 24
--- NOTE | 2023-10-03 08:15 | P.DS ---
Providers Date of admission: 09/29/23 04:07 Expected date of discharge: 10/03/23 Attending physician: Keith Hirsch MD Consults: 09/29/23 04:07 Consult Physician Routine Consulting Provider: [facility] Consult Reason/Comments: CHF Do you want consulting provider notified?: Yes Consult Physician Routine Consulting Provider: Guy Cutler Consult Reason/Comments: cardio-renal syndrome Do you want consulting provider notified?: Yes Primary care physician: [facility] Course: Discharge Diagnosis: Acute on chronic diastolic and systolic heart failure exacerbation UTE on CKD Hypertension Dyslipidemia Paroxysmal atrial fibrillation Type 2 diabetes Multivessel CAD History of pacemaker placement Hospital Course: 83-year-old male with a PMH of A-fib on Coumadin, cardiorenal syndrome, CAD, diastolic CHF (echo from 01/18 showed moderate to severe LVH with a EF 50 to 55%) with cardiorenal syndrome, status post pacemaker placement, type II DM, hyp ertension, hyperlipidemia, AAA, chronic kidney disease stage IIIb, who presented to the emergency room from [facility] with complaints of shortness of breath. Chest x-ray in the emergency room was consistent with congestive heart failure. Laboratory evaluation was remarkable for troponin 0.081, proBNP 26,600, BUN 106 (previously 41 in 03/20), creatinine 2.6 (baseline 2.0), sodium 134, potassium 3.4, CO2 33, hemoglobin 8.1 (at baseline), and INR 2.2. Patient admitted for CHF exacerbation with UTE. Cardiology and nephrology consulted. He was started on IV diuretics. However family now wants to do hospice care. Hospice consulted. Patient started on comfort care measures. Patient 2012 on 10/02/23 Plan - Discharge Summary New Discharge Prescriptions: No Action Metoprolol Tartrate [Lopressor] 25 mg PO BID Lovastatin [Mevacor] 40 mg PO HS Warfarin [Coumadin] 1 mg PO HS Insulin Glargine,Hum.rec.anlog [Lantus Solostar Pen] 12 unit SQ DAILY Furosemide [Lasix] 20 mg PO DAILY@1400 metOLazone [Zaroxolyn] 2.5 mg PO MOFR QUEtiapine FUMARATE [SEROquel] 25 mg PO HS Furosemide [Lasix] 40 mg PO BID@0800,1600 Dapagliflozin Propanediol [Farxiga] 10 mg PO DAILY Nystatin 100,000Unit/gm Cream [Mycostatin Cream] 1 applic TOPICAL TID PRN PRN Reason: Skin Irritation Nitroglycerin Sl Tabs [Nitrostat] 0.4 mg SUBLINGUAL Q5M PRN PRN Reason: Chest Pain Miconazole Nitrate [Zeasorb AF] 1 applic TOPICAL TID Famotidine [Pepcid] 20 mg PO BID Discharge Medication List Metoprolol Tartrate [Lopressor] 25 mg PO BID 02/28/14 [History] Lovastatin [Mevacor] 40 mg PO HS 12/14/18 [History] Insulin Glargine,Hum.rec.anlog [Lantus Solostar Pen] 12 unit SQ DAILY 05/26/20 [History] Warfarin [Coumadin] 1 mg PO HS 05/26/20 [History] Dapagliflozin Propanediol [Farxiga] 10 mg PO DAILY 05/14/22 [History] Furosemide [Lasix] 20 mg PO DAILY@1400 03/02/23 [History] Famotidine [Pepcid] 20 mg PO BID 09/29/23 [History] Furosemide [Lasix] 40 mg PO BID@0800,1600 09/29/23 [History] Miconazole Nitrate [Zeasorb AF] 1 applic TOPICAL TID 09/29/23 [History] Nitroglycerin Sl Tabs [Nitrostat] 0.4 mg SUBLINGUAL Q5M PRN 09/29/23 [History] Nystatin 100,000Unit/gm Cream [Mycostatin Cream] 1 applic TOPICAL TID PRN 09/29/23 [History] QUEtiapine FUMARATE [SEROquel] 25 mg PO HS 09/29/23 [History] metOLazone [Zaroxolyn] 2.5 mg PO MOFR 09/29/23 [History] Follow up Appointment(s)/Referral(s): Lonnie Hewitt DO [Primary Care Provider] - 1-2 days Discharge Disposition: - Preliminary Cause of Preliminary Cause of : CHF
== END 2023-10-02 21:45 | disposition expired | DRG 291 ==
LOC: EC 01:59 → 2CATHESU 04:07 → 3NCARDOBS 05:37 → 1SOBS 08:16 → 3SCARD 12:40 → 4SSUR 09-30 17:58
PROVIDERS: ADMIT Internal Medicine; ATTEND Internal Medicine
DX: I13.0 Hypertensive heart and chronic kidney disease with heart failure and stage 1 through stage 4 chronic kidney disease, or unspecified chronic kidney disease (principal); I50.43 Acute on chronic combined systolic (congestive) and diastolic (congestive) heart failure; J96.01 Acute respiratory failure with hypoxia; N17.0 Acute kidney failure with tubular necrosis; N18.4 Chronic kidney disease, stage 4 (severe); Z11.52 Encounter for screening for COVID-19; D63.1 Anemia in chronic kidney disease; E87.6 Hypokalemia; T50.2X5A Adverse effect of carbonic-anhydrase inhibitors, benzothiadiazides and other diuretics, initial encounter; X58.XXXA Exposure to other specified factors, initial encounter; E11.22 Type 2 diabetes mellitus with diabetic chronic kidney disease; E61.1 Iron deficiency; E78.5 Hyperlipidemia, unspecified; I08.1 Rheumatic disorders of both mitral and tricuspid valves; Z51.5 Encounter for palliative care; Z66 Do not resuscitate; I27.20 Pulmonary hypertension, unspecified; I48.0 Paroxysmal atrial fibrillation; N40.0 Benign prostatic hyperplasia without lower urinary tract symptoms; E11.42 Type 2 diabetes mellitus with diabetic polyneuropathy; G47.33 Obstructive sleep apnea (adult) (pediatric); J30.2 Other seasonal allergic rhinitis; I49.5 Sick sinus syndrome; I25.10 Atherosclerotic heart disease of native coronary artery without angina pectoris; Z79.01 Long term (current) use of anticoagulants; Z79.899 Other long term (current) drug therapy; Z79.84 Long term (current) use of oral hypoglycemic drugs; Z82.49 Family history of ischemic heart disease and other diseases of the circulatory system; Z86.79 Personal history of other diseases of the circulatory system; Z95.0 Presence of cardiac pacemaker; Z79.4 Long term (current) use of insulin
CPT/HCPCS: 36415; 51798; 71046; 76770; 80048; 80053; 81001; 82728; 83540; 83550; 83605; 83735; 83880; 84484; 85025; 85027; 85610; 85730; 87636; 93005; 93306; 96365; 96375; 96376; 99285